=== PATIENT | female | born 1950 | race Caucasian/White ===

== ENCOUNTER 2018-11-02 08:26 | Inpatient (IN) ==
[2018-11-02] MEDS ORDERED: NS 1,000 ML IV ONE ×2 (08:49→10:23)
[2018-11-02] MEDS ORDERED: ZOFRAN IV ONE (08:50)
[2018-11-02] MEDS ORDERED: DILAUDID IV ONE (08:50)
[2018-11-02] MEDS ORDERED: DUONEB (A & A) INH ONE (08:50)
[2018-11-02 09:08] LABS: ALLEN TEST NO; BE 8.6 mmoll (-3.0-3.0); BLOOD TYPE ARTERIAL; HCO3-(ACT) 31.6 mmoll (20.0-26.0); METHB 1.6 % (0.0-1.5); O2(CT) 19.5 mL/dL (15.0-23.0); PO2(98.6) 147 mmHg (60-100); SAMPLE BLOOD; SAO2 99.3 % (95.0-100.0); THB 14.3 g/dL (11.5-17.4); pH(98.6) 7.42 (7.35-7.45)
[2018-11-02 09:09] LABS: MODALITY NRB; PCO2(98.6) 54 mmHg (35-45)
--- NOTE | 2018-11-02 09:49 | Diag Imaging Result Doc PS360 ---
CHEST-1 VIEW - 11/02/2018 INDICATION: possible sepsis COMPARISON: 01/22/2018 FINDINGS: There are extensive primarily central interstitial infiltrates bilaterally. Heart size and pulmonary vascularity is grossly normal. No pneumothorax or large pleural effusion. IMPRESSION: Extensive interstitial infiltrates bilaterally. Electronically signed by Faustino Villarreal 11/02/2018 9:47 AM
[2018-11-02 09:52] LABS: INR 0.83; PROTIME 12.1 Seconds (11.0-16.0)
[2018-11-02 09:53] LABS: PTT 31.9 Seconds (22.3-41.8)
[2018-11-02 09:54] LABS: BASO# 0.09 X1000 (0.0-0.2); BASO% 0.5 % (0.0-0.8); HEMOGLOBIN 14.6 g/dL (12.0-16.0); IMM GRAN# 0.05 X1000 (0.0-0.04); IMM GRAN% 0.3 % (0.0-0.5); LYMPH% 7.7 % (20.5-51.1); MCH 27.9 PG (27-31); MCHC 31.7 g/dL (33-37); MCV 87.8 FL (81-99); MONO% 5.4 % (1.7-9.3); MPV 11.4 FL (7.4-10.4); NEUT# 14.44 X1000 (1.4-6.5); NEUT% 86.1 % (42.2-75.2); PLT 236 X1000 (130-400); RBC 5.24 XMIL (4.2-5.4); RDW 13.9 % (11.5-14.5); WBC 16.78 X1000 (4.8-10.8)
[2018-11-02 10:02] LABS: BANDS 62 % (0-1); LYMPHS 4 % (21-51); SEGS 4 % (42-75)
[2018-11-02] MEDS ORDERED: SODIUM CHLORIDE 0.9% INJ ONE ×2 (10:23→13:46)
[2018-11-02] MEDS ORDERED: ROCEPHIN 1 GM in NS 50 ML IV ONE (10:23)
[2018-11-02] MEDS ORDERED: PROTONIX IV ONE (10:23)
[2018-11-02] MEDS ORDERED: KETAMINE IV ONE (10:51)
[2018-11-02] MEDS ORDERED: AMIDATE ONE (10:52)
[2018-11-02] MEDS ORDERED: QUELICIN ONE (10:52)
[2018-11-02] MEDS ORDERED: QUELICIN IV ONE (10:52)
[2018-11-02 10:55] LABS: ALB/GLOB RATIO 0.8; ALBUMIN 3.3 g/dL (3.5-5.0); CALCIUM 8.7 mg/dL (8.8-10.2); CREATININE 1.3 mg/dL (0.5-0.9); POTASSIUM 4.1 mmol/L (3.5-5.1); TOTAL BILIRUBIN 0.26 mg/dL (0.20-1.00); TOTAL PROTEIN 7.6 g/dL (6.3-8.3)
[2018-11-02] MEDS ORDERED: SOLU-MEDROL IV ONE (11:01)
[2018-11-02] MEDS ORDERED: AMIDATE IV ONE (11:01)
--- NOTE | 2018-11-02 11:38 | EKG Report ---
Test Performed on : 11/02/2018 08:53:18 AM Test Reason : ED. No order in [place] Blood Pressure : / mmHG Vent. Rate : 132 BPM Atrial Rate : 132 BPM P-R Int : 146 ms QRS Dur : 078 ms QT Int : 380 ms P-R-T Axes : 058 050 059 degrees QTc Int : 563 ms Sinus tachycardia. with premature atrial complexes. Possible Anterior infarct (cited on or before 02-NOV-2013) Abnormal ECG When compared with ECG of 02-NOV-2013 18:41, premature atrial complexes. are now present ST no longer depressed in Anterior leads T wave inversion no longer evident in Anterior leads Unconfirmed Result
[2018-11-02] MEDS ORDERED: FENTANYL IV ONE (11:54)
[2018-11-02] MEDS ORDERED: FENTANYL 1,000 MICROGM in NS 80 ML IV SCH (12:00)
--- NOTE | 2018-11-02 12:14 | Diag Imaging Result Doc PS360 ---
CT HEAD W/O CONTRAST - 11/02/2018 INDICATION: AMS COMPARISON: None FINDINGS: The ventricles and sulci are normal in size and contour. No intracranial mass or hemorrhage. There is mild patchy periventricular white matter chronic microvascular disease. The skull is intact. There is fluid opacification of many mastoid air cells bilaterally suggesting mastoiditis. The sinuses and middle ears are clear. IMPRESSION: 1. Mild cerebral white matter chronic vascular disease. 2. Mild bilateral mastoiditis. This exam was performed using automated exposure control, adjustment of mA or kV according to patient size, and/or use of iterative reconstruction technique Electronically signed by Faustino Villarreal 11/02/2018 12:12 PM
--- NOTE | 2018-11-02 12:25 | Diag Imaging Result Doc PS360 ---
EXAM: CT ABD/PELVIS W/IV CONT ONLY 11/02/2018 HISTORY: ACUTE ABD, SEPTIC TECHNIQUE: This exam was performed using automated exposure control, adjustment of mA or kV according to patient size, and/or use of iterative reconstruction technique. COMMENT: The current examination is compared with 11/02/2013. There are patchy coarse opacities throughout both lung bases which has worsened somewhat since the previous study. Some of this may be due to fibrosis as there were previously some patchy opacities. There is ascites. This was not present previously. The liver is less hypodense than it was previously. The common bile duct is 8 mm in diameter. This is slightly larger than on the previous examination. There is some intrahepatic biliary dilatation. The aorta is not distended. There are atherosclerotic calcifications. The renal and mesenteric arteries are patent. The adrenal glands and spleen are stable in appearance. There are numerous renal cysts bilaterally. There is no evidence of hydronephrosis. There are arterial calcifications bilaterally. There is a diverticulum from the second portion of the duodenum adjacent to the pancreatic head. The pancreas is unchanged in appearance. There is pneumoperitoneum. There is mucosal thickening in the transverse colon on the right which dips down into the pelvis. The appendix is normal in appearance. Some of the small bowel is distended. This may be due to ileus. There is no evidence of significant adenopathy. Pelvis: There is free fluid. There are no masses. There is no evidence of significant adenopathy. The urinary bladder is not distended. The regional skeleton is unchanged in appearance. IMPRESSION: Probable perforation of the transverse colon due to colitis or neoplasm. Pneumoperitoneum and possible peritonitis. Ascites. Patchy pneumonia versus pulmonary fibrosis. The findings were discussed with Demarcus Zayas MD at 11/02/2018 12:23 PM. Electronically signed by Thad Dupree 11/02/2018 12:23 PM
--- NOTE | 2018-11-02 13:08 | PROVIDER DOCUMENTATION ---
This chart was entered by Jasmyn Gant Scribe, acting as scribe for Demarcus Zayas MD. HPI-Abdominal Pain/GI Problem - General Chief Complaint: Abdominal Pain Stated Complaint: N/V Time Seen by Provider: 11/02/18 08:49 Source: patient Allergies/Adverse Reactions: Patient Allergies Allergy/AdvReac Type Severity Reaction Status Date / Time codeine Allergy Intermediate RASH Verified 11/02/13 13:37 Penicillins Allergy Intermediate RASH Verified 11/02/13 13:37 Home Medications: Home Medication List Medication Instructions Recorded Confirmed Last Taken Type Albuterol [Albuterol Neb] 2.5 mg INH RTQ6H 11/02/13 11/02/13 10/31/13 18:00 History Cholecalciferol (Vit D3) [Vitamin 5,000 unit PO Q7D 11/02/13 11/02/13 10/30/13 14:00 History D] Etanercept [Enbrel] 25 mg SQ Q7D 11/02/13 11/02/13 10/30/13 14:00 History Fluticasone/Salmeterol [Advair 1 each IH DIRECTED 11/02/13 11/02/13 11/02/13 08:00 History 500-50 Diskus] Ibandronate [Boniva] 150 mg PO DIRECTED 11/02/13 11/02/13 Unknown History LISINOpril [Prinivil] 10 mg PO DAILY 11/02/13 11/02/13 11/01/13 08:00 History Ropinirole HCl [Requip] 2 mg PO HS 11/02/13 11/02/13 11/01/13 21:00 History Sulfasalazine [Sulfazine] 1,000 mg PO BID 11/02/13 11/02/13 11/01/13 08:00 History Tiotropium Devon Inhaler 1 puff INH RTDAILY 11/02/13 11/02/13 11/01/13 21:00 History [Spiriva] Folic Acid 1 mg PO DAILY #0 tablet 11/06/13 Unknown Rx Metronidazole [Flagyl] 500 mg PO TID #0 tablet 11/06/13 Unknown Rx Pantoprazole [Protonix] 40 mg PO DAILY@0700 #0 tablet 11/06/13 Unknown Rx - History of Present Illness-ABD Nature of Presenting Problems: Patient is a 68 year old female who presents to the ED via EMS with epigastric abdominal pain. Patient states nausea and vomiting. Patient states symptoms started last night. Patient denies fever. Abdominal Pain Onset Location: reports: epigastric Pain Radiation: reports: no radiation Quality of Pain: reports: aching Severity in ED: reports: mild Onset/Duration: reports: last night Timing: reports: still present Activities at Onset: reports: light activity Modifying Factors: improves with: nothing Associated Symptoms: reports: nausea, vomiting Similar Symptoms Previously?: Yes Recently seen or treated by another doctor?: No Review of Systems - Adult - REVIEW OF SYSTEMS - ADULT Constitutional: reports: no symptoms reported Eyes: reports: no symptoms reported Ears, Nose, Mouth & Throat: reports: no symptoms reported Cardiovascular: reports: no symptoms reported Respiratory: reports: no symptoms reported Gastrointestinal: reports: abdominal pain (epigastric), nausea, vomiting. denies: diarrhea Genitourinary: reports: no symptoms reported Musculoskeletal: reports: no symptoms reported Integumentary: reports: no symptoms reported Neurological: reports: no symptoms reported Psychiatric: reports: no symptoms reported Endocrine: reports: no symptoms reported Hematologic/Lymphatic: reports: no symptoms reported Allergic/Immunologic: reports: no symptoms reported All Other Systems: Reviewed and Negative Past History - Adult - PAST MEDICAL HISTORY-ADULT Review of Records: reports: Nursing Assessment Review, Medications Reviewed, Social history reviewed & non-contributory. Major Childhood Illnesses: reports: denies history Cardiovascular: reports: HTN Respiratory: reports: asthma, COPD Gastrointestinal: reports: GERD Obstetrical/Gynecological: reports: denies history Genitourinary: reports: denies history Musculoskeletal: reports: denies history Neurological: reports: CVA Psychiatric: reports: denies history Endocrine/Immune: reports: thyroid disorder Other Conditions: reports: denies history - PRIOR SURGERIES/PROCEDURES Surgical/Procedure History: reports: reviewed, not pertinent, appendectomy, cholecystectomy - IMMUNIZATION STATUS Childhood Immunizations: See Nurse Assessment Flu Vaccine: See Nurse Assessment - FAMILY HISTORY Family History: reviewed, not pertinent - SOCIAL HISTORY Smoking: cigarettes (former) Substance Use: denies Physical Exam-General - PHYSICAL EXAM-ADULT Initial Vital Signs Reviewed: Yes - CONSTITUTIONAL General Appearance: alert, moderate distress, thin - HEAD, EARS, NOSE, MOUTH & THROAT HENMT: other (dry mucous membranes) - RESPIRATORY Respiratory: respiratory distress (mild), rales (diffuse bilaterally), increased rate - CARDIOVASCULAR Cardiovascular: normal peripheral pulses, tachycardia - GASTROINTESTINAL (ABDOMEN) Abdominal Exam: normal bowel sounds, soft, tenderness (epigastric) - MUSCULOSKELETAL Extremity: non-tender, normal inspection - SKIN Integumentary: pallor - NEUROLOGIC Neurologic: grossly normal - PSYCHIATRIC Psych/Mental Status: oriented x 3 Progress - PLAN OF CARE/RESULTS Progress/Plan/Lab Results: Vital Signs - 8 hr 11/02/18 08:30 Temperature 96.6 F L Pulse Rate 130 H Respiratory Rate 22 Blood Pressure 119/85 O2 Sat by Pulse Oximetry 91 L Orders Category Date Time Status 0.9% Sodium Chloride Inj [Ns] 1,000 ml Med 11/02/18 08:49 Active IV 999 mls/hr Albuterol 2.5MG/Ipratrop 0.5MG [Duoneb (A & A)] Med 11/02/18 08:50 Di scontinued 3 ml INH NOW ONE Hydromorphone [Dilaudid] Med 11/02/18 08:50 Discontinued 1 mg IV NOW ONE Ondansetron [Zofran] Med 11/02/18 08:50 Discontinued 4 mg IV NOW ONE Aerosol Treatments Routine Oth 11/02/18 08:52 Active Aerosol Treatments Stat Oth 11/02/18 08:52 Active Result Diagrams: 11/02/18 09:10 11/02/18 10:05 - REASSESSMENT Reassessment #1 Time Reassessed: 10:39 Status: worsening (pt has become unreposive to verbal, still has motor tone, now gaze deviated to left , 123hr, 99% bipap 106/68.) Reassessment #2 Time Reassessed: 10:58 Status: other (Dr. Zayas consulted with the patient's two daughters about the patient current status. Dr. Zayas informed the daughters that the patient has become unresponsive and she needs to be intubated. The patient's daughters agree and state that the patient is a full code.) - EKG 1 Time of EKG reading by physician:: 08:53 EKG Read and Signed by:: Demarcus Zayas EKG Interpretation (*Must complete 3 of following elements*): Abnormal Rate: 132 Rhythm: sinus tachycardia with premature atrial complexes Comments: possible anterior infarct, age undetermined - XRAY 1 XRAY Study: Chest Impression: See EMR Report ( CHEST-1 VIEW - 11/02/2018 INDICATION: possible sepsis COMPARISON: 01/22/2018 FINDINGS: There are extensive primarily central interstitial infiltrates bilaterally. Heart size and pulmonary vascularity is grossly normal. No pneumothorax or large pleural effusion. IMPR ESSION: Extensive interstitial infiltrates bilaterally. Electronically signed by Faustino Villarreal 11/02/2018 9:47 AM 11/02/18 0947 Interpreting Physician: Faustino Villarreal MD Dictated Date/Time: 11/02/18 0945 cc: Demarcus Zayas MD; Marcus Rodriguez) - CT/MRI 1 CT Study: Head Impression: See EMR Report ( CT HEAD W/O CONTRAST - 11/02/2018 INDICATION: AMS COMPARISON: None FINDINGS: The ventricles and sulci are normal in size and contour. No intracranial mass or hemorrhage. There is mild patchy perivent ricular white matter chronic microvascular disease. The skull is intact. There is fluid opacification of many mastoid air cells bilaterally suggesting mastoiditis. The sinuses and middle ears are clear. IMPRESSION: 1. Mild cerebral white matter chronic vascular disease. 2. Mild bilateral mastoiditis. This exam was performed using automated exposure control, adjustment of mA or kV according to patient size, and/or use of iterative reconstruction technique Electronically signed by Faustino Villarreal 11/02/2018 12:12 PM 11/02/18 1212 Interpreting Physician: Faustino Villarreal MD Dictated Date/Time: 11/02/18 1210 cc: Demarcus Zayas MD; Marcus Rodriguez) 2 CT Study: Abdomen, Pelvis Impression: See EMR Report ( EXAM: CT ABD/PELVIS W/IV CONT ONLY 11/02/2018 HISTORY: ACUTE ABD, SEPTIC TECHNIQUE: This exam was performed using automated exposure control, adjustment of mA or kV according to patient size, and/or use of iterative reconstruction technique. COMMENT: The current examination is compared with 11/02/2013. There are patchy coarse opacities throughout both lung bases which has worsened somewhat since the previous study. Some of this may be due to fibrosis as there were previously some patchy opacities. There is a scites. This was not present previously. The liver is less hypodense than it was previously. The common bile duct is 8 mm in diameter. This is slightly larger than on the previous examination. There is some intrahepatic biliary dilatation. The aorta is not distended. There are atherosclerotic calcifications. The renal and mesenteric arteries are patent. The adrenal glands and spleen are stable in appearance. There are numerous renal cysts bilaterally. There is no evidence of hydronephrosis. There are arterial calcifications bilaterally. There is a diverticulum from the second portion of the duodenum adjacent to the pancreatic head. The pancreas is unchanged in appearance. There is pneumoperitoneum. There is mucosal thickening in the transverse colon on the right which dips down into the pelvis. The appendix is normal in appearance. Some of the small bowel is distended. This may be due to ileus. There is no evidence of significant adenopathy. Pelvis: There is free fluid. There are no masses. There is no evidence of significant adenopathy. The urinary bladder is not distended. The re gional skeleton is unchanged in appearance. IMPRESSION: Probable perforation of the transverse colon due to colitis or neoplasm. Pneumoperitoneum and possible peritonitis. Ascites. Patchy pneumonia versus pulmonary fibrosis. The findings were discussed with Demarcus Zayas MD at 11/02/2018 12:23 PM. Electronically signed by Thad Dupree 11/02/2018 12:23 PM 11/02/18 1223 Interpreting Physician: Thad Dupree MD Dictated Date/Time: 11/02/18 1213 cc: Demarcus Zayas MD; Marcus Rodriguez) - CONSULTS/PCP/HOSPITALIST Notification #1 *Consult/PCP/Hospitalist*: Dr. Dupree Time Discussed: 12:23 Reason/Comments: Dr. Zayas consulted with Dr. Dupree about the patient's CT Consult Disposition: other (Dr. Dupree states the patient's CT shows a perforation of transverse colon with free air.) #2 Consult: AMOL Cardenas for Hospitalist Time Discussed: 12:54 (Dr. Paz accepted admit) Reason/Comments: Dr. Zayas consulted with Theresa about patient. Consult Disposition: Admit #3 Consult: Dr. Cummings Time Discussed: 12:55 Reason/Comments: Dr. Zayas consulted with Dr. Cummings about patient. Consult Disposition: Will see in ED, other (TO BEDSIDE AT 1305A, PLANS TO GO DIRECTLY TO SURGERY) Procedures - INTUBATION Time of Intubation: 11:09 Intubation Method: orotracheal Equipment: Glidescope Tube Size (cm): 7.5 Pretreated with 100% Oxygen?: Yes Breath Sounds after Intubation: equal ETT Primary Tube Confirmation: Capnometry CO2 Change, Direct Visualization, Chest Rise and Fall Intubation Complications: no complications Vent Settings: See Respiratory Therapy Notes Procedure Comment: patient received 20 mg of Etomidate and 100 mg of Succ prior to intubation. Departure - Departure Date of Disposition Decision: 11/02/18 Time of Disposition Decision: 12:54 DIAGNOSIS: Hypoxia, Perforation of colon, Abdominal pain, Acute CVA (cerebrovascular accident), COPD (chronic obstructive pulmonary disease), Sepsis Disposition: ADMITTED INPATIENT 09 Certified Medical Emergency: Emergent Condition: Poor Referrals and Follow-Ups: Marcus Rodriguez [Primary Care Provider] - - Critical Care Note This patient required my direct & personal management of CC.: Yes Total Time (mins): 76 Critical Care Statement: This patient required my direct personal management to treat or rule out processes, the absence of which, could potentiallly result in sudden, clinically significant life or limb threatening deterioration. Attestation - Physician/ FRANCOIS Attestation The physician spent face to face time with patient:: Yes Advanced Practice Provider documentation review:: Supervising physician onsite and consulted in the evaluation and care of this patient. The physician did have a face to face encounter with the patient. This chart was documented by the indicated scribe, (Jasmyn Gant Scribe) and accurately reflects the services I performed and decisions made by me, Demarcus Zayas MD, as attested by the provider's signature.
[2018-11-02] MEDS ORDERED: VANCOMYCIN IV PER PHARMACY MISC SCH ×2 (13:30→18:15)
--- NOTE | 2018-11-02 13:38 | HISTORY AND PHYSICAL ---
HISTORY OF PRESENT ILLNESS: Ms Josselin Bradford is a 68-year-old white female who yesterday evening began having abdominal pain which continued through the night. She presented to our emergency department this morning with abdominal pain, and since that time, she has become unstable requiring intubation and there was concern of whether she has had an acute stroke. A CT scan of her abdomen and pelvis suggests free air, and we were asked to evaluate her. PHYSICAL EXAMINATION: On exam, she is on the ventilator. She is unresponsive. I did speak with her daughters. She has no jaundice. No oral lesions. No cervical or supraclavicular lymphadenopathy. Her heart has a regular rate. She is tachycardic. Her lungs have some expiratory wheezing. She is on the ventilator. Her abdomen is distended. It does appear to be tender. She does react to pain. She had costovertebral tenderness bilaterally. Rectal and vaginal exams were not performed. She does have palpable femoral pulses. She has no significant peripheral edema. Neurologically, it is hard to examine her. DIAGNOSTIC STUDIES: I reviewed the CT scan with our radiologist, Dr. Dupree. It appears that she has free air. It is unsure of the etiology. IMPRESSION: Acute abdomen. PLAN: Exploratory laparotomy with indicated procedures. I did discuss this in detail with the daughters at the bedside in the emergency department, including risks of bleeding, infection, possible colostomy or ileostomy. The daughters understand that she is acutely ill with hypotension on the ventilator. They understand she is going to have to go through our emergency major surgery. She will be hospitalized in the ICU on the ventilator afterwards. They want to proceed. cc: Violetta Cummings MD
[2018-11-02] MEDS ORDERED: ZOFRAN IV PRN (13:40)
[2018-11-02] MEDS ORDERED: MERREM 500 MG in NS 50 ML IV SCH (13:45)
[2018-11-02] MEDS ORDERED: NS 1,000 ML IV SCH ×2 (14:00→16:00)
[2018-11-02] MEDS ORDERED: VANCOMYCIN 1,200 MG in NS 250 ML IV ONE (14:00)
[2018-11-02] MEDS: LEVAQUIN 500 MG/D5W 500 MG/100 ML IVPB IV SCH ×2 (14:06→15:40)
[2018-11-02] MEDS: FLAGYL 500 MG/NS 500 MG/100 ML IVPB IV SCH ×2 (14:09→15:40)
[2018-11-02] MEDS ORDERED: ZEMURON ONE (14:12)
[2018-11-02] MEDS ORDERED: NORCURON ONE (14:12)
[2018-11-02] MEDS ORDERED: OFIRMEV 1000 MG/ISOTONIC SOLN 1,000 MG/100 ML BOTTLE ONE (14:12)
[2018-11-02] MEDS ORDERED: DECADRON ONE (14:13)
[2018-11-02 14:27] LABS: URINE SOURCE CATH
[2018-11-02 14:29] LABS: BILIRUBIN URINE NEGATIVE (NEGATIVE); BLOOD URINE MODERATE (NEGATIVE); COLOR YELLOW; GLUCOSE URINE NEGATIVE (NEGATIVE); KETONE URINE NEGATIVE (NEGATIVE); LEUKOCYTES URINE NEGATIVE (NEGATIVE); NITRITE URINE NEGATIVE (NEGATIVE); PROTEIN URINE 300 mg/dL (NEGATIVE); SP GRAVITY URINE 1.025; TURBIDITY URINE HAZY (CLEAR); UROBILINOGEN URINE NORMAL (NORMAL)
[2018-11-02 14:32] LABS: UR EPITHELIAL CELLS >10 /HPF (<10); URINE BACTERIA NEGATIVE /HPF
[2018-11-02 14:40] LABS: URINE CASTS NONE SEEN; URINE CRYSTALS NONE SEEN; URINE YEAST NONE SEEN
--- NOTE | 2018-11-02 15:38 | OPERATIVE NOTE ---
PROCEDURE DATE: 11/02/2018 PREOPERATIVE DIAGNOSIS: Acute abdomen with free intra-abdominal air. POSTOPERATIVE DIAGNOSIS: Perforated posterior distal gastric ulcer. PRINCIPAL PROCEDURE: Exploratory laparotomy with primary repair and patching of perforated distal gastric ulcer. SURGEON: Violetta Cummings MD. ANESTHESIA: General. ESTIMATED BLOOD LOSS: 150 mL. DRAINS: None. INDICATIONS: Kamilla Bradford is a 68-year-old white female with rheumatoid arthritis and COPD. She began hurting in her abdomen yesterday evening and presented to our emergency department this morning. Had to be intubated and there was question whether she suffered a stroke. CT scan of the abdomen suggested free intra-abdominal air. Prior to her being intubated, she was having significant abdominal pain. FINDINGS: She had a perforated gastric ulcer posteriorly, just proximal to the pylorus with gross intra-abdominal contamination. Her tissues were soft and she bled easily. DESCRIPTION OF PROCEDURE: The patient was brought to the operating room, placed supine, and received general anesthesia. She was already intubated. Whitney catheter tube was placed as was an NG tube. Her abdomen was prepped and draped in a sterile field. I used an Ioban on the skin. I made a midline incision with a 10 blade scalpel. This incision was carried down through the subcutaneous tissue and the midline fascia with cautery. The abdomen was carefully entered and she had gross thin black fluid as intra-abdominal contamination. It was not foul smelling and we took time to remove this free fluid from the abdomen using suction. We identified the perforation which was posteriorly on the distal antrum just proximal to the pylorus. I closed this perforation quickly primarily with 2-0 silk stitches. I had to control some bleeding around this area from the fat and this was controlled with [id number] 3-0 silk stitches. I then irrigated the abdomen with multiple L of warm saline and again all 4 quadrants were carefully cleaned with this irrigation and the irrigation was removed with suction. I laid the stomach back down on a bed of fatty tissue in the mesocolon, and I placed the bowel back in its anatomically correct position. I also put the omentum over the surface of the bowel. I closed the midline fascia in layers, the first layer was the peritoneum with a running 0 Vicryl stitch, and then I closed the fascia with a running #1 Maxon stitch. I irrigated the wound and the skin was closed with a skin clip sales management trainee. Dressings were applied. She tolerated the procedure well. Plans are for her to go to the ICU intubated with NG tube, Whitney catheter tube in place. cc: Violetta Cummings MD
[2018-11-02] MEDS ORDERED: ALBUMIN 25% ONE (15:51)
[2018-11-02] MEDS: PROTONIX 80 MG in NS 80 ML IV SCH (16:22)
[2018-11-02] MEDS ORDERED: CUBICIN 300 MG in NS 100 ML IV SCH (17:45)
[2018-11-02] MEDS ORDERED: MERREM 500 MG in NS 50 ML IV ONE (18:00)
[2018-11-02 18:01] LABS: ALLEN TEST YES; BE 1.8 mmoll (-3.0-3.0); BLOOD TYPE ARTERIAL; HCO3-(ACT) 26.3 mmoll (20.0-26.0); METHB 1.1 % (0.0-1.5); O2(CT) 16.6 mL/dL (15.0-23.0); O2HB 94.4 % (95.0-99.0); PO2(98.6) 75 mmHg (60-100); SAMPLE BLOOD; SRATE 16 BPM; THB 12.5 g/dL (11.5-17.4); TVOL 450 mL
[2018-11-02 18:07] LABS: MODALITY VENTILATOR
[2018-11-02 18:08] LABS: PCO2(98.6) 60 mmHg (35-45)
[2018-11-02 18:09] LABS: URINE SOURCE CATH
[2018-11-02 18:16] LABS: BILIRUBIN URINE NEGATIVE (NEGATIVE); BLOOD URINE LARGE (NEGATIVE); COLOR YELLOW; GLUCOSE URINE NEGATIVE (NEGATIVE); KETONE URINE NEGATIVE (NEGATIVE); LEUKOCYTES URINE NEGATIVE (NEGATIVE); NITRITE URINE NEGATIVE (NEGATIVE); PH URINE 5.5; PROTEIN URINE 70 mg/dL (NEGATIVE); SP GRAVITY URINE 1.022; TURBIDITY URINE CLEAR (CLEAR); UROBILINOGEN URINE NORMAL (NORMAL)
[2018-11-02 18:22] LABS: UR EPITHELIAL CELLS <10 /HPF (<10); URINE BACTERIA NEGATIVE /HPF; URINE RBC TNTC /HPF (<10); URINE WBC <10 /HPF (<10)
[2018-11-02 18:24] LABS: URINE CASTS NONE SEEN; URINE CRYSTALS NONE SEEN; URINE YEAST NONE SEEN
--- NOTE | 2018-11-02 18:27 | INFECTIOUS DISEASE PROGRESS NO ---
DATE: 11/02/2018 CONCLUSION: The patient has a perforated gastric ulcer with an associated peritonitis. She also has bilateral pulmonary infiltrates which could represent an aspiration pneumonia. Patient also has a penicillin allergy which is manifested by a rash. RECOMMENDATIONS: I have increased the dose of meropenem to 1 g IV every 8 hours. I have discontinued levofloxacin, vancomycin and Flagyl and instead I have ordered along with meropenem, daptomycin. PRESENT ILLNESS: It should be noted that the patient is unable to provide a history. No family member is present. The patient's present illness, she initially complained of having abdominal pain. She eventually came to the emergency department and a CT scan was performed. It showed probable perforation. There also was peritonitis. There also was seen patchy pneumonia. LABS: The patient's CBC shows a white count of 16,780, hemoglobin 14.6, and platelet count 236,000. Blood gases show a pH of 7.42, a pO2 of 147 and a pCO2 of 54. Creatinine is 1.3. GFR is 41. Urinalysis showed white cells, but no bacteria. Blood, urine and sputum cultures are pending. Chest x-ray shows bilateral infiltrates. PAST MEDICAL HISTORY: Positive for rheumatoid arthritis and COPD. Previous hospitalizations and operations: Unknown. Medical diseases unknown. Infectious disease history unknown. REVIEW OF SYSTEMS: Unable to be obtained. FAMILY HISTORY: Unknown. ALLERGIES: The patient is allergic to codeine and penicillins. HOME MEDICATIONS: Are albuterol inhaler, Enbrel, Boniva, Prinivil, Flagyl. Protonix, Requip, sulfasalazine, and Spiriva. PHYSICAL EXAMINATION: Vital Signs: Temperature is 96.8, pulse 92, respirations 14, blood pressure 104/62. The patient is 68 years old. She is 5 feet tall, weighs 107 pounds. General: This is an ill-appearing, elderly female. She is intubated and sedated. She has just come from the emergency room. HEENT: Patient is intubated as mentioned above. There is no drainage from the nose or ears. Neck: No meningismus. Lungs: Clear to auscultation. Cardiovascular: Heart rate is regular. Abdomen: Soft. There is a long incision which has a dressing on it, the dressing is in place. Neurologic: Patient is obtunded. She did not respond to verbal stimuli. There was no tremor. Integument: No rash noted. Thank you for the consult. cc: Mustapha Nicholson MD
[2018-11-02] MEDS: MORPHINE IV PRN (18:37)
--- NOTE | 2018-11-02 19:15 | HISTORY AND PHYSICAL ---
PRIMARY CARE PROVIDER: Dr. Arden Rodriguez. GENERAL SURGEON: Dr. Cummings. ALL AROUND PATTERNMAKER: Dr. Sam Salmeron. INFECTIOUS DISEASE: Dr. Nicholson. NEUROLOGIST: Dr. Carola Pugh. CHIEF COMPLAINT: Per ED notes, abdominal pain, nausea, vomiting. HISTORY OF PRESENT ILLNESS: Per ED notes, the patient is a 68-year-old female who presented to the ED via EMS with epigastric and abdominal pain with nausea and vomiting. Her symptoms have started the night prior. Denied any fever. Past medical history of COPD, hypertension, GERD, CVA, thyroid disorder. Imaging in the ED revealed a probable perforation of the transverse colon due to colitis or neoplasm, pneumoperitoneum and possible peritonitis, ascites, patchy pneumonia versus pulmonary fibrosis. Dr. Cummings was consulted. The patient was emergently taken to the ER for exploratory laparotomy with primary repair and patching of a perforated distal gastric ulcer. She was intubated prior to going to the OR, presumably secondary to an acute CVA. Her head CT was negative for any acute findings. We have consulted Dr. Mustapha Nicholson. She has been initiated on broad-spectrum antibiotics as well as Neurology and Pulmonology for acute respiratory failure. The patient now appears to be resting comfortably in the ICU. There is no family currently at the bedside, PAST MEDICAL HISTORY: 1. COPD. 2. Hypertension. 3. Gastroesophageal reflux disease. 4. CVA. 5. Hypothyroidism. PAST SURGICAL HISTORY: 1. Appendectomy. 2. Cholecystectomy. SOCIAL HISTORY: Unknown. FAMILY HISTORY: Unknown. REVIEW OF SYSTEMS: Unable to obtain secondary to the patient being intubated and sedated after surgery. PHYSICAL EXAMINATION: VITAL SIGNS: Temperature is 96.8 degrees. He does currently have a Eden Hugger on. Heart rate 97. Blood pressure 104/60. O2 is 96% on mechanical ventilation. GENERAL: Ms. Montelongo is a 68-year-old female who is lying in the ICU in no acute distress, intubated. HEENT: Atraumatic, normocephalic. PERRL. NECK: Supple. Trachea midline. CARDIOVASCULAR: S1 and S2 appreciated. No murmurs, gallops, or rubs noted. RESPIRATORY: Lung sounds scattered rhonchi. ABDOMEN: Appears to be distended. The patient did not react to palpation. She does have a rather large midline incision. Hypoactive bowel sounds. GENITOURINARY: Whitney draining clear urine. EXTREMITIES: No clubbing or cyanosis. Bilateral pedal pulses are palpable. Upper extremities appear to have extreme arthritis. NEUROLOGIC: Unable to assess secondary to the patient being intubated and sedated. DIAGNOSTIC DATA: 1. Chest x-ray: Extensive interstitial infiltrates bilaterally. 2. Head CT: Mild cerebral white matter vascular disease. Mild bilateral mastoiditis. 3. Abdomen and pelvis CT: Probable perforation of the transverse colon due to colitis or neoplasm, pneumoperitoneum and possible peritonitis, ascites, patchy pneumonia versus pulmonary fibrosis. 4. Exploratory laparotomy with primary repair and patching of a perforated distal gastric ulcer, performed by Dr. Cummings. LABORATORY DATA: White count 16, hemoglobin and hematocrit 14 and 46, platelet count is 236,000. ABG: pH 7.42, pCO2 is 54, pCO2 147, bicarb 31, base excess 8.6. O2 saturation was 99% on non- rebreather. Sodium 132, potassium 4.1, BUN 28, creatinine 1.3, blood glucose 156, AST 33, ALT 8, troponin 0.015, albumin 3.3. Plasma lactate, first was 3.1, second was 2.2. Urinalysis was negative for bacteria, negative for nitrites. ASSESSMENT AND PLAN: 1. Acute abdomen, status post exploratory laparotomy with primary repair and patching of perforated distal gastric ulcer, performed by Dr. Cummings. The patient remains intubated. She is now in the ICU. We will continue with broad-spectrum antibiotics, intravenous Protonix, and intravenous fluids. 2. Question if patient had a cerebrovascular accident. She went unresponsive and had to be intubated. Head CT did not show anything acute. We have consulted Neurology. Will follow up with brain MRI and MRA when appropriate. We can go ahead and check echocardiogram and carotids tomorrow. Right now she is intubated and sedated. We will do neurology checks once the patient is more awake and alert and extubated. 3. Chronic obstructive pulmonary disease. We will continue with scheduled and as needed breathing treatments. 4. Gastroesophageal reflux disease. Continue proton pump inhibitor. 5. Hypertension. The patient is now normotensive. 6. Sepsis, secondary to number 1. Continue antibiotics and intravenous hydration. 7. Further recommendations to follow physician evaluation, laboratory, and diagnostic data. Dictated by AMOL Richter for Val Paz MD cc: MD Violetta Wood MD Leroy F. Harris, MD I performed a face to face encounter on the patient. I reviewed all labs and imaging on the patient. I agree with the H&P as dictated. Mrs. Montelongo was admitted with an acute abdomen secondary to a perforated gastric ulcer. She was taken the OR emergently and then admitted to the ICU. On exam, the patient is currently intubated and sedated. Her breath sounds are clear to auscultation bilaterally. Her extremities are warm to touch with no edema noted. Pulmonary has been consulted for assistance with ventilator management. Will also consult with the Neurologist since there is a possibility that the patient had a stroke. YANIRA
--- NOTE | 2018-11-02 19:28 | PULMONOLOGY CONSULTATION ---
DATE: 11/02/2018 REQUESTING PHYSICIAN: Val Paz MD. REASON FOR CONSULTATION: Respiratory failure. HISTORY OF PRESENT ILLNESS: Ms. Bradford is a 68-year-old, white female with severe COPD, prior stroke, rheumatoid arthritis on Enbrel, obstructive sleep apnea, and hypothyroidism, who presented to the emergency room with acute abdominal pain. CT scan of the abdomen and pelvis revealed probable perforated bowel with air present. The patient was evaluated by Dr. Cummings. The patient was taken to the operating room for an acute abdomen with free intraabdominal air. The patient was found to have a perforated posterior distal gastric ulcer. This was repaired. The patient was brought to the intensive care unit. The patient was noted to have gross intraabdominal contamination associated with perforation. She remains on mechanical ventilation. PAST MEDICAL HISTORY/PROBLEM LIST: 1. COPD with prior tobacco history. Current nursing intake reports she is not currently smoking. 2. Rheumatoid arthritis on Enbrel. 3. Prior stroke. Current CT scan for altered mental status prior to surgery revealed no evidence of acute disease. 4. Obstructive sleep apnea. 5. Hypothyroidism. 6. Hypertension. SOCIAL HISTORY: Prior tobacco use as per above. No alcohol use listed. FAMILY HISTORY: Positive for rheumatoid arthritis, coronary artery disease. REVIEW OF SYSTEMS: Cannot be obtained. PHYSICAL EXAMINATION: General: Reveals a frail, chronically ill-appearing, white female, who appears older than her stated age. BP 98/61, heart rate 103, respiratory rate 16, oxygen saturation 97%. The patient does not fully exhale with current tidal volume. HEENT: Pupils are equal. Oropharynx is clear. Neck: Supple. Chest: Reveals prolonged expiratory phase. No wheezing. No rhonchi. Cardiac: Distant heart sounds. Normal S1, normal S2. Rhythm appears to be regular. Abdomen: Soft. Surgical dressings in place. Extremities: Slightly cool to the touch with slight delay in capillary refill. LABORATORIES: Arterial blood gas after surgery reveals a pH of 7.30, pCO2 of 60, pO2 of 75 with a normal lactate. White blood count 16.8, hemoglobin 14.6, platelet count 236,000. Sodium 132, potassium 4.1, chloride 87, bicarbonate 31, anion gap 14, BUN 28, creatinine 1.3, albumin 3.3. Chest x-ray reveals generous cardiac silhouette, prominent interstitial markings bilaterally. IMPRESSION: 1. A 68-year-old with clinical exam consistent with severe chronic obstructive pulmonary disease with greater than 12 second expiratory time, acute hypoxemic respiratory failure, probable chronic hypoxemic respiratory failure, acute hypercapnic respiratory failure. 2. Status post emergent surgery for perforated aggressive gastric ulcer with diffuse intraabdominal contamination. She has had a surgical repair with a washout of the abdomen. 3. With her age, severe chronic obstructive pulmonary disease, immunosuppression associated with Enbrel, her prognosis is guarded. RECOMMENDATION: 1. Ventilatory adjustments have been made for her severe COPD and CO2 retention. 2. Continue antibiotics as directed by Infectious Disease. 3. Routine gastric acid suppression. 4. Sputum for C and S. 5. We will use Diprivan for sedation. 6. Sputum for cultures and sensitivity as you are doing. 7. Check a cortisol level tomorrow. 8. We will obtain echocardiogram tomorrow. The patient has relative cardiomegaly with degree of her obstruction. PROGNOSIS: Guarded as outlined above. Time spent Critical Care: 30+minutes cc: Sam Corral MD MTD
[2018-11-02] MEDS: D5 IV SCH (20:07)
[2018-11-02] MEDS: SODIUM BICARBONATE IV SCH (20:07)
[2018-11-02] MEDS: 1/2 NS IV SCH (20:07)
[2018-11-02] MEDS: DIPRIVAN 1% 1,000 MG/100 ML BOTTLE IV SCH (20:23)
[2018-11-02] MEDS: DUONEB (A & A) INH SCH (21:02)
[2018-11-02] MEDS: MERREM 1,000 MG in NS 50 ML IV SCH (23:20)
[2018-11-03] MEDS: PROTONIX 80 MG in NS 80 ML IV SCH ×3 (02:48→21:41)
[2018-11-03] MEDS: DUONEB (A & A) INH SCH ×4 (03:28→21:15)
[2018-11-03 04:24] LABS: ALLEN TEST YES; BLOOD TYPE ARTERIAL; HCO3-(ACT) 28.8 mmoll (20.0-26.0); METHB 1.1 % (0.0-1.5); O2(CT) 10.9 mL/dL (15.0-23.0); O2HB 96.4 % (95.0-99.0); PCO2(98.6) 45 mmHg (35-45); PO2(98.6) 96 mmHg (60-100); SAMPLE BLOOD; SAO2 98.9 % (95.0-100.0); SRATE 11 BPM; THB 7.9 g/dL (11.5-17.4); TVOL 700 mL; pH(98.6) 7.43 (7.35-7.45)
[2018-11-03 04:25] LABS: MODALITY VENTILATOR
--- NOTE | 2018-11-03 06:30 | Diag Imaging Result Doc PS360 ---
EXAM: CHEST-PORTABLE HISTORY: intubation TECHNIQUE: Portable chest single view COMPARISON: 11/02/2018 FINDINGS: An endotracheal tube has been placed. The tip lies approximately 3 cm above the amarilis. A nasogastric tube has also been placed which overlies the esophagus and stomach. There are increased interstitial markings throughout both lungs similar to the prior exam. No cardiomegaly. No pleural effusions identified. IMPRESSION: Endotracheal and nasogastric tubes in good position Electronically signed by Griffin Ball 11/03/2018 6:28 AM
[2018-11-03 06:44] LABS: ALB/GLOB RATIO 0.6; ALBUMIN 2.1 g/dL (3.5-5.0); CALCIUM 7.6 mg/dL (8.8-10.2); CREATININE 1.6 mg/dL (0.5-0.9); POTASSIUM 4.2 mmol/L (3.5-5.1); TOTAL BILIRUBIN 0.3 mg/dL (0.20-1.00); TOTAL PROTEIN 5.4 g/dL (6.3-8.3)
[2018-11-03 07:45] LABS: HEMOGLOBIN A1C 4.5 % (4.8-6.0)
[2018-11-03 07:55] LABS: BASO# 0.03 X1000 (0.0-0.2); BASO% 0.2 % (0.0-0.8); HEMATOCRIT 27.7 % (37.0-47.0); HEMOGLOBIN 8.7 g/dL (12.0-16.0); IMM GRAN# 0.05 X1000 (0.0-0.04); IMM GRAN% 0.4 % (0.0-0.5); LYMPH# 1.12 X1000 (1.2-3.4); LYMPH% 9.3 % (20.5-51.1); MCHC 31.4 g/dL (33-37); MCV 89.1 FL (81-99); MONO# 0.57 X1000 (0.11-0.59); MONO% 4.7 % (1.7-9.3); MPV 11.1 FL (7.4-10.4); NEUT% 85.4 % (42.2-75.2); PLT 156 X1000 (130-400); RBC 3.11 XMIL (4.2-5.4); RDW 13.5 % (11.5-14.5); WBC 12.07 X1000 (4.8-10.8)
[2018-11-03 08:13] LABS: BANDS 64 % (0-1); HYPOCHROM 1+; LYMPHS 8 % (21-51); MONO 2 % (1-9); SEGS 10 % (42-75)
[2018-11-03] MEDS: SODIUM BICARBONATE IV SCH (08:16)
[2018-11-03] MEDS: MERREM 1,000 MG in NS 50 ML IV SCH ×3 (08:16→23:41)
[2018-11-03] MEDS: 1/2 NS IV SCH (08:16)
[2018-11-03] MEDS: D5 IV SCH (08:16)
[2018-11-03] MEDS: MORPHINE IV PRN ×2 (08:16→12:10)
[2018-11-03] MEDS: DIPRIVAN 1% 1,000 MG/100 ML BOTTLE IV SCH ×2 (08:17→20:12)
[2018-11-03] MEDS ORDERED: ALBUMIN 25% IV ONE (09:22)
[2018-11-03] MEDS ORDERED: NS 400 ML IV ONE (09:28)
--- NOTE | 2018-11-03 13:42 | PROGRESS NOTE ---
DATE: 11/03/2018 PRIMARY CARE PHYSICIAN: Dr. Marcus Rodriguez. SUBJECTIVE: A 68-year-old presented to the ER with epigastric abdominal pain, nausea, and vomiting. Symptoms started on the prior evening. Denied any fever. Past medical history for COPD, hypertension, gastroesophageal reflux disease, CVA, thyroid disorder. Imaging showed probable perforation in transverse colon due to colitis or neoplasm, pneumoperitoneum, possible peritonitis so was taken to surgery and went to exploratory laparotomy, primary repair, and patching of perforated distal gastric ulcer performed by Dr. Cummings. She is on broad-spectrum antibiotics. NG tube still in place. OBJECTIVE: Vital Signs: Remains afebrile with temperature 97.8 degrees, pulse 89, respirations 12, blood pressure 99/55. HEENT: Pupils are equal and round. Lungs: Clear in all lung fischer anterolateral. Cardiovascular: Regular rhythm and rate without murmur or S3. Abdomen: Soft. Abdominal incision dry and clean. LABORATORY STUDIES: Urine output is 3600 mL. RADIOLOGIC STUDIES: Chest x-ray revealed endotracheal nasal gastric tube in good position. ASSESSMENT AND PLAN: A 68-year-old with severe chronic obstructive pulmonary disease, greater than 12 second expiratory time, acute hypoxemic respiratory failure, probable chronic hypoxemic respiratory failure, acute hypercapnic respiratory failure. She is status post emergent surgery for perforated gastric ulcer with diffuse intra-abdominal contamination. Continue present antibiotics. She has some immunosuppression related to taking Enbrel and I will continue present measures. Looking at her orders, she is on meropenem 1000 mg IV q.8 h. and she has been given some albumin yesterday. Vancomycin 1 g IV q.48 h. She is on a Protonix drip. cc: Mike Casillas MD
--- NOTE | 2018-11-03 14:05 | CONSULTATION ---
DATE OF CONSULTATION: 11/03/2018 REASON FOR CONSULTATION: Question of stroke. HISTORY OF PRESENT ILLNESS: This is a 68-year-old female who was admitted yesterday with acute abdomen. She presented with abdominal pain, nausea and vomiting. She was taken emergently to the OR for exploratory laparotomy, and repair of a perforated distal gastric ulcer. History is from chart review. Apparently, while in the emergency department she had become unresponsive to verbal stimuli. It is documented that she had motor tone and gaze deviated to the left. Heart rate was 123 and O2 saturation 99% on BiPAP. Blood pressure was 106/68. She was intubated due to this event. Head CT did not show acute findings. Today, she is postop and on sedation but is able to follow commands. PAST MEDICAL HISTORY: 1. Report of remote stroke. 2. COPD. 3. Hypertension. 4. GERD. 5. Hypothyroidism. 6. Appendectomy. 7. Cholecystectomy. 8. Rheumatoid arthritis on Enbrel. SOCIAL HISTORY: Previous tobacco use. No alcohol or illicit's. FAMILY HISTORY: Positive for coronary disease and rheumatoid arthritis. ALLERGIES: Listed to codeine and penicillins. CURRENT MEDICATIONS: Reviewed in the chart and includes p.r.n. lorazepam, p.r.n. morphine with last dose of 4 mg today at noon, and Diprivan. REVIEW OF SYSTEMS: Unobtainable due to patient being intubated. PHYSICAL EXAMINATION: Vital Signs: Afebrile. Blood pressure 119/85 on admission. Current 99 to low 100s over 50s to 60s. Respirations 12. She is on the ventilator. Ms. Bradford is supine in bed on mechanical ventilation. She is resting with eyes closed. She does not alert to loud verbal stimuli. She arouses with the addition of tactile stimulus. She regards. She is attentive for the most part. She follows simple commands. Left right and digit distinction preserved. Pupils are equal, round, sluggishly reactive to light, miotic OU. Gaze is conjugate and forward. Extraocular movements are full. She blinks to threat in visual fischer. Face appears symmetric with equal activation. She can hear. Strength appears to be symmetric in the arms and legs as tested. 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 Lower extremities are at least antigravity bilaterally without obvious focal finding. She responds to sensory stimulus in all 4 extremities. Reflexes are trace at the ankles, and 1+ at the knees bilaterally. No clonus. Plantar response is equivocal bilaterally. 1+ reflexes at the biceps bilaterally. Rapid alternating movements and fine motor movements of the hands are limited bilaterally from arthritis. DIAGNOSTICS: Noncontrasted head CT was personally reviewed. No acute findings. There is mention of mild chronic microvascular ischemic changes. White count 12 today. PT/INR and PTT normal. Sodium of 132, BUN 36, and creatinine 1.6. Blood sugars 111 to mid 100s. A1c of 4.5. Calcium 7.6. AST 28, ALT 5. ASSESSMENT AND PLAN: A 68-year-old female with apparent history of remote stroke admitted with acute abdomen status post surgical correction of perforated gastric ulcer. She had an episode of sudden unresponsiveness with question of eyes deviated to the left while waiting in the emergency department. There was no report of shaking. She would just not verbally respond and her gaze was deviated to the left. There was no report of focal weakness. The etiology is uncertain, but agree with workup for stroke as well as consideration of possible seizure. I would recommend obtaining noncontrasted MRI of the brain once able. I have ordered a routine EEG as well. I would monitor her blood pressure and avoid hypotension. Continue neuro checks. Thank you for the consultation. cc: Carola Pugh MD
[2018-11-03] MEDS ORDERED: NS 500 ML IV ONE (14:24)
--- NOTE | 2018-11-03 14:31 | PULMONOLOGY PROGRESS NOTE ---
DATE: 11/03/2018 SUBJECTIVE: The patient is sedated. She is comfortable on mechanical ventilation. She is not breathing over the set rate. Her urine output has dropped to 10 to 15 mL. She is not currently requiring any vasopressors. OBJECTIVE: Vital Signs: The patient has been afebrile for the last 24 hours. Blood pressure 100/53, heart rate 71, respiratory rate 11, oxygen saturation 96%. HEENT: Pupils are equal and reactive. Oropharynx is clear. Lungs: Reveals good air entry bilaterally with prolonged expiratory phase. Cardiac: S1, S2. Abdomen: Soft with no bowel sounds present. Surgical dressings are in place and are clean and dry. Extremities: Without cyanosis or edema. LABORATORY DATA: White blood count 12, hemoglobin 8.7, platelet count 156,000. Sodium 132, potassium 3.2, chloride 96, bicarbonate 26, anion gap 10, BUN 36, creatinine 1.6, albumin 2.1. Sputum culture is pending with more incubation required. Chest x-ray reveals endotracheal tube in good position with increased interstitial markings bilaterally which are unchanged. Arterial blood gas with pH 7.43, pCO2 of 45, PO2 of 96. IMPRESSION: 1. A 68-year-old with severe chronic obstructive pulmonary disease. 2. Chronic hypoxemic and chronic hypercapnic respiratory failure. 3. Acute hypercapnic respiratory failure on mechanical ventilation. 4. Protein-calorie malnutrition. 5. Acute renal failure associated with acute illness. 6. Chronic immunosuppression for rheumatoid arthritis. 7. Protein calorie malnutrition. RECOMMENDATIONS: 1. Continue current ventilatory support with ongoing fluid resuscitation given her acute renal insufficiency/failure. 2. Continue bronchial hygiene. 3. Continue antibiotics per Dr. Mustapha Nicholson. 4. Await results of sputum cultures. 5. Continue gastric acid suppression. 6. Continue sedation. 7. Awaiting echocardiogram report. 8. Overall prognosis is guarded. TIME SPENT: Critical care management 30+ minutes. cc: Sam Corral MD
--- NOTE | 2018-11-03 15:30 | PROGRESS NOTE ---
DATE: 11/03/2018 SUBJECTIVE: Ms. Kamilla George is now postop day 1 from the emergency exploratory laparotomy with closure of a posterior distal gastric ulcer that was perforated. She had gross intra- abdominal contamination and we took time to thoroughly wash out her abdomen. She does have a history of rheumatoid arthritis and COPD. OBJECTIVE: She remains on the ventilator in our ICU postop day 1. She is awake. Her midline incision is dry. Her abdomen is slightly distended. She has a Whitney catheter tube in place and NG tube in place. Her heart rate is 78 to 99, blood pressure 109/58. O2 saturation 97%. She is on minimal ventilator settings. FiO2 of 30% with a PEEP of 5. Tidal volume 500, rate of 10. She appears to be comfortable. Urine output is improving. She has a BUN and creatinine of 36 and 1.6. Her white blood cell count has gone from 16 to 12, and hematocrit is 28%. Otherwise, her electrolytes are okay as are her liver function tests. PLAN: Continue supportive care per our critical care physician Dr. Corral and our hospitalists. I will leave her NG tube in place for now. She is on IV Protonix. cc: Violetta Cummings MD
[2018-11-03] MEDS: NS 1,000 ML IV SCH (16:49)
[2018-11-03] MEDS: ZYVOX 600 MG/D5W 600 MG/300 ML IVPB IV SCH (17:53)
--- NOTE | 2018-11-03 19:12 | INFECTIOUS DISEASE PROGRESS NO ---
DATE: 11/03/2018 PRESENT ILLNESS: Ms. Bradford has had a perforated gastric ulcer and is status post exploratory laparoscopy with closure and washout of her abdomen, with an associated peritonitis. There is also a possible pneumonia with a gram-negative juan a noted on the Gram stain of her sputum. She also has a gram-positive coccus on the Gram stain of her blood cultures, 1 out of 2, which may be a contaminant. She also has an acute kidney injury. MEDICATIONS: She is receiving meropenem 1 g IV every 8 hours, and IV vancomycin per pharmacy dosing. PHYSICAL EXAMINATION: Vital Signs: Temperature is 97.8 degrees, pulse rate 73, respiratory rate 12. Blood pressure 102/50. O2 saturation is 97% on 35% FiO2 on the mechanical ventilator. General: This is an acutely ill-appearing elderly female. She is lying in the bed. Lethargic but arousable in no acute distress. HEENT: Atraumatic, normocephalic. Oral ET tube is in place. Oral mucous membranes are pink and moist. Conjunctivae are pale. Cardiovascular: Heart rate and rhythm are regular. Normal sinus rhythm on the monitor. Respiratory: Lung sounds are clear in the upper lobes. There were some mild rhonchi noted in the bases. Abdomen: Soft with a surgical dressing in place which is dry and intact. No bowel sounds noted. There is an NG tube to low intermittent suction. Neurologic: The patient is sedated and lethargic but arousable and awakened to squeeze my hand on both sides and moving her feet bilaterally, on request. She is also nodding her head appropriately. There are bilateral deformities noted to her hands due to her rheumatoid arthritis. LABORATORY AND X-RAY: Today her white count is 12.07, hemoglobin 8.7, platelet count 156,000. Creatinine is 1.6. GFR 32. Total bilirubin 0.3, AST 28, ALT 5, alkaline phosphatase 48. On 35% FiO2 on the mechanical ventilator. Her pH 7.43, pCO2 45, PO2 96. HCO3 28.8. Her sputum has gram- negative rods in the Gram stain on the preliminary report. Urine also has a preliminary report with no growth thus far. Blood cultures show 1 out of 2 growing a gram-positive coccus. Chest x- ray today shows increased interstitial markings throughout both lungs similar to prior. EKG done yesterday shows sinus tachycardia with PACs. ASSESSMENT AND PLAN: Ms. Bradford is being treated for a peritonitis and a possible pneumonia. We will continue the meropenem as ordered, but due to her acute kidney injury, we will stop the vancomycin and replace it with Zyvox 600 mg IV every 12 hours. The patient has gram-positive cocci in her blood and gram-negative rods in her sputum. We will await the final cultures. She does have a history of rheumatoid arthritis, with immunosuppressive drugs, so we will check her immunoglobulins in the morning. These plans have been discussed with and recommended by Dr. Nicholson. COMORBIDITIES: For Ms. Bradford include that she is elderly with severe COPD, protein calorie malnutrition, acute kidney injury, and chronic immunosuppression for rheumatoid arthritis. Dictated by AMOL Mccauley for Mustapha Nicholson MD This chart was documented by, AMOL Mccauley and accurately reflects the services performed, treatment plan and medical decisions as attested by the providers signature Mustapha Nicholson MD. cc: Mustapha Nicholson MD [facility] HOSPITALRemigio
[2018-11-03] MEDS: ATIVAN IV PRN (20:10)
--- NOTE | 2018-11-03 21:55 | ECHO REPORT ---
ORDER DATE: 11/03/2018 MEASUREMENTS: 1. Aortic root 3.1. 2. Left atrium 4.3. SUMMARY: 1. Technically difficult study due to limited acoustic window quality. Intravenous echo contrast agent Optison was utilized to enhance endocardial definition. 2. Aortic valve appears without evidence of structural abnormality and opens adequately on 2- dimensional images. Peak gradient across the aortic valve was approximately 11 mmHg. Mitral and tricuspid valves are without gross structural abnormality. Pulmonic valves all demonstrated. The aortic root is normal size. 3. Normal left ventricular dimensions suggested on 2-D images. Estimated left ejection fraction appears to be at least 60%. No regional wall motion abnormalities evident. Left atrium is mildly enlarged. Right atrium and right ventricle are grossly normal in size with grossly preserved right ventricular systolic function. 4. No pericardial effusion. 5. Inferior vena cava not demonstrated. cc: Kwame Cerna MD
[2018-11-04] MEDS: DUONEB (A & A) INH SCH ×4 (03:40→21:25)
[2018-11-04 04:31] LABS: ALLEN TEST YES; BE 3.7 mmoll (-3.0-3.0); BLOOD TYPE ARTERIAL; HCO3-(ACT) 27.8 mmoll (20.0-26.0); METHB 1.3 % (0.0-1.5); O2(CT) 10.7 mL/dL (15.0-23.0); O2HB 95.9 % (95.0-99.0); PCO2(98.6) 48 mmHg (35-45); PO2(98.6) 87 mmHg (60-100); SAMPLE BLOOD; SAO2 98.7 % (95.0-100.0); SRATE 10 BPM; THB 7.8 g/dL (11.5-17.4); TVOL 700 mL; pH(98.6) 7.39 (7.35-7.45)
[2018-11-04 04:32] LABS: MODALITY VENTILATOR
[2018-11-04] MEDS: NS 1,000 ML IV SCH (04:48)
[2018-11-04] MEDS: ZYVOX 600 MG/D5W 600 MG/300 ML IVPB IV SCH ×2 (04:48→16:51)
[2018-11-04 05:19] LABS: BASO# 0.02 X1000 (0.0-0.2); BASO% 0.3 % (0.0-0.8); HEMATOCRIT 23.5 % (37.0-47.0); HEMOGLOBIN 7.4 g/dL (12.0-16.0); IMM GRAN# 0.02 X1000 (0.0-0.04); IMM GRAN% 0.3 % (0.0-0.5); LYMPH# 0.95 X1000 (1.2-3.4); LYMPH% 11.9 % (20.5-51.1); MCH 27.7 PG (27-31); MCHC 31.5 g/dL (33-37); MONO% 6.3 % (1.7-9.3); MPV 11.1 FL (7.4-10.4); NEUT# 6.48 X1000 (1.4-6.5); NEUT% 81.2 % (42.2-75.2); PLT 139 X1000 (130-400); RBC 2.67 XMIL (4.2-5.4); RDW 13.7 % (11.5-14.5); WBC 7.97 X1000 (4.8-10.8)
[2018-11-04 05:28] LABS: AGAP 9; ALB/GLOB RATIO 0.7; ALBUMIN 2.3 g/dL (3.5-5.0); ALKALINE PHOSPHATASE 41 U/L (32-104); BUN 35 mg/dL (8-22); CALCIUM 7.6 mg/dL (8.8-10.2); CHLORIDE 99 mmol/L (98-107); COSMO 279; ESTIMATED GFR 25; GLUCOSE 74 mg/dL (70-104); GOT 23 U/L (10-30); GPT < 5 U/L (10-36); POTASSIUM 3.6 mmol/L (3.5-5.1); SODIUM 136 mmol/L (136-145); TCO2 28 mmol/L (25-35); TOTAL BILIRUBIN 0.24 mg/dL (0.20-1.00); TOTAL PROTEIN 5.4 g/dL (6.3-8.3)
[2018-11-04] MEDS: DIPRIVAN 1% 1,000 MG/100 ML BOTTLE IV SCH ×3 (05:35→19:59)
[2018-11-04 06:00] LABS: LYMPHS 14 % (21-51); MONO 6 % (1-9); SEGS 78 % (42-75)
--- NOTE | 2018-11-04 07:21 | Diag Imaging Result Doc PS360 ---
EXAM: CHEST-PORTABLE INDICATION: intubation TECHNIQUE: One view COMPARISON: 11/03/2018 FINDINGS: Support tubes and lines are in stable positions. There has been interval worsening of the bilateral infiltrates throughout both lungs with a basilar predominance and perihilar predominance most consistent with pulmonary edema +/- pneumonia. There now appear to be small effusions, at least on the left. No other new consolidations are identified. Cardiac silhouette is stable. IMPRESSION: Interval worsening as described. Electronically signed by Virgilio Munguia 11/04/2018 7:19 AM
[2018-11-04] MEDS: PROTONIX 80 MG in NS 80 ML IV SCH ×2 (08:33→19:12)
[2018-11-04] MEDS: MERREM 1,000 MG in NS 50 ML IV SCH (08:34)
--- NOTE | 2018-11-04 10:09 | PROGRESS NOTE ---
DATE: 11/04/2018 SUBJECTIVE: Ms. Bradford is unresponsive, sedated, appears to be comfortable. OBJECTIVE: Temp 96.8 degrees, pulse 98, respirations 12, blood pressure 123/81. Pupils are equal round. Lungs are clear in all lung fischer. Her urine output has been poor. I am trying to see her I's and O's here. But I think the urine output has picked up. We have been giving her some normal saline. PHYSICAL EXAMINATION: Today: Temp 96.8, pulse 98 respirations 12, 123/81. Pupils are equal round. Lungs are clear in all lung fischer. Cardiovascular regular rate without murmur or S3. Abdomen is soft. Skin is warm and dry. RADIOGRAPHS: Chest x-ray from this morning interval worsening. Support tubes and lines in stable position. There has been interval worsening of the bilateral infiltrates through both lungs and basilar predominance. Perihilar predominance most consistent with pulmonary edema and possible pneumonia. Appears to have small effusions at least on the left. No sign of consolidations. ASSESSMENT AND PLAN: 1. Perforated gastric ulcer status post exploratory laparoscopic surgery, closure of posterior distal gastric ulcer, exploratory laparoscopy with closure, washout of the abdomen and associated peritonitis, also possible pneumonia, gram-negative juan a noted. Gram stain of her sputum has gram-positive coccus and the Gram stain of the blood cultures 1/2 suspect contaminant. On meropenem 1 gram every 8 hours and vancomycin dosing per pharmacy. 2. Underlying chronic obstructive pulmonary disease, chronic hypercapnic respiratory failure, acute hypercapnic respiratory failure. She is on mechanical ventilator. Continue attempts to wean her down to get her off the ventilator. 3. Protein calorie malnutrition. Continue IV nutrition. 4. Acute renal failure associated with acute illness. Renal function seems to be improving. Her urine output seems to be improving. 5. Chronic immunosuppression for rheumatoid arthritis. I think she was taking Enbrel. LABORATORY: Review of her lab from today white count down 7970, hematocrit is 23, hemoglobin 7.4, platelet count a 139,000 sodium 136, potassium 3.6, chloride 99, BUN 35, creatinine 2.8. Liver functions, transaminases unremarkable. Creatinine had gone up to 1.6 that is up to 2.0 so continue current fluids. She is getting normal saline 125 mL an hour. cc: Mike Casillas MD
[2018-11-04] MEDS ORDERED: D5 NS 1,000 ML IV SCH (10:45)
--- NOTE | 2018-11-04 13:31 | PULMONOLOGY PROGRESS NOTE ---
DATE: 11/04/2018 SUBJECTIVE: The patient is sedated but responds to voice and stimulus. She remains on mechanical ventilation. She is on no vasopressors. Her urine output appears to be increasing over the last 8 hours. OBJECTIVE: The patient has been afebrile for the last 24 hours. Blood pressure 122/65, heart rate 91, respiratory rate 16, oxygen saturation 96%. HEENT: Pupils are equal and reactive. Oropharynx appears clear. Neck: Supple. Chest reveals rhonchi bilaterally. Cardiac: S1, S2. Abdomen is soft. No bowel sounds are present. Postsurgical dressings are in place. Extremities are warm to the touch. DIAGNOSTIC STUDIES: Sputum culture reveals Pseudomonas aeruginosa. Chest x-ray reveals worsening bibasilar infiltrates. White blood count 7.97, hemoglobin 7.4, platelet count 139,000. Sodium 136, potassium 3.9, chloride 99, bicarbonate 28, BUN 35, creatinine 2.0. Arterial blood gas reveals a pH 7.39, pCO2 of 48, PO2 of 87. IMPRESSION: A 68-year-old with: 1. Severe chronic obstructive pulmonary disease (COPD). 2. Pseudomonal pneumonia. 3. Chronic hypoxemic and chronic hypercapnic respiratory failure. 4. Acute hypercapnic respiratory failure. 5. Protein-calorie malnutrition. 6. Acute renal failure with plateauing of creatinine. 7. Chronic immunosuppression for rheumatoid arthritis. 8. Status post surgical closure of a perforated ulcer with gross contamination/peritonitis. RECOMMENDATION: 1. Continue current ventilatory support, given worsening renal function and respiratory status with increasing pulmonary infiltrates. 2. Continue bronchial hygiene. 3. Continue antibiotics per Infectious Disease. 4. Continue gastric acid suppression. 5. Initiate Clinimix for nutrition support. 6. Overall prognosis is guarded. 7. Consider tube feeds when appropriate as per recommended by General Surgery. COMPLEXITY: 30+ minutes. cc: Sam Corral MD
--- NOTE | 2018-11-04 13:41 | PROGRESS NOTE ---
DATE: 11/04/2018 SUBJECTIVE: During initial evaluation, Ms. Bradford had a brief period of conjugate left gaze and poor responsiveness raising question of seizure or other neurologic event. Her EEG today does not show definite evidence of seizure. She has not had any more of these episodes or of other seizure-like behavior. Family at the bedside reports gradual improvement in her level of responsiveness. Family reports baseline forgetfulness for several months. There is history of multiple head injuries in the remote past. They report "stroke" diagnosed more than 10 years ago with no clear neurologic feature. Otherwise, no history of stroke, seizure, other neurologic event. She does not use ethanol. On my exam, she is awake, alert, attentive, following simple commands consistently including holding up appropriate number of fingers when asked. I do not have anything to add to Dr. Pugh's earlier suggestions. Thanks for asking Neurology to see Ms. Bradford. cc: Yvette Stack III, MD MTDRemigio
--- NOTE | 2018-11-04 13:42 | INFECTIOUS DISEASE PROGRESS NO ---
DATE: 11/04/2018 PRESENT ILLNESS: The patient is status post surgery for a perforated gastric ulcer with peritonitis. The patient also has a Pseudomonas pneumonia. Finally, one out of her two blood cultures is growing a gram-positive coccus. This could be a contaminant or it could be a pathogen. MEDICATION: The patient is on meropenem and Zyvox. PHYSICAL EXAMINATION: Vital Signs: Temperature is 97.8 degrees, pulse 82, respirations 12, blood pressure 114/67. General: This is an ill-appearing, elderly female. She is lying in her bed. She is lethargic. She is intubated. Head, Eyes, Ears, Nose, and Throat: As mentioned above, the patient has an orotracheal tube in place. There is no drainage from the nose or the ears. Neck: No meningismus. Lungs: There was bilateral rhonchi. Cardiovascular: Heart rate is regular. Abdomen: Soft. The patient's incision has a dressing on it. The dressing is intact. Neurologic: The patient is obtunded. She does not respond to verbal stimuli. There was no tremor. LAB AND X-RAY: The chest x-ray shows worsening bilateral infiltrates. The CBC shows a white count of 7970, hemoglobin 7.4, and platelet count 139,000. Blood gases show a pH of 7.39, a PO2 of 87, and a pCO2 of 48. Creatinine is 2. GFR is 25. Liver function studies are normal. Sputum culture grew Pseudomonas. One of two blood cultures is growing gram-positive cocci. Urine culture is negative. Sputum grew pseudomonas. Blood and urine cultures are negative. Chest x- ray shows worsening of the patient's bilateral infiltrates. ASSESSMENT AND PLAN: The patient has peritonitis and Pseudomonas pneumonia. I plan to continue meropenem and Zyvox. As regarding the positive blood culture, the patient is on Zyvox and meropenem. The organism has not yet been identified. COMORBIDITIES: The patient is elderly. She has COPD, malnutrition, acute kidney injury, and chronic immunosuppression for rheumatoid arthritis. cc: Mustapha Nicholson MD
[2018-11-04] MEDS: LOVENOX SUBQ SCH (13:54)
[2018-11-04] MEDS: CLINIMIX E 4.25%-5% SOLUTION 1,000 ML IV SCH (13:54)
[2018-11-04] MEDS ORDERED: VANCOMYCIN 1 GM/NS 1 GM/250 ML IVPB IV SCH ×2 (14:00)
[2018-11-04] MEDS: MORPHINE IV PRN ×2 (14:08→22:35)
--- NOTE | 2018-11-04 17:32 | PROGRESS NOTE ---
DATE: 11/04/2018 SUBJECTIVE: Ms. Bradford is now postop day 2 from an emergency exploratory laparotomy with repair of a perforated posterior distal gastric ulcer. She remains on the ventilator. She is on IV Protonix. OBJECTIVE: Her heart rate is 68, blood pressure 96/51. O2 saturation is 99% on the ventilator. She is on minimal settings. She is afebrile on IV antibiotics. LABORATORY DATA: Her white blood cell count is normal at 9.97. Hematocrit is 23%. Her BUN and creatinine have increased is 35 and 2. She is still making urine. Liver function tests are essentially normal. She has base deficit. PLAN: She has peripheral IVs in place. She is getting peripheral nutrition. She will probably need central venous line access. We will ask the PICC team to see if they can access. If not, I will place a central line. Critical care per our critical care team. NG tube remains in place. cc: Violetta Cummings MD
[2018-11-04] MEDS ORDERED: ALBUMIN 25% IV ONE (20:00)
[2018-11-04] MEDS ORDERED: MERREM 1,000 MG in NS 50 ML IV SCH (20:00)
[2018-11-04] MEDS ORDERED: LASIX IV ONE (23:00)
[2018-11-05] MEDS: CLINIMIX E 4.25%-5% SOLUTION 1,000 ML IV SCH ×3 (01:31→21:07)
[2018-11-05] MEDS: DUONEB (A & A) INH SCH ×4 (03:26→21:42)
[2018-11-05] MEDS: PROTONIX 80 MG in NS 80 ML IV SCH ×2 (04:34→14:27)
[2018-11-05 04:36] LABS: ALLEN TEST YES; BE 5.6 mmoll (-3.0-3.0); BLOOD TYPE ARTERIAL; HCO3-(ACT) 29.3 mmoll (20.0-26.0); METHB 0.8 % (0.0-1.5); O2(CT) 10.4 mL/dL (15.0-23.0); O2HB 94.9 % (95.0-99.0); PO2(98.6) 72 mmHg (60-100); SAMPLE BLOOD; SRATE 10 BPM; THB 7.7 g/dL (11.5-17.4); TVOL 700 mL; pH(98.6) 7.38 (7.35-7.45)
[2018-11-05 04:38] LABS: MODALITY VENTILATOR; PCO2(98.6) 53 mmHg (35-45)
[2018-11-05 05:12] LABS: BASO# 0.01 X1000 (0.0-0.2); BASO% 0.1 % (0.0-0.8); EOS# 0.02 X1000 (0.0-0.7); EOS% 0.3 % (0.0-10.0); HEMATOCRIT 23.6 % (37.0-47.0); HEMOGLOBIN 7.2 g/dL (12.0-16.0); IMM GRAN# 0.06 X1000 (0.0-0.04); IMM GRAN% 0.8 % (0.0-0.5); LYMPH# 1.02 X1000 (1.2-3.4); LYMPH% 14.3 % (20.5-51.1); MCH 27.3 PG (27-31); MCHC 30.5 g/dL (33-37); MCV 89.4 FL (81-99); MONO# 0.52 X1000 (0.11-0.59); MONO% 7.3 % (1.7-9.3); NEUT# 5.49 X1000 (1.4-6.5); NEUT% 77.2 % (42.2-75.2); PLT 149 X1000 (130-400); RBC 2.64 XMIL (4.2-5.4); RDW 14.2 % (11.5-14.5); WBC 7.12 X1000 (4.8-10.8)
[2018-11-05] MEDS: ZYVOX 600 MG/D5W 600 MG/300 ML IVPB IV SCH (05:13)
[2018-11-05] MEDS: DIPRIVAN 1% 1,000 MG/100 ML BOTTLE IV SCH (05:13)
[2018-11-05 05:21] LABS: INR 0.95; PROTIME 13.4 Seconds (11.0-16.0)
[2018-11-05 05:27] LABS: AGAP 9; ALB/GLOB RATIO 0.9; ALBUMIN 2.6 g/dL (3.5-5.0); ALKALINE PHOSPHATASE 39 U/L (32-104); BUN 38 mg/dL (8-22); CALCIUM 7.7 mg/dL (8.8-10.2); CHLORIDE 99 mmol/L (98-107); COSMO 283; CREATININE 1.8 mg/dL (0.5-0.9); ESTIMATED GFR 28; GLUCOSE 92 mg/dL (70-104); GOT 20 U/L (10-30); GPT < 5 U/L (10-36); MAGNESIUM 1.2 mg/dL (1.5-2.7); POTASSIUM 3.9 mmol/L (3.5-5.1); SODIUM 137 mmol/L (136-145); TCO2 29 mmol/L (25-35); TOTAL BILIRUBIN 0.21 mg/dL (0.20-1.00); TOTAL PROTEIN 5.4 g/dL (6.3-8.3)
--- NOTE | 2018-11-05 07:09 | Diag Imaging Result Doc PS360 ---
EXAM: CHEST-PORTABLE 11/05/2018 HISTORY: intubation TECHNIQUE: AP portable at 0424 COMMENT: The pleural effusions have diminished since the previous study of 11/04/2018. There is less interstitial opacity and the hemidiaphragms are now largely visible. The endotracheal and NG tubes remain in place. IMPRESSION: Improved pulmonary edema plus minus pneumonia. Electronically signed by Thad Dupree 11/05/2018 7:07 AM
[2018-11-05] MEDS ORDERED: MERREM 1 GM in NS 50 ML IV SCH (09:00)
[2018-11-05] MEDS ORDERED: NS 250 ML ONE (09:27)
[2018-11-05] MEDS ORDERED: MAGNESIUM SULFATE 2 GM/S.W.I. 2 GM/50 ML IVPB IV ONE (09:32)
[2018-11-05 10:37] LABS: ALLEN TEST YES; BE 6.9 mmoll (-3.0-3.0); BLOOD TYPE ARTERIAL; HCO3-(ACT) 30.2 mmoll (20.0-26.0); METHB 1.2 % (0.0-1.5); O2(CT) 10.5 mL/dL (15.0-23.0); O2HB 91.6 % (95.0-99.0); PO2(98.6) 59 mmHg (60-100); SAMPLE BLOOD; SAO2 94.6 % (95.0-100.0); THB 8.1 g/dL (11.5-17.4); pH(98.6) 7.36 (7.35-7.45)
[2018-11-05 10:40] LABS: MODALITY VENTILATOR; PCO2(98.6) 59 mmHg (35-45)
--- NOTE | 2018-11-05 10:42 | PROGRESS NOTE ---
DATE: 11/05/2018 SUBJECTIVE: Ms. Bradford is still intubated. She is awake. She appears to be comfortable. We are going to put a new PICC line in this morning. OBJECTIVE: Temperature 98.4 degrees, pulse 110, respirations 20, blood pressure 128/61. Pupils are equal and round. Lungs are clear in all lung fischer. Cardiovascular Examination: Regular rhythm and rate without murmur or S3. Abdomen is soft. Skin is warm and dry. Chest x-ray from this morning, improved pulmonary edema plus-minus possible infiltrate or pneumonia. ASSESSMENT AND PLAN: 1. Postoperative day 2 from emergency exploratory laparotomy with repair of perforated posterior distal gastric ulcer. Still on ventilator. Abdomen seems to be healing. 2. She had a brief period of conjugate left gaze, poor responsiveness, raising question of seizure. Her electroencephalogram evaluated by Dr. Stack did not show any definite seizure. She has not had any more of these episodes. 3. Status post surgery for perforated gastric ulcer. The patient has Pseudomonas pneumonia. Finally, one of her blood cultures grew gram-negative coccus and this could be a contaminant. She is on meropenem and Zyvox, which we will continue. Dr. Nicholson is following. 4. Severe chronic obstructive pulmonary disease. 5. Chronic hypoxemic, chronic hypercapnic respiratory failure, acute hypercapnic respiratory failure. 6. Protein calorie malnutrition. 7. Acute renal failure. Creatinine seems to be improving. 8. Chronic immunosuppression from rheumatoid arthritis. Prothrombin time is 13.4. Sodium 137, potassium 3.9, chloride 99, BUN 38, creatinine 1.8. Creatinine has come down from 2.0. Continue to follow. REVIEW OF ORDERS: On Clinimix 100 mg daily, meropenem 1 g q.12, Protonix IV drip, linezolid 600 mg IV q.12. cc: Mike Casillas MD
--- NOTE | 2018-11-05 10:46 | PROGRESS NOTE ---
DATE: 11/05/2018 Ms. Bradford is awake, alert, and attentive. She followed simple commands consistently. She moved each arm to command. She held up fingers to command. She has full voluntary lateral eye movement. No new thoughts or new suggestions today from Neurology standpoint. Thanks for asking us to see Ms. Bradford. cc: MD YANIRA Nair III
--- NOTE | 2018-11-05 11:15 | PULMONOLOGY PROGRESS NOTE ---
DATE: 11/05/2018 SUBJECTIVE: The patient is more awake this morning. She remains off vasopressors. OBJECTIVE: Vital Signs: The patient has been afebrile for the last 24 hours. Blood pressure 128/61, heart rate 112, respiratory rate 16, oxygen saturation 90%. HEENT: Pupils are equal and reactive. Oropharynx is clear, but evaluation is limited with endotracheal tube in place. Neck is supple. Chest reveals prolonged expiratory phase with scattered rhonchi. Cardiac: S1, S2. Abdomen: Soft. No bowel sounds present. Extremities are without edema. DIAGNOSTIC STUDIES: Chest x-ray reveals decreased pleural effusions with improvement in digitalization of the hemidiaphragms. White blood count 7.12, hemoglobin 7.2, platelet count 149,000. Arterial blood gas reveals a pH 7.38, pCO2 of 53, PO2 of 72. Sodium 137, potassium 3.9, chloride 99, bicarbonate 29, BUN 38, creatinine 1.8, calcium 7.7, magnesium 1.2, total protein 5.4, albumin 2.6. Immunoglobulins were checked and are at adequate levels. IMPRESSION: A 68-year-old with: 1. Pseudomonal pneumonia. 2. Severe chronic obstructive pulmonary disease (COPD). 3. Chronic hypoxemic respiratory failure. 4. Chronic hypercapnic respiratory failure. 5. Acute hypercapnic respiratory failure. 6. Protein-calorie malnutrition. 7. Acute renal failure. 8. Chronic immunosuppression associated with rheumatoid arthritis. 9. Status post emergent surgical closure of a perforated ulcer with subsequent gross contamination of the abdomen with peritonitis. DISCUSSION: This is a 68-year-old critically ill patient with problems outlined above. Her urine output has significantly improved over the last 8 hours following a dose of Lasix. She has had radiographic improvement. Her kidney parameters are stable. She will be initiated on a spontaneous breathing trial this morning to evaluate potential for extubation. RECOMMENDATION: 1. Continue bronchial hygiene. 2. Continue antibiotics. 3. Continue Clinimix. If she is extubated, we will add lipids for nutrition support. 4. Continue gastric acid suppression. 5. Spontaneous breathing trial now to evaluate potential for extubation. PROGNOSIS: Overall prognosis guarded. TIME SPENT IN CRITICAL CARE: 30+ minutes. cc: Sam Corral MD
[2018-11-05] MEDS: LOVENOX SUBQ SCH (14:30)
[2018-11-05] MEDS: MAXIPIME 1 GM in NS 50 ML IV SCH ×2 (14:30→21:07)
--- NOTE | 2018-11-05 15:04 | PROGRESS NOTE ---
DATE: 11/05/2018 SUBJECTIVE: Ms. Bradford is now postop day 3 from emergency surgery for a perforated distal posterior gastric ulcer which we closed primarily. She is on IV Protonix. She has been on the ventilator but has been extubated. Her BUN and creatinine are 38 and 1.8. OBJECTIVE: Heart rate is 111, blood pressure 108/64, O2 saturation 93%. She has an NG tube in place. Whitney catheter tube in place. She is receiving peripheral nutrition. We have asked for a PICC line. Her white blood count is normal. Hematocrit 24%. Creatinine is trending down. Chest x-ray shows improved pulmonary edema. Her midline wound is dressed and soft. Her abdomen is soft. PLAN: Continue supportive care per hospitalists and critical care physician, Dr. Corral. We will leave her NG tube for now and be sure she can stay off the ventilator prior to initiating a diet. cc: Violetta Cummings MD
--- NOTE | 2018-11-05 15:37 | INFECTIOUS DISEASE PROGRESS NO ---
DATE: 11/05/2018 PRESENT ILLNESS: The patient is status post surgery for perforated gastric ulcer with resulting peritonitis. The patient also has a Pseudomonas pneumonia. One out of two blood cultures is growing a coagulase-negative Staph which is a contaminant; it does not require antibiotic treatment. MEDICATIONS: The patient is on meropenem and Zyvox. I have discontinued both of them and have started the patient on cefepime with instructions that the nurse observe the patient during the first dose of cefepime. The patient does have a history of a penicillin allergy. However, she has had Keflex in the past and tolerated it well. Therefore, I think she should tolerate cefepime well because it is a cephalosporin antibiotic also. PHYSICAL EXAMINATION: Vital Signs: Temperature is 98.6 degrees, pulse 111, respirations 22, blood pressure 108/64. General: This is an ill-appearing, elderly female. She is in no acute distress. Head, eyes, ears, nose, and throat: She can hear my spoken words and see near objects. She is a little more alert than she was yesterday. She does not have any white patches on her tongue. Neck: No stiffness. Lungs: Clear to auscultation. Cardiovascular: Heart rate is regular. Abdomen: Soft to light palpation. The patient's incision has a large dressing over it. The dressing is intact. Neurologic: Patient is awake. She can move her extremities. There is no tremor. Integument: No rash noted. LAB AND X-RAY: Patient's CBC shows a white count of 7,120, hemoglobin 7.2, platelet count 149,000. Blood gases show a pH of 7.36, a PO2 of 59, pCO2 of 59 also. Creatinine is 1.8. GFR is 28. Liver function studies are normal. One of 2 blood cultures is growing a coagulase-negative staph which is a contaminant and does not need to be treated. Sputum grew Pseudomonas. Chest x- ray shows improvement in the infiltrates. The patient has had Keflex in the past and tolerated it well. Therefore, I think she should tolerate cefepime well. I am also requiring the nurse to observe the patient during the first dose. Two infections that the patient is being treated are namely the Pseudomonas pneumonia and the peritonitis secondary to the patient's perforated gastric ulcer. ASSESSMENT AND PLAN: The patient has peritonitis due to gastric perforation. She also has pneumonia. I plan on continuing the current antibiotics. COMORBIDITIES: She is elderly. She has COPD, malnutrition, acute kidney injury, and chronic immunosuppression by medicines taken for rheumatoid arthritis. cc: Mustapha Nicholson MD MTDD
--- NOTE | 2018-11-05 17:54 | Carotid Study ---
DATE: 11/03/2018 PROCEDURE: Carotid duplex imaging. REFERRING PHYSICIAN: Dr. Val Paz. INTERPRETING PHYSICIAN: Dr. Ankit Juárez. TECH: [place]. INDICATIONS: Stroke. OBSERVED DATA RIGHT LEFT Brachial Blood Pressure Carotid Pulse Bruits: Carotid/Sub DIAGRAM OF ULTRASOUND IMAGING R L RIGHT INT EXT INT EXT LEFT Alex (cm/s) Alex (cm/s) Subclavian 81/0 Subclavian 82/0 CCA Proximal 121/11 CCA Proximal 103/16 CCA Distal 104/15 CCA Distal 95/16 Bulb 68/16 Bulb 55/14 ICA Proximal 106/28 ICA Proximal 65/19 ICA Mid 136/48 ICA Mid 119/44 ICA Distal 76/26 ICA Distal 102/23 ECA 104/14 ECA 127/0 Vertebral 47/5 Vertebral 77/24 ICA/CCA Ratio 1.1 ICA/CCA Ratio 1.1 % Stenosis 40-59 % Stenosis 40-59 FINDINGS: There is apparently scattered minimal plaque disease in the internal carotid arteries bilaterally with a moderate degree of stenosis of the right carotid artery. There is also elevation of velocities to a moderate degree on the left side, although this may be more due to tortuosity rather than plaque. There is antegrade vertebral flow bilaterally. INTERPRETATION: Bilateral plaque disease as described above which is producing a moderate but not significant stenosis on the right side, and there is similar elevation of velocity on the left side which may be more due to tortuosity. cc: Ankit Juárez MD
[2018-11-05] MEDS ORDERED: PROTONIX IV SCH (21:00)
[2018-11-05] MEDS: PROTONIX IV SCH (21:07)
[2018-11-05] MEDS: SODIUM CHLORIDE 0.9% INJ SCH (21:08)
[2018-11-06] MEDS: ATIVAN IV PRN (00:58)
[2018-11-06] MEDS: DUONEB (A & A) INH SCH ×4 (03:20→21:15)
[2018-11-06] MEDS: MAXIPIME 1 GM in NS 50 ML IV SCH ×3 (05:04→20:15)
[2018-11-06 05:43] LABS: BASO# 0.01 X1000 (0.0-0.2); BASO% 0.1 % (0.0-0.8); EOS# 0.12 X1000 (0.0-0.7); EOS% 1.4 % (0.0-10.0); HEMATOCRIT 25.8 % (37.0-47.0); IMM GRAN% 1.1 % (0.0-0.5); LYMPH# 0.82 X1000 (1.2-3.4); LYMPH% 9.3 % (20.5-51.1); MCH 27.6 PG (27-31); MONO# 0.83 X1000 (0.11-0.59); MONO% 9.5 % (1.7-9.3); MPV 10.6 FL (7.4-10.4); NEUT% 78.6 % (42.2-75.2); PLT 147 X1000 (130-400); RDW 14.3 % (11.5-14.5); WBC 8.78 X1000 (4.8-10.8)
[2018-11-06 06:23] LABS: ALB/GLOB RATIO 0.7; ALBUMIN 2.5 g/dL (3.5-5.0); CALCIUM 7.9 mg/dL (8.8-10.2); CREATININE 1.6 mg/dL (0.5-0.9); POTASSIUM 4.1 mmol/L (3.5-5.1); TOTAL BILIRUBIN 0.23 mg/dL (0.20-1.00); TOTAL PROTEIN 6.2 g/dL (6.3-8.3)
--- NOTE | 2018-11-06 06:24 | Diag Imaging Result Doc PS360 ---
EXAM: CHEST-PORTABLE HISTORY: intubation TECHNIQUE: Portable chest single view COMPARISON: 11/05/2018 FINDINGS: There are bilateral infiltrates with increased interstitial markings throughout both lungs. A right-sided PICC line has been placed since the prior study. The tip overlies the right atrium. A nasogastric tube overlies the esophagus and stomach. Likely trace pleural fluid. IMPRESSION: Worsening pulmonary edema versus pneumonia Electronically signed by Griffin Ball 11/06/2018 6:22 AM
[2018-11-06] MEDS: CLINIMIX E 4.25%-5% SOLUTION 1,000 ML IV SCH ×2 (08:26→18:07)
[2018-11-06] MEDS: PROTONIX IV SCH ×2 (08:27→20:07)
--- NOTE | 2018-11-06 10:21 | PROGRESS NOTE ---
DATE: 11/06/2018 SUBJECTIVE: She has been extubated. She is awake and alert, and appears comfortable at this time. No specific complaints. Hurting in her left rib cage a little bit. OBJECTIVE: Vital Signs: Temp 98.2 degrees, pulse 85, respirations 18, blood pressure 108/57. Lungs: Clear anterior and lateral. Cardiovascular: Regular rhythm and rate. Abdomen: Soft. DIAGNOSTIC DATA: Monitor shows sinus rhythm. Urine output was close to 8 L. Chest x-ray from this morning: Worsening pulmonary edema versus pneumonia. ASSESSMENT AND PLAN: 1. Status post surgery for perforated gastric ulcer resulting in peritonitis, prolonged intubation, extubated yesterday. She also has Pseudomonas pneumonia. One out of two blood cultures growing coagulase-negative Staph which suspect was contaminant, so getting meropenem and Zyvox. Continue. 2. Respiratory status is improved. He has been extubated. 3. She had some conjugate gaze and poor responsiveness. Neurology has been following this. She seems to be improved. 4. Chronic obstructive pulmonary disease. Aware. 5. Chronic hypoxemic chronic hypercapnic respiratory failure. She had acute hypercapnic respiratory failure, was on the ventilator, has been extubated. This is improving. 6. Protein calorie malnutrition. 7. Acute renal injury. 8. Chronic immunosuppression for rheumatoid arthritis, seems to be improving. We will continue current orders. She is on Clinimix 100 mg a day, Lovenox 30 mg subcutaneous q.24 hours, cefepime 1 g IV q.8 hours, morphine, she gets 2-6 mg IV q.2 p.r.n., Protonix 40 mg IV q.12. cc: Mike Casillas MD
--- NOTE | 2018-11-06 12:06 | PROGRESS NOTE ---
DATE: 11/06/2018 Ms. Bradford is awake, alert, attentive. She identified the hospital correctly by name. She guessed wrong at the day of the week, but provided the correct month and year. She named the president. Speech is weak, feeble, slightly dysarthric, but easily understood. There were no language errors on brief bedside testing. She has full conjugate lateral eye movement. She has not had any more episodes of altered awareness, left gaze, or other neurologic episode. No new suggestion from Neurology standpoint. Thanks for asking us to see Ms. Bradford. cc: Yvette Stack III, MD
[2018-11-06] MEDS: LOVENOX SUBQ SCH (12:59)
--- NOTE | 2018-11-06 14:54 | PROGRESS NOTE ---
DATE: 11/06/2018 SUBJECTIVE: Ms. Bradford is now postop day 4 from primary repair of a perforated posterior distal gastric ulcer. Her NG tube remains. She is off the ventilator. She seems to be breathing satisfactorily. She is awake and cooperative. Her abdomen is soft. She is tender along her incision. A Whitney catheter tube remains. OBJECTIVE: Her heart rate is 104, blood pressure 120/67, O2 saturation 93%. She is afebrile. She is on IV Maxipime. Her white blood cell count is normal. Hematocrit is 26%. Electrolytes are improving. Her BUN and creatinine are 40 and 1.6. Liver function tests are within normal limits. She has had a PICC line placed for IV access. She has had problems with pulmonary edema by chest x-ray. PLAN: Continue NG suction for now. Continue IV Protonix. Critical care per Dr. Corral and our hospitalists. Begin to increase her activity. Remove her NG tube and start her diet once we know her pulmonary function is stable. Dr. Ankit Reddy who is on-call for our group this weekend. cc: Violetta Cummings MD
--- NOTE | 2018-11-06 16:05 | PULMONOLOGY PROGRESS NOTE ---
DATE: 11/06/2018 SUBJECTIVE: The patient is arousable to alert. She has a fairly good cough effort. She reports some abdominal tenderness, but it is without other complaints. She has no increased work of breathing. OBJECTIVE: Vital Signs: The patient has been afebrile for the last 24 hours. Blood pressure 127/58, heart rate 104, respiratory rate 14, oxygen saturation 100% on 4 L per nasal cannula. HEENT: Pupils are equal and reactive. Oropharynx appears clear. Neck: Supple. CHEST: Reveals some crackles bilaterally with occasional rhonchi. CARDIAC: S1-S2.Abdomen: Soft with surgical dressings in place. Extremities: Reveal trace edema. LABORATORY DATA: Sodium 138, potassium 4.1, chloride 94, bicarbonate 33, BUN 40, creatinine 1.6. White blood count 8.78, hemoglobin 8.0, platelet count 147,000. Microbiology without new data, but previous cultures revealed Pseudomonas aeruginosa. Chest x-ray reveals mild increased infiltrates bilaterally. IMPRESSION: A 68-year-old with: 1. Status post emergent repair of a perforated ulcer. 2. Pseudomonal pneumonia. 3. Severe chronic obstructive pulmonary disease. 4. Chronic hypoxemic respiratory failure. 5. Acute hypercapnic respiratory failure. 6. Chronic hypercapnic respiratory failure. 7. Protein calorie malnutrition. 8. Acute renal failure. 9. Chronic immunosuppression associated with rheumatoid arthritis. DISCUSSION: 68-year-old who is doing well off mechanical ventilation. Chest x-ray is slightly worse, but she has no increased work of breathing and her oxygen requirements are decreasing. RECOMMENDATIONS: 1. Continue bronchial hygiene. 2. Continue antibiotics. 3. Continue Clinimix. Advance diet per surgery recommendations. 4. Gastric acid suppression. cc: Sam Corral MD
--- NOTE | 2018-11-06 17:53 | INFECTIOUS DISEASE PROGRESS NO ---
DATE: 11/06/2018 PRESENT ILLNESS: The patient is status post surgery for perforated gastric ulcer with resulting peritonitis. The patient also has a Pseudomonas pneumonia. MEDICATIONS: The patient is receiving cefepime. This is day 1 of treatment with that antibiotic. She is tolerating the antibiotic well with no evidence of difficulty breathing or skin rashes. PHYSICAL EXAMINATION: Vital Signs: Temperature is 98.4 degrees, pulse 99, respirations 13, blood pressure 116/64. General: This is a chronically ill-appearing, elderly female she is in no acute distress. Head, eyes, ears, nose, and throat: She can hear my spoken words and see near objects. She does not have any white coating of her tongue. Neck: No pain with movement. Lungs: Clear to auscultation. Cardiovascular: Heart rate is regular. Abdomen: Soft to light palpation. The patient's incision has a large dressing over it. The dressing is intact. Neurologic: The patient is awake. She can move her extremities. There is no tremor. She carries on a coherent conversation. Integument: No rash noted. LAB AND X-RAY: Chest x-ray shows worsening of the patient's infiltrates. CBC shows a white count of 8780, hemoglobin 8 and platelet count 147,000 creatinine is 1.6. GFR is 32. Liver function studies are normal. ASSESSMENT AND PLAN: Patient has pneumonia and peritonitis. There is some worsening of the pneumonia as seen on chest x-ray, but I think this could be due to increased pulmonary venous congestion and not an increasing pneumonia. COMORBIDITIES: She is elderly. She has COPD, malnutrition, acute kidney injury, and chronic immunosuppression by virtue of taking medicines for rheumatoid arthritis. cc: Mustapha Nicholson MD
[2018-11-07] MEDS: MORPHINE IV PRN ×3 (01:03→18:42)
[2018-11-07] MEDS: CLINIMIX E 4.25%-5% SOLUTION 1,000 ML IV SCH ×2 (03:15→12:44)
[2018-11-07] MEDS: DUONEB (A & A) INH SCH ×4 (03:18→21:00)
[2018-11-07] MEDS: MAXIPIME 1 GM in NS 50 ML IV SCH ×3 (04:43→20:17)
[2018-11-07 06:39] LABS: CALCIUM 8.4 mg/dL (8.8-10.2); POTASSIUM 4.7 mmol/L (3.5-5.1)
[2018-11-07] MEDS: PROTONIX IV SCH ×2 (08:21→20:17)
[2018-11-07] MEDS ORDERED: RID LICE KILLING SHAMPOO TOP ONE (09:19)
[2018-11-07] MEDS ORDERED: NIZORAL 2% SHAMPOO TOP ONE (09:32)
--- NOTE | 2018-11-07 10:12 | PROGRESS NOTE ---
DATE: 11/07/2018 SUBJECTIVE: Ms. Bradford was sleeping and easy to arouse. Appears comfortable. She is lethargic this morning, but breathing comfortably. OBJECTIVE: Vital Signs: Remains afebrile. Pulse 104, respirations 25, blood pressure 147/79. Eyes: Pupils are equal, round. Lungs: Clear in all lung fischer. Cardiovascular: Regular rate without murmur or S3. Abdomen: Soft. Skin: Warm and dry. LAB: Urine output 5500 mL. Blood sugars 93, 107, 112. Lab reviewed from yesterday. White count 8780, hematocrit is 25, hemoglobin 8, platelet count 147,000. Sodium 139, potassium 4.7, chloride 95, BUN 38, creatinine 1.0. ASSESSMENT AND PLAN: 1. Status post surgery for perforated gastric ulcer and resulting peritonitis. Also had Pseudomonas pneumonia. The patient is on cefepime. This should be day 2 with that antibiotic. Tolerating the antibiotic well. 2. Severe chronic obstructive pulmonary disease. 3. Chronic hypoxemic respiratory failure, which is improved. 4. Acute hypercapnic respiratory failure. 5. Chronic hypercapnic respiratory failure. 6. Protein-calorie malnutrition. 7. Acute renal failure, which is improving. 8. Chronic immunosuppression because of her rheumatoid arthritis and treatment. She appears to be improving. She is on Clinimix. I will give her low-dose Lovenox. She is on cefepime 1 g IV q.8 hours and Protonix 40 mg IV q.12. Encourage p.o. intake. Physical Therapy will initiate some physical therapy and get her up and sit her up in a chair. Continue present regimen. cc: Mike Casillas MD
[2018-11-07] MEDS: LOVENOX SUBQ SCH (12:44)
--- NOTE | 2018-11-07 14:25 | GENERAL SURGERY PROGRESS NOTE ---
DATE: 11/07/2018 SUBJECTIVE: The patient denies abdominal pain. She was extubated recently. OBJECTIVE: Vital Signs: She is afebrile. Vital signs are stable. NG tube output is 800 mL over overnight. No flatus yet. CV: Regular rate and rhythm. Respiratory: Bilateral breath sounds. No work of breathing. GI: Soft, nondistended. Minimally tender. Incisional dressing is clean and dry. LABORATORY: Electrolytes reviewed and unremarkable. ASSESSMENT AND PLAN: A 68-year-old female status post repair of gastric ulcer perforation, in perioperative respiratory failure, now extubated. She also continues to have somewhat high nasogastric tube output. We will keep her on nasogastric tube suction and begin assisting her with mobilization out of bed. cc: Ankit Juárez MD
[2018-11-08] MEDS: CLINIMIX E 4.25%-5% SOLUTION 1,000 ML IV SCH ×3 (00:14→18:15)
[2018-11-08] MEDS: MORPHINE IV PRN ×3 (01:27→14:36)
[2018-11-08] MEDS: DUONEB (A & A) INH SCH ×4 (03:15→22:22)
[2018-11-08] MEDS: MAXIPIME 1 GM in NS 50 ML IV SCH ×3 (05:52→20:18)
[2018-11-08 06:44] LABS: AGAP 5; BUN 38 mg/dL (8-22); CALCIUM 8.4 mg/dL (8.8-10.2); CHLORIDE 96 mmol/L (98-107); COSMO 283; CREATININE 0.7 mg/dL (0.5-0.9); ESTIMATED GFR > 60; GLUCOSE 92 mg/dL (70-104); POTASSIUM 5.2 mmol/L (3.5-5.1); SODIUM 137 mmol/L (136-145); TCO2 36 mmol/L (25-35)
--- NOTE | 2018-11-08 07:52 | Diag Imaging Result Doc PS360 ---
EXAM: CHEST-1 VIEW HISTORY: SOB TECHNIQUE: Portable chest single view COMPARISON: 11/06/2018 FINDINGS: There are increased interstitial markings throughout both lungs. These are slightly more pronounced on the current study. No change in the right sided PICC line. There is a small left pleural effusion. IMPRESSION: Mild worsening in the diffuse bilateral infiltrates Electronically signed by Griffin Ball 11/08/2018 7:49 AM
[2018-11-08] MEDS: PROTONIX IV SCH ×2 (08:11→20:10)
[2018-11-08] MEDS: LOVENOX SUBQ SCH (12:30)
[2018-11-08] MEDS ORDERED: LASIX IV ONE (13:12)
--- NOTE | 2018-11-08 13:30 | PROGRESS NOTE ---
DATE: 11/08/2018 Ms. Laird0Log is feeling better. She was resting, sleeping comfortably, easy to arouse. No complaints. Breathing comfortably. Remains afebrile. Temperature 97.7 degrees, pulse 99, respirations 18, blood pressure 153/65. Pupils are equal, round. Lungs are clear in all lung fischer. Cardiovascular. Regular rhythm, rate without murmur or S3. Abdomen is soft. Skin is warm and dry. IMAGING: Chest x-ray from this morning mild worsening of diffuse bilateral infiltrates, increased interstitial markings of both lungs slightly more pronounced. ASSESSMENT AND PLAN: 1. A 68-year-old female status post repair gastric ulcer perforation, postoperative respiratory failure, prolonged intubation. She is now extubated. Seems she still has a somewhat high nasogastric output so keep NG tube in place. Start trying to get her out of bed mobilization. 2. Chronic obstructive pulmonary disease. 3. Some pulmonary venous hypertension. 4. Chronic hypoxemic respiratory failure with underlying chronic obstructive pulmonary disease. 5. Acute hypercapnic respiratory failure which is improved. 6. Protein calorie malnutrition. Continue her present nutrition. Hopefully, can get the NG tube out and start her eating again. 7. Acute renal failure which is improving. 8. Chronic immunosuppression due to her rheumatoid arthritis. 9. 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 We will continue Clinimix at 100 mg daily, she is on Lovenox 30 mg subcutaneous q.24 hours. cc: Mike Casillas MD
--- NOTE | 2018-11-08 17:29 | GENERAL SURGERY PROGRESS NOTE ---
DATE: 11/08/2018 SUBJECTIVE: The patient denies abdominal pain or flatus. She was not able to get out of bed yesterday with Physical Therapy, but they did do some range of motion. OBJECTIVE: Vital Signs: She is afebrile. Vital signs are stable. NG tube output over 1000 mL. GI: Soft, nontender, nondistended. Hypoactive bowel sounds. Incisional dressing clean and dry. ASSESSMENT AND PLAN: A 68-year-old female status post repair of gastric ulcer perforation. She continues to have high NG tube output. We will keep it to suction and continue supportive care with Clinimix. cc: Ankit Juárez MD
[2018-11-09] MEDS: MORPHINE IV PRN ×3 (02:02→21:12)
[2018-11-09] MEDS: DUONEB (A & A) INH SCH ×4 (03:26→22:13)
[2018-11-09] MEDS: MAXIPIME 1 GM in NS 50 ML IV SCH ×3 (04:48→21:11)
[2018-11-09] MEDS: CLINIMIX E 4.25%-5% SOLUTION 1,000 ML IV SCH (04:48)
[2018-11-09 06:18] LABS: BASO# 0.01 X1000 (0.0-0.2); BASO% 0.1 % (0.0-0.8); EOS# 0.53 X1000 (0.0-0.7); HEMATOCRIT 26.6 % (37.0-47.0); HEMOGLOBIN 8.1 g/dL (12.0-16.0); IMM GRAN# 0.07 X1000 (0.0-0.04); IMM GRAN% 0.7 % (0.0-0.5); LYMPH# 0.87 X1000 (1.2-3.4); LYMPH% 8.3 % (20.5-51.1); MCH 27.5 PG (27-31); MCHC 30.5 g/dL (33-37); MCV 90.2 FL (81-99); MONO# 1.32 X1000 (0.11-0.59); MONO% 12.5 % (1.7-9.3); NEUT# 7.73 X1000 (1.4-6.5); NEUT% 73.4 % (42.2-75.2); PLT 170 X1000 (130-400); RBC 2.95 XMIL (4.2-5.4); RDW 13.8 % (11.5-14.5); WBC 10.53 X1000 (4.8-10.8)
[2018-11-09 07:14] LABS: AGAP 8; BUN 44 mg/dL (8-22); CALCIUM 8.7 mg/dL (8.8-10.2); CHLORIDE 93 mmol/L (98-107); COSMO 283; CREATININE 0.7 mg/dL (0.5-0.9); ESTIMATED GFR > 60; GLUCOSE 91 mg/dL (70-104); SODIUM 136 mmol/L (136-145); TCO2 35 mmol/L (25-35)
--- NOTE | 2018-11-09 07:46 | Diag Imaging Result Doc PS360 ---
CHEST-1 VIEW - 11/09/2018 INDICATION: SOB COMPARISON: 11/08/2018 FINDINGS: Stable right PICC line and nasogastric tube. There has been slight improvement in the diffuse bilateral interstitial infiltrates compatible with pulmonary edema. Stable trace left pleural effusion. No new infiltrates. IMPRESSION: Improvement in the pulmonary edema. Electronically signed by Faustino Villarreal 11/09/2018 7:43 AM
[2018-11-09] MEDS: PROTONIX IV SCH ×2 (08:17→21:12)
--- NOTE | 2018-11-09 10:47 | INFECTIOUS DISEASE PROGRESS NO ---
DATE: 11/09/2018 PRESENT ILLNESS: The patient is status post surgery for perforated gastric ulcer with resulting peritonitis. The patient also has a Pseudomonas pneumonia. MEDICATIONS: The patient has been receiving cefepime. This is day 4 of treatment with that agent. PHYSICAL EXAMINATION: Vital Signs: Temperature is 98.4, respirations 18, blood pressure 140/60. General: This is a chronically ill-appearing, elderly female, although she is looking better than she did a few days ago. She is in no acute distress. In fact, she asked if she could go home. HEENT: She can hear my spoken words and see near objects. She does not have any white patches on her tongue. Neck: She does not have any pain when she moves her neck. Lungs: Clear to auscultation. Cardiovascular: Regular heart rate. Abdomen: Soft to palpation. The patient's incision has a large dressing over it. The dressing is intact. Neurologic: The patient is alert. She can move her extremities. She does not have a tremor. Integument: No rash. LAB AND X-RAY: Chest x-ray shows improvement in the bilateral infiltrates. CBC shows a white count of 10,530, hemoglobin 8.1, and platelet count is a 170,000. Creatinine is 0.7, GFR is greater than 60. ASSESSMENT AND PLAN: Patient has Pseudomonas pneumonia and peritonitis from the gastric perforation. I am going to continue cefepime. When the patient is ready to go home, I will switch her to Levaquin p.o. COMORBIDITIES: The patient is elderly and she has COPD, malnutrition, acute kidney injury, and chronic immunosuppression by virtue of taking medications for rheumatoid arthritis. cc: Mustapha Nicholson MD
--- NOTE | 2018-11-09 12:23 | PROGRESS NOTE ---
DATE: 11/09/2018 SUBJECTIVE: Ms. Bradford is doing much better. She still has NG tube. Plan is to take the NG tube out and stop her Clinimix. I Will see if I can move her down to the floor. OBJECTIVE: Vital Signs: She remains afebrile, temperature 98.2 degrees, pulse 114, respirations 18, blood pressure 140/61. HEENT: Pupils are equal round. Lungs: Clear anterolateral and posterior in all lung fischer. Cardiovascular: Regular rhythm and rate without murmur or S3. Abdomen: Soft. Skin: Warm and dry. ASSESSMENT AND PLAN: 1. Status post surgery for perforated gastric ulcer with resulting peritonitis. The patient also had Pseudomonas pneumonia, so this is the 4th day of treatment with cefepime and seems to be improving. Her chest x-ray this morning, improvement in pulmonary edema. 2. We will continue to have a high NG output, but I think the plan today if output is decreased is to try and stop the NG tube and stop her Clinimix, and see if we can improve on her p.o. intake. 3. Chronic obstructive pulmonary disease, aware. 4. Pulmonary venous hypertension, which is improving. 5. Chronic hypoxemic respiratory failure with underlying chronic obstructive pulmonary disease with exacerbation of chronic obstructive pulmonary disease. 6. Acute hypercapnic respiratory failure, which is improved. 7. Protein calorie malnutrition. Will stop her Clinimix and see if we can improve her p.o. intake. 8. Acute renal failure, which is improved. 9. Chronic immunosuppression secondary to rheumatoid arthritis and medications, aware. 10. General weakness, deconditioning. Make sure she is getting some physical therapy and she is. REVIEW OF HER ORDERS: Getting DuoNebs q.6 hours, Ativan 1-2 mg IV q.2 hours p.r.n. anxiety. She is on cefepime 1 g q.8 hours, morphine 2-6 mg IV q.2 hours p.r.n., Protonix 40 mg q.12. She received a dose of Lasix yesterday. I am going to give her another dose today. Following her electrolytes. Renal function looked good. Sodium 136, potassium 5.0, chloride 93, BUN 44, creatinine 0.7. Blood sugars appear well maintained at 96 and 105. cc: Mike Casillas MD
[2018-11-09] MEDS ORDERED: LASIX IV ONE (13:11)
--- NOTE | 2018-11-09 13:58 | PROGRESS NOTE ---
DATE: 11/09/2018 SUBJECTIVE: No major overnight events. The patient has no complaints at this time. She has not had any further episodes of unresponsiveness or gaze preference. OBJECTIVE: Afebrile, blood pressure 140s to 160s systolic, pulse low 100s. Ms. Bradford is supine in bed. Awake and alert today, watching some TV. She regards as I enter the room. She is oriented to self, location, year, month, and President. Did not know the date or day of the week. She follows simple commands consistently. Pupils are equal, round, and reactive. Gaze conjugate, forward ocular movements are full. Face is symmetric with equal activation. She moves all extremities spontaneously without obvious focal deficit. Speech is a bit dysarthric. No language disturbance detected. White count normal. Sodium normal, BUN 44, creatinine 0.7. ASSESSMENT AND PLAN: Episode of sudden unresponsiveness with a question of leftward gaze deviation while in the emergency department this admission. There have been no further events during her hospitalization. The etiology is uncertain at this time. I will review the EEG today. Would still suggest a noncontrasted MRI of the brain once she is able to go for that. cc: Carola Pugh MD MTDD
[2018-11-09] MEDS: LOVENOX SUBQ SCH (14:00)
--- NOTE | 2018-11-09 14:23 | PROGRESS NOTE ---
DATE: 11/09/2018 SUBJECTIVE: Ms Kamilla Bradford is status post repair of a perforated distal posterior gastric ulcer. She remains in our ICU. She is extubated. She is confused at times. OBJECTIVE: Exam: She still has an NG tube in place. Her abdomen is soft. She is on IV Protonix. PLAN: We will discontinue her NG tube and plan to start a diet. cc: Violetta Cummings MD
--- NOTE | 2018-11-09 18:19 | PULMONOLOGY PROGRESS NOTE ---
DATE: 11/09/2018 SUBJECTIVE: The patient is awake, alert, and conversant. She is having periods of confusion. OBJECTIVE: Vital Signs: The patient has been afebrile for the last 24 hours. Blood pressure 143/71, heart rate 107, respiratory rate 15, oxygen saturation 100. HEENT: Pupils are equal and reactive. Oropharynx is clear. Neck: Supple. Chest: Reveals occasional rhonchi bilaterally. Cardiac: S1, S2. Abdomen: Soft and without hepatosplenomegaly. Extremities: Without edema. LABORATORIES: Chest x-ray reveals slight improvement in bilateral infiltrates. White blood count 10.5, hemoglobin 8.1, platelet count 170,000. Sodium 136, potassium 5.0, chloride 93, bicarb 35, BUN 44, creatinine 0.6. IMPRESSION: This is a 68-year-old with: 1. Pseudomonal pneumonia. 2. Acute hypoxemic respiratory failure. 3. Severe chronic obstructive pulmonary disease. 4. Status post emergent repair of a perforated ulcer. 5. Protein calorie malnutrition. 6. Chronic immunosuppression with rheumatoid arthritis. RECOMMENDATIONS: 1. Continue bronchial hygiene. 2. Continue antibiotics per Infectious Disease's recommendation. 3. Advance diet as outlined per Surgery. 4. Overall prognosis is guarded. cc: Sam Corral MD
[2018-11-09] MEDS: SODIUM CHLORIDE 0.9% INJ SCH (21:12)
[2018-11-09] MEDS: REQUIP PO SCH (21:57)
[2018-11-10] MEDS: DUONEB (A & A) INH SCH ×4 (03:29→22:04)
[2018-11-10] MEDS: MAXIPIME 1 GM in NS 50 ML IV SCH ×3 (04:48→21:35)
--- NOTE | 2018-11-10 07:28 | Diag Imaging Result Doc PS360 ---
EXAM: CHEST-1 VIEW INDICATION: SOB TECHNIQUE: One view COMPARISON: 11/09/2018 FINDINGS: The NG tube has been removed. The right PICC line is in stable position with the tip projecting over the right atrium. Bilateral interstitial infiltrates are unchanged. No new consolidation is identified. Cardiac silhouette is stable. IMPRESSION: Essentially stable chest. Electronically signed by Virgilio Munguia 11/10/2018 7:26 AM
[2018-11-10] MEDS: SODIUM CHLORIDE 0.9% INJ SCH ×2 (08:50→21:32)
[2018-11-10] MEDS: PROTONIX IV SCH ×2 (08:50→21:32)
--- NOTE | 2018-11-10 08:52 | EEG REPORT ---
DATE: 11/04/2018 REFERRING: Carola Pugh MD REPORT DEVELOPER: Nitin Martinez. BACKGROUND INFORMATION: Technique: This is a digitally recorded portable routine EEG with video. HISTORY: A 68-year-old female patient with episode of unresponsiveness and question of eye deviation to the left. EEG is ordered to detect evidence of seizures. MEDICATIONS: Include propofol, morphine. EEG FINDINGS: Propofol was held at the start of the study. A posterior dominant alpha rhythm is not seen. At the start of the record, the background consists of slow-rolling polymorphic delta activity with some superimposed faster activity. Developing thereafter are prolonged bursts of up to 12 seconds of faster activities, alpha, beta, theta with some delta. Late in the record, the background becomes more continuous, consisting of mixed alpha, beta, theta, and rare delta frequencies. No definite persistent focal slowing. No epileptiform discharges. No seizures. Hyperventilation was not performed. Photic stimulation does not alter the record. Drowsing does occur but stage II sleep is not seen. The EKG demonstrates regular intervals. IMPRESSION: Abnormal routine EEG due to moderate generalized slowing which is likely consistent with pharmacologic sedation. The background frequencies improved throughout the record. No epileptiform discharges or seizures seen on the current study. This does not rule out an underlying seizure disorder. Clinical correlation is recommended. cc: Carola Pugh MD [facility]
[2018-11-10 09:59] LABS: BASO# 0.01 X1000 (0.0-0.2); BASO% 0.1 % (0.0-0.8); EOS# 0.45 X1000 (0.0-0.7); EOS% 3.5 % (0.0-10.0); HEMOGLOBIN 8.7 g/dL (12.0-16.0); IMM GRAN# 0.06 X1000 (0.0-0.04); IMM GRAN% 0.5 % (0.0-0.5); LYMPH# 0.81 X1000 (1.2-3.4); LYMPH% 6.2 % (20.5-51.1); MCH 27.3 PG (27-31); MCHC 31.1 g/dL (33-37); MCV 87.8 FL (81-99); MONO# 1.31 X1000 (0.11-0.59); MONO% 10.1 % (1.7-9.3); MPV 11.1 FL (7.4-10.4); NEUT# 10.39 X1000 (1.4-6.5); NEUT% 79.6 % (42.2-75.2); PLT 181 X1000 (130-400); RBC 3.19 XMIL (4.2-5.4); RDW 13.8 % (11.5-14.5); WBC 13.03 X1000 (4.8-10.8)
[2018-11-10 10:17] LABS: CALCIUM 9.1 mg/dL (8.8-10.2); POTASSIUM 5.2 mmol/L (3.5-5.1)
--- NOTE | 2018-11-10 11:03 | INFECTIOUS DISEASE PROGRESS NO ---
DATE: 11/10/2018 PRESENT ILLNESS: The patient has Pseudomonas pneumonia. She is status post surgery for perforated gastric ulcer with resulting peritonitis. MEDICATIONS: This is the 5th day of treatment with cefepime as a single agent. PHYSICAL EXAMINATION: Vital Signs: Temperature is 98 degrees, pulse 116, respirations 20, blood pressure 125/63. General: This is a chronically ill-appearing elderly female. She is in no acute distress. Head/eyes/ears/nose/throat: She can hear my spoken words and see near objects. She does not have any white patches on her tongue. Neck: It does not hurt her when she turns her head. Lungs: Clear to auscultation. Cardiovascular: Heart rate is regular. Abdomen: Soft and not tender to light palpation. The patient's incision has a large dressing over it the dressing is intact. Extremities: The patient has a PICC in her right arm. The site is not erythematous or swollen. Neurologic: The patient is alert. She can move her extremities. She does not have a tremor. Integument: No rash noted. LAB AND X-RAY: CBC today shows a white count of 13,030, hemoglobin 8.7, and platelet count 181,000. The chest x-ray continues to show bilateral infiltrates. ASSESSMENT AND PLAN: The patient's white count continues to increase. The exact reason why it is increasing is uncertain to me at this time. I am going to repeat the patient's CBC tomorrow and if it keeps going higher then I am going to get repeat blood cultures and CT scan of the abdomen. COMORBIDITIES: The patient is elderly she has COPD, malnutrition, acute kidney injury and chronic immunosuppression medicines for treatment of rheumatoid arthritis. cc: Mustapha Nicholson MD MTDD
--- NOTE | 2018-11-10 11:52 | PROGRESS NOTE ---
DATE: 11/10/2018 SUBJECTIVE: Ms. Bradford has tolerated her NG tube being out. Her abdomen remains soft. Her midline incision is healing well and we will begin her on full liquids. OBJECTIVE: Her heart rate is 120, blood pressure 126/60, O2 saturation 94%. She is afebrile. Her white count is 13, hematocrit is 28%. BUN is 50, creatinine 1.0. She awakens. PLAN: Supportive care with advancing her diet. cc: Violetta Cummings MD
[2018-11-10] MEDS ORDERED: CATHFLO IV ONE (12:02)
[2018-11-10] MEDS ORDERED: STERILE WATER INJ. INJ ONE (12:02)
--- NOTE | 2018-11-10 12:22 | PROGRESS NOTE ---
DATE: 11/10/2018 SUBJECTIVE: The patient has no major complaints. She is a bit out of it. OBJECTIVE: Vital signs: Blood pressure is 126/60, heart rate 120, respiratory rate is 16, temperature 94 degrees. Heart rate has been fast. 94% on 3 L. Cardiovascular: Regular rate and rhythm. Pulmonary: Bilateral breath sounds clear to auscultation. GI: Soft, nontender, nondistended. Bowel sounds are positive. LABORATORY DATA: Her white count is 13, hemoglobin and hematocrit 8 and 28, platelets 181,000. Potassium 5.2, BUN and creatinine are 50 and 1. IMAGING: Chest x-ray shows stable chest, PICC line, bilateral interstitial infiltrates. PROBLEM LIST: 1. Status post gastric ulcer perforation, peritonitis. Surgery is following her. NG is out and I believe they started a diet, so we will see how she does with that. Mouth looks very dry. Hopefully, that will improve. I think she is off Clinimix just to help stimulate her appetite. 2. Chronic obstructive pulmonary disease, pulmonary venous hypertension. Aware. We will continue breathing treatments and follow. 3. Acute hypercapnic respiratory failure is improved. Continue to monitor. 4. Moderate protein calorie malnutrition. She is off Clinimix and waiting p.o. intake to improve. 5. Acute kidney injury. That is also overall improved. DISPOSITION: I think she is probably getting close to being able to go to the floor. She seems a bit altered today but she awakens and follows commands. Just need to be very careful with her. Appreciate vocational rehab consultant's assistance. Continue to follow. cc: Iggy Gustafson MD
[2018-11-10] MEDS: LOVENOX SUBQ SCH (12:29)
[2018-11-10] MEDS: NS 1,000 ML IV SCH (12:30)
--- NOTE | 2018-11-10 13:38 | PULMONOLOGY PROGRESS NOTE ---
DATE: 11/10/2018 SUBJECTIVE: The patient is awake and alert. She is currently receiving a bath. She is conversant but not completely oriented. OBJECTIVE: Vital signs: Blood pressure 107/52, heart rate 111 respiratory rate 17, oxygen saturation 94% on 3 L per nasal cannula. HEENT: Pupils are equal and reactive. Oropharynx appears clear. Neck is supple. Chest reveals diminished breath sounds bilaterally with faint crackles. Cardiac exam S1-S2. Abdomen is soft with surgical dressings in place, which are clean and without drainage. Extremities: Without edema. LABORATORIES: Chest x-ray reveals increased interstitial markings/infiltrates bilaterally without change. An NG tube has been removed. Sodium 134, potassium 5.2, chloride 91, bicarbonate 33, BUN 50, creatinine 1.0. White blood count 13.0, hemoglobin 8.7, platelet count a 181,000. IMPRESSION: A 68-year-old with 1. Acute hypoxemic respiratory failure. 2. Pseudomonal pneumonia. 3. Severe chronic obstructive pulmonary disease. 4. Protein calorie malnutrition. 5. Chronic immunosuppression associated with rheumatoid arthritis. 6. Status post emergent repair of a perforated ulcer. RECOMMENDATION: 1. Advance diet as outlined per General Surgery. 2. Continue bronchial hygiene. 3. Continue antibiotics. 4. Continue oxygen for hypoxemic respiratory failure. 5. Continue ICU monitoring for now. Prognosis is guarded. cc: Sam Corral MD
--- NOTE | 2018-11-10 14:02 | PROGRESS NOTE ---
DATE: 11/10/2018 SUBJECTIVE: No major overnight events. Still no further episodes of unresponsiveness or gaze preference. OBJECTIVE: Vital signs: Afebrile, blood pressure 106 to 130 systolic, pulse 120s to 130s, respirations 17, 97% on room air. General/neurologic: Ms. Bradford is supine in bed, easily awakened and remains alert during my time at the bedside. She is reasonably attentive, oriented to self, [facility] and to the president. She did not get the year today. She follows simple commands. Pupils are equal, round, and reactive. Gaze conjugate. Ocular movements are full. Face symmetric with equal activation. Speech remains a bit dysarthric. No language disturbance detected. She is seen to move her extremities spontaneously without obvious focal deficit. DIAGNOSTICS: A routine EEG was personally reviewed and showed moderate generalized slowing toward the end of the record. The background frequency had improved throughout the record and this was likely seen as an effect of pharmacologic sedation. Propofol had been held at the start of the study when it was performed on 11/04/2018. No epileptiform discharges or seizures. White count is increasing, 13 today. Sodium of 134, BUN of 50 creatinine of 1.0, trending up. ASSESSMENT AND PLAN: A single episode of sudden unresponsiveness with question of leftward gaze deviation on admission. No further events. EEG did not show an increased propensity to seizure. I would still recommend a noncontrasted brain MRI once practical. Otherwise, continue current medical management per primary team. cc: Carola Pugh MD
[2018-11-10] MEDS ORDERED: LOPRESSOR IV ONE (20:54)
[2018-11-10] MEDS: REQUIP PO SCH (21:30)
[2018-11-11] MEDS: ATIVAN IV PRN (00:25)
[2018-11-11] MEDS ORDERED: NS 500 ML IV ONE (02:32)
[2018-11-11] MEDS: DUONEB (A & A) INH SCH ×4 (03:04→22:28)
[2018-11-11] MEDS: NS 1,000 ML IV SCH (03:54)
[2018-11-11] MEDS: MAXIPIME 1 GM in NS 50 ML IV SCH ×3 (04:23→21:42)
[2018-11-11 06:32] LABS: BASO# 0.01 X1000 (0.0-0.2); BASO% 0.1 % (0.0-0.8); EOS# 0.36 X1000 (0.0-0.7); EOS% 2.1 % (0.0-10.0); HEMATOCRIT 21.8 % (37.0-47.0); HEMOGLOBIN 6.8 g/dL (12.0-16.0); LYMPH# 0.92 X1000 (1.2-3.4); LYMPH% 5.4 % (20.5-51.1); MCH 28.2 PG (27-31); MCHC 31.2 g/dL (33-37); MCV 90.5 FL (81-99); MONO# 1.34 X1000 (0.11-0.59); MONO% 7.8 % (1.7-9.3); MPV 11.7 FL (7.4-10.4); NEUT# 14.45 X1000 (1.4-6.5); NEUT% 84.6 % (42.2-75.2); PLT 185 X1000 (130-400); RBC 2.41 XMIL (4.2-5.4); WBC 17.08 X1000 (4.8-10.8)
[2018-11-11 07:35] LABS: CALCIUM 8.8 mg/dL (8.8-10.2); CREATININE 1.3 mg/dL (0.5-0.9); POTASSIUM 4.5 mmol/L (3.5-5.1)
--- NOTE | 2018-11-11 07:51 | Diag Imaging Result Doc PS360 ---
EXAM: CHEST-1 VIEW 11/11/2018 HISTORY: SOB TECHNIQUE: AP portable at 0538 COMMENT: There is extensive interstitial opacity bilaterally there are patchy nodular and ill-defined opacities elsewhere particularly in the right upper lobe and left lower lobe. The right upper lobe appears to be slightly better expanded than it was previously on 11/10/2018. The appearance of the lungs is generally worse than on 11/09/2018. IMPRESSION: Pulmonary fibrosis with superimposed pneumonia and/or pulmonary edema. Electronically signed by Thad Dupree 11/11/2018 7:49 AM
--- NOTE | 2018-11-11 08:34 | PROGRESS NOTE ---
DATE: 11/11/2018 SUBJECTIVE: Ms. Bradford's white blood cell count has increased to 17. Her hematocrit is 21%. We will transfuse her 2 units of blood. She is sedated this morning. OBJECTIVE: Abdomen: Her abdomen is soft. It does not appear to be tender. Midline incision is intact, is healing well. Vital signs: Her heart rate is 110 to 120, blood pressure 130/74, O2 saturation 97%. She is afebrile. Her NG tube is out. Whitney catheter tube remains. Her white blood cell count has gone up over the last several days. ASSESSMENT: She is on Maxipime per Dr. Nicholson. She is on a full liquid diet. She has to really be fed. She remains on Protonix. cc: Violetta Cummings MD
[2018-11-11] MEDS: SODIUM CHLORIDE 0.9% INJ SCH ×2 (08:57→21:42)
[2018-11-11] MEDS: PROTONIX IV SCH ×2 (08:58→21:42)
[2018-11-11] MEDS ORDERED: ATIVAN IV PRN (09:46)
[2018-11-11] MEDS: ZYVOX 600 MG/D5W 600 MG/300 ML IVPB IV SCH ×2 (09:49→21:42)
--- NOTE | 2018-11-11 09:56 | INFECTIOUS DISEASE PROGRESS NO ---
DATE: 11/11/2018 PRESENT ILLNESS: Patient has a Pseudomonas pneumonia. She is status post surgery for perforated gastric ulcer with resulting peritonitis. Unfortunately, now her white blood cell count is going up. MEDICATIONS: The patient has been on cefepime now for a total of 6 days. PHYSICAL EXAMINATION: Vital signs: Temperature is 97.4 degrees, pulse 117, respirations 20, blood pressure 113/69. General: This is a chronically ill-appearing, elderly female. She is in no acute distress. Head, eyes, ears, nose, and throat: She does not have any drainage coming from her nose or the ears. Lungs: Clear to auscultation. Cardiovascular: Heart rate is regular. Abdomen: Soft and not tender. The patient's incision is intact. There is no erythema or drainage. Extremities: The patient has a PICC in her right arm. The site is not swollen or erythematous. Neurologic: The patient is lethargic today. She does not have a tremor. Integument: No rash noted. LAB AND X-RAY: Chest x-ray shows pulmonary fibrosis with superimposed pneumonia. CBC shows a white count of 17,080, hemoglobin 6.8, and platelet count a 185,000. Creatinine is 1.3. GFR is 41. ASSESSMENT AND PLAN: The patient has Pseudomonas pneumonia and is status post surgery for perforated gastric ulcer with resulting peritonitis. The patient's white count is increasing. I have ordered blood cultures and I have added Zyvox. I am going to get a CBC tomorrow to not only check the white count, but also the hemoglobin since I have started Zyvox which could suppress the hemoglobin even more. COMORBIDITIES: The patient is elderly. She has COPD, malnutrition, acute kidney injury, and chronic immunosuppressive medications for her rheumatoid arthritis. cc: Mustapha Nicholson MD
--- NOTE | 2018-11-11 10:22 | PULMONOLOGY PROGRESS NOTE ---
DATE: 11/11/2018 INTERIM HISTORY: The patient received 2 mg of Ativan last evening for agitation. She is arousable but not conversant. OBJECTIVE: Vital Signs: The patient has been afebrile for the last 24 hours. Blood pressure 98/65, heart rate 119, respiratory rate 18, oxygen saturation 98% on 4 L per nasal cannula. HEENT: Pupils are small but reactive. Oropharynx appears dry. Neck: Supple. Chest: Reveals rhonchi bilaterally. Cardiac Examination: S1 and S2. Abdomen: Soft, with surgical dressings in place. Bowel sounds are present. Extremities: Without edema. Laboratories: White blood count is increased to 17.08, hemoglobin 6.8 and dropping from 8.7, platelet count 185,000. Chest x-ray reveals prominent vascular markings bilaterally. Sodium 140, potassium 4.5, chloride 101, bicarbonate 30, BUN 53, creatinine 1.3. IMPRESSION: A 68-year-old with: 1. Severe chronic obstructive pulmonary disease. 2. Pseudomonal pneumonia. 3. Gastrointestinal bleeding, status post urgent repair of a perforated ulcer. 4. Acute hypoxemic respiratory failure. 5. Protein calorie malnutrition. 6. Chronic immunosuppression, rheumatoid arthritis. 7. Significant decrease in hemoglobin level. RECOMMENDATIONS: 1. Decrease Ativan dosing. The patient is sedated with a 2 mg dose of Ativan. We will decrease the dose and frequency. 2. Agree with blood transfusion as you are doing. 3. Continue antibiotics per infectious disease. 4. Continue oxygen for hypoxemic respiratory failure. 5. Continue ICU monitoring. She has had some decline in her overall status. cc: Sam Corral MD
--- NOTE | 2018-11-11 10:24 | PROGRESS NOTE ---
DATE: 11/11/2018 SUBJECTIVE: The patient has less responsive than yesterday. She does mumble to verbal stimuli. She does withdraw from pain. The nurse states she got Ativan through the night and hopefully this is secondary to sedation. OBJECTIVE: Blood pressure is 115/70 with a heart rate of 120, respirations are 18, temperature is 98.1 degrees with O2 saturations 98 to 100 percent on 4 L nasal cannula. Eyes: Pupils are equal, round, react to light. EOMs are intact. Sclerae anicteric HEENT: Head is normocephalic, atraumatic. Mucous membranes are dry. Neck is supple with trachea midline. Cardiovascular: She is tachycardic. S1 and S2 are appreciated. She has no lower extremity edema. Peripheral pulses are palpable x4 extremities. Pulmonary: Breath sounds with rhonchi scattered throughout the left upper lobe greater than right. She has a weak cough. Chest rises and falls symmetrically with respiration. Gastrointestinal is soft, nondistended, with bowel sounds in all 4 quadrants. : Whitney is patent to bedside bag with clear yellow urine draining. LABS: WBC is 17.0 with a hemoglobin of 6.8, hematocrit 21.8, and platelets of 185,000. Sodium is 140, potassium 4.5, BUN 53, creatinine 1.3 with blood sugars ranging 60s to 90s. Chest x-ray revealed pulmonary fibrosis with superimposed pneumonia and/or pulmonary edema. ASSESSMENT AND PLAN: 1. Acute hypoxemic respiratory failure. We will continue with supplemental oxygen. NT suction prn 2. Pseudomonal pneumonia. Maxipime and Zyvox per Dr Nicholson. 3. Chronic obstructive pulmonary disease. 4. Protein calorie malnutrition. 5. Chronic immunosuppression associated with rheumatoid arthritis, 6. Status post emergent repair of a perforated ulcer. 7. Acute kidney injury, improving. Trend labs, renal dose medications as appropriate. 8. Blood loss anemia. Transfuse 2 units PRBC, trend labs. 9. FSBG w/SSI incentive spirometer and CPT once more alert. Dictated by AMOL Gaona for Luke Panchal MD This chart was documented by, AMOL Gaona and accurately reflects the services performed, treatment plan and medical decisions as attested by the providers signature Luke Panchal MD. cc: AMOL Gaona MD MTDD
[2018-11-11] MEDS: LOVENOX SUBQ SCH (13:19)
[2018-11-11 15:43] LABS: HEMATOCRIT 31.9 % (37.0-47.0); HEMOGLOBIN 10.2 g/dL (12.0-16.0)
[2018-11-11] MEDS: REQUIP PO SCH (21:42)
--- NOTE | 2018-11-11 23:49 | PROGRESS NOTE ---
DATE: 11/11/2018 SUBJECTIVE: The patient is not really responsive today. She does mumble and moved to verbal stimuli. She will withdraw to noxious stimuli. OBJECTIVE: Vital Signs: Reviewed. BP 157/70, sats 98%-100% on 4 L. General: The patient is disoriented, does not answer questions. Physical examination otherwise is relatively benign. Cardiovascular: Regular rate. Chest: Clear. Abdomen: Soft. Positive bowel sounds. Extremities: Moves all extremities. ASSESSMENT: 1. Acute hypoxic respiratory failure. 2. Anemia, acute on chronic. 3. Psuedomonal pneumonia. 4. Acute blood loss. PLAN: The patient seen and examined by myself, full note dictated and discussed with nurse practitioner. We will continue patient in the ICU. Continue current plan. Greater than 30 minutes was spent in total care. Please see full dictation. cc: Luke Panchal MD
[2018-11-12] MEDS: DUONEB (A & A) INH SCH ×4 (03:20→21:10)
[2018-11-12] MEDS: MAXIPIME 1 GM in NS 50 ML IV SCH ×3 (04:30→20:53)
[2018-11-12 06:16] LABS: HEMATOCRIT 26.2 % (37.0-47.0); HEMOGLOBIN 8.4 g/dL (12.0-16.0); MCHC 32.1 g/dL (33-37); MCV 90.3 FL (81-99); MPV 11.4 FL (7.4-10.4); RBC 2.9 XMIL (4.2-5.4); RDW 14.5 % (11.5-14.5); WBC 11.37 X1000 (4.8-10.8)
[2018-11-12 06:28] LABS: ALB/GLOB RATIO 0.6; ALBUMIN 2.4 g/dL (3.5-5.0); CALCIUM 8.7 mg/dL (8.8-10.2); CREATININE 1.1 mg/dL (0.5-0.9); POTASSIUM 3.8 mmol/L (3.5-5.1); TOTAL BILIRUBIN 0.39 mg/dL (0.20-1.00); TOTAL PROTEIN 6.7 g/dL (6.3-8.3)
--- NOTE | 2018-11-12 07:29 | Diag Imaging Result Doc PS360 ---
EXAM: CHEST-1 VIEW 11/12/2018 HISTORY: SOB TECHNIQUE: AP portable at 0531 COMMENT: The inspiration is less optimal than on 11/11/2018. There is diffuse interstitial opacity with areas of denser opacification in the parahilar region of the left upper lobe and the inferior right upper lobe. IMPRESSION: Pulmonary fibrosis with possible superimposed pneumonia and/or pulmonary edema. Electronically signed by Thad Dupree 11/12/2018 7:27 AM
[2018-11-12] MEDS: PROTONIX IV SCH ×2 (08:18→20:53)
[2018-11-12] MEDS: SODIUM CHLORIDE 0.9% INJ SCH (08:18)
[2018-11-12] MEDS: ZYVOX 600 MG/D5W 600 MG/300 ML IVPB IV SCH ×2 (08:30→20:53)
--- NOTE | 2018-11-12 08:41 | PROGRESS NOTE ---
DATE: 11/12/2018 INTERVAL HISTORY: No acute event overnight. She was intermittently tachycardic. However, on monitor, it suggests sinus tachycardia. The patient denies any new complaints. She is feeling a little short of breath. However, denies any chest pain. She does not remember if she had a bowel movement. She is able to tell me that she came to the hospital because her intestines had some problems. I explained to her about perforated gastric ulcer. PHYSICAL EXAMINATION: Vital Signs: Currently, vitals detect temperature of 98.4 degrees, pulse of 90 per minute, respiratory rate 20, blood pressure 130/67, and saturating 100% on 4 L nasal cannula. On physical examination, she has very severe protein energy malnutrition, very dry oral cavity and nasal cannula. She does have marked conjunctival pallor without any cyanosis or icterus. She does have prominent rheumatoid arthritis changes with ulnar deviation of bilateral wrists and inactive chronic appearing arthritis especially affecting bilateral metacarpophalangeal joints. Lungs: Air entry bilaterally equal. No wheeze, rhonchi, or crackles. Cardiovascular: S1, S2 normal. Tachycardic. No murmur, rub, or gallop. Abdomen: Soft and nontender. She does have a midline scar with clint extending from epigastric region up to pubic symphysis. There is no undue erythema or discharge around the wound site. She has urine catheter. Extremities: She does not have bilateral lower extremity edema. Neurologic: She is alert. She is oriented to herself, to this hospital, and the situation to some extent. Follows simple commands like opening mouth, raising arms and legs. Input and output has not had any documented bowel movement. She did eat some bites yesterday. LABORATORY: Labs suggestive of leukocytosis, normocytic anemia with hemoglobin of 8.4. Normal platelet count. Normal electrolytes except acute kidney injury, which is better than yesterday. ASSESSMENT AND PLAN: 1. Acute perforated distal gastric ulcer leading to peritonitis status post exploratory laparotomy with primary repair and setting of perforated distal gastric ulcer, currently stable. Surgery on board. I will confirm with the nursing team if the patient has had any documented bowel movement. Otherwise, continue full liquid diet as per Surgery recommendation. 2. Acute hypoxic respiratory failure on chronic hypoxic respiratory failure with history of chronic obstructive pulmonary disease on home oxygen, and superimposed Pseudomonas pneumonia. Continue ipratropium nebulization every 6 hours, intravenous linezolid, and intravenous cefepime. Continue oxygenation to maintain saturation between 88 to 92 percent. I appreciate Pulmonology and Infectious Disease's recommendation. 3. History of chronic gastroesophageal reflux disease. Continue pantoprazole intravenous every 12 hours 4. Others: Essential hypertension and history of rheumatoid arthritis currently stable. DISPOSITION: The patient remains inside the hospital for tenuous cardiac respiratory status. We will continue to monitor in ICU. TIME SPENT: More than 30 minutes of critical care time was spent in taking of this patient. cc: Jamil Sanabria MD
--- NOTE | 2018-11-12 10:45 | PULMONOLOGY PROGRESS NOTE ---
DATE: 11/12/2018 SUBJECTIVE: The patient is awake, alert and more conversant today. OBJECTIVE: Vital Signs: The patient has been afebrile for the last 24 hours. Blood pressure 150/78, heart rate 95, respiratory rate 19, oxygen saturation 100% on 4 L per nasal cannula. HEENT: Pupils are equal and reactive. Oropharynx appears clear but dry. Neck: Supple. Chest reveals good air entry bilaterally with prolonged expiratory phase. Cardiac exam: S1, S2. Abdomen is soft with positive bowel sounds. Extremities reveal trace edema. LABORATORIES: White blood count 11.37, hemoglobin 8.4, platelet count 164,000. Sodium 144, potassium 3.8, chloride 106, bicarbonate 27, BUN 39, creatinine 1.1. Chest x- ray reveals shallow inspiration with bilateral infiltrates. No significant change. IMPRESSION: 1. 68-year-old with severe chronic obstructive pulmonary disease. 2. Pseudomonal pneumonia. 3. Status post repair of a perforated gastric ulcer. 4. Acute hypoxemic respiratory failure. 5. Chronic immunosuppression due to rheumatoid arthritis. 6. Protein calorie malnutrition. RECOMMENDATION: 1. Continue to advance diet as tolerated. 2. Limit sedation medication. 3. Continue antibiotics per Infectious Disease. 4. Continue physical therapy. cc: Sam Corral MD MTDD
[2018-11-12] MEDS: LOVENOX SUBQ SCH (12:40)
[2018-11-12] MEDS ORDERED: LASIX IV ONE (15:04)
--- NOTE | 2018-11-12 16:32 | INFECTIOUS DISEASE PROGRESS NO ---
DATE: 11/12/2018 PRESENT ILLNESS: The patient has a Pseudomonas pneumonia. She for the past few days has had increasing white blood cell count. Yesterday, I started the patient on Zyvox and today her white count has decreased to 9,930. MEDICATIONS: This is the 7th day of treatment with cefepime and the first day of treatment with Zyvox. PHYSICAL EXAMINATION: Vital Signs: Temperature is 99.3 degrees, pulse 93, respirations 18, blood pressure 136/73. General: This is a chronically ill-appearing, elderly female. She is in no acute distress. Head, eyes, ears, nose, throat: She does not have any drainage coming from her nose or ears. She does not have any white patches on her tongue. Neck: No pain with head movement. Lungs: There were bilateral rhonchi and a few wheezes on the right side. Cardiovascular: Heart rate is regular. Abdomen: Soft and nontender. The incision is intact. There is no drainage and the tissue is not erythematous. Extremities: Patient has a PICC in her right arm. The site is not swollen or tender. Neurologic: Today the patient is alert. She talks in a coherent fashion. She can move her extremities. There is no tremor. Integument: No rash noted. LAB AND X-RAY: Chest x-ray today shows pulmonary fibrosis with possible superimposed pneumonia and/or pulmonary edema. The patient's CBC shows a white count of 11,370, hemoglobin 8.4, and platelet count 164,000. Creatinine is 1.1. GFR is 50. Blood cultures are pending. ASSESSMENT AND PLAN: The patient has a Pseudomonas pneumonia. She did have an increasing white count but that is coming down now since Zyvox was added. For now I plan to continue both cefepime and Zyvox. COMORBIDITIES: The patient is elderly. She has COPD, malnutrition, acute kidney injury, and chronic immunosuppressive medications for her rheumatoid arthritis. cc: Mustapha Nicholson MD
[2018-11-12] MEDS: REQUIP PO SCH (20:53)
[2018-11-13] MEDS: MORPHINE IV PRN (01:03)
[2018-11-13] MEDS: DUONEB (A & A) INH SCH ×4 (03:40→22:00)
[2018-11-13] MEDS: MAXIPIME 1 GM in NS 50 ML IV SCH ×3 (04:44→20:19)
[2018-11-13 05:26] LABS: BASO# 0.01 X1000 (0.0-0.2); BASO% 0.1 % (0.0-0.8); EOS% 3.2 % (0.0-10.0); HEMATOCRIT 26.9 % (37.0-47.0); HEMOGLOBIN 8.5 g/dL (12.0-16.0); IMM GRAN# 0.04 X1000 (0.0-0.04); IMM GRAN% 0.3 % (0.0-0.5); LYMPH# 0.98 X1000 (1.2-3.4); LYMPH% 7.9 % (20.5-51.1); MCHC 31.6 g/dL (33-37); MCV 88.5 FL (81-99); MONO# 0.97 X1000 (0.11-0.59); MONO% 7.9 % (1.7-9.3); MPV 11.5 FL (7.4-10.4); NEUT# 9.95 X1000 (1.4-6.5); NEUT% 80.6 % (42.2-75.2); PLT 181 X1000 (130-400); RBC 3.04 XMIL (4.2-5.4); RDW 14.4 % (11.5-14.5); WBC 12.35 X1000 (4.8-10.8)
--- NOTE | 2018-11-13 07:21 | Diag Imaging Result Doc PS360 ---
EXAM: CHEST-1 VIEW HISTORY: SOB TECHNIQUE: Portable chest single view COMPARISON: 11/12/2018 FINDINGS: Poor inspiratory effort. There are bilateral infiltrates. These are slightly less dense than on the prior study. No change in the right-sided PICC line. No cardiomegaly. Trace pleural fluid. IMPRESSION: Mild interval improvement. Electronically signed by Griffin Ball 11/13/2018 7:19 AM
[2018-11-13] MEDS ORDERED: MORPHINE IV PRN (08:49)
[2018-11-13] MEDS ORDERED: TYLENOL PO PRN (08:49)
[2018-11-13] MEDS ORDERED: LACTULOSE PO SCH (09:45)
[2018-11-13] MEDS: ZYVOX 600 MG/D5W 600 MG/300 ML IVPB IV SCH ×2 (09:50→20:53)
[2018-11-13] MEDS: LASIX IV SCH ×2 (09:50→20:10)
[2018-11-13] MEDS: SODIUM CHLORIDE 0.9% INJ SCH ×2 (09:51→20:11)
[2018-11-13] MEDS: PROTONIX IV SCH ×2 (09:51→20:11)
[2018-11-13] MEDS: SPIRIVA INH SCH (10:00)
--- NOTE | 2018-11-13 10:01 | PROGRESS NOTE ---
DATE: 11/13/2018 INTERVAL HISTORY: Yesterday, the patient had started becoming a little short of breath and her oxygen requirement started increasing so I had started her on intravenous Lasix. She did have a modest urine output after Lasix dosing. SUBJECTIVE: The patient is sleepy. She is on a Ventimask. She denies any chest pain or shortness of breath. She is actually feeling a little better. PHYSICAL EXAMINATION: Vital signs: On vitals evaluation, her temperature is 98.7 degrees, pulse 98, respiratory rate 15, blood pressure 122/57, and saturating 95% on Venturi mask. General: She does have severe protein calorie malnutrition. Dry oral cavity. Marked conjunctival pallor without cyanosis, icterus, or clubbing. She does have prominent rheumatoid arthritis changes with ulnar deviation of bilateral wrists and inactive chronic appearing metacarpophalangeal joint arthritis. Lungs: Air entry bilaterally equal. No wheeze or rhonchi. Mild crackles bilateral infrascapular region with decreased air entry. Cardiovascular: S1, S2 normal. Tachycardic. No murmur, rub, or gallop. Abdomen: Soft, nontender. Midline scar with clint extending from xiphoid sternum until the pubic symphysis. No undue erythema or discharge around the wound site. She has urine catheter. She does not have bilateral lower extremity edema. Neurologic: She is alert and oriented to person and place, and to situation to some extent. Follows simple commands like opening mouth. She does have poor oral intake and only eats bites. LABORATORY: Labs suggestive of persistent leukocytosis, normocytic anemia, and normal platelet count. No BMP today. ASSESSMENT AND PLAN: 1. Acute perforated distal gastric ulcer leading to peritonitis, status post exploratory laparotomy with primary repair and in the setting of perforated distal gastric ulcer, currently stable. Her surgery was on 11/02. I will start patient on bowel regimen since she has not had any documented bowel movement for a while. Continue liquid diet as per surgery recommendation. 2. Acute hypoxic respiratory failure on chronic hypoxic respiratory failure with history of chronic obstructive pulmonary disease on home oxygen and superimposed Pseudomonas pneumonia. Continue ipratropium nebulization every 6 hours, intravenous linezolid and cefepime, oxygenation to maintain saturation 88 to 92 percent. Pulmonology and ID on board. I will start patient on intravenous Lasix. We will monitor her BMP and respiratory response tomorrow. 3. Continue pantoprazole intravenous every 12 hours for history of chronic GERD and recent perforated gastric ulcer. Start patient on lactulose and bisacodyl suppository. Continue home Spiriva. Continue enoxaparin for DVT prophylaxis. DISPOSITION: The patient remains inside ICU for monitoring of her respiratory status, which she is still requiring Ventimask. I called the patient's second daughter and informed her about the patient's clinical course and answered all of her questions. The patient's 1st daughter was not able to be reached out to, and she did not have any voicemail set up. TIME SPENT: More than 30 minutes of critical care time was spent in taking care of this patient. cc: Jamil Sanabria MD
--- NOTE | 2018-11-13 10:35 | PROGRESS NOTE ---
DATE: 11/13/2018 Ms. Bradford is awake, alert, attentive this morning. She is making progress with management of her medical problems. She has not had any further seizure-like episode or other neurologic event. Nothing to add to Dr. Pugh's suggestions in progress note a few days ago. Still need to consider noncontrast brain MRI electively. Thanks for asking Neurology to see Ms. Bradford. cc: MD YANIRA Nair III
[2018-11-13] MEDS: MIRALAX PO SCH (12:01)
[2018-11-13] MEDS: LOVENOX SUBQ SCH (13:08)
--- NOTE | 2018-11-13 13:38 | INFECTIOUS DISEASE PROGRESS NO ---
DATE: 11/13/2018 PRESENT ILLNESS: The patient has a Pseudomonas pneumonia and leukocytosis, the exact cause of which is uncertain to me. MEDICATIONS: This is the 8th day of treatment with cefepime and the 2nd day of treatment with Zyvox. PHYSICAL EXAMINATION: Vital Signs: Temperature is 97.6 degrees, pulse 93, respirations 15, blood pressure is 119/66. General: This is a chronically ill-appearing, elderly female. She is in no acute distress. She is somewhat lethargic this morning. Head/eyes/ears/nose/throat: No drainage noted from the nose or ears. Neck: No pain with movement of her head. Lungs: Clear to auscultation. Cardiovascular: Heart rate is regular. Abdomen: Soft and nontender. The patient's incision is intact, it is not erythematous and it is not draining. Extremities: The patient has a PICC in her right arm. That site is also not erythematous or draining. Neurologic: The patient today is lethargic but arousable. She can move her extremities. There is no tremor. Integument: No rash noted. LAB AND X-RAY: Chest x-ray shows improvement in the patient's bilateral infiltrates. [place] [address], hemoglobin 8.5, platelet count is 181,000. Creatinine is 1.1. GFR is 50. ASSESSMENT AND PLAN: The patient has Pseudomonas pneumonia. She has an elevated WBC. For now I plan to treat her with both cefepime and Zyvox. COMORBIDITIES: The patient is elderly and she has the following. COPD, malnutrition, acute kidney injury, and use of immunosuppressive medication to treat her rheumatoid arthritis. cc: Mustapha Nicholson MD MTDD
--- NOTE | 2018-11-13 15:09 | PROGRESS NOTE ---
DATE: 11/13/2018 SUBJECTIVE: Ms. Kamilla Bradford is a 68-year-old white female who is at least a week out from an emergency surgery for perforated posterior distal gastric ulcer. I closed this ulcer primarily, and I feel that her stomach has remained fine. We irrigated all of the gross intra-abdominal contamination. Her abdomen is soft. It is not tender. Her midline incision is intact, but she does have breathing problems and that is why she remains in the ICU. She is working to breathe now. We also need to increase her nutrition. OBJECTIVE: Her heart rate is 98 to 125, blood pressure 145/97, O2 saturation 91%. She is afebrile. Her white blood cell count is 12 and hematocrit is 27%. By chest x-ray, she has bilateral infiltrates. Trace pleural fluid. We feel that her chest x-ray is improving. PLAN: Continue supportive care. Encourage protein intake. Most of her care is pulmonary at this point. cc: Violetta Cummings MD
[2018-11-13] MEDS: DULCOLAX PR SCH (16:46)
--- NOTE | 2018-11-13 18:39 | PULMONOLOGY PROGRESS NOTE ---
DATE: 11/13/2018 SUBJECTIVE: Patient is sitting up in a chair. She reports she is "bored." OBJECTIVE: The patient has been afebrile for the last 24 hours, blood pressure 107/63, heart rate 113, respiratory rate 18, oxygen saturation 93% on Venturi mask. HEENT: Pupils are equal and reactive. Oropharynx is clear. Neck is supple. Chest reveals occasional rhonchi bilaterally. Cardiac: S1, S2. Abdomen is soft and without hepatosplenomegaly. Extremities without edema. DIAGNOSTIC STUDIES: Chest x-ray revealed mild decrease in bilateral infiltrates. White blood count 12.35, hemoglobin 8.5, platelet count 181,000. IMPRESSION: A 68-year-old with: 1. Pseudomonal pneumonia. 2. Severe chronic obstructive pulmonary disease. 3. Status post repair of perforated gastric ulcer. 4. Acute hypoxemic respiratory failure. 5. Protein-calorie malnutrition. 6. Chronic immunosuppression due to a rheumatoid arthritis. RECOMMENDATION: 1. Continue diet as tolerated. 2. Continue antibiotics per Infectious Disease. 3. Continue physical therapy. 4. Anticipate transfer to the floor, given her improved clinical status. cc: Sam Corral MD
[2018-11-13] MEDS: REQUIP PO SCH (20:11)
[2018-11-14 01:22] LABS: CALCIUM 8.7 mg/dL (8.8-10.2); CREATININE 1.3 mg/dL (0.5-0.9); MAGNESIUM 1.2 mg/dL (1.5-2.7); POTASSIUM 3.5 mmol/L (3.5-5.1)
[2018-11-14] MEDS ORDERED: MAGNESIUM SULFATE 1 GM/D5W 1 GM/100 ML IVPB IV ONE (01:33)
[2018-11-14] MEDS: DUONEB (A & A) INH SCH ×4 (03:43→22:45)
[2018-11-14] MEDS: MAXIPIME 1 GM in NS 50 ML IV SCH ×3 (04:30→22:23)
[2018-11-14 05:34] LABS: BASO# 0.02 X1000 (0.0-0.2); BASO% 0.2 % (0.0-0.8); EOS# 0.35 X1000 (0.0-0.7); EOS% 3.2 % (0.0-10.0); HEMATOCRIT 27.8 % (37.0-47.0); HEMOGLOBIN 8.8 g/dL (12.0-16.0); LYMPH# 0.97 X1000 (1.2-3.4); LYMPH% 8.9 % (20.5-51.1); MCH 27.9 PG (27-31); MCHC 31.7 g/dL (33-37); MCV 88.3 FL (81-99); MONO# 0.91 X1000 (0.11-0.59); MONO% 8.3 % (1.7-9.3); MPV 11.2 FL (7.4-10.4); NEUT# 8.69 X1000 (1.4-6.5); NEUT% 79.4 % (42.2-75.2); PLT 179 X1000 (130-400); RBC 3.15 XMIL (4.2-5.4); RDW 14.2 % (11.5-14.5); WBC 10.94 X1000 (4.8-10.8)
[2018-11-14 06:09] LABS: CALCIUM 8.9 mg/dL (8.8-10.2); CREATININE 1.5 mg/dL (0.5-0.9); MAGNESIUM 1.6 mg/dL (1.5-2.7); PHOSPHORUS 3.1 mg/dL (2.7-4.5); POTASSIUM 3.8 mmol/L (3.5-5.1)
--- NOTE | 2018-11-14 07:31 | Diag Imaging Result Doc PS360 ---
EXAM: CHEST-1 VIEW - 11/14/2018 HISTORY: SOB TECHNIQUE: Portable chest COMPARISON: 11/13/2018 FINDINGS: PICC remains in place. Heart size appears normal. There are ill-defined bilateral infiltrates which appear to have decreased mildly overall. There is no substantial pleural effusion or pneumothorax identified. IMPRESSION: Overall mild decrease in bilateral infiltrates. Electronically signed by Tj Comer 11/14/2018 7:28 AM
[2018-11-14] MEDS ORDERED: RID LICE KILLING SHAMPOO TOP ONE (09:19)
[2018-11-14] MEDS: MIRALAX PO SCH (09:23)
[2018-11-14] MEDS: ZYVOX 600 MG/D5W 600 MG/300 ML IVPB IV SCH ×2 (09:23→22:24)
[2018-11-14] MEDS: KLOR-CON PO SCH ×2 (09:23→13:21)
[2018-11-14] MEDS: DULCOLAX PR SCH (09:24)
[2018-11-14] MEDS: PROTONIX IV SCH ×2 (09:24→22:23)
[2018-11-14] MEDS: SPIRIVA INH SCH (09:38)
--- NOTE | 2018-11-14 09:40 | PROGRESS NOTE ---
DATE: 11/14/2018 INTERVAL HISTORY: No acute event overnight the patient was able to come out of bed, sit in the chair. She has not had a bowel movement yet. The patient denies chest pain or shortness of breath. She is frustrated because she has to be in the hospital for a long time. I explained to her about her clinical condition and she agreed. I also discussed with her about possibly transferring her out to [facility]. VITALS: Currently, temperature 97.7 degrees, pulse of 106, respiratory rate 16, blood pressure 108/59. She is saturating 93% on Venturi mask. PHYSICAL EXAMINATION: General: Does not appear in any acute distress. HEENT: Conjunctival pallor is present without cyanosis, icterus or clubbing. Oral cavity is dry. Prominent rheumatoid arthritis changes including ulnar deviation of bilateral wrist and inactive chronic appearing metacarpophalangeal joint arthritis. Lungs: Air entry bilaterally equal. No wheeze or rhonchi. Mild crackles bilateral infrascapular region. Cardiovascular: S1, S2 normal, sinus tachycardia. No murmur, rub, or gallop. Abdomen: Soft, nontender. Midline scar with clint extending from the xiphoid sternum to pubic symphysis. No erythema or discharge around the wound site. Extremities: She does not have bilateral lower extremity edema. Psychiatric: She is alert oriented to person, place, and situation, follows simple commands, answers all the questions. LABS: Suggestive of improving leukocytosis, normocytic anemia, stable platelet count, hyponatremia, hypochloremia, chronic kidney disease stage 3 and hypomagnesemia, which I will replete. ASSESSMENT AND PLAN: 1. Acute perforated distal gastric ulcer leading to peritonitis, status post exploratory laparotomy with primary repair and the setting of perforated distal gastric ulcer, currently stable since November 02. Continue clear liquid diet, bisacodyl, MiraLAX for constipation. Surgery on board. 2. Acute hypoxic respiratory failure on chronic hypoxic respiratory failure with history of chronic obstructive pulmonary disease on home oxygen and superimposed Pseudomonas pneumonia. Continue ipratropium nebulization, intravenous linezolid and cefepime, oxygenation to maintain saturation more than 88 to 92 percent. She is status post intravenous Lasix with improvement in her respiratory status. 3. Others. Continue pantoprazole intravenous every 12 hours for history of chronic GERD and recent perforated gastric ulcer. Continue home Spiriva, enoxaparin for DVT prophylaxis. DISPOSITION: The patient has been hemodynamically stable. I will transfer patient to [facility]. I was able to talk with the patient's second daughter yesterday and had informed her about patient's condition. The patient 1st daughter was not able to be reached out to and she did not have any voicemail set up. Later on I met both the daughters in ICU and updated them about her clinical condition. TIME SPENT: More than 30 minutes of critical care time was spent in taking care of this patient. Plan of care was discussed with her. cc: Jamil Sanabria MD MTDD
[2018-11-14] MEDS: MAGNESIUM SULFATE 2 GM/S.W.I. 2 GM/50 ML IVPB IV SCH ×2 (10:09→13:21)
--- NOTE | 2018-11-14 13:12 | GENERAL SURGERY PROGRESS NOTE ---
DATE: 11/14/2018 SUBJECTIVE: Discussed with the nursing staff, she seems to be doing okay. The patient denies any kind of intra-abdominal pain. It seems like she has been relatively stable. From a surgical point of view, I think she is healing. Just need to continue supportive care and encourage protein intake. We will continue to follow. cc: Jah Sherman MD
[2018-11-14] MEDS: LOVENOX SUBQ SCH (13:21)
--- NOTE | 2018-11-14 21:11 | PULMONOLOGY PROGRESS NOTE ---
DATE: 11/14/2018 SUBJECTIVE: The patient is awake, alert and conversant. She denies dyspnea. She reports generalized weakness. OBJECTIVE: Vital Signs: The patient has been afebrile for the last 24 hours. Heart rate 109, blood pressure 135/75, oxygen saturation 95% on nasal cannula. HEENT: Pupils are equal and reactive. Oropharynx appears clear. Neck: Supple. Chest: Reveals scattered rhonchi bilaterally. Cardiac exam: S1-S2. Abdomen: Scaphoid and soft without drainage from the surgical dressings. Extremities: Without edema. LABORATORIES: Chest x-ray reveals mild decrease in bilateral infiltrates. White blood count 10.9, hemoglobin 8.8, platelet count 179,000. IMPRESSION: A 68-year-old with: 1. Pseudomonal pneumonia. 2. Severe chronic obstructive pulmonary disease. 3. Status post repair of perforated gastric ulcer. 4. Protein calorie malnutrition. 5. Chronic immunosuppression associated with rheumatoid arthritis. 6. Continue diet as tolerated. 7. Continue bronchial hygiene. 8. Antibiotics as directed by Dr. Nicholson. cc: Sam Corral MD
[2018-11-14] MEDS: REQUIP PO SCH ×4 (22:24→22:34)
[2018-11-14] MEDS: LACTULOSE PO SCH (22:31)
[2018-11-15] MEDS: DUONEB (A & A) INH SCH ×4 (03:14→21:56)
[2018-11-15] MEDS: MAXIPIME 1 GM in NS 50 ML IV SCH ×3 (06:01→22:21)
--- NOTE | 2018-11-15 07:11 | Diag Imaging Result Doc PS360 ---
EXAM: CHEST-1 VIEW HISTORY: SOB TECHNIQUE: Chest single view COMPARISON: 11/14/2018 FINDINGS: No change in the right sided PICC line. The lungs are well expanded. No cardiomegaly. There are bilateral infiltrates similar to the prior study. Questionable trace pleural fluid. There are nodular areas in the mid and upper left lung. IMPRESSION: No interval improvement Electronically signed by Griffin Ball 11/15/2018 7:09 AM
--- NOTE | 2018-11-15 07:50 | GENERAL SURGERY PROGRESS NOTE ---
DATE: 11/15/2018 SUBJECTIVE: The patient is resting. There have been orders placed for her to go to the CICU. Through the night, she has been hemodynamically stable. Will continue to monitor. cc: Jah Sherman MD
[2018-11-15] MEDS: ZYVOX 600 MG/D5W 600 MG/300 ML IVPB IV SCH ×2 (08:38→22:23)
[2018-11-15] MEDS: PROTONIX IV SCH ×2 (08:38→22:23)
[2018-11-15] MEDS: MIRALAX PO SCH (08:39)
[2018-11-15] MEDS: LACTULOSE PO SCH ×2 (08:39→22:24)
[2018-11-15] MEDS: DULCOLAX PR SCH (08:39)
--- NOTE | 2018-11-15 09:12 | PROGRESS NOTE ---
DATE: 11/15/2018 INTERVAL HISTORY: No acute events overnight. SUBJECTIVE: The patient appears anxious and is frustrated with being in the hospital. I explained to her about her clinical condition and usual progress, and I answered all of her questions. VITALS: Currently temperature 97.7 degrees, pulse 94, respiratory rate 18, blood pressure 100/50, saturating 96% on 6 L nasal cannula. PHYSICAL EXAMINATION: She appears in mild distress and is anxious. Oral cavity is dry. Air entry bilaterally equal. She has diffuse crackles bilaterally, predominantly in infrascapular region. No wheeze or rhonchi. S1, S2 normal. Tachycardic. No murmur, rub, or gallop. Abdomen: Soft, not distended, nontender. Midline scar with clint extending from the xiphoid sternum to pubic symphysis. No erythema or discharge around the wound. No lower extremity bilateral edema. Neurologic: She is alert and oriented x3. LABS: Suggestive of no new labs today. ASSESSMENT AND PLAN: 1. Acute perforated distal gastric ulcer leading to peritonitis, status post exploratory laparotomy with primary repair on November 02. She has had good bowel movements yesterday. Continue full liquid diet, bisacodyl, MiraLAX for constipation. Surgery on board. 2. Acute hypoxic respiratory failure on chronic hypoxic respiratory failure with acute chronic obstructive pulmonary disease exacerbation due to Pseudomonas pneumonia. Continue ipratropium nebulization, intravenous linezolid, intravenous cefepime, and oxygenation to maintain saturation between 88 to 92 percent. We will consider as needed Lasix. 3. Others. Continue pantoprazole intravenous every 12 hours for history of chronic gastroesophageal reflux disease and recent perforated gastric ulcer. Continue home Spiriva, enoxaparin for deep venous thrombosis prophylaxis. 4. Disposition. The patient is hemodynamically stable. She is awaiting bed availability in [facility]. Continue physical therapy. The patient had refused to go to rehab and her daughters also suggested that the patient would never go to rehab and so the eventual plan is going to be sending her home with home physical therapy eventually. Plan of care was discussed with the patient and two of the daughters yesterday. All of their questions have been answered. cc: Jamil Sanabria MD
[2018-11-15] MEDS: SPIRIVA INH SCH (12:11)
[2018-11-15] MEDS: LOVENOX SUBQ SCH (13:47)
--- NOTE | 2018-11-15 18:42 | PULMONOLOGY PROGRESS NOTE ---
DATE: 11/15/2018 SUBJECTIVE: The patient is awake, alert, and conversant. She is sitting in a chair but is taking very little p.o. intake. OBJECTIVE: BP 110/74, respiratory rate 19, heart rate 110, oxygen saturation 97% on 6 L per nasal cannula.HEENT: Pupils are equal and reactive. Oropharynx is clear. Neck: Is supple. Chest: Reveals occasional rhonchi bilaterally. Cardiac exam: S1, S2. Abdomen: Is soft with positive bowel sounds. Extremities: Are without edema. LABORATORIES: No CBC today. Chest x-ray reveals bilateral infiltrates which have not changed. IMPRESSION: A 68-year-old with 1. Pseudomonal pneumonia. 2. Severe chronic obstructive pulmonary disease. 3. Status post gastric ulcer repair. 4. Protein calorie malnutrition. 5. Immunosuppression. RECOMMENDATION: 1. Advance diet. 2. Continue antibiotics per Dr. Nicholson. 3. Continue bronchial hygiene. 4. Continue oxygen. cc: Sam Corral MD
[2018-11-15] MEDS: REQUIP PO SCH (22:23)
[2018-11-16] MEDS: DUONEB (A & A) INH SCH ×4 (03:40→22:50)
[2018-11-16] MEDS: MAXIPIME 1 GM in NS 50 ML IV SCH ×3 (05:06→21:11)
[2018-11-16 05:57] LABS: BASO# 0.02 X1000 (0.0-0.2); BASO% 0.2 % (0.0-0.8); EOS# 0.28 X1000 (0.0-0.7); EOS% 3.1 % (0.0-10.0); HEMATOCRIT 24.7 % (37.0-47.0); HEMOGLOBIN 7.9 g/dL (12.0-16.0); LYMPH# 0.83 X1000 (1.2-3.4); LYMPH% 9.1 % (20.5-51.1); MCH 28.5 PG (27-31); MCV 89.2 FL (81-99); MONO# 0.66 X1000 (0.11-0.59); MONO% 7.2 % (1.7-9.3); MPV 11.7 FL (7.4-10.4); NEUT# 7.32 X1000 (1.4-6.5); NEUT% 80.4 % (42.2-75.2); PLT 191 X1000 (130-400); RBC 2.77 XMIL (4.2-5.4); RDW 14.4 % (11.5-14.5); WBC 9.11 X1000 (4.8-10.8)
[2018-11-16 06:15] LABS: CALCIUM 8.6 mg/dL (8.8-10.2); CREATININE 1.8 mg/dL (0.5-0.9); MAGNESIUM 2.3 mg/dL (1.5-2.7); PHOSPHORUS 3.5 mg/dL (2.7-4.5); POTASSIUM 4.5 mmol/L (3.5-5.1)
--- NOTE | 2018-11-16 07:15 | Diag Imaging Result Doc PS360 ---
EXAM: CHEST-1 VIEW HISTORY: SOB TECHNIQUE: Portable chest single view COMPARISON: 11/15/2018 FINDINGS: The lungs are well expanded. The bilateral infiltrates. These are slightly more prominent in the mid right lung than they were on the prior study. No cardiomegaly. No pleural effusions identified. No change in the right sided PICC line. IMPRESSION: Mild interval worsening in the mid right lung. Electronically signed by Griffin Ball 11/16/2018 7:12 AM
[2018-11-16] MEDS: DULCOLAX PR SCH (08:10)
[2018-11-16] MEDS: SODIUM CHLORIDE 0.9% INJ SCH (08:11)
[2018-11-16] MEDS: PROTONIX IV SCH (08:11)
[2018-11-16] MEDS: LACTULOSE PO SCH ×2 (08:11→21:11)
[2018-11-16] MEDS: MIRALAX PO SCH (08:11)
[2018-11-16] MEDS: ZYVOX 600 MG/D5W 600 MG/300 ML IVPB IV SCH ×3 (08:28→22:45)
[2018-11-16] MEDS: SPIRIVA INH SCH (08:54)
[2018-11-16] MEDS: LOVENOX SUBQ SCH (13:41)
--- NOTE | 2018-11-16 15:36 | PROGRESS NOTE ---
DATE: 11/16/2018 Ms. Bradford is awake, cooperative. She does work to breathe but she has end-stage COPD. Her abdomen is soft. She does not eat well but it seems like she does have bowel function and certainly there is no evidence of abnormal abdominal tenderness. Her midline incision is intact and is healing without infection. I think it is okay to discharge her home under the care of her daughter. I will remove some of her skin clips prior to discharge but also I will see her in our outpatient offices in a week for followup and she also needs elective upper endoscopy. cc: Violetta Cummings MD
--- NOTE | 2018-11-16 15:59 | PROGRESS NOTE ---
DATE: 11/16/2018 INTERVAL HISTORY: Ms. Bradford was transferred from ICU to routine medical floor since there was no CIC bed. SUBJECTIVE: Patient is anxious, wants to go home. I discussed with her about awaiting ID, pulmonology, surgery recommendation before we could do that, but eventually I told her that I am expecting discharge in next 24 hours. She states she ate something. She could not remember what. She denies any chest pain. She is a little short of breath. However, appears a little irritated. Denies any cough. VITALS: Temperature 98 degrees, pulse 94, respiratory rate 18, blood pressure 120/60, saturating 96% on 4 L nasal cannula. PHYSICAL EXAMINATION: General: Does not appear in any acute distress. Oral cavity is dry. Entry bilaterally equal. No wheeze or rhonchi. Mild crackles bilateral infrascapular region. S1, S2 normal. Tachycardic. No murmur, rub, or gallop. Abdomen is soft, nondistended, nontender. Midline scar with clint extending from sternum to pubic symphysis. No erythema or discharge on the wound. No lower extremity edema. She is alert oriented x2 and 2, oriented with situation to most extent. LABS: Suggestive of normocytic anemia, normal platelet count. Essentially normal electrolytes with what appears to be chronic kidney disease stage 3. Microbiology no data. ASSESSMENT AND PLAN: 1. Acute hypoxic respiratory failure on chronic hypoxic respiratory failure with acute chronic obstructive pulmonary disease exacerbation due to Pseudomonas pneumonia. Continue ipratropium nebulization, intravenous linezolid and intravenous cefepime as per infectious disease recommendation. I will appreciate infectious disease recommendation about changing antibiotics to possibly p.o. Levaquin at the time of discharge tomorrow. Continue oxygenation to maintain saturation more than 90%. Her chronic obstructive pulmonary disease is advanced. 2. Acute perforated distal gastric ulcer leading to peritonitis, status post exploratory laparotomy with primary repair on November 02. She has had good bowel movement. Continue regular diet, bisacodyl, MiraLAX for constipation and surgery on board. 3. Continue pantoprazole intravenous every 12 hours for chronic gastroesophageal reflux disease and recent history of gastric ulcer. I will change it to p.o. pantoprazole twice a day at the time of discharge. 4. Continue home Spiriva. Enoxaparin for deep venous thrombosis prophylaxis. DISPOSITION: The patient remains inside the hospital and I am awaiting infectious disease and pulmonology recommendations and accordingly planning discharge to home on 11/17/2018 with home care. The patient previously had refused to go to rehab. Plan of care discussed with the patient. I will call patient's daughter and informed them about the plan. cc: Jamil Sanabria MD
--- NOTE | 2018-11-16 17:24 | INFECTIOUS DISEASE PROGRESS NO ---
DATE: 11/16/2018 PRESENT ILLNESS: The patient has a Pseudomonas pneumonia. Her leukocytosis has resolved. MEDICATIONS: This is the 11th day of treatment with cefepime and the 5th day of treatment with Zyvox. PHYSICAL EXAMINATION: Vital Signs: Temperature is 98 degrees, pulse 94, respirations 18, blood pressure 121/59. General: This is a chronically ill-appearing, elderly female. She is in no acute distress. She is alert today. Head/eyes/ears/nose/throat: She can hear my spoken words and see near objects. She does not have any white coating on her tongue. Lungs: For the most part they were clear to auscultation. She occasionally had a scattered wheeze on both sides. Cardiovascular: Heart rate is regular. Abdomen: Soft and nontender. The patient's incision is intact. It is not erythematous and there is no purulent drainage. Extremities: Patient has a PICC in her right arm. The site is not swollen or erythematous. Neurologic: Today the patient is alert. She very much wants to go home. She can move her extremities. She does not have a tremor. Integument: No rash noted. LAB AND X-RAY: Chest x-ray shows bilateral infiltrates. CBC shows a white count of 9110, hemoglobin 7.9, platelet count 191,000. Creatinine is 1.8. GFR is 28. ASSESSMENT AND PLAN: Patient has Pseudomonas pneumonia. The plan is to send the patient home on Levaquin 500 mg daily for 2 weeks. I have requested that the patient come to my office 2 weeks from discharge, at which time the patient will be examined and the x-ray will be repeated. COMORBIDITIES: The patient is elderly. She also has COPD, malnutrition, acute kidney injury, and the use of immunosuppressive medication to treat her rheumatoid arthritis. cc: Mustapha Nicholson MD
[2018-11-16] MEDS: REQUIP PO SCH (21:12)
[2018-11-17] MEDS: DUONEB (A & A) INH SCH ×2 (03:30→10:16)
[2018-11-17] MEDS: MAXIPIME 1 GM in NS 50 ML IV SCH ×2 (04:29→14:58)
[2018-11-17] MEDS ORDERED: PROTONIX PO SCH (07:00)
[2018-11-17] MEDS: ZYVOX 600 MG/D5W 600 MG/300 ML IVPB IV SCH ×2 (08:10→12:44)
[2018-11-17] MEDS: LACTULOSE PO SCH (08:10)
[2018-11-17] MEDS: MIRALAX PO SCH (08:10)
[2018-11-17] MEDS: DULCOLAX PR SCH (08:10)
--- NOTE | 2018-11-17 08:58 | Diag Imaging Result Doc PS360 ---
EXAM: CHEST-1 VIEW - 11/17/2018 HISTORY: SOB TECHNIQUE: Portable chest COMPARISON: 11/16/2018 FINDINGS: Heart size appears normal. There has been mild decrease in bilateral infiltrates. There is no substantial pleural effusion or pneumothorax identified. PICC remains in place with its tip at the right atrium. IMPRESSION: Mild decrease in bilateral infiltrates. Electronically signed by Tj Comer 11/17/2018 8:56 AM
[2018-11-17] MEDS: SPIRIVA INH SCH (10:16)
[2018-11-17 11:09] VITALS: BP 114/64
--- NOTE | 2018-11-17 12:56 | PROGRESS NOTE ---
DATE: 11/17/2018 Ms. Bradford is being discharged home today. She is having no abdominal discomfort. She is able to eat. Her abdomen is soft. Midline incision is healing without evidence of any problems. I removed every other skin clip prior to her discharge. She needs to see me again in a week to remove the remainder of her skin clips. I have encouraged her to increase her nutrition. She is able to shower the way she wants to shower. She is to return to her home medications with Pepcid being added. cc: Violetta Cummings MD
[2018-11-17] MEDS: LOVENOX SUBQ SCH (14:58)
--- NOTE | 2018-11-17 15:36 | PROGRESS NOTE ---
DATE: 11/17/2018 INTERVAL HISTORY: No events overnight. The patient is denying any chest pain. At the time of my evaluation, she is sleepy; however, arousable to verbal stimuli. She states her shortness of breath is at her baseline. Denies any cough. Denies any new symptoms or abdominal pain. VITALS: Detect temperature 97.5 degrees, pulse 98, respiratory rate 20, blood pressure 114/64, saturating 98% on 4 L nasal cannula. PHYSICAL EXAMINATION: General: Does not appear in any acute distress. Mild conjunctival pallor. No cyanosis, clubbing, or icterus. Lungs: Air entry bilaterally equal. No wheeze, rhonchi, or crackles. Cardiovascular: S1, S2 normal. No murmur, rub, or gallop. Abdomen: Soft, mildly tender. Active bowel sounds. No lower extremity edema. There are clint from the gastrectomy scar. Neurologic: She is alert and oriented x3. LABS: No new labs today. ASSESSMENT AND PLAN: 1. Acute hypoxic respiratory failure on chronic hypoxic respiratory failure with acute chronic obstructive pulmonary disease exacerbation, Pseudomonas pneumonia. 2. Acute perforated distal gastric ulcer leading to peritonitis, status post exploratory laparotomy and primary repair on November 02. 3. Advanced chronic obstructive pulmonary disease and chronic hypoxic respiratory failure requiring home oxygen. 4. History of rheumatoid arthritis. 5. The patient will be discharged on oral antibiotics and oral antacids. She should get a repeat CBC done in about 5 days' time to make sure her blood count is stable. She should follow up with infectious disease doctor, surgeon doctor, and discuss about elective esophagogastroduodenoscopy as an outpatient. I called the patient's daughter and informed her about patient's course and answered all of her questions. cc: Jamil Sanabria MD
--- NOTE | 2018-11-18 11:50 | DISCHARGE SUMMARY ---
ADMISSION DATE: 11/02/2018 DISCHARGE DATE: 11/17/2018 ADMISSION DIAGNOSIS: 1. Acute abdomen status post exploratory laparotomy with primary repair and patching of perforated distal gastric ulcer performed by Dr. Cummings. 2. Possible cerebrovascular accident. 3. Chronic obstructive pulmonary disease and was intubated postoperatively. 4. Gastroesophageal reflux disease. 5. Hypertension. 6. Sepsis secondary to acute abdomen. 7. Chronic hypoxic respiratory failure on home o2 DISCHARGE DIAGNOSIS: 1. Qzvzk-[id number] hypoxemic respiratory failure with [id number] chronic obstructive pulmonary disease exacerbation due to Pseudomonas pneumonia. 2. Acute perforated distal gastric ulcer leading to peritonitis status post exploratory laparotomy with primary repair on 11/02. 3. Gastroesophageal reflux disease. 4. Advanced chronic obstructive pulmonary disease. 5. Tobacco abuse. Cessation discussed in depth for at least 6 minutes. CONSULTATIONS: 1. Sam Corral MD for respiratory failure. 2. Violetta Cummings MD for the perforation. 3. [place] Nicholson MD for the Pseudomonas. 4. Carola Pugh MD for the altered mental status, possible CVA. SURGERIES AND PROCEDURES: On 11/02/2018, Ms. Kamilla Bradford had a exploratory laparotomy with primary repair and patching of a perforated distal gastric ulcer performed by Dr. Cummings. There was about 150 mL of blood loss. There were no drains placed, and no obvious complications. HOSPITAL COURSE: Apparently, Ms. Kamilla Bradford a 68-year-old female presented to the emergency department via EMS with gastric and abdominal pain, nausea and vomiting. Her symptoms started the night prior to arrival. Denied any fever. Has a history of advanced COPD, hypertension, GERD, CVA, and thyroid disorder. Imaging performed showed that she had probable perforation of the transverse colon due to colitis or neoplasm, pneumoperitoneum and possible peritonitis, ascites, patchy pneumonia versus pulmonary fibrosis. Dr. Cummings was notified and the patient was taken emergently to the OR for exploratory laparotomy and primary repair and patching of the perforated distal gastric ulcer. Postoperatively, she went to the ICU, remained intubated, and apparently she was intubated prior to going to the OR because there was some question as to whether she might have had an acute CVA. Her head CT was negative for any findings at that time. Dr. Nicholson was consulted due to peritonitis and at that time was started on broad-spectrum antibiotics. She had the appropriate consultation ordered, which included Neurology, Pulmonology, and Infectious Disease as well. Cultures were obtained and she had a sputum culture obtained on admission, which included bacteria Pseudomonas aeruginosa. It was pansensitive. She had positive blood in her stool. Once Dr. Nicholson saw her, he started her on meropenem 1 g IV every 8 hours. He stopped Levaquin, vancomycin, and Flagyl, and also ordered daptomycin with the meropenem. Part of her workup for CVA included a carotid ultrasound, which did have some plaque and stenosis, about 40% to 50% bilateral carotids, no interventions for that. Echocardiogram showed a normal ejection fraction. She also was having some acute kidney insufficiency during her stay. She maintained in the ICU for quite awhile receiving meropenem. Vancomycin was added back, but the vancomycin got changed to Zyvox due to the kidney dysfunction. She even stayed intubated for quite awhile, received Clinimix for nutritional support. On the , she was initiated on spontaneous breathing trials on the ventilator. I believe she was extubated on the . On the , she continued to do well extubated, although, her x-ray had worsened. Eventually, her antibiotics were changed and on the she was started on cefepime and no other medication for the Pseudomonas pneumonia. She kept her NG tube in postoperatively. She continued to have high output drainage so it took them awhile to get her started on any type of peripheral or parenteral nutrition. She did start peripheral nutrition with Clinimix and IV Protonix. So on 11/09, it was decided that they would take her NG tube out and try to start her on a diet. Due to her weakness, she did need to be assisted with eating. During her stay, she had to receive blood. She was advanced to a full liquid diet. She worked with physical therapy during her stay. Antibiotics on 11/13, looks like they were changed to cefepime and Zyvox. The respiratory problems and difficulties with breathing is what kept her in the ICU for so long. The incision remained without any signs of symptoms of infection. On 11/14, she was transitioned to CICS. She was hemodynamically stable. Even with her oxygen, she did keep an O2 saturation of 88% to 92%. Got some Lasix while she was here. Dr. Cummings was going to remove her skin clips prior to discharge and wants to see her in the office in a week for followup. Also needs to have elective upper endoscopy. Dr. Nicholson wanted to send her on Levaquin 500 mg daily for 2 weeks for the Pseudomonas pneumonia, and he wants to see her in 2 weeks after discharge and wants to do an x-ray. The patient was offered rehab but the patient is refusing rehab, will go home with antibiotics and Protonix, and follow up with the appropriate physicians. DISCHARGE VITAL SIGNS: Temperature 97.5, heart rate 98, respiratory rate 20, blood pressure 114/64, O2 saturation 98% on 4 L nasal cannula. DISCHARGE LAB DATA: Yesterday had labs performed on the . White blood cell count 9000, hemoglobin 7.9, hematocrit 24.7, platelet count 191. Sodium 133, potassium 4.5, BUN 41, creatinine is 1.8, glucose 97, calcium 8.6, magnesium 2.3. PERTINENT IMAGING: Chest x-ray on admission: Extensive interstitial infiltrates bilaterally. Head CT on admission: White cerebral matter chronic vascular disease, bilateral mastoiditis is mild. Abdominal and pelvic CT: Probable perforation of the transverse colon due to colitis or neoplasm, pneumoperitoneum, and possible peritonitis, ascites, patchy pneumonia versus pulmonary fibrosis. On the , had a carotid Doppler study, showed 40% to 59% stenosis on both carotids, and had multiple chest x-rays but the final chest x-ray that was performed today shows mild decrease in bilateral infiltrates. EKG performed on 11/02: Sinus tachycardia with PACs, rate 132, QTc 563, and then had an echocardiogram on 11/03 which showed 60% EF. DISCHARGE DIET: Regular diet with Enlive Ensure. DISCHARGE ACTIVITY: As tolerated. No driving while taking pain medication. DISCHARGE MEDICATIONS: 1. Levaquin 500 mg p.o. daily. 2. Etanercept 50 mg IM as directed. 3. Requip 2 mg p.o. nightly. 4. Spiriva 1 puff daily. 5. Bisacodyl 10 mg per rectum daily. 6. MiraLAX 17 g p.o. daily. 7. Protonix 40 mg twice daily for 90 days and then eventually down to once daily. DISCHARGE FOLLOWUP: Primary care provider, Dr. Corral, Dr. Nicholson, Dr. Cummings, Dr. Pugh. Dr. Nicholson' appointment is on 12/01/[address] Cummings's appointment is 11/24/2018 at 0815. DISCHARGE INSTRUCTIONS: In 5 days, will have a CBC and a BMP. You were admitted after perforation of the stomach ulcer, which required surgery. You also developed pneumonia and exacerbation of your COPD requiring ICU level of care and antibiotics. Right now, your breathing is stable. Please quit smoking as you already have advanced COPD. Continue to use oxygen. Complete the course for antacid medication and antibiotics. Follow up with the surgeon doctor in 1 week after discharge, discuss about clint management. Follow up with the infection doctor and lung doctor in 2 weeks. Continue to take adequate nutrition. You have become weak due to medical illnesses and poor nutrition, however, you did not want to go to the rehab and wanted to go home. Please do physical activity as tolerated. Please get a repeat blood test done in 5 days. If your condition changes, contact your physician and/or return to the emergency department. Changes may include but are not limited to shortness of breath, increased fatigue, excess bleeding, unexplained weight loss or gain, unimaginable pain, signs or symptoms of infection. DISCHARGE DISPOSITION: Going home with daughter. She refused to go to rehab. Dictated by AMOL Dodd for Jamil Sanabria MD cc: AMOL Dodd MD Sonya M. Soliman, MD Leroy F. Harris, MD Lynn R. Buckner, MD James E. Boyle, MD I agree with the above mentioned discharge summary. A separate addendum has been dictated. [facility] HOSPITALRemigio
== END 2018-11-17 15:41 | disposition home or self-care (01) | DRG 853 ==
LOC: SUPCPDRO → ED 08:26 → SUATTDRO 13:34 → ICU 13:34 → 4N 11-15 23:26
PROVIDERS: ATTEND Internal Medicine
CPT/HCPCS: 31500; 36430; 36569; 70450; 71010; 71045; 74177; 80048; 80053; 81001; 82271; 82533; 82550; 82784; 82805; 82948; 83036; 83605; 83735; 84100; 84132; 84443; 84484; 85014; 85018; 85025; 85027; 85610; 85730; 86850; 86900; 86901; 86920; 87040; 87070; 87077; 87088; 87186; 87205; 93005; 93306; 93880; 94003; 94640; 94667; 94668; 94761; 94799; 95816; 96361; 96365; 96367; 96375; 97110; 97162; 97530; 99285; 99291; A9270; C8929; C9113; J0131; J0330; J0692; J0696; J1100; J1170; J1650; J1940; J1956; J2020; J2060; J2185; J2270; J2405; J2930; J2997; J3370; J3475; J7030; J7040; J7042; J7050; P9016; P9047; Q9957; Q9967; S0030; S0164; XXXXX

== ENCOUNTER 2019-01-13 15:09 | Inpatient (IN) ==
[2019-01-13] MEDS ORDERED: NS 1,000 ML ONE (15:16)
[2019-01-13] MEDS ORDERED: PROTONIX IV ONE (15:24)
[2019-01-13] MEDS ORDERED: SODIUM CHLORIDE 0.9% INJ ONE (15:24)
[2019-01-13] MEDS ORDERED: NS 1,000 ML IV ONE (15:25)
--- NOTE | 2019-01-13 15:30 | PROVIDER DOCUMENTATION ---
HPI-Abdominal Pain/GI Problem - General Stated Complaint: ABDOMINAL PAIN/VOMITING BLOOD Time Seen by Provider: 01/13/19 15:18 Source: patient Allergies/Adverse Reactions: Patient Allergies Allergy/AdvReac Type Severity Reaction Status Date / Time codeine Allergy Intermediate RASH Verified 11/02/13 13:37 Penicillins Allergy Intermediate RASH Verified 11/02/13 13:37 Home Medications: Home Medication List Medication Instructions Recorded Confirmed Last Taken Type Albuterol [Albuterol Neb] 2.5 mg INH RTQ6H 11/02/13 11/02/13 10/31/13 18:00 History Cholecalciferol (Vit D3) [Vitamin 5,000 unit PO Q7D 11/02/13 11/02/13 10/30/13 14:00 History D] Etanercept [Enbrel] 25 mg SQ Q7D 11/02/13 11/02/13 10/30/13 14:00 History Fluticasone/Salmeterol [Advair 1 each IH DIRECTED 11/02/13 11/02/13 11/02/13 08:00 History 500-50 Diskus] Ibandronate [Boniva] 150 mg PO DIRECTED 11/02/13 11/02/13 Unknown History Ropinirole HCl [Requip] 2 mg PO HS 11/02/13 11/02/18 11/01/13 21:00 History Sulfasalazine [Sulfazine] 1,000 mg PO BID 11/02/13 11/02/13 11/01/13 08:00 His tory Tiotropium [place] Inhaler 1 puff INH RTDAILY 11/02/13 11/02/18 11/01/13 21:00 History [Spiriva] Folic Acid 1 mg PO DAILY #0 tablet 11/06/13 Unknown Rx Etanercept [Enbrel Sureclick] 50 mg IM DIRECTED 11/02/18 11/02/18 Unknown History Levofloxacin [Levaquin] 500 mg PO DAILY #15 tab 11/16/18 Unknown Rx Bisacodyl [Dulcolax] 10 mg [place] DAILY #15 supp 11/17/18 Unknown Rx Pantoprazole [Protonix] 40 mg PO BID #180 tab 11/17/18 Unknown Rx Polyethylene Glycol 3350 [Miralax] 17 gm PO DAILY #15 powder, packet 11/17/18 Unknown Rx - History of Present Illness-ABD Nature of Presenting Problems: 68 YOF PRESENTS WITH C/O N/V AND VOMITING BLOOD. SHE REPORTS THIS STARTED LAST NIGHT. SHE HAS HAD A RECENT BLEEDING ULCER. SHE DENIES ETOH, NSAIDS OR ASA USE. SHE CONFIRMS DIZZINESS. LAST EPISODE OF VOMITING WAS JUST FEATHER BALER WITH EMS. Abdominal Pain Onset Location: reports: epigastric Pain Radiation: reports: no radiation Quality of Pain: reports: aching Severity in ED: reports: moderate Onset/Duration: reports: 24 hours ago Timing: reports: still present Activities at Onset: reports: none Exposure to sick contacts?: No Modifying Factors: improves with: nothing Associated Symptoms: reports: nausea, vomiting Last BM: last night Dark Stools Present?: reports: none noticed Rectal Bleeding: reports: none Emesis Description: reports: red blood Bruising or Bleeding Gums?: No Similar Symptoms Previously?: Yes (ULCER ) Recently seen or treated by another doctor?: No Review of Systems - Adult - REVIEW OF SYSTEMS - ADULT Constitutional: reports: no symptoms reported. denies: see HPI, chills, fever, fatique, night sweats, weight gain, weight loss, other Eyes: reports: no symptoms reported. denies: see HPI, discharge, dry eyes, decreased vision, blurred vision, double vision, eye pain, redness, other Ears, Nose, Mouth & Throat: reports: no symptoms reported. denies: see HPI, ear discharge, ear pain, hearing loss, tinnitus, epistaxis, sinus problem, nose pain, loose teeth, mouth/dental pain, mouth swelling, hoarseness, throat pain, throat swelling, other Cardiovascular: reports: no symptoms reported. denies: see HPI, chest pain, ed andrews, heart murmur, irregular heart rate, orthopnea, palpitations, poor circulation, PND, syncope, other Respiratory: reports: no symptoms reported. denies: see HPI, chronic cough, cough, dyspnea on exertion, excessive sputum production, hemoptysis, pleurisy, shortness of breath, wheezing, other Gastrointestinal: reports: hematemesis, nausea, vomiting. denies: no symptoms reported, see HPI, abdominal pain, constipation, diarrhea, difficulty swallowing, frequent heartburn, poor appetite, rectal bleeding, other Genitourinary: reports: no symptoms reported. denies: see HPI, dysuria, discharge, frequency, flank pain, frequent UTI's, hematuria, hesitency, incontinence, urinary retention, urgency, other Musculoskeletal: reports: no symptoms reported. denies: see HPI, bone pain, back pain, frequent leg cramps, joint pain, joint swelling, muscle aches, muscle weakness, neck pain, other Integumentary: reports: no symptoms reported. denies: see HPI, hives, hair loss, itching, mole changes, nail changes, rash, skin sores/ulcer, skin thickening, other Neurological: reports: no symptoms reported. denies: see HPI, ataxia, dizziness/vertigo, headache/migraines, loss of balance, numbness, paresthesia, seizure, slurred speech, syncope, tremors, other Psychiatric: reports: no symptoms reported. denies: see HPI, anxiety, anti- depressant use, alcohol/drug dependence, depression, emotional problems, insomnia, panic attacks, suicidal thoughts, other Endocrine: reports: no symptoms reported. denies: see HPI, change in skin pigment, excessive sweating, goiter, cold intolerance, heat intolerance, increased hunger, increased thirst, polyuria, other Hematologic/Lymphatic: reports: no symptoms reported. denies: see HPI, blood clots, easy bruising, low blood count, lymphedema, prolonged bleeding, swollen lymph nodes, transfusions, other Allergic/Immunologic: reports: no symptoms reported. denies: see HPI, allergic reactions, allergic rhinitis, asthma, eczema, food allergy, frequent infections, hay fever, hives, positive PPD, urticaria, other Past History - Adult - PAST MEDICAL HISTORY-ADULT Review of Records: reports: Nursing Assessment Review, Social history reviewed & non-contributory. Physical Exam-General - PHYSICAL EXAM-ADULT Initial Vital Signs Reviewed: Yes - CONSTITUTIONAL General Appearance: alert - EYES Eyes: PERRL/EOMI - HEAD, EARS, NOSE, MOUTH & THROAT HENMT: normocephalic/atraumatic, moist mucous membranes, normal ENT inspection - NECK Neck: non-tender, full range of motion - RESPIRATORY Respiratory: chest non-tender, rhonchi - CARDIOVASCULAR Cardiovascular: normal peripheral pulses, tachycardia - GASTROINTESTINAL (ABDOMEN) Abdominal Exam: soft, tenderness - LYMPHATIC Lymphatic: no adenopathy - MUSCULOSKELETAL Back Exam: normal inspection, no CVA tenderness Extremity: normal range of motion, non-tender, normal gait - SKIN Integumentary: warm/dry - NEUROLOGIC Neurologic: grossly normal - PSYCHIATRIC Psych/Mental Status: normal mood/affect, oriented x 3 Progress - PLAN OF CARE/RESULTS Progress/Plan/Lab Results: Orders Category Date Time Status Saline Loc NOW Care 01/13/19 15:25 Ordered BASIC METABOLIC PANEL [CHEM] Stat Lab 01/13/19 15:24 Uncollected CBC WITH ELECTRONIC DIFF [HEME] Stat Lab 01/13/19 15:24 Uncollected PROTIME WITH INR [COAG] Stat Lab 01/13/19 15:24 Uncollected PTT [COAG] Stat Lab 01/13/19 15:24 Uncollected 0.9% Sodium Chloride Inj [Ns] 1,000 ml Med 01/13/19 15:16 Discontinued .ROUTE As directed Ns 1000 ml IV Bolus X1 Med 01/13/19 15:25 Ordered 0.9% Sodium Chloride Inj [Ns] 1,000 ml IV 999 mls/hr Pantoprazole [Protonix] Med 01/13/19 15:24 Once 40 mg IV NOW ONE Pantoprazole [Protonix] Med 01/14/19 15:24 Ordered 40 mg IV Q12H Protonix 0.8 mg/ml Drip Med 01/13/19 15:30 Ordered 0.9% Sodium Chloride Inj [Ns] 80 ml Pantoprazole [Protonix] 80 mg IV 10 mls/hr Sodium Chloride 0.9% Med 01/13/19 15:24 Once 10 ml INJ NOW ONE Result Diagrams: 01/13/19 15:26 01/13/19 15:26 - EKG 1 Time of EKG reading by physician:: 16:47 EKG Read and Signed by:: Ankit Tirado EKG Interpretation (*Must complete 3 of following elements*): Normal Rate: 117 Rhythm: ST QRS: normal VA Interval: normal ST Wave: normal - CONSULTS/PCP/HOSPITALIST Notification #1 *Consult/PCP/Hospitalist*: DR TIRADO DISCUSSED WITH DR SORTO Time Discussed: 15:45 Reason/Comments: DR SORTO REQUEST TO BE PAGED, HE REQUEST CALL BACK ONCE CBC IS BACK #2 Consult: HOSPITALIST ADMIT PAGER @ [phone] Time Discussed: 16:35 Reason/Comments: ADMIT TO ICU Consult Disposition: Will see in ED Departure - Departure Date of Disposition Decision: 01/13/19 Time of Disposition Decision: 16:36 DIAGNOSIS: Gastrointestinal hemorrhage Disposition: ADMITTED INPATIENT 09 Certified Medical Emergency: Emergent Condition: Serious Referrals and Follow-Ups: None,PCP [Primary Care Provider] - - Critical Care Note This patient required my direct & personal management of CC.: Yes Total Time (mins): 31 Critical Care Statement: This patient required my direct personal management to treat or rule out processes, the absence of which, could potentiallly result in sudden, clinically significant life or limb threatening deterioration. Attestation - Physician/ FRANCOIS Attestation Patient care was provided by Advanced Practice Provider:: Yes Advanced Practice Provider:: Sarah Degroot Advanced Practice Provider documentation review:: The Mid-level provider documentation, treatment plan and medical decision making was reviewed by the physician who agrees with all treatment and medical decision making by the MLP. The physician spent face to face time with patient:: Yes Advanced Practice Provider documentation review:: Supervising physician onsite and consulted in the evaluation and care of this patient. The physician did have a face to face encounter with the patient.
[2019-01-13 15:52] LABS: INR 1.2; PROTIME 16.2 Seconds (11.0-16.0)
[2019-01-13 15:58] LABS: BASO# 0.02 X1000 (0.0-0.2); BASO% 0.1 % (0.0-0.8); EOS# 0.02 X1000 (0.0-0.7); EOS% 0.1 % (0.0-10.0); LYMPH% 25.2 % (20.5-51.1); MCH 28.7 PG (27-31); MCHC 29.3 g/dL (33-37); MCV 97.9 FL (81-99); MONO# 1.02 X1000 (0.11-0.59); MONO% 5.9 % (1.7-9.3); MPV 10.6 FL (7.4-10.4); NEUT# 11.97 X1000 (1.4-6.5); NEUT% 68.7 % (42.2-75.2); PLT 327 X1000 (130-400); RBC 1.43 XMIL (4.2-5.4); RDW 13.6 % (11.5-14.5); WBC 17.43 X1000 (4.8-10.8)
[2019-01-13 16:01] LABS: HEMOGLOBIN 4.1 g/dL (12.0-16.0)
[2019-01-13 16:10] LABS: ESTIMATED GFR > 60
[2019-01-13 16:19] LABS: AGAP 13; BUN 53 mg/dL (8-22); CALCIUM 7.7 mg/dL (8.8-10.2); CHLORIDE 104 mmol/L (98-107); COSMO 295; CREATININE 0.9 mg/dL (0.5-0.9); GLUCOSE 125 mg/dL (70-104); POTASSIUM 5.1 mmol/L (3.5-5.1); SODIUM 140 mmol/L (136-145); TCO2 23 mmol/L (25-35)
[2019-01-13] MEDS: NS 1,000 ML IV SCH ×3 (16:47→21:58)
[2019-01-13] MEDS ORDERED: DUONEB (A & A) INH PRN (16:47)
--- NOTE | 2019-01-13 16:50 | EKG Report ---
Test Performed on : 01/13/2019 4:46:40 PM Test Reason : GI BLEED Blood Pressure : / mmHG Vent. Rate : 117 BPM Atrial Rate : 113 BPM P-R Int : 160 ms QRS Dur : 072 ms QT Int : 324 ms P-R-T Axes : 055 053 052 degrees QTc Int : 451 ms Undetermined rhythm Otherwise normal ECG When compared with ECG of 02-NOV-2018 08:53, (Unconfirmed) Current undetermined rhythm precludes rhythm comparison, needs review Unconfirmed Result
[2019-01-13] MEDS ORDERED: NS NEB INH SCH (17:30)
[2019-01-13] MEDS ORDERED: VANCOMYCIN IV PER PHARMACY MISC SCH ×2 (17:30→21:15)
[2019-01-13] MEDS: PROTONIX 80 MG in NS 80 ML IV SCH (17:31)
[2019-01-13 18:15] LABS: ALLEN TEST NO; BE 3.3 mmoll (-3.0-3.0); BLOOD TYPE ARTERIAL; HCO3-(ACT) 27.5 mmoll (20.0-26.0); METHB 1.4 % (0.0-1.5); O2(CT) 4.8 mL/dL (15.0-23.0); PO2(98.6) 62 mmHg (60-100); SAMPLE BLOOD; SAO2 97.6 % (95.0-100.0); THB 3.5 g/dL (11.5-17.4); pH(98.6) 7.36 (7.35-7.45)
[2019-01-13 18:16] LABS: MODALITY CANNULA; PCO2(98.6) 51 mmHg (35-45)
--- NOTE | 2019-01-13 18:29 | Diag Imaging Result Doc PS360 ---
EXAM: CT THORAX/ABD/PELVIS W/CON 01/13/2019 HISTORY: gib; sob TECHNIQUE: This exam was performed using automated exposure control, adjustment of mA or kV according to patient size, and/or use of iterative reconstruction technique. COMMENT: The current examinations are compared with the previous abdominal CT of 11/02/2018. Thorax: The thoracic aorta appears to be intact. There are degenerative changes in the shoulders bilaterally. There are old fractures of the posterior left 10th and 11th ribs. There are patchy coarse opacities present in both lungs particularly in the medial portions of the upper lobes bilaterally and in the left lower lobe. Only portions of the lung parenchyma are included on the previous abdominal study however there were similar changes present in the inferior lingula and both lower lobes at the time the previous study in fact there has been some improvement with regard to the right lower lobe and lingula since the previous study. There is some apparent honeycombing in the upper lobes as well as some bronchiectasis on the right. ABDOMEN: There is atherosclerotic calcification in the aorta and its branches. There is mild intra and extrahepatic biliary dilatation with the common bile duct measuring 6 mm in the pancreatic head and 8 mm in the jerri hepatis. This appearance was also present on the previous study. The spleen is not enlarged. The adrenal glands are not enlarged. The ascites which was present at the time the previous study is no longer present. There is no evidence of pneumoperitoneum. There is an apparent ulcer in the greater curvature of the gastric antrum with an apparent acute extravasation of contrast. There is also an apparent fistula between the ulcer in the transverse colon on the right. There are vascular calcifications in both kidneys as well as renal cysts bilaterally. The pancreas is stable in appearance. The small bowel is not distended. There is no evidence of significant adenopathy. Pelvis: There is some fluid in the rectosigmoid colon. The urinary bladder is not distended. There is a bone island in the left ischium. There are degenerative disc and facet changes in the lumbar spine. IMPRESSION: 1. Fibrotic and/or granulomatous changes with superimposed pneumonia, slightly improved since 11/02/2018 (at least related to the lower lung field.) 2. Acute extravasation into what appears to be an ulcer in the gastric antrum with fistulization to the transverse colon. The findings were discussed with AMOL Spaulding at 01/13/2019 6:26 PM. Electronically signed by Thad Dupree 01/13/2019 6:26 PM
[2019-01-13 19:00] LABS: IRON SATURATION 65 %; TIBC 110 ug/dL; TOTAL IRON 72 ug/dL (49-151); UNBOUND IRON 38 ug/dL (112-346)
[2019-01-13] MEDS: MAXIPIME 1 GM in NS 50 ML IV SCH (19:00)
[2019-01-13] MEDS ORDERED: VANCOMYCIN 1 GM/NS 1 GM/250 ML IVPB IV ONE ×2 (19:00→22:00)
[2019-01-13 19:14] LABS: FREE T4 0.76 ng/dL (0.93-1.70)
[2019-01-13 19:18] LABS: TSH 9.49 uIUmL (0.27-4.20)
[2019-01-13 19:27] LABS: FERRITIN 644 ng/mL (13-150)
[2019-01-13 19:47] LABS: URINE SOURCE CATH
[2019-01-13 19:50] LABS: BILIRUBIN URINE NEGATIVE (NEGATIVE); BLOOD URINE NEGATIVE (NEGATIVE); COLOR STRAW; GLUCOSE URINE NEGATIVE (NEGATIVE); KETONE URINE NEGATIVE (NEGATIVE); LEUKOCYTES URINE NEGATIVE (NEGATIVE); NITRITE URINE NEGATIVE (NEGATIVE); PH URINE 5.5; PROTEIN URINE NEGATIVE (NEGATIVE); SP GRAVITY URINE 1.017; TURBIDITY URINE CLEAR (CLEAR); UROBILINOGEN URINE NORMAL (NORMAL)
[2019-01-13 19:51] LABS: UR EPITHELIAL CELLS <10 /HPF (<10); URINE BACTERIA NEGATIVE /HPF; URINE RBC <10 /HPF (<10); URINE WBC <10 /HPF (<10)
[2019-01-13] MEDS ORDERED: CARAFATE LIQUID PO SCH (20:00)
[2019-01-13] MEDS ORDERED: ATIVAN IV ONE (20:04)
--- NOTE | 2019-01-13 20:10 | HISTORY AND PHYSICAL ---
PRIMARY CARE PROVIDER: Dr. Marcus Rodriguez. GENERAL SURGEON: Dr. Irvin Cummings. CYTOMETRY TECHNOLOGIST: Dr. Sam Salmeron. INFECTIOUS DISEASE PHYSICIAN: Dr. Bam Nicholson. NEUROLOGIST: Dr. Pugh. CHIEF COMPLAINT: Nausea, vomiting and constipation. HISTORY OF PRESENT ILLNESS: Ms. Kamilla Bradford is a 68-year-old female with a medical history of perforated ulcer, most recently admitted in October 2018, where she had to receive an exploratory laparotomy with primary repair and patching of perforated distal gastric ulcer. This was performed by Dr. Cummings. She also has a history of COPD on 3 L of oxygen at home. She admits to not taking any medications at all since discharge, which was on 11/17/2018, so she has not had any of her medications, which include her Protonix. She was not taking MiraLAX or bisacodyl, essentially none of her medicines. On further questioning, she states that for at least 2 days now she has had brown large-volume emesis, 3 times yesterday and 2 times today. She has also had some constipation, with her last bowel movement being 3 days ago, and she states that it was brown, not black, and it was runny. She has not had anything to eat or drink over the last 2 days. She has had this constant nausea that will not go away. She has also had complaints of having frequent spells of sweats, where even her palms sweat. She does not know if she had a fever, but that has been going on over the last 2-3 days as well. She states her normal food intake is a very small amount. She only eats small amounts during the day, she said. She mostly drinks water and Dr. Pepper, but again, nothing over the last 2 days. Currently we have imaging that is pending, but she does have an obvious significant drop in her hemoglobin and hematocrit to [address] Lagos was notified by the ER staff. Imaging has been ordered. She has been ordered a Protonix drip. She will be kept n.p.o., as she is high risk for another perforation due to not being compliant with medication. She is hypotensive with this as well. It should improve with blood transfusion. Her white count was elevated as well. It was at 17,000, but there has not been a lactate. No urinalysis. No chest x-ray. Nothing has been ordered for that. She is tachycardic, hypotensive, but she is afebrile. So, we will admit her to the ICU, consult gastroenterology, and treat her acute blood loss anemia along with presumed sepsis with unknown source. PAST MEDICAL HISTORY: 1. COPD with 3 L continuous oxygen at home, but she still continues to smoke over a pack per day and claims that she takes her oxygen off to smoke. 2. Hypertension. 3. Gastroesophageal reflux disease. 4. CVA. 5. Hypothyroidism. 6. Questionable rheumatoid arthritis. 7. Perforated gastric ulcer. 8. Medication noncompliance. 9. She had Pseudomonas aeruginosa pneumonia on 11/02/2018. PAST SURGICAL HISTORY: 1. Appendectomy. 2. Cholecystectomy. 3. Exploratory laparotomy with primary repair and patching of a perforated distal gastric ulcer performed by Dr. Cummings on 11/02/2018. SOCIAL HISTORY: She has been smoking since the age of 16. She smokes anywhere from 1 to 1-1/2 packs per day. She says that she used to be a heavy drinker but quit drinking alcohol 10 years ago. Denies any illicit drug use and lives at home with her daughter. FAMILY HISTORY: Mother had coronary artery disease and breast cancer. Father had CVA, from which he . ALLERGIES: Codeine and penicillin. Penicillin causes rash. HOME MEDICATIONS: Have not been verified, but she was discharged on: 1. Etanercept 50 mg IM as directed. 2. Requip 2 mg p.o. nightly. 3. Spiriva 1 puff daily. 4. Bisacodyl 10 mg per rectum daily. 5. MiraLAX 17 grams p.o. daily. 6. Protonix 40 mg p.o. twice daily for 90 days and then down to once daily (but she is highly noncompliant and will not take her medications). REVIEW OF SYSTEMS: A 14-point review of systems is completed, and all were negative except as mentioned above in the HPI. PHYSICAL EXAMINATION: VITAL SIGNS: Temperature 98.0, heart rate 122, respiratory rate 20, blood pressure 86/52, O2 saturation 96% on 5 L nasal cannula. Height 5 feet 2 inches, weight 100 pounds. BMI is 18.3. GENERAL: Ms. Kamilla Bradford is a 68-year-old female. She is in no acute distress. She is able to answer questions appropriately. HEENT: Atraumatic, normocephalic. Pupils equal, round, and reactive to light. Extraocular movements intact. Mucous membranes are dry. Sclerae are pale. Poor dentition. NECK: Trachea midline. CARDIOVASCULAR: S1 and S2. Tachycardic rate and rhythm. No rubs. She does have an expiratory murmur heard on expiration. No gallop. No extremity edema, +2 dorsalis and radial pulses. Negative for JVD or carotid bruits. PULMONARY: Coarse with prolonged expiration, tolerating 5 L nasal cannula. She is normally on 3 L at home. No accessory muscle use or work of breathing noted. GI: Semifirm, tender in all 4 quadrants. Hypoactive bowel sounds x4. EXTREMITIES: Moves all extremities equally. Full range of motion. NEUROLOGIC: A O x3. Follows commands. Sensory is intact. SKIN: Warm, dry and intact. Very pale. LABORATORY DATA: White blood cells 17,000, hemoglobin 4, hematocrit 14, platelet count 327. INR is 1.2. PTT is 30. Sodium is 140, potassium 5.1, BUN 53, creatinine 0.9, glucose 125, calcium 7.7. IMAGING: None. DIAGNOSTIC DATA: EKG: Sinus tachycardia. Rate is 117. QTc is 451. ASSESSMENT/PLAN: 1. Upper gastrointestinal bleeding with high risk for another gastric perforation. Currently we have no imaging. We do have a CT with IV contrast of the abdomen and pelvis ordered. She will be on a Protonix drip and n.p.o. Dr. Lagos has been notified. She is going to get 3 units of packed red blood cells. 2. Acute blood loss anemia secondary to gastrointestinal bleed. Will also order anemia labs, but will do [id number] hemoglobins and hematocrits and transfuse for anything less than 8. Minimum hemoglobin will be 8 in order to possibly do any type of procedures on her. 3. Chronic obstructive pulmonary disease with acute on chronic hypoxemia. She is needing a little more oxygen than she was at home. She wears 3 L at home but frequently takes that oxygen off to smoke her cigarettes. She smokes anywhere from 1 to 1-1/2 packs per day. Will do Xopenex and Atrovent nebulizers. Due to the tachycardia, will do scheduled budesonide. She can have some p.r.n. [id number] albuterol/Atrovent. 4. High suspicion for sepsis with possible septic shock with an unknown source. She has a white blood cell count of 17,000. No lactates available. No imaging of the chest is available. We have ordered blood cultures. We have ordered a lactate. We have ordered a urinalysis, but she is hypotensive and tachycardic. We will go ahead and order an ABG, and she will be on broad- spectrum antibiotics including vancomycin, cefepime and Flagyl. The Flagyl will be there to help cover any gastrointestinal source. She is afebrile, but she has had complaints of frequent sweats. 5. History of hypertension but currently hypotensive. She is not on any home medications due to the fact that she just will not take them. 6. History of gastroesophageal reflux disease. Of course she will be on a Protonix drip. 7. History of stroke. No issues with that at this time. 8. Hypothyroidism. Will do a TSH and T4, but she will not take medications. 9. Medical noncompliance. She has not taken any medications since she was discharged in November. She was also supposed to follow up with Dr. Cummings on 11/24/2018. She did not follow up with him. She was supposed to follow up with Dr. Nicholson on 12/01/2018. She did not follow up with him. 10.History of Pseudomonas aeruginosa pneumonia in October with elevated white count. Will go ahead and get another sputum culture, but she is covered with antibiotics. 11.Chronic constipation. She is supposed to be on MiraLAX and bisacodyl suppositories at home. She does not take those. Her last bowel movement was 2 days ago. She said it was brown and runny. She denied that there was any blood in the stool. 12.Deep venous thrombosis prophylaxis with sequential compression devices. 13.History of cerebrovascular accident and possible cerebrovascular accident at the last admit. It was questioned. I do not know if it was ever fully diagnosed. If so, it was probably just a transient ischemic attack because she is equal in all extremities, and there is really no neurologic deficit. 14.Tobacco abuse. Cessation discussed. She refused a nicotine patch. She continues to smoke and removes her oxygen to smoke at home. Dictated by AMOL Dodd for Darinel Camacho MD cc: AMOL Dodd agree with above. the following is my own face to face assessment. patient with GI bleed. abdomen with diffuse moderate tenderness on exam. some voluntary guarding, no rebound. bowel sounds decreased. CT abdomen showing likely perferated ulcer with possible fistula to colon. called surgery personal care service provider Dr. Degroot about the case. He says that he will check on the patient and make further decisions from there. [facility]ERYRemigio
[2019-01-13] MEDS: XOPENEX NEB INH SCH ×2 (20:13→23:55)
[2019-01-13] MEDS: ATROVENT NEB INH SCH ×2 (20:13→23:55)
[2019-01-13] MEDS: PULMICORT INH SCH (20:13)
[2019-01-13 22:02] LABS: HEMATOCRIT 19.8 % (37.0-47.0); HEMOGLOBIN 6.2 g/dL (12.0-16.0)
[2019-01-13] MEDS: FLAGYL 500 MG/NS 500 MG/100 ML IVPB IV SCH (22:55)
--- NOTE | 2019-01-14 00:10 | PROVIDER PROGRESS NOTE ---
Progress Note BRIEF GI PROGRESS NOTE Called for evaluation for UGIB. Patient had history of perforated gastric ulcer requiring exlap and patch in 10/[address] Cummings who presented earlier today with hematemesis and hypotension from GI bleed. CT A/P his afternoon revealed acute extravasation with fistulization to the transverse colon. A surgical consult has been placed. Patient has been fluid resuscitated and transfused 2 unit pRBC with improvement hemodynamics. She is on PPI IV BID and NPO. On broad spectrum abx. Discussed CT findings with Dr. Vargas. Recommend surgical evaluation. Transfuse H/H to goal >7. Dr. Pat will see patient in AM.
[2019-01-14] MEDS: XOPENEX NEB INH SCH ×6 (04:00→22:55)
[2019-01-14] MEDS: ATROVENT NEB INH SCH ×6 (04:00→22:55)
[2019-01-14] MEDS: PHENERGAN IV PRN (04:33)
[2019-01-14 04:34] LABS: INR 1.26; PROTIME 16.7 Seconds (11.0-16.0)
[2019-01-14 04:35] LABS: PTT 27.7 Seconds (22.3-41.8)
[2019-01-14 04:40] LABS: HEMATOCRIT 25.1 % (37.0-47.0); HEMOGLOBIN 8.1 g/dL (12.0-16.0); RBC 2.64 XMIL (4.2-5.4)
[2019-01-14 04:41] LABS: BASO# 0.04 X1000 (0.0-0.2); BASO% 0.2 % (0.0-0.8); EOS# 0.04 X1000 (0.0-0.7); EOS% 0.2 % (0.0-10.0); IMM GRAN# 0.07 X1000 (0.0-0.04); IMM GRAN% 0.4 % (0.0-0.5); LYMPH# 2.13 X1000 (1.2-3.4); LYMPH% 11.3 % (20.5-51.1); MCH 30.7 PG (27-31); MCHC 32.3 g/dL (33-37); MCV 95.1 FL (81-99); MONO# 1.06 X1000 (0.11-0.59); MONO% 5.6 % (1.7-9.3); NEUT# 15.56 X1000 (1.4-6.5); NEUT% 82.3 % (42.2-75.2); PLT 197 X1000 (130-400); RDW 15.5 % (11.5-14.5)
[2019-01-14] MEDS ORDERED: NS 500 ML IV ONE (04:48)
[2019-01-14 05:03] LABS: AGAP 5; ALB/GLOB RATIO 0.7; ALBUMIN 1.9 g/dL (3.5-5.0); ALKALINE PHOSPHATASE 55 U/L (32-104); BUN 53 mg/dL (8-22); CALCIUM 7.5 mg/dL (8.8-10.2); CHLORIDE 115 mmol/L (98-107); COSMO 303; CREATININE 0.8 mg/dL (0.5-0.9); ESTIMATED GFR > 60; GLUCOSE 98 mg/dL (70-104); GOT 8 U/L (10-30); GPT 5 U/L (10-36); MAGNESIUM 1.2 mg/dL (1.5-2.7); POTASSIUM 4.8 mmol/L (3.5-5.1); SODIUM 145 mmol/L (136-145); TCO2 25 mmol/L (25-35); TOTAL BILIRUBIN 0.42 mg/dL (0.20-1.00); TOTAL PROTEIN 4.7 g/dL (6.3-8.3)
[2019-01-14] MEDS ORDERED: ATIVAN IV ONE ×2 (05:11→05:32)
[2019-01-14] MEDS: FLAGYL 500 MG/NS 500 MG/100 ML IVPB IV SCH ×3 (05:39→22:13)
[2019-01-14] MEDS: PROTONIX 80 MG in NS 80 ML IV SCH (05:48)
[2019-01-14] MEDS ORDERED: MAGNESIUM SULFATE 1 GM/D5W 1 GM/100 ML IVPB IV ONE (05:54)
[2019-01-14 05:59] LABS: ALLEN TEST YES; BE -4.1 mmoll (-3.0-3.0); BLOOD TYPE ARTERIAL; HCO3-(ACT) 21.8 mmoll (20.0-26.0); O2(CT) 7.9 mL/dL (15.0-23.0); O2HB 97.2 % (95.0-99.0); PCO2(98.6) 30 mmHg (35-45); PO2(98.6) 143 mmHg (60-100); SAMPLE BLOOD; SAO2 100.1 % (95.0-100.0); THB 5.5 g/dL (11.5-17.4); pH(98.6) 7.43 (7.35-7.45)
[2019-01-14 06:00] LABS: MODALITY CANNULA
[2019-01-14 06:25] LABS: HEMATOCRIT 17.7 % (37.0-47.0); HEMOGLOBIN 5.6 g/dL (12.0-16.0)
[2019-01-14] MEDS ORDERED: VITAMIN K 10 MG in NS 50 ML IV ONE (06:49)
[2019-01-14] MEDS: PULMICORT INH SCH ×2 (07:10→19:30)
[2019-01-14] MEDS: NS 1,000 ML IV SCH ×3 (07:24→22:29)
[2019-01-14] MEDS ORDERED: QUELICIN (DOSE) ONE (07:41)
[2019-01-14] MEDS ORDERED: SODIUM CHLORIDE 0.9% 10 ML ONE (07:41)
[2019-01-14] MEDS ORDERED: NORCURON ONE ×2 (07:41→11:07)
[2019-01-14] MEDS ORDERED: FENTANYL ONE (07:49)
[2019-01-14] MEDS ORDERED: NEO-SYNEPHRINE ONE (07:54)
[2019-01-14] MEDS ORDERED: AMIDATE ONE (08:11)
[2019-01-14] MEDS ORDERED: VERSED ONE (09:17)
[2019-01-14] MEDS ORDERED: ALBUMIN 25% ONE (09:47)
--- NOTE | 2019-01-14 10:45 | PROGRESS NOTE ---
DATE: 01/14/2019 at 0500. Ms. Bradford is a 68-year-old female who was admitted yesterday afternoon, on 01/13/2019, for upper gastrointestinal bleeding. There was also some question of possible gastric perforation as well. CT of the abdomen and pelvis did show acute extravasation into what appears to be an ulcer in the gastric antrum with fistulization to the transverse colon. with Gastroenterology, as well as Dr. Degroot with Surgery were notified of the patient yesterday upon admission. The patient was anemic. She did receive a total of 3 units of blood throughout the night. Repeat hemoglobin and hematocrit this morning at 4:20 did show a result of 8.1 hemoglobin and 25.1 hematocrit. Though at approximately 5 a.m. this morning on 01/14/2019, the patient's nurse called and told me that her condition was beginning to decline. She said that her heart rate had become tachycardic in the 140s to 160s. Her blood pressure had dropped some as well with a reading of 105/81, when it was previously in the 120s to 140 systolically. He said that the patient had become more lethargic, did have kind of a glazed, glassy-eye appearance. Given these findings, we did immediately order diagnostic studies of fingerstick blood sugar, ABG, as well as another stat hemoglobin and hematocrit. I did have a high concern that the patient may be having active bleeding. Also earlier in the morning, they did report that she had had a total of 3 stools that were black, tarry in appearance. She did have 1 vomiting episode previously, where she did vomit approximately 100 mL of bright red blood, though this was reported to me at the time when they called at 5 a.m. Immediately upon receiving her repeat hemoglobin and hematocrit, which were 5.6 and 17.7, I did order additional blood transfusions of 4 units of packed red blood cells. I did immediately notify Dr. Degroot and Dr. Pat. Dr. Pat did request me to order for the patient to receive vitamin K 10 mg IV. Upon speaking with Dr. Degroot, he did recommend transfusion, which had already previously been ordered, as well as he did want a surgical consent obtained for laparotomy and indicated procedures. I did instruct the nurses to notify her family to obtain a telephone consent for surgery, and have them come to the hospital. Dr. Camacho, the patient's attending physician, was also notified and updated on the patient's condition. He did add on additional orders of 2 units of fresh frozen plasma. I did hand off care and give report to Dr. Camacho, her attending physician, and at that time, the patient's vital signs were temperature 97.9 degrees, heart rate 144, respirations 16, blood pressure 119/65, and oxygen saturation was 100% on nasal cannula at 2 L. Further orders and recommendations pending hospital course, diagnostic studies, and physician evaluation. Dictated by AMOL Sherman for Jose Angel Vargas MD cc: Jose Angel Vargas MD MTDD
--- NOTE | 2019-01-14 11:39 | EKG Report ---
Test Performed on : 01/14/2019 04:48:52 AM Test Reason : ED. NO order in [place] Blood Pressure : / mmHG Vent. Rate : 167 BPM Atrial Rate : 083 BPM P-R Int : 114 ms QRS Dur : 070 ms QT Int : 280 ms P-R-T Axes : 072 055 105 degrees QTc Int : 467 ms Undetermined rhythm Otherwise normal ECG When compared with ECG of 13-JAN-2019 16:46, (Unconfirmed) Current undetermined rhythm precludes rhythm comparison, needs review Unconfirmed Result
[2019-01-14] MEDS: MAXIPIME 1 GM in NS 50 ML IV SCH ×2 (12:24→23:54)
[2019-01-14] MEDS: DILAUDID IV PRN ×2 (12:57→16:27)
[2019-01-14 13:03] LABS: HEMATOCRIT 32.4 % (37.0-47.0); HEMOGLOBIN 10.6 g/dL (12.0-16.0)
--- NOTE | 2019-01-14 14:10 | Diag Imaging Result Doc PS360 ---
EXAM: CHEST-PORTABLE 01/14/2019 HISTORY: ET tube placement TECHNIQUE: AP portable at 1401 COMMENT: There is an endotracheal tube with its tip approximately 3 cm above the amarilis and an NG tube which passes below the diaphragm. There continues to be increased interstitial markings throughout most of both lungs consistent with fibrosis. IMPRESSION: Pulmonary fibrosis. Electronically signed by Thad Dupree 01/14/2019 2:08 PM
[2019-01-14 14:16] LABS: ALLEN TEST YES; BE -5.8 mmoll (-3.0-3.0); BLOOD TYPE ARTERIAL; HCO3-(ACT) 20.4 mmoll (20.0-26.0); METHB 1.3 % (0.0-1.5); O2HB 95.7 % (95.0-99.0); PCO2(98.6) 44 mmHg (35-45); PO2(98.6) 106 mmHg (60-100); SAMPLE BLOOD; SAO2 98.8 % (95.0-100.0); SRATE 16 BPM; THB 10.3 g/dL (11.5-17.4); TVOL 500 mL; pH(98.6) 7.28 (7.35-7.45)
[2019-01-14 14:17] LABS: MODALITY VENTILATOR
--- NOTE | 2019-01-14 14:50 | OPERATIVE NOTE ---
PROCEDURE DATE: 01/14/2019 NAME OF PROCEDURE: Exploratory laparotomy, truncal vagotomy with antrectomy and Billroth 1 anastomosis, and right colectomy with diverting end-ileostomy. SURGEON: Demarcus Degroot MD. CORK SLABS SAWYER: Dr. Juárez. Who was very helpful in exposure, dissection, and the anastomosis. PREOPERATIVE DIAGNOSIS: Gastrointestinal bleeding. POSTOPERATIVE DIAGNOSIS: Gastrointestinal bleeding with a large gastric ulcer penetrating inferiorly into the proximal transverse colon. DESCRIPTION OF PROCEDURE: Satisfactory general endotracheal anesthesia was achieved. The patient had received 4 units of blood and was receiving more units due to GI bleeding. The abdomen was then prepped and draped in a sterile fashion. We made a midline incision. Carried our incision through the subcutaneous tissue, through the midline fascia, entered the abdominal cavity. Upon entering the abdominal cavity, we noted the stomach was very full, presumably of blood. There was sort of a mass affect near the antrum which we presumed to be the inflammatory process from an ulcer. We then began mobilizing the right colon out of the retroperitoneum, incising along the white line of Toldt. The right colon, we followed it into the mass that was attached to the stomach. We decided that we would have to remove this segment en bloc with the stomach so we went ahead and cleaned off the ilium, and stapled and divided it with a JAMEL blue 80 mm stapler. We scored the peritoneum medially. We went up to the transverse colon near where the middle colic vessels were and cleaned off the colon there, and again stapled it with a blue 80 mm JAMEL stapler. We then mobilized the duodenal, dissected along both sides of the duodenum. Then, after dissecting around the duodenum in the first portion, we were able to pass the stapler behind it and staple and divide the duodenum. We then dissected along the lesser curve of the stomach to reach where we felt would be an appropriate antrectomy. One bleeding vessel required a suture ligature. We turned our attention to the greater curve and cleaned it off also, using the LigaSure in the greater omentum. We continued to raise the duodenum and stomach up from distal to proximal, and use the LigaSure right behind these organs to separate the surrounding tissue which included the pancreas edge. When we had raised this up enough, we then placed a Carmalt and a Chaz on the greater curvature and divided the stomach, being certain that the NG tube was not in place. We then used a JAMEL 80 green stapler to staple off the stomach on the lesser curve. This allowed us to hand off the specimen. We oversewed the staple line on the stomach with a 3-0 Prolene running stitch. We felt that we could do a Billroth 1 anastomosis after more fully mobilizing the duodenum. We then approximated the duodenum to the stomach and felt that it would be not under any undue tension. I then turned my attention to the esophagus and felt that we should do a truncal vagotomy. We incised the triangular ligament and retracted the left lobe of the liver out of the way, exposed the EG junction. We scored the peritoneum over the EG junction. Then were able to surround the esophagus with a finger. The NG tube was advanced into the stomach at this point. We then identified the posterior vagus, clipped proximally and distally, and excised the segment, identifying posterior vagus. We did the same for the anterior vagus. Hemostasis was satisfactory. We then went back and proceeded to approximate the stomach to the duodenum, and began a Billroth 1 anastomosis. We placed 2-0 silks in our posterior seromuscular layer. After tying them, we then excised the staple line of the duodenum and extended the incision in the duodenum to match the hole in the gastrotomy. After opening the stomach, we sucked out some of the blood from the stomach. The NG tube was out of the way. We then did our inner layer. After adding some additional stitches to the posterior wall of 2-0 silks, we then did our inner layer with a 3-0 Polysorb running locking stitch posteriorly, changed to a [place] stitch anteriorly. Our final layer was 2-0 silks in a Lembert fashion anteriorly. This finished the Billroth 1 two-layered anastomosis. We changed gloves at this point. We copiously irrigated the abdominal cavity. We oversewed the staple line of the transverse colon with interrupted 3-0 silks in a Lembert fashion. We then felt that we should bring the ilium out as an end-ileostomy. Identified an area in the mid abdomen and excised a hole of skin, dissected through the fascia, and then opened the fascia longitudinally to 2 fingerbreadths easily. We then delivered the ilium through the stoma without tension. We placed a few Polysorb stitches between the ileum and the fascia. We did bring a Jp drain through the right upper quadrant and laid it posterior to the gastroduodenostomy. We secured it at the skin with a 2-0 silk. We then proceeded to irrigate again. We aspirated what fluid had collected. Hemostasis was satisfactory. We then closed the peritoneum with a 2-0 chromic. We closed the fascia with a running #2 Prolene, irrigated the subcutaneous tissue, and closed the skin with clint. We covered the staple line. We then obtained a small ileostomy flange and placed it over the ileum. After doing that and securing the flange to the skin, we then cut off the staple line and we matured the ileostomy as a Karlene ileostomy, everting the mucosal edges. A bag was placed on it. Sterile dressing was placed on the midline stapled wound. She tolerated the procedure satisfactorily. She received a total of 3 units of fresh frozen and 7 units of blood total. She was sent to the recovery room in stable condition. cc: Demarcus Degroot MD MTDD
--- NOTE | 2019-01-14 14:52 | GASTROENTEROLOGY PROGRESS NOTE ---
DATE: 01/14/2019 SUBJECTIVE: The patient is in the ER #3. She is having difficulty breathing. She is on a face mask. She came in last evening for GI bleed. Imaging showed evidence of fibrotic and granulomatous changes with superimposed pneumonia and acute extravasation into what appears to be an ulcer in the gastric antrum, with fistulization to the transverse colon. I reviewed these reports, and I spoke to Dr. Degroot. Dr. Degroot is planning to take the patient to the OR today for laparotomy. PHYSICAL EXAMINATION: Vital Signs: Temperature of 96.6 degrees, pulse of 144, respiratory rate of 24, blood pressure 120/76, saturating 100% on room air. Body weight of 100 pounds, BMI 18.3 kg/m. General: Thinly built, lying in bed, currently having tachypnea. HEENT: Positive pallor. No icterus. Tachypneic. Face mask in place. Neck: Showing signs of respiratory distress. Abdomen: Soft, nondistended. Extremities: No cyanosis or clubbing. Neurologic: She was very drowsy, could not answer any of my questions. I spoke to the patient's nurse at bedside, also to the patient's family at bedside. LABORATORY DATA: Hemoglobin and hematocrit are 5.7 and 17.7, white count of 18.9, platelet count of 197,000. INR 1.26, PTT 27.7, PT of 16.7. ABG showing pH 7.43, pCO2 of 30, PO2 of 143. This is on 32% FiO2. Sodium 140, potassium 4.8, chloride 113, bicarb 25, anion gap 5, BUN of 53, creatinine 0.8, glucose of 98, calcium 7.5, magnesium 1.2. Total bilirubin is 0.42, AST 8, ALT 5, alkaline phosphatase 55, total protein 4.7, albumin 1.9. Blood culture x2 were drawn yesterday. They are currently pending. IMPRESSION AND PLAN: 1. Acute gastrointestinal bleeding, likely from the perforated gastric antral ulcer, which on imaging has shown fistulization into the transverse colon. Will continue with aggressive resuscitation. She is fixing to get 2 units of blood. She will need 2 large-bore IVs. She will continue with intravenous fluids. Will continue Protonix drip. She is fixing to be going to the operating room for laparotomy with Dr. Degroot. I have spoken about this to the patient's two daughters in the emergency room, and all questions were answered. 2. History of chronic obstructive pulmonary disease. She is on oxygen support. 3. Possible sepsis. This is being managed by the primary care team. She is on antibiotics. She has a high white count. 4. History of possible pneumonia, for which she is being managed the primary team. She is on antibiotics. 5. Prognosis is guarded. She is critical at the moment. Will continue with aggressive resuscitation. I have spoken to the patient's family at bedside. Will continue to follow along. The above plans were discussed with the patient's family and the nursing staff and also Dr. Degroot. Please call us with any further questions. cc: Jeb Pat MD
[2019-01-14] MEDS: DIPRIVAN 1% 1,000 MG/100 ML BOTTLE IV SCH (15:11)
[2019-01-14 15:57] LABS: BASO# 0.05 X1000 (0.0-0.2); BASO% 0.2 % (0.0-0.8); EOS# 0.01 X1000 (0.0-0.7); HEMOGLOBIN 12.5 g/dL (12.0-16.0); IMM GRAN# 0.06 X1000 (0.0-0.04); IMM GRAN% 0.3 % (0.0-0.5); LYMPH# 2.73 X1000 (1.2-3.4); LYMPH% 12.8 % (20.5-51.1); MCH 29.8 PG (27-31); MCHC 33.8 g/dL (33-37); MCV 88.3 FL (81-99); MONO# 1.38 X1000 (0.11-0.59); MONO% 6.5 % (1.7-9.3); MPV 11.1 FL (7.4-10.4); NEUT# 17.14 X1000 (1.4-6.5); NEUT% 80.2 % (42.2-75.2); PLT 64 X1000 (130-400); RBC 4.19 XMIL (4.2-5.4); WBC 21.37 X1000 (4.8-10.8)
[2019-01-14 16:24] LABS: AGAP 10; BUN 47 mg/dL (8-22); CALCIUM 6.8 mg/dL (8.8-10.2); CHLORIDE 117 mmol/L (98-107); COSMO 297; CREATININE 0.9 mg/dL (0.5-0.9); ESTIMATED GFR > 60; GLUCOSE 133 mg/dL (70-104); MAGNESIUM 1.3 mg/dL (1.5-2.7); PHOSPHORUS 3.2 mg/dL (2.7-4.5); POTASSIUM 4.6 mmol/L (3.5-5.1); SODIUM 142 mmol/L (136-145); TCO2 15 mmol/L (25-35)
[2019-01-14] MEDS ORDERED: CALCIUM GLUCONATE 2 GM in NS 100 ML IV ONE (16:59)
[2019-01-14] MEDS ORDERED: MAGNESIUM SULFATE 2 GM/S.W.I. 2 GM/50 ML IVPB IV ONE (16:59)
--- NOTE | 2019-01-14 17:10 | PROGRESS NOTE ---
DATE: 01/14/2019 INTERVAL HISTORY: The patient came in with GI bleed and suspected repeated perforated ulcer last night. Early this morning became significantly less responsive, tachycardic. Repeat blood count showing ongoing significant blood loss despite transfusion. Rapid transfusion initiated. Surgery informed. Surgery took patient to the OR on an urgent basis and performed repair of ulcer. Full report on that pending. The patient now is in the ICU intubated. They were reluctant to extubate her postop because of her decline in mental status prior to the surgery as well as pneumonia found on earlier CT. Blood pressure remains stable. Still slightly tachycardic but much improved from previous. Prior to going to the OR her heart rate was up into the 140s and 160s, now she is sitting mostly in the 90s to low 100s. She remains afebrile with good oxygenation on the ventilator. Repeat CBC showing adequate response to transfusions earlier today. She remains critically ill in the ICU. REVIEW OF SYSTEMS: Unable to obtain secondary to patient's mental status. LABS: Initial hemoglobin 4.1, increased with transfusion to 6.2 and then 8.1, then decreased to 5.6, after transfusion of four units this morning trended back up to 10.6. Platelets initially 327, repeat 197. Further repeat pending. ABG with pH 7.28, CO2 44, pO2 106 on 40% FIO2 via ventilator. Complete metabolic panel unremarkable aside from BUN 53, glucose 129, magnesium 1.2. LFTs within normal limits. Lactate 0.6. VITAL SIGNS: T-max 98.7, minimum temperature 92.3, most recent heart rate 104, respiratory rate 21, blood pressure 129/97, O2 saturation 100% on the ventilator. IMAGING: CT of the chest, abdomen, and pelvis with fibrotic and/or granulomatous changes with superimposed pneumonia of the lower lung fischer bilaterally. Also, with acute extravasation into gastric ulcer with possible fistulization to the transverse colon. Chest x-ray with pulmonary fibrosis but no obvious acute finding. PHYSICAL EXAMINATION: Performed this morning preop. General: Mild distress. Restless. Vital signs: As above. HEENT: Normocephalic. Atraumatic. Pallor noted. Pale conjunctivae. No cervical adenopathy. Cardiovascular: Tachycardic but regular. No murmurs noted. Pulmonary: A few scattered rales but largely clear to auscultation. Abdomen: Moderate diffuse tenderness without rebound or guarding. Bowel sounds decreased but present. Extremities: Peripheral pulses intact. No clubbing or cyanosis. Neurologic: Limited by patient's mental status, but moving all extremities spontaneously. Pupils are equal, round, and reactive to light. No obvious focal deficits. Psychiatric: The patient is awake, not real alert. No purposeful movements. Nonverbal. Not following commands currently. Skin: Significant pallor noted but no new rashes or lesions identified. ASSESSMENT AND PLAN: 1. Perforated ulcer, gastrointestinal bleed, acute post hemorrhagic anemia. The patient with recent hospitalization requiring repair of perforated ulcer. After leaving the hospital she took essentially none of her medicines, including the proton pump inhibitor and antibiotic. She returned with hematemesis and profound anemia. She was transfused and improved initially but then decompensated again overnight. Rapid transfusion this morning of four additional units for a total of seven, also fresh frozen plasma. She was taken to the operating room urgently for repair of repeated perforated ulcer identified on CT. Remained intubated postop, now in Intensive Care Unit. On intravenous Protonix twice a day. Monitoring blood counts closely for need for further transfusion, but last check hemoglobin had improved appropriately. The patient is critically ill. Monitor closely. 2. Pneumonia, chronic obstructive pulmonary disease, chronic hypoxic respiratory failure. The patient has advanced chronic obstructive pulmonary disease, on three liters of oxygen at home. Was not really complaining of respiratory symptoms but CT did note likely bilateral lower lobe pneumonia. The patient is on antibiotics with vancomycin and cefepime. Currently intubated with a stable respiratory status. Pulmonary consult to address her ventilator. Continue monitoring closely in the Intensive Care Unit. Last lactate negative. Cultures with no growth to date. 3. Possible sepsis. Patient with tachycardia and leukocytosis. Suspect most of her symptoms are related to massive gastrointestinal bleed but given pneumonia on chest x-ray, likely also had some component of sepsis on admission. Heart rate improved. Afebrile on antibiotics as above. 4. History of hypertension. Patient reportedly hypertensive by history but no regularly taking any of her medications at home. Holding any antihypertensives currently, given low normal to mildly low blood pressure on admission. 5. Hypothyroidism. TSH and free T4 pending. The patient was not compliant with her Synthroid prior to admission. Depending on results of TSH may go ahead and start intravenous Synthroid. If TSH is okay then will hold to see if she is extubated within the next day or two and then if not, will then start intravenous Synthroid. 6. Medical noncompliance. The patient reports not taking any of her oral medications after her previous discharge and only rarely taking her Enbrel shot. 7. Chronic constipation. Holding on laxatives given gastrointestinal bleed and surgery. Will monitor. 8. Tobacco abuse. The patient was continuing to smoke approximately a pack a day prior to admission. Discussed cessation. She refused a nicotine patch at that time. 9. Deep venous thrombosis prophylaxis. Sequential compression devices given bleed and surgery. CRITICAL CARE TIME: 40 minutes spent, immediately available to patient, examining patient, reviewing labs, obtaining further information from nursing staff, and making medical decisions.
--- NOTE | 2019-01-14 21:22 | CONSULTATION ---
DATE OF CONSULTATION: 01/14/2019 REQUESTING PROVIDER: Darinel Camacho MD REASON FOR CONSULTATION: Ventilator management. HISTORY OF PRESENT ILLNESS: This is a 68-year-old female with a medical history of COPD with ongoing tobacco abuse and chronic hypoxic respiratory failure, hypertension, gastroesophageal reflux disease, cerebrovascular accident, hypothyroidism, questionable rheumatoid arthritis, perforated gastric ulcer, medication noncompliance and recent Pseudomonas aeruginosa pneumonia. She presented to the ER yesterday afternoon with nausea, vomiting with blood and abdominal pain. Initial workup in the ER revealed upper gastrointestinal bleeding with high risk for another gastric perforation, acute blood loss anemia secondary to gastrointestinal bleeding, and high suspicion for sepsis with possible septic shock with an unknown source. She has been admitted to the ICU for further evaluation and management. She underwent exploratory laparotomy, truncal vagotomy with antrectomy and Billroth I anastomosis and right colectomy with diverting end ileostomy today by Dr. Rizvi and Dr. Juárez. She was found with a large gastric ulcer penetrating inferiorly into the paroxysmal transverse colon during the procedure. After the procedure, she was maintained intubated and sedated and was sent back to the ICU. At the time of my examination, patient is still intubated and nonresponsive to any verbal or physical stimuli. There is no family member at the bedside at this time. All information is obtained from the E-chart. PAST MEDICAL AND SURGICAL HISTORY: 1. COPD with 3 L continuous oxygen at home. 2. Ongoing tobacco abuse. 3. Hypertension. 4. Gastroesophageal reflux disease. 5. Cerebrovascular accident. 6. Hypothyroidism. 7. Questionable rheumatoid arthritis. 8. Perforated gastric ulcer. 9. Medication noncompliance. 10. Recent new Pseudomonas aeruginosa pneumonia on 11/02/2018. 11. Appendectomy. 12. Cholecystectomy. 13. Exploratory laparotomy with primary repair and patching of a perforated distal gastric ulcer performed by Dr. Cummings on 11/02/2018. 14. Exploratory laparotomy, truncal vagotomy with antrectomy and Billroth I anastomosis and right colectomy with diverting ileostomy today by Dr. rizvi and Dr. Juárez. SOCIAL HISTORY: The patient lives at home with her daughter. She has been smoking since the age of 16. She currently smokes from 1 to 1-1/2 pack per day. She has history of alcohol abuse but quit 10 years ago. She has no history of illicit drug use. FAMILY HISTORY: Positive for coronary artery disease, breast cancer, and cerebrovascular accident. ALLERGIES: Codeine and penicillins. REVIEW OF SYSTEMS: Unable to be obtained. PHYSICAL EXAMINATION: Vital Signs: Temperature is 97.3, blood pressure 111/85, pulse 98, respiratory rate 16, oxygen saturation 100% on AC mechanical ventilator with spontaneous rate 16, FiO2 40%, tidal volume 500, and PEEP 5. General: Chronically ill-appearing, lying in bed with no acute distress noted, unresponsive to any physical or verbal stimuli at this time. HEENT: Atraumatic. Trachea midline. ET tube in place. Mucosa pink and slightly dry. Respiratory: Respirations even and unlabored. Symmetrical excursion. Auscultation revealed coarse breathing sounds throughout all lung fischer. Cardiovascular: Regular rate and rhythm. Gastrointestinal: Bowel sounds present but hypoactive. Soft with intact dressing covered around the abdominal midline. Extremities: Left upper arm some mild pitting edema from the IV infiltrate. Neurologic: Sedated and unresponsive to any physical or verbal stimuli at this time. LABORATORY DATA: White blood cell 18.90, hemoglobin 10.6, hematocrit 32.4, platelets 197,000. Sodium 145, potassium 4.8, chloride 115, carbon dioxide 25, BUN 53, creatinine 0.8, glucose 98. ABG: pH 7.43, pCO2 40, pO2 143, HC03 21.8, base excess -4.1, oxyhemoglobin 97.2 and lactate 3.20. IMAGING DATA: Chest, abdominal and pelvis CT with contrast on 01/13/2019 showed fibrotic and old granulomatous changes with superimposed pneumonia, slightly improved since 11/02/2018 and acute extravasation into what appears to be an ulcer in the gastric antrum with fistulization to the transverse colon. Chest x-ray this afternoon showed pulmonary fibrosis. ASSESSMENT: This is an 68-year-old female with a medical history of chronic obstructive pulmonary disease with ongoing tobacco abuse and chronic hypoxic respiratory failure, hypertension, gastroesophageal reflux disease, cerebrovascular accident, hypothyroidism, questionable rheumatoid arthritis, perforated gastric ulcer, medication noncompliance and recent Pseudomonas aeruginosa pneumonia. She has been admitted to the ICU with gastrointestinal bleeding secondary to a large gastric ulcer penetrating inferiorly into the proximal transverse colon. She underwent exploratory laparotomy, truncal vagotomy with antrectomy and Billroth I anastomosis and right colectomy with diverting end ileostomy today by Dr. Rizvi and Dr. Juárez. 1. Acute on chronic hypoxemic respiratory failure. 2. Gastrointestinal bleeding secondary to a large gastric ulcer penetrating inferior into the proximal transverse colon status post exploratory laparotomy, truncal vagotomy with antrectomy and Billroth I anastomosis and right colectomy with diverting end ileostomy. 3. Acute blood loss anemia secondary to gastrointestinal bleeding. 4. Chronic obstructive pulmonary disease with ongoing tobacco abuse. 5. High suspicion for sepsis with possible septic shock with an unknown source. PLAN: 1. Continue mechanical ventilator. 2. Continue antibiotics and bronchodilators. 3. Continue fluid resuscitation. 4. Follow up with ABG, CBC, BMP, sputum culture and blood culture. 5. Continue gastrointestinal and deep venous thrombosis prophylaxis. 6. Further recommendations pending hospital course. Thank you for the courtesy of this consult. Dictated by AMOL Johnson for Arturo Vargas MD cc: AMOL Johnson MD [facility]
[2019-01-14] MEDS: PROTONIX IV SCH (23:02)
[2019-01-14 23:31] LABS: BASO# 0.01 X1000 (0.0-0.2); BASO% 0.1 % (0.0-0.8); EOS# 0.08 X1000 (0.0-0.7); EOS% 0.6 % (0.0-10.0); HEMOGLOBIN 9.6 g/dL (12.0-16.0); IMM GRAN# 0.03 X1000 (0.0-0.04); IMM GRAN% 0.2 % (0.0-0.5); LYMPH# 1.61 X1000 (1.2-3.4); MCH 29.3 PG (27-31); MCHC 34.3 g/dL (33-37); MCV 85.4 FL (81-99); MONO# 0.68 X1000 (0.11-0.59); MONO% 5.1 % (1.7-9.3); MPV 10.2 FL (7.4-10.4); NEUT# 11.02 X1000 (1.4-6.5); PLT 185 X1000 (130-400); RBC 3.28 XMIL (4.2-5.4); RDW 14.9 % (11.5-14.5); WBC 13.43 X1000 (4.8-10.8)
[2019-01-14] MEDS: VANCOMYCIN 1 GM/NS 1 GM/250 ML IVPB IV SCH (23:54)
[2019-01-15] MEDS: DILAUDID IV PRN ×3 (02:12→22:58)
[2019-01-15] MEDS: ATROVENT NEB INH SCH ×6 (03:00→23:38)
[2019-01-15] MEDS: XOPENEX NEB INH SCH ×6 (03:00→23:39)
[2019-01-15 04:22] LABS: ALLEN TEST YES; BE -5.7 mmoll (-3.0-3.0); BLOOD TYPE ARTERIAL; HCO3-(ACT) 20.5 mmoll (20.0-26.0); METHB 1.1 % (0.0-1.5); O2(CT) 12.3 mL/dL (15.0-23.0); O2HB 96.6 % (95.0-99.0); PCO2(98.6) 40 mmHg (35-45); PO2(98.6) 151 mmHg (60-100); SAMPLE BLOOD; SAO2 99.2 % (95.0-100.0); SRATE 16 BPM; THB 8.8 g/dL (11.5-17.4); TVOL 500 mL; pH(98.6) 7.31 (7.35-7.45)
[2019-01-15 04:25] LABS: MODALITY VENTILATOR
[2019-01-15] MEDS: FLAGYL 500 MG/NS 500 MG/100 ML IVPB IV SCH ×3 (05:10→20:30)
[2019-01-15 05:38] LABS: AGAP 6; BUN 45 mg/dL (8-22); CALCIUM 7.4 mg/dL (8.8-10.2); CHLORIDE 119 mmol/L (98-107); COSMO 298; CREATININE 0.9 mg/dL (0.5-0.9); ESTIMATED GFR > 60; GLUCOSE 83 mg/dL (70-104); POTASSIUM 4.3 mmol/L (3.5-5.1); SODIUM 144 mmol/L (136-145); TCO2 19 mmol/L (25-35)
[2019-01-15 05:50] LABS: BASO# 0.01 X1000 (0.0-0.2); BASO% 0.1 % (0.0-0.8); EOS# 0.11 X1000 (0.0-0.7); EOS% 0.8 % (0.0-10.0); HEMATOCRIT 25.7 % (37.0-47.0); HEMOGLOBIN 8.8 g/dL (12.0-16.0); LYMPH# 1.35 X1000 (1.2-3.4); LYMPH% 9.9 % (20.5-51.1); MCH 30.2 PG (27-31); MCHC 34.2 g/dL (33-37); MCV 88.3 FL (81-99); MONO# 0.87 X1000 (0.11-0.59); MONO% 6.4 % (1.7-9.3); NEUT# 11.27 X1000 (1.4-6.5); NEUT% 82.8 % (42.2-75.2); PLT 182 X1000 (130-400); RBC 2.91 XMIL (4.2-5.4); RDW 15.7 % (11.5-14.5); WBC 13.61 X1000 (4.8-10.8)
--- NOTE | 2019-01-15 07:05 | Diag Imaging Result Doc PS360 ---
EXAM: CHEST-PORTABLE 01/15/2019 HISTORY: vent protocol TECHNIQUE: AP portable at 0509 COMMENT: There is an endotracheal tube with its tip approximately 2 cm above the amarilis and an NG tube which passes below the diaphragm into the stomach. There is interstitial and mild alveolar opacity particularly in the left lower lobe. This is slightly worse than on 01/14/2019. IMPRESSION: Slightly worsened pulmonary edema and/or pneumonia. Electronically signed by Thad Dupree 01/15/2019 7:02 AM
[2019-01-15] MEDS: PULMICORT INH SCH ×2 (07:27→19:30)
[2019-01-15] MEDS: NS 1,000 ML IV SCH ×5 (07:35→23:02)
[2019-01-15] MEDS ORDERED: CALCIUM GLUCONATE 1 GM in NS 50 ML IV ONE (07:41)
[2019-01-15] MEDS ORDERED: NS 1,000 ML IV SCH (08:03)
[2019-01-15] MEDS: DIPRIVAN 1% 1,000 MG/100 ML BOTTLE IV SCH (08:06)
[2019-01-15] MEDS: PROTONIX IV SCH ×2 (08:06→20:30)
--- NOTE | 2019-01-15 08:40 | PROVIDER PROGRESS NOTE ---
Progress Note BRIEF GI NOTE Consult placed on 01/13 for acute GI bleed after hours. On CT A/P, found to have perforated gastric ulcer with fistulization to colon. Surgical consult was indicated and patient went to OR on 01/[address] Degroot. Patient was not formally staffed by GI given perforation. Defer management to surgery team. Will sign off. Please call with questions.
[2019-01-15 09:46] LABS: ALLEN TEST YES; BE -7.1 mmoll (-3.0-3.0); BLOOD TYPE ARTERIAL; HCO3-(ACT) 19.4 mmoll (20.0-26.0); METHB 1.5 % (0.0-1.5); MODALITY VENTILATOR; O2(CT) 12.2 mL/dL (15.0-23.0); O2HB 96.4 % (95.0-99.0); PCO2(98.6) 38 mmHg (35-45); PO2(98.6) 145 mmHg (60-100); SAMPLE BLOOD; SAO2 99.1 % (95.0-100.0); THB 8.8 g/dL (11.5-17.4)
[2019-01-15 10:29] LABS: HEMOGLOBIN 9.6 g/dL (12.0-16.0)
[2019-01-15] MEDS: MAXIPIME 1 GM in NS 50 ML IV SCH ×2 (10:49→23:00)
--- NOTE | 2019-01-15 12:56 | GENERAL SURGERY PROGRESS NOTE ---
DATE: 01/15/2019 OBJECTIVE: Ms. Bradford is afebrile. Heart rate 126, blood pressure 166/107. She is on the ventilator. LABORATORY DATA: Her arterial blood gases this morning: pH 7.31, pCO2 40, PO2 151, base deficit is 5.7. That is on FiO2 of 40%, 500 tidal volume, PEEP of +5 and a rate is 16. Her chest x-ray shows good aeration of both lungs. She does have old blood in her NG tube. She does have old blood in her ileostomy bag as well. Her white count is 13,600, hemoglobin 8.8, hematocrit 25.7. Sodium 144, potassium 4.3, chloride 119, carbon dioxide is 19, BUN 45, creatinine 0.9, magnesium 2.0. ASSESSMENT: Post laparotomy with vagotomy, antrectomy, Billroth 1 anastomosis and resection of the right colon with a diverting ileostomy. She has old blood in her stomach and her GI tract which will come out eventually. This no doubt will raise her BUN. There is no active bleeding noted. Her drain is serous. With increase in IV rate, no doubt it will drop her H and H somewhat. She probably will need some nutrition sooner rather than later in view of her compromised state upon admission. I will follow along. Dr. Cummings to cover the weekend. cc: Demarcus Degroot MD
[2019-01-15 15:14] LABS: HEMATOCRIT 27.5 % (37.0-47.0)
--- NOTE | 2019-01-15 17:48 | PROGRESS NOTE ---
DATE: 01/15/2019 INTERVAL HISTORY: The patient remains intubated after surgery yesterday for perforated gastric ulcer. Off sedation currently for spontaneous breathing trial. Significant bloody material suctioned from NG tube. Some blood with suction oral secretions. Small amount of blood from ostomy. REVIEW OF SYSTEMS: Unable to obtain secondary to patient's mental status, intubated, slightly sedated.Laboratory Data: Initial hemoglobin 8.8, repeat 9.6, further repeat 9. ABG with pH 7.3, pCO2 38, PO2 145, O2 saturation 99% on CPAP with ventilator. Sodium 144, potassium 4.3, bicarb 19, BUN 45, creatinine 0.9, calcium 7.4, magnesium 2. VITALS: T-max 98.7 degrees, pulse 116, respirations 17, blood pressure 158/99, O2 saturation 100% on the ventilator. PHYSICAL EXAMINATION: General: No acute distress, intubated, mildly sedated still. Vitals: As above. HEENT: Normocephalic, atraumatic. NG and ET tubes noted. NG tube with bloody drainage. Cardiovascular: Tachycardic but regular, no murmurs noted. Pulmonary: Still a few scattered rales, but largely clear to auscultation. Abdomen: No obvious tenderness. Bowel sounds decreased significantly. Ostomy noted with scant blood in bag. Extremities: Peripheral pulses intact. No clubbing or cyanosis. Neurologic: Limited by intubation, but patient moving all extremities spontaneously. Occasionally opens eyes to voice. Not really following commands currently. Pupils equal, round, reactive to light. No obvious focal deficits. Psychiatric: Patient asleep but will arouse slightly. Not really performing any purposeful movements or following commands at the time of my exam. Skin: Pallor improved. No new rashes or lesions identified. ASSESSMENT AND PLAN: 1. 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 Patient with recent hospitalization requiring repair of perforated ulcer. Noncompliance with proton pump inhibitor at home. Came back in with repeat perforation with fistulization to part of the colon. She was transfused 8 units of blood, 3 units of fresh frozen plasma and later 2 units of platelets. She was taken to the operating room yesterday urgently for repair of the ulcer also they also had to remove part of the intestine which was attached. Hemoglobin and hematocrit dropped again this morning and given copious bloody material suctioned out, suspected we would have transfused her again, but repeat blood counts actually slightly improved. Platelets stable after transfusion. Continue to monitor closely. 2. Pneumonia, chronic obstructive pulmonary disease, chronic hypoxic respiratory failure. The patient with advanced chronic obstructive pulmonary disease on 3 L oxygen at home. Mild pneumonia seen on initial CT. On antibiotics with vancomycin and cefepime. Remained intubated after surgery, but currently on CPAP trial. Still a little sedated, but appears to be doing well on CPAP. May be able to be extubated later today. 3. Possible sepsis patient with tachycardia, leukocytosis. Likely primarily related to gastrointestinal bleed and ulcer, but possibly also an aspect of sepsis on admission related to pneumonia. On antibiotics as above. Repeat lactate negative. Still somewhat tachycardic. Cultures no growth to date. Monitor closely and continue antibiotics. 4. Hypertension. Patient hypertensive by history but not taking medications at home. Blood pressure here has been trending up somewhat and may eventually need antihypertensives, but we will let it ride for now given critical illness and possible ongoing blood loss. 5. Hypothyroidism. TSH, free T4 pending. The patient noncompliant with her Synthroid at home. No signs of severe hypothyroidism. Will likely restart Synthroid the morning she is extubated. If not, may or may not start IV Synthroid based on results of TSH. 6. Medical noncompliance. Patient reports not taking any of her oral medications after previous discharge, is only rarely taking her Enbrel shot. 7. Chronic constipation. Holding laxatives currently. We will monitor. 8. Tobacco abuse, patient is smoking approximately a pack a day prior to admission. Discussed cessation prior to surgery. She refused nicotine patch at that time. We will offer again if she is extubated. 9. Deep vein thrombosis prophylaxis sequential compression devices given gastrointestinal bleed and recent surgery. 10. Critical care time 35 minutes spent immediately available to patient, examining patient, reviewing labs, obtaining information from nursing staff and making medical decisions.
[2019-01-15] MEDS: VANCOMYCIN 1 GM/NS 1 GM/250 ML IVPB IV SCH (23:02)
[2019-01-16] MEDS: ATROVENT NEB INH SCH ×6 (03:30→23:30)
[2019-01-16] MEDS: XOPENEX NEB INH SCH ×6 (03:30→23:30)
[2019-01-16 05:00] LABS: ALLEN TEST YES; BE -7.1 mmoll (-3.0-3.0); BLOOD TYPE ARTERIAL; HCO3-(ACT) 19.4 mmoll (20.0-26.0); METHB 1.9 % (0.0-1.5); O2(CT) 5.8 mL/dL (15.0-23.0); O2HB 95.9 % (95.0-99.0); PCO2(98.6) 39 mmHg (35-45); PO2(98.6) 135 mmHg (60-100); SAMPLE BLOOD; SAO2 99.2 % (95.0-100.0); pH(98.6) 7.29 (7.35-7.45)
[2019-01-16 05:01] LABS: MODALITY COOL AEROSOL
[2019-01-16] MEDS: FLAGYL 500 MG/NS 500 MG/100 ML IVPB IV SCH ×3 (05:02→20:12)
[2019-01-16 05:05] LABS: BASO# 0.01 X1000 (0.0-0.2); BASO% 0.1 % (0.0-0.8); EOS# 0.09 X1000 (0.0-0.7); EOS% 0.8 % (0.0-10.0); HEMATOCRIT 22.7 % (37.0-47.0); HEMOGLOBIN 7.3 g/dL (12.0-16.0); IMM GRAN# 0.04 X1000 (0.0-0.04); IMM GRAN% 0.3 % (0.0-0.5); LYMPH# 1.13 X1000 (1.2-3.4); LYMPH% 9.6 % (20.5-51.1); MCH 29.1 PG (27-31); MCHC 32.2 g/dL (33-37); MCV 90.4 FL (81-99); MONO# 0.77 X1000 (0.11-0.59); MONO% 6.6 % (1.7-9.3); MPV 10.7 FL (7.4-10.4); NEUT# 9.67 X1000 (1.4-6.5); NEUT% 82.6 % (42.2-75.2); PLT 132 X1000 (130-400); RBC 2.51 XMIL (4.2-5.4); RDW 16.8 % (11.5-14.5); WBC 11.71 X1000 (4.8-10.8)
[2019-01-16 05:25] LABS: ESTIMATED GFR > 60
[2019-01-16 05:30] LABS: AGAP 6; ALBUMIN 1.5 g/dL (3.5-5.0); BUN 34 mg/dL (8-22); CALCIUM 7.5 mg/dL (8.8-10.2); CHLORIDE 121 mmol/L (98-107); COSMO 298; CREATININE 0.9 mg/dL (0.5-0.9); GLUCOSE 62 mg/dL (70-104); MAGNESIUM 1.7 mg/dL (1.5-2.7); PHOSPHORUS 2.9 mg/dL (2.7-4.5); POTASSIUM 3.8 mmol/L (3.5-5.1); SODIUM 147 mmol/L (136-145); TCO2 20 mmol/L (25-35)
[2019-01-16] MEDS: NS 1,000 ML IV SCH (06:32)
[2019-01-16] MEDS: PULMICORT INH SCH ×2 (07:32→19:07)
[2019-01-16] MEDS ORDERED: D50W SYRINGE IV ONE (07:37)
[2019-01-16] MEDS ORDERED: D5 NS 1,000 ML IV SCH (07:45)
--- NOTE | 2019-01-16 07:52 | Diag Imaging Result Doc PS360 ---
EXAM: CHEST/ABD TUBE PLACEMENT INDICATION: NGT placement check TECHNIQUE: One view COMPARISON: 01/15/2019 FINDINGS: There has been interval extubation. The NG tube projects well below the diaphragm and is assumed to be in the lumen of the stomach in the expected position. The lungs are slightly overexposed due to focus on the NG tube. Interstitial thickening appears to be stable as compared to the previous study, however. No new consolidation is identified. Cardiac silhouette is stable. IMPRESSION: Interval extubation and NG tube in the expected position. Stable chest, otherwise. Electronically signed by Virgilio Munguia 01/16/2019 7:50 AM
[2019-01-16] MEDS: PROTONIX IV SCH ×2 (08:36→20:12)
[2019-01-16] MEDS ORDERED: NS 250 ML IV SCH (09:45)
[2019-01-16] MEDS: D5 1/2 NS 1,000 ML IV SCH ×2 (10:16→20:12)
[2019-01-16] MEDS: MAXIPIME 1 GM in NS 50 ML IV SCH ×2 (11:53→23:41)
--- NOTE | 2019-01-16 12:29 | PROGRESS NOTE ---
DATE: 01/16/2019 Ms. Bradford is now postop day 2 from distal gastric resection with B1 anastomosis, and ileostomy per Dr. Degroot. She remains in the ICU but she is awake and cooperative. She has an NG tube in place in addition to a Whitney catheter tube. She is off all pressors. She is receiving IV fluids and antibiotics. She is also receiving blood. She does have some bloody output from her NG tube. Urine is clear. Her heart rate is 117 to 121, blood pressure 145/65, O2 saturation is 100% on nasal cannula O2. She is afebrile. Her hematocrit was 23% this morning, white blood cell count 11.7. Electrolytes were within normal limits. BUN was 34, creatinine 0.9. Her base deficit was 7. She has been extubated and appears to be breathing all right on her own. NG tube remains. Her midline incision is dressed. Her ileostomy appears to be viable. cc: Violetta Cummings MD
[2019-01-16] MEDS: DILAUDID IV PRN ×2 (14:19→21:04)
--- NOTE | 2019-01-16 16:59 | PROGRESS NOTE ---
DATE: 01/16/2019 INTERVAL HISTORY: The patient was successfully extubated yesterday. Doing fairly well currently. Respiratory status stable, awake and cooperative. Nasogastric tube remains in place but with decreased bloody drainage. Surgical abdominal drain remains in place, with largely serous drainage. Ostomy in place. Little output today. The patient is complaining only of thirst and dry mouth. Pain well controlled. No other new complaints. No other acute events. REVIEW OF SYSTEMS: Twelve-point review of systems is negative except as per interval history. LABORATORY DATA: WBC 11.7, hemoglobin 7.3, hematocrit 22.7, platelets 132,000. ABG with pH 7.29, pCO2 of 39, pO2 of 135. Sodium 147, potassium 3.8, chloride 121, bicarbonate 20, BUN 34, creatinine 0.9, glucose 118, albumin 1.5. TSH 7.87, free T4 is 0.84. OBJECTIVE: Vital signs: T-max 98.6 degrees, pulse 96, respirations 13, blood pressure 149/102, O2 saturation 100% on 5 L.General: No acute distress. Chronically ill appearing. HEENT: Normocephalic, atraumatic. Nasogastric tube in place. Cardiovascular: Regular rate and rhythm. No murmurs noted. Pulmonary: A few scattered rales, but largely clear to auscultation. Abdomen: Bandaged. Bandage clean, dry and intact. Ostomy noted. Bowel sounds decreased but present. Extremities: Peripheral pulses intact. No clubbing or cyanosis. Neurologic: Cranial nerves grossly intact. No focal deficits identified. Psychiatric: Normal mood and affect. Awake, alert and oriented x3. Skin: No new rashes or lesions identified. ASSESSMENT AND PLAN: 1. Perforated ulcer with fistulization to the colon, gastrointestinal bleed, acute posthemorrhagic anemia. Patient with recent repair, was noncompliant with proton pump inhibitor after discharge and came back with another perforation, with fistulization to the colon. Transfused a total of 8 units and had urgent surgery with resection and ostomy. Amount of blood suctioned from nasogastric tube appears to be decreasing. Hemoglobin and hematocrit trending down somewhat again this morning, so we will transfuse 1 additional unit. Suspect it is still just settling out from blood she has already lost. Monitor closely. Continue proton pump inhibitor. We will transfuse additional units as needed. 2. Pneumonia, chronic obstructive pulmonary disease, chronic hypoxic respiratory failure. Patient with advanced chronic obstructive pulmonary disease, on 3 L of oxygen at home. Mild pneumonia seen on initial CT. On antibiotics with vancomycin and cefepime. Remained intubated after surgery but extubated successfully yesterday. Doing well off of that. Monitor closely. 3. Possible sepsis. Suspect tachycardia and leukocytosis primarily related to gastrointestinal bleed and ulcer, but may also have had expect of sepsis with the fistula and pneumonia. On antibiotics as above. Repeat lactate negative. Monitor. 4. Hypertension. Patient hypertensive by history but not taking any medications at home. Blood pressure here somewhat labile. Does appear to be trending up overall. If it continues to trend up, we will likely have to start some antihypertensives, but we will give it 1 more day to ensure stability. 5. Hypothyroidism. TSH mildly elevated, free T4 mildly low. Patient noncompliant with her Synthroid at home. We will go ahead and start intravenous Synthroid as she is NPO currently and likely to remain so until cleared by Surgery. 6. Medical noncompliance. The patient reports not taking any of her oral medications after last discharge. 7. Tobacco abuse. The patient was smoking 1 pack per day prior to admission. We will offer nicotine patch. 8. Deep vein thrombosis prophylaxis. Sequential compression devices.
[2019-01-16] MEDS: VANCOMYCIN 1 GM/NS 1 GM/250 ML IVPB IV SCH (23:41)
[2019-01-16] MEDS ORDERED: ATIVAN IV ONE (23:50)
[2019-01-16] MEDS ORDERED: DILAUDID IV ONE (23:50)
[2019-01-17] MEDS: ATROVENT NEB INH SCH ×6 (03:10→23:30)
[2019-01-17] MEDS: XOPENEX NEB INH SCH ×6 (03:10→23:30)
[2019-01-17] MEDS: DILAUDID IV PRN ×4 (05:08→23:21)
[2019-01-17] MEDS: ZOFRAN IV PRN ×2 (05:08→09:31)
[2019-01-17] MEDS: FLAGYL 500 MG/NS 500 MG/100 ML IVPB IV SCH ×3 (05:09→20:36)
[2019-01-17 05:26] LABS: ALLEN TEST YES; BE -7.7 mmoll (-3.0-3.0); BLOOD TYPE ARTERIAL; HCO3-(ACT) 18.9 mmoll (20.0-26.0); METHB 1.8 % (0.0-1.5); O2(CT) 11.4 mL/dL (15.0-23.0); O2HB 94.4 % (95.0-99.0); PCO2(98.6) 38 mmHg (35-45); PO2(98.6) 94 mmHg (60-100); SAMPLE BLOOD; SAO2 98.4 % (95.0-100.0); THB 8.5 g/dL (11.5-17.4); pH(98.6) 7.29 (7.35-7.45)
[2019-01-17 05:27] LABS: BASO# 0.01 X1000 (0.0-0.2); BASO% 0.1 % (0.0-0.8); EOS# 0.39 X1000 (0.0-0.7); EOS% 2.8 % (0.0-10.0); HEMATOCRIT 27.9 % (37.0-47.0); HEMOGLOBIN 9.2 g/dL (12.0-16.0); IMM GRAN# 0.05 X1000 (0.0-0.04); IMM GRAN% 0.4 % (0.0-0.5); LYMPH# 1.14 X1000 (1.2-3.4); LYMPH% 8.1 % (20.5-51.1); MCH 29.9 PG (27-31); MCV 90.6 FL (81-99); MONO# 0.77 X1000 (0.11-0.59); MONO% 5.5 % (1.7-9.3); NEUT# 11.66 X1000 (1.4-6.5); NEUT% 83.1 % (42.2-75.2); PLT 121 X1000 (130-400); RBC 3.08 XMIL (4.2-5.4); RDW 16.3 % (11.5-14.5); WBC 14.02 X1000 (4.8-10.8)
[2019-01-17 05:29] LABS: MODALITY CANNULA
[2019-01-17 05:45] LABS: AGAP 7; ALBUMIN 1.8 g/dL (3.5-5.0); BUN 22 mg/dL (8-22); CALCIUM 7.7 mg/dL (8.8-10.2); CHLORIDE 122 mmol/L (98-107); COSMO 299; CREATININE 0.9 mg/dL (0.5-0.9); ESTIMATED GFR > 60; GLUCOSE 90 mg/dL (70-104); MAGNESIUM 1.5 mg/dL (1.5-2.7); POTASSIUM 3.1 mmol/L (3.5-5.1); SODIUM 149 mmol/L (136-145); TCO2 20 mmol/L (25-35)
[2019-01-17] MEDS: SYNTHROID IV SCH (06:05)
[2019-01-17] MEDS: SODIUM CHLORIDE 0.9% INJ PRN ×3 (06:05→22:37)
--- NOTE | 2019-01-17 07:47 | Diag Imaging Result Doc PS360 ---
EXAM: CHEST-PORTABLE INDICATION: Pt has audible crackles TECHNIQUE: One view COMPARISON: 01/16/2019 FINDINGS: The NG tube is in stable position. Increased central vasculature and increased interstitial markings indicating pulmonary edema has probably worsened marginally. No other new consolidations are identified. Cardiac silhouette is stable. IMPRESSION: Marginal worsening of pulmonary edema. Electronically signed by Virgilio Munguia 01/17/2019 7:44 AM
[2019-01-17] MEDS: D5 1/2 NS 1,000 ML IV SCH ×4 (08:20→22:33)
[2019-01-17] MEDS: PROTONIX IV SCH ×2 (08:20→20:36)
[2019-01-17] MEDS: PULMICORT INH SCH ×2 (08:31→19:30)
[2019-01-17] MEDS ORDERED: POTASSIUM PHOSPHATE 20 MMOL in NS 250 ML IV ONE (08:34)
[2019-01-17] MEDS: POTASSIUM CHLORIDE 20 MEQ/SWI 20 MEQ/100 ML IVPB IV SCH ×2 (10:02→11:20)
--- NOTE | 2019-01-17 10:12 | PROGRESS NOTE ---
DATE: 01/17/2019 SUBJECTIVE: Ms Kamilla Bradford is a 68-year-old white female status post gastric resection with B1 anastomosis, also ileostomy, colon resection. She remains in our ICU. She is awake. She still has an NG tube in place. The ileostomy is viable. Her midline incision is dressed. She still has a Whitney catheter tube in place. OBJECTIVE: Her heart rate is 90 to 104. Blood pressure 168/56, she is on no pressors. She is breathing without difficulty. She is on nasal cannula O2. She is afebrile. DIAGNOSTIC STUDIES: Her white blood cell count is 14, hematocrit is 28%. BUN is 22 and creatinine 0.9. Her base deficit is 7.7. A chest x-ray shows some pulmonary edema. PLAN: She still needs her NG tube and is n.p.o., except ice chips. She will probably need some IV nutrition now that she is resuscitated. We will continue supportive care. cc: Violetta Cummings MD
[2019-01-17] MEDS: PHENERGAN IV PRN ×2 (10:49→22:34)
[2019-01-17] MEDS: MAXIPIME 1 GM in NS 50 ML IV SCH ×2 (11:45→22:37)
[2019-01-17 15:07] LABS: AGAP 6; BUN 18 mg/dL (8-22); CALCIUM 7.7 mg/dL (8.8-10.2); CHLORIDE 120 mmol/L (98-107); COSMO 293; CREATININE 0.9 mg/dL (0.5-0.9); ESTIMATED GFR > 60; GLUCOSE 112 mg/dL (70-104); POTASSIUM 3.8 mmol/L (3.5-5.1); SODIUM 146 mmol/L (136-145); TCO2 20 mmol/L (25-35)
--- NOTE | 2019-01-17 15:56 | PROGRESS NOTE ---
DATE: 01/17/2019 INTERVAL HISTORY: The patient with no further obvious bleeding. Still with NG tube with scant drainage. STEPHANIE drain still in place with serosanguineous drainage. Respiratory status remained stable off the ventilator. Pain reasonably well controlled. REVIEW OF SYSTEMS: Twelve point review of systems negative except as per interval history. LABS: WBC 14.0, hemoglobin 9.2, hematocrit 27.9, platelets 121,000. ABG with pH 7.29, pCO2 38, PO2 94, on 4 L by nasal cannula. Sodium, initial sodium 149, repeat 146, initial potassium 3.1, repeat 3.8, bicarb 20, BUN 18, creatinine 0.9 glucose 126, calcium 7.7, phosphorus 2, magnesium 1.5, albumin 1.8. VITALS: T-max 99.4, pulse 115, respirations 19, blood pressure 168/79. O2 saturation 97% on 4 L by nasal cannula. PHYSICAL EXAMINATION: General: No acute distress. Vitals: As above. Chronically ill- appearing. HEENT: Normocephalic, atraumatic. NG tube in place with scant sanguinous drainage. Cardiovascular: Tachycardic, but regular. No murmurs noted. Pulmonary: A few scattered rhonchi remain, but largely clear to auscultation. Abdomen: Midline Bandage. Bandage clean, dry, intact. Ostomy noted with some output. Drain in place with serosanguineous drainage. Bowel sounds decreased, but present. Extremities: Peripheral pulses intact. No clubbing or cyanosis. Neurologic: Cranial nerves grossly intact. Mild global weakness, but no focal deficits. Psychiatric: Normal mood and affect. Awake, alert, oriented x 3. Skin: No new rashes or lesions identified. ASSESSMENT AND PLAN: 1. Perforated ulcer with fistulization to the colon, GI bleed, acute post hemorrhagic anemia. Patient with recent repair, was noncompliant with PPI after discharge and came back with another perforation with fistulization. Transfused total of 9 units of blood with most recent recheck appearing to be stable. Also received 3 units of FFP and 2 units of platelets. Blood suctioned from NG tube appears to be decreasing significantly. Hemoglobin and hematocrit relatively stable, so we will monitor for now. Continue PPI. Diet as per surgery. 2. Pneumonia, COPD, chronic hypoxic respiratory failure. The patient with advanced COPD on 3 L of oxygen at home. Mild pneumonia seen on initial CT. On antibiotics with vancomycin and cefepime. Remained intubated after surgery, but extubated successfully. Doing well from a respiratory standpoint. 3. Sepsis. Suspect tachycardia and leukocytosis. Primary related to GI bleeding ulcer. May have also had an aspect of sepsis with the perforation and pneumonia. On antibiotics as above. Repeat lactate negative. Monitor. Also on Flagyl. 4. Hypertension. Patient hypertensive by history. Not taking any medications at home. Has had some fairly consistent moderate elevations, but occasionally has dips in blood pressure down in systolics to the 90s, so we will hold off on adding scheduled antihypertensives for now until blood pressure is a little less labile. Will likely eventually need to start antihypertensives back. 5. Hypothyroidism. Started on IV Synthroid as TSH was elevated and uncertain when she will be able to take p.o. again. 6. Medical noncompliance. Patient reports not taking any of her oral medications after her last discharge. 7. Tobacco abuse. Patient smoking 1 pack per day prior to admission. Offered nicotine patch, but patient refused. 8. Nutrition. Surgery wants to re-evaluate tomorrow to determine when she may be able to start taking some nutrition by mouth. If it appears that it is going to be any prolonged period of time before she is able to take adequate nutrition by mouth, then we will likely start TPN. 9. Deep vein thrombosis prophylaxis. SCDs. YANIRA
[2019-01-17] MEDS: VANCOMYCIN 1 GM/NS 1 GM/250 ML IVPB IV SCH ×2 (22:37→23:20)
[2019-01-18] MEDS ORDERED: DILAUDID IV ONE (01:00)
[2019-01-18] MEDS: XOPENEX NEB INH SCH ×6 (02:56→23:35)
[2019-01-18] MEDS: ATROVENT NEB INH SCH ×7 (02:57→23:30)
[2019-01-18] MEDS: FLAGYL 500 MG/NS 500 MG/100 ML IVPB IV SCH ×3 (04:28→22:55)
[2019-01-18 04:41] LABS: BASO# 0.01 X1000 (0.0-0.2); BASO% 0.1 % (0.0-0.8); HEMATOCRIT 31.1 % (37.0-47.0); IMM GRAN# 0.09 X1000 (0.0-0.04); IMM GRAN% 0.5 % (0.0-0.5); LYMPH# 1.08 X1000 (1.2-3.4); LYMPH% 5.4 % (20.5-51.1); MCH 29.9 PG (27-31); MCHC 32.2 g/dL (33-37); MCV 92.8 FL (81-99); MONO# 1.12 X1000 (0.11-0.59); MONO% 5.6 % (1.7-9.3); NEUT# 17.33 X1000 (1.4-6.5); NEUT% 87.4 % (42.2-75.2); PLT 106 X1000 (130-400); RBC 3.35 XMIL (4.2-5.4); RDW 16.9 % (11.5-14.5); WBC 19.83 X1000 (4.8-10.8)
[2019-01-18 05:14] LABS: ESTIMATED GFR > 60
[2019-01-18 05:23] LABS: AGAP 9; BUN 13 mg/dL (8-22); CHLORIDE 118 mmol/L (98-107); COSMO 286; CREATININE 0.8 mg/dL (0.5-0.9); GLUCOSE 118 mg/dL (70-104); POTASSIUM 3.7 mmol/L (3.5-5.1); SODIUM 143 mmol/L (136-145); TCO2 16 mmol/L (25-35)
[2019-01-18 05:24] LABS: ALBUMIN 1.6 g/dL (3.5-5.0); CALCIUM 7.5 mg/dL (8.8-10.2); MAGNESIUM 1.3 mg/dL (1.5-2.7); PHOSPHORUS 2.5 mg/dL (2.7-4.5)
[2019-01-18] MEDS: SYNTHROID IV SCH (06:09)
[2019-01-18] MEDS: SODIUM CHLORIDE 0.9% INJ PRN ×2 (06:09→10:04)
[2019-01-18] MEDS: D5 1/2 NS 1,000 ML IV SCH (06:10)
[2019-01-18] MEDS: DILAUDID IV PRN ×3 (06:45→19:21)
[2019-01-18] MEDS: PULMICORT INH SCH ×2 (07:29→19:30)
[2019-01-18 08:45] LABS: ALLEN TEST YES; BE -8.7 mmoll (-3.0-3.0); BLOOD TYPE ARTERIAL; HCO3-(ACT) 18.1 mmoll (20.0-26.0); METHB 1.2 % (0.0-1.5); O2(CT) 12.9 mL/dL (15.0-23.0); O2HB 94.6 % (95.0-99.0); PCO2(98.6) 41 mmHg (35-45); PO2(98.6) 76 mmHg (60-100); SAMPLE BLOOD; SAO2 97.9 % (95.0-100.0); THB 9.6 g/dL (11.5-17.4); pH(98.6) 7.25 (7.35-7.45)
[2019-01-18 08:47] LABS: MODALITY CANNULA
[2019-01-18 09:33] LABS: INR 1.33; PROTIME 17.5 Seconds (11.0-16.0)
[2019-01-18] MEDS: SODIUM BICARBONATE 8.4% 100 MEQ in D5W 1,000 ML IV SCH ×2 (10:04→15:08)
[2019-01-18] MEDS: PROTONIX IV SCH ×2 (10:04→20:57)
[2019-01-18] MEDS ORDERED: NS 250 ML ONE (11:16)
[2019-01-18] MEDS: MAXIPIME 1 GM in NS 50 ML IV SCH (11:51)
--- NOTE | 2019-01-18 13:33 | GENERAL SURGERY PROGRESS NOTE ---
DATE: 01/18/2019 HISTORY OF PRESENT ILLNESS: She is now 4 days after laparotomy with a truncal vagotomy, antrectomy, Billroth 1 anastomosis, right colectomy and diverting end-to-end ileostomy. She is now extubated. She is awake and alert. She is afebrile. Heart rate 105, blood pressure 159/81. She had 4500 mL in, 2895 out. About 525 mL out of her ileostomy, 250 mL out of her NG tube. She is taking ice chips. She has had 250 mL out of her drain, it is serous in appearance. LABORATORY DATA: Reveals a white count of 19,800, hemoglobin 10, hematocrit 31. Sodium 143, potassium 3.7, chloride 118, carbon dioxide 16, BUN 13, creatinine 0.8, phosphorus 2.5, magnesium 1.3. PLAN: The plan is to start her on TPN because of her nutritional state. She will need a PICC line as well for IV access in the central system. cc: Demarcus Degroot MD
[2019-01-18] MEDS ORDERED: MORPHINE IV ONE (13:36)
[2019-01-18] MEDS ORDERED: D10W 1,000 ML IV PRN (15:00)
[2019-01-18] MEDS ORDERED: AMINOSYN IV SCH ×10 (15:00)
[2019-01-18] MEDS ORDERED: [UNRECOGNIZED DRUG - OTHER] IV SCH ×10 (15:00)
[2019-01-18] MEDS ORDERED: TPN ELECTROLYTES IV SCH ×10 (15:00)
[2019-01-18] MEDS: LIPOSYN 20% 500 ML IV SCH (15:08)
[2019-01-18] MEDS ORDERED: APRESOLINE IV PRN (16:59)
--- NOTE | 2019-01-18 18:03 | PROGRESS NOTE ---
DATE: 01/18/2019 INTERVAL HISTORY: Patient with no further obvious active bleeding. NG tube still with scant bloody drainage. STEPHANIE drain with largely serous to serosanguineous drainage. Respiratory status remains good, off the ventilator. Pain reasonably controlled. Have had some issues with IV access, so PICC line pending. REVIEW OF SYSTEMS: Twelve point review of systems except as per interval history. LABS: WBC 19.8, hemoglobin 10, hematocrit 31.1, platelets 106,000. ABG with pH 7.25, pCO2 41, PO2 76 on 4 L by nasal cannula. Sodium 143, potassium 3.7, chloride 118, bicarb 16, glucose 118, albumin 1.6. VITALS: T-max 99.2, pulse 111, respirations 21, blood pressure 129/62. O2 sat 98% on 4 L by nasal cannula. PHYSICAL EXAMINATION: General: No acute distress. Chronically ill appearing. Vitals: As above. HEENT: Normocephalic, atraumatic. NG tube is still in place with small amounts of sanguinous drainage. Cardiovascular: Tachycardic, but regular. No murmurs noted. Pulmonary: Largely clear to auscultation at this point. Abdomen: Midline bandaged. Bandage clean, dry, intact. Ostomy noted. Drain in place with largely serous to slightly serosanguineous drainage. Bowel sounds decreased, but present. Extremities: Peripheral pulses intact. No clubbing, cyanosis. Neurologic: Cranial nerves grossly intact. Mild global weakness, but no focal deficits. Psychiatric: Normal mood and affect. Awake, alert, oriented x 3. Skin: No new rashes or lesions identified. ASSESSMENT AND PLAN: 1. Gastric ulcer with fistulization to the colon, GI bleed, acute post hemorrhagic anemia, peritonitis. Patient with recent repair, was noncompliant with PPI, then came back with another perforation fistulization. (total 9 units with blood counts now stable to improving without further transfusion). Also received 3 units of FFP, 2 units of platelets. Had urgent surgical repair involving partial colectomy of the fistulized portion Billroth anastomosis and ostomy creation. Continue monitoring. Continue PPI. Diet as per surgery. 2. Pneumonia, COPD, chronic hypoxic respiratory failure. The patient with advanced COPD on 3 L oxygen at home. Mild pneumonia seen on initial CT. On antibiotics with vancomycin, cefepime, with Flagyl because of her perforation. We will continue those. Some increase in white count, but may be reactive from surgery. Monitor closely for any signs of new or worsening infection. She remained intubated overnight after surgery, but extubated successfully after that. Respiratory status stable at this point. 3. Hypertension. The patient hypertensive by surgery. Initially some low blood pressure has been pretty consistently elevated over the last day and a half. Will likely start some Norvasc when she is able to take p.o., but for now will have hydralazine available p.r.n. if marked hypertension develops. 4. Hypothyroidism,, started on IV Synthroid. TSH was elevated and uncertain whether she will be able to take p.o. Medical noncompliance. Patient reports not taking any of her oral medications after last discharge, including her PPI and Synthroid. 5. Tobacco abuse. Patient smoking 1 pack per day prior to admission. Offered a nicotine patch where patient refused. 6. Nutrition. Obtaining PICC line and starting TPN. 7. Metabolic acidosis. The patient noted to have worsening non gap acidosis today. ABG confirms. We will change patient's fluids to bicarb containing. 8. Hypoglycemia. Patient with mild hypoglycemia. Remains n.p.o., so on glucose-containing fluids until TPN is started. 9. Deep vein thrombosis prophylaxis. SCDs. [facility]PITALRemigio
[2019-01-18] MEDS: VANCOMYCIN 1 GM/NS 1 GM/250 ML IVPB IV SCH (22:55)
[2019-01-19] MEDS: MAXIPIME 1 GM in NS 50 ML IV SCH (00:01)
[2019-01-19] MEDS: XOPENEX NEB INH SCH ×6 (03:30→23:38)
[2019-01-19] MEDS: ATROVENT NEB INH SCH ×5 (03:30→23:38)
[2019-01-19 04:45] LABS: ALLEN TEST YES; BE -3.9 mmoll (-3.0-3.0); BLOOD TYPE ARTERIAL; HCO3-(ACT) 21.9 mmoll (20.0-26.0); METHB 1.2 % (0.0-1.5); O2(CT) 10.9 mL/dL (15.0-23.0); PCO2(98.6) 40 mmHg (35-45); PO2(98.6) 68 mmHg (60-100); SAMPLE BLOOD; SAO2 99.2 % (95.0-100.0); THB 8.2 g/dL (11.5-17.4); pH(98.6) 7.34 (7.35-7.45)
[2019-01-19 04:46] LABS: MODALITY CANNULA
[2019-01-19] MEDS: SODIUM BICARBONATE 8.4% 100 MEQ in D5W 1,000 ML IV SCH (05:12)
[2019-01-19 05:48] LABS: BASO# 0.01 X1000 (0.0-0.2); EOS# 0.37 X1000 (0.0-0.7); EOS% 1.6 % (0.0-10.0); HEMATOCRIT 26.7 % (37.0-47.0); HEMOGLOBIN 8.6 g/dL (12.0-16.0); IMM GRAN# 0.12 X1000 (0.0-0.04); IMM GRAN% 0.5 % (0.0-0.5); LYMPH# 1.28 X1000 (1.2-3.4); LYMPH% 5.5 % (20.5-51.1); MCH 29.5 PG (27-31); MCHC 32.2 g/dL (33-37); MCV 91.4 FL (81-99); MONO# 1.36 X1000 (0.11-0.59); MONO% 5.8 % (1.7-9.3); MPV 11.7 FL (7.4-10.4); NEUT# 20.31 X1000 (1.4-6.5); NEUT% 86.6 % (42.2-75.2); PLT 116 X1000 (130-400); RBC 2.92 XMIL (4.2-5.4); RDW 16.1 % (11.5-14.5); WBC 23.45 X1000 (4.8-10.8)
[2019-01-19 05:52] LABS: ESTIMATED GFR > 60
[2019-01-19 06:10] LABS: AGAP 8; ALBUMIN 1.2 g/dL (3.5-5.0); BUN 9 mg/dL (8-22); CALCIUM 7.4 mg/dL (8.8-10.2); CHLORIDE 112 mmol/L (98-107); CHOLESTEROL 37 mg/dL (0-200); COSMO 282; CREATININE 0.7 mg/dL (0.5-0.9); GLUCOSE 173 mg/dL (70-104); GOT 5 U/L (10-30); MAGNESIUM 1.4 mg/dL (1.5-2.7); PHOSPHORUS 1.2 mg/dL (2.7-4.5); POTASSIUM 3.3 mmol/L (3.5-5.1); PREALBUMIN 4.7 mg/dL (20-40); SODIUM 140 mmol/L (136-145); TCO2 20 mmol/L (25-35); TRIGLYCERIDES 43 mg/dL (35-135)
[2019-01-19] MEDS: SYNTHROID IV SCH (06:13)
[2019-01-19 06:31] LABS: BANDS 12 % (0-1); EOS 2 % (1-10); LYMPHS 5 % (21-51); MONO 2 % (1-9); SEGS 77 % (42-75)
[2019-01-19] MEDS ORDERED: LASIX IV ONE (06:59)
--- NOTE | 2019-01-19 07:32 | Diag Imaging Result Doc PS360 ---
CHEST-PORTABLE - 01/19/2019 INDICATION: dyspnea COMPARISON: 01/17/2019 FINDINGS: Stable nasogastric tube in good position the stomach. There are stable dense bilateral interstitial infiltrates. Heart size remains top normal. No pneumothorax or significant pleural effusion. There is pulmonary vascular congestion. IMPRESSION: No change from prior. Electronically signed by Faustino Villarreal 01/19/2019 7:30 AM
[2019-01-19] MEDS: FLAGYL 500 MG/NS 500 MG/100 ML IVPB IV SCH (07:41)
[2019-01-19] MEDS ORDERED: MAGNESIUM SULFATE 2 GM/S.W.I. 2 GM/50 ML IVPB IV ONE (07:58)
[2019-01-19] MEDS ORDERED: POTASSIUM PHOSPHATE 40 MMOL in NS 250 ML IV ONE (07:59)
[2019-01-19] MEDS ORDERED: XOPENEX NEB INH PRN (08:05)
[2019-01-19] MEDS ORDERED: ATROVENT NEB INH PRN (08:07)
[2019-01-19] MEDS: PROTONIX IV SCH ×2 (09:20→20:47)
[2019-01-19] MEDS: SODIUM CHLORIDE 0.9% INJ PRN (09:20)
[2019-01-19] MEDS ORDERED: MERREM 1 GM in NS 50 ML IV SCH (09:30)
[2019-01-19] MEDS: MERREM 1 GM in NS 50 ML IV SCH ×2 (10:28→18:05)
[2019-01-19] MEDS: MYCAMINE 100 MG in NS 100 ML IV SCH ×2 (10:29→12:56)
--- NOTE | 2019-01-19 11:27 | PROGRESS NOTE ---
DATE: 01/19/2019 SUBJECTIVE: This patient seems to be confused today. She is not oriented to place, but she is following commands and answering most of my questions. She is able to say her name, date of and she knows the year. She is somewhat oriented to situation. She has hypomagnesemia, hypokalemia, hypophosphatemia which I will replace. I will decrease the dose of the levothyroxine. I am not quite sure if this is one of the reasons of her tachycardia at this moment, but also could be related to pain. She was taking 25 mcg of levothyroxine in 2013, so I will decrease the dose from 50 mcg to 12.5 IV. OBJECTIVE: Vital Signs: Temperature 100 degrees, pulse 119, respiratory rate 23, blood pressure 166/65, oxygen saturation 97% on 4 L of nasal cannula. HEENT: Head normocephalic, no trauma. PERRLA. Neck: Supple. No JVD, central trachea. Chest: This patient is wheezing bilaterally with some scattered crepitus, mostly at the bases. Abdomen: Soft. The wound looks clean, dry and intact. Painful to palpation around the surgical area. Positive bowel sounds. Extremities: No edema, no clubbing, no cyanosis. Neurological examination: This patient is alert. She is oriented x2. She is not oriented to time. She is following commands and answering some of my questions. She seems to be a little bit confused today compared with previous days. LABORATORY: WBC 23.4, hemoglobin 8.6, hematocrit 26.7, platelets 116. Sodium 140, potassium 3.3, chloride 112, bicarbonate 20. BUN 9, creatinine 0.7, glucose 173, calcium 7.4, phosphorus 1.2, magnesium 1.4, albumin 1.2. ASSESSMENT AND PLAN: 1. Gastrointestinal bleeding with a large gastric ulcer penetrating inferiorly into the proximal transverse colon, status post exploratory laparotomy, truncal vagotomy with antrectomy and Billroth-1 anastomosis, and right colectomy with diverting end ileostomy, postoperative day #5. Her abdomen looks fine, the wound looks clean, and the hemoglobin and hematocrit decreased compared with yesterday, but still stable. We will continue to monitor. So far, she has received 9 units of packed red blood cells; also 3 fresh frozen plasma and 2 platelets. 2. Pneumonia with chronic obstructive pulmonary disease, which seems to be exacerbated, and chronic hypoxic respiratory failure on home oxygen around 3 liters. It looks like this patient has an advanced chronic obstructive pulmonary disease. She is wheezing today. I will try to give her breathing treatment every 2 hours. For the pneumonia she is on antibiotics, vancomycin and cefepime. Leukocyte count has been increasing; I will monitor this for 1 more day. She has mild temperature today at 3:41 a.m. at 100. I have requested blood culture and urine culture as well. 3. Sepsis with tachycardia, leukocytosis, pneumonia. Continue with antibiotics. I have requested blood culture and urine culture. 4. Hypertension. Blood pressure is slightly elevated today, but we will monitor. 5. Hypothyroidism. It looks like this patient was not taking any kind of treatment for her hypothyroidism at home. I checked the report and it looks like she was on levothyroxine 25 mcg in 2013. So in this case I will decrease the dose of the levothyroxine intravenous to 12.5. I will monitor this clinically. 6. Medical noncompliance. The patient reported to previous doctors to be not taking any of her oral medications after her last discharge. 7. Tobacco abuse. It looks like this patient is still smoking 1 pack a day prior to admission. She has been highly advised against tobacco use. I will continue with daily cessation education. 8. Deep vein thrombosis prophylaxis with sequential compression devices. 9. Hypomagnesemia. I will replace the magnesium. 10. Hypokalemia. I will replace the potassium. 11. Hypophosphatemia. Phosphorus has been replaced. CRITICAL CARE TIME: 35 minutes. cc: James Huynh MD
[2019-01-19] MEDS: PULMICORT INH SCH ×2 (11:30→19:16)
[2019-01-19] MEDS ORDERED: OFIRMEV 1000 MG/ISOTONIC SOLN 1,000 MG/100 ML BOTTLE IV ONE (11:51)
[2019-01-19] MEDS ORDERED: HALDOL IV ONE (12:38)
[2019-01-19] MEDS: [UNRECOGNIZED DRUG - OTHER] IV SCH ×10 (12:53)
[2019-01-19] MEDS: TPN ELECTROLYTES IV SCH ×10 (12:53)
[2019-01-19] MEDS: AMINOSYN IV SCH ×10 (12:53)
--- NOTE | 2019-01-19 13:53 | GENERAL SURGERY PROGRESS NOTE ---
DATE: 01/19/2019 SUBJECTIVE: Ms. Bradford is now 5 days after her operative intervention. OBJECTIVE: Temperature is 100 degrees this morning, heart rate is 122, blood pressure 166/65, she is somewhat tachypneic with a respiratory rate 24. She has some rales bilaterally. Her x-ray shows pulmonary vascular congestion. Her wound was fine. Her stoma is viable. Her drain is putting out only serous fluid. Intake 3715, output 2305, NG has put out 450 mL. ASSESSMENT AND PLAN: I think she might benefit from a decrease in her IV fluids and some diuresis to help her pulmonary situation. I do think she continues to need nutrition if she is expected to survive this. Her white count is elevated to 23,000, but she has broad-spectrum coverage. We will decrease her maintenance fluids. She is receiving phosphorus and magnesium in her TPN. cc: Demarcus Degroot MD MTDD
--- NOTE | 2019-01-19 14:46 | INFECTIOUS DISEASE CONSULT REP ---
DATE: 01/19/2019 CONCLUSION: I have been asked to see the patient. She is having an increasing leukocytosis. I think it is possible that she has pneumonia which is not being covered by her current antibiotics. Another possibility for the patient's leukocytosis is that she has developed a superimposed fungal infection. RECOMMENDATIONS: I have discontinued Flagyl, vancomycin, and cefepime and have put the patient on meropenem. I have requested that the patient's nurse observe the patient during the first dose of meropenem. Also I have added micafungin. In case the patient has developed a superimposed fungal infection, I have started the patient on micafungin also. DISCUSSION: The patient was unable provide history. She seemed to be confused. She was admitted to the hospital with nausea/vomiting and constipation. On January 14, she underwent an exploratory laparotomy, truncal vagotomy with antrectomy and Billroth I anastomosis and right colectomy with diverting end ileostomy. DIAGNOSTIC STUDIES: Patient's studies thus far show a CBC with a white count of 23,450, hemoglobin is 8.6, and platelet count is 116,000. Blood gases show a pH of 7.34, PO2 of 68, and a pCO2 of 40. Creatinine is 0.7, GFR is greater than 60. Blood and sputum cultures are negative. Repeat blood cultures were drawn today. Chest x-ray shows bilateral infiltrates. PAST MEDICAL HISTORY: COPD, hypertension, gastroesophageal reflux disease, stroke, hypothyroidism, possible rheumatoid arthritis, perforated gastric ulcer, medication noncompliance, and history of Pseudomonas pneumonia in October of this year. PAST SURGICAL HISTORY: Positive for appendectomy, cholecystectomy, and exploratory laparotomy with primary repair and patching of a perforated distal gastric ulcer which was performed by Dr. Cummings in October of this year. SOCIAL HISTORY: The patient is almost a lifetime smoker. She also used to be a heavy drinker, but quit drinking alcohol approximately 10 years ago. The patient denied illicit drug use. FAMILY HISTORY: Positive for coronary artery disease, breast cancer, stroke. ALLERGIES: The patient has allergies to codeine and penicillin. The penicillin allergy is due to a rash. The patient has been receiving cefepime in the hospital and has tolerated it well. MEDICATION: The patient's home medication include the following medications include albuterol inhaler, etanercept, fluticasone Diskus, Boniva, Levaquin Protonix, Requip, Sulfazine, and Spiriva. PHYSICAL EXAMINATION: Vital Signs: Temperature is 100.2 degrees, pulse 119, respirations blood pressure 166/65. Weight: Patient weighs 102 pounds. Generally, this is an ill-appearing elderly female. She is in no acute distress. Head, Eyes, Ears, Nose, and Throat: She can hear my spoken words and see near objects. She does not have any white coating on her tongue. Neck: She does not have any pain in her neck when she moves her head. Lungs had distant breath sounds. They were clear. Cardiovascular: Heart rate had distant heart tones. They were irregular. Abdomen was soft, but tender. The patient has a functioning ostomy in place, and her midline incision is intact and not draining or erythematous. Neurologic: The patient is awake. She can move her extremities. When I asked her questions about her medical history, she was unable to answer them. Integument: No rash noted. Thank you for the consult. cc: Mustapha Nicholson MD
[2019-01-19] MEDS: LIPOSYN 20% 500 ML IV SCH (16:04)
[2019-01-19] MEDS: DILAUDID IV PRN ×2 (17:25→21:41)
[2019-01-19] MEDS ORDERED: TYLENOL PR PRN (18:00)
[2019-01-19 19:19] LABS: AGAP 8; BUN 9 mg/dL (8-22); CALCIUM 7.3 mg/dL (8.8-10.2); CHLORIDE 107 mmol/L (98-107); COSMO 280; CREATININE 0.8 mg/dL (0.5-0.9); ESTIMATED GFR > 60; GLUCOSE 195 mg/dL (70-104); PHOSPHORUS 3.1 mg/dL (2.7-4.5); POTASSIUM 3.2 mmol/L (3.5-5.1); SODIUM 138 mmol/L (136-145); TCO2 23 mmol/L (25-35)
[2019-01-19] MEDS ORDERED: POTASSIUM CHLORIDE 40 MEQ/SWI 40 MEQ/100 ML IVPB IV ONE (20:00)
[2019-01-20] MEDS: MERREM 1 GM in NS 50 ML IV SCH ×4 (00:29→17:02)
[2019-01-20] MEDS: SYNTHROID IV SCH (06:05)
[2019-01-20] MEDS: DILAUDID IV PRN ×2 (06:06→20:18)
[2019-01-20] MEDS: SODIUM CHLORIDE 0.9% INJ PRN (06:06)
[2019-01-20] MEDS: SODIUM BICARBONATE 8.4% 100 MEQ in D5W 1,000 ML IV SCH (06:20)
[2019-01-20] MEDS ORDERED: SYNTHROID IV SCH (07:00)
[2019-01-20] MEDS: XOPENEX NEB INH SCH ×6 (07:11→23:42)
[2019-01-20] MEDS: ATROVENT NEB INH SCH ×6 (07:11→23:42)
[2019-01-20] MEDS: PULMICORT INH SCH ×2 (07:12→19:15)
[2019-01-20 07:27] LABS: BASO# 0.02 X1000 (0.0-0.2); BASO% 0.1 % (0.0-0.8); EOS% 2.2 % (0.0-10.0); HEMATOCRIT 26.2 % (37.0-47.0); HEMOGLOBIN 8.2 g/dL (12.0-16.0); IMM GRAN# 0.06 X1000 (0.0-0.04); IMM GRAN% 0.3 % (0.0-0.5); MCH 30.9 PG (27-31); MCHC 31.3 g/dL (33-37); MCV 98.9 FL (81-99); MONO# 1.07 X1000 (0.11-0.59); MONO% 5.9 % (1.7-9.3); MPV 12.3 FL (7.4-10.4); NEUT# 15.61 X1000 (1.4-6.5); NEUT% 86.5 % (42.2-75.2); PLT 134 X1000 (130-400); RBC 2.65 XMIL (4.2-5.4); RDW 17.5 % (11.5-14.5); WBC 18.06 X1000 (4.8-10.8)
--- NOTE | 2019-01-20 07:43 | GENERAL SURGERY PROGRESS NOTE ---
DATE: 01/20/2018 SUBJECTIVE: Ms. Montelongo s now 6 days after her operative intervention. Today she reports she is breathing better. she is afebrile. Heart rate 116, blood pressure 123/55. Yesterday her intake was 3310, output 3995. She is putting out bilious NG output Recorded as 500 yesterday. Her drain is serous, had only 60 mL. She is putting a little in her ileostomy. LABORATORY DATA: today is pending thus far. ASSESSMENT: She is breathing more comfortably today. Her output is greater than her input from yesterday which no doubt helped her breathing status. We will continue with TPN. I do not feel comfortable removing her NG tube yet as she has a fair amount of bilious output. She did have a truncal vagotomy which is going to make her stomach emptying slower. We wait for good GI tract function before considering removing her NG tube. cc: Demarcus Degroot MD
[2019-01-20 08:12] LABS: AGAP 7; BUN 10 mg/dL (8-22); CALCIUM 7.3 mg/dL (8.8-10.2); CHLORIDE 108 mmol/L (98-107); COSMO 284; CREATININE 0.7 mg/dL (0.5-0.9); ESTIMATED GFR > 60; GLUCOSE 169 mg/dL (70-104); POTASSIUM 3.7 mmol/L (3.5-5.1); SODIUM 141 mmol/L (136-145); TCO2 26 mmol/L (25-35)
[2019-01-20] MEDS: PROTONIX IV SCH ×2 (08:43→20:17)
[2019-01-20] MEDS: TPN ELECTROLYTES IV SCH ×10 (08:44)
[2019-01-20] MEDS: [UNRECOGNIZED DRUG - OTHER] IV SCH ×10 (08:44)
[2019-01-20] MEDS: AMINOSYN IV SCH ×10 (08:44)
--- NOTE | 2019-01-20 08:46 | PROGRESS NOTE ---
DATE: 01/20/2019 SUBJECTIVE: This patient is breathing much better today, is not confused. She is completely alert and oriented x3, and she is following commands. She is still having leukocytosis, but is better compared with yesterday. Electrolytes are better as well. For now, I will just continue with the same management and I will continue breathing treatment because of her wheezing, good urine output. OBJECTIVE: Vital Signs: Temperature 97.7 degrees, pulse 111, respiratory rate 16, blood pressure 114/55, oxygen saturation 96 on 6 L of nasal cannula. HEENT: Head normocephalic, no trauma. PERRLA. Neck: Supple. No JVD. No masses. Central trachea. Chest: This patient's wheezing looks better compared with yesterday. She has some scattered crepitus mostly at the bases and expiratory wheezing. Abdomen: Soft. The wound looks clean, as well as the ileostomy. It is painful to palpation around the surgical area. Decreased bowel sounds. Extremities: No edema, no clubbing, no cyanosis. Neurological examination: This patient is alert. She is oriented x3. She is following commands and answering my questions. LABORATORY: WBC 18, hemoglobin 8.2, hematocrit 26.2, platelets 134. Sodium 141, potassium 3.7, chloride 108, bicarbonate 26. BUN 10, creatinine 0.7, glucose 169, calcium 7.3, magnesium 2, phosphorus 2. ASSESSMENT AND PLAN: 1. Gastrointestinal bleed with a large gastric ulcer penetrating inferiorly into the proximal transverse colon, status post exploratory laparotomy, truncal vagotomy with antrectomy, and Billroth-1 anastomosis. Right colectomy with diverting end ileostomy, postoperative day #6. His abdomen looks fine. Bowel sounds decreased. The wounds look clean. Hemoglobin and hematocrit a little bit lower compared with yesterday, but stable. We will continue to monitor. She already received multiple transfusions, including 9 units of packed red blood cells, 3 fresh frozen plasma and 2 platelets. 2. Pneumonia with chronic obstructive pulmonary disease exacerbation. She seems to be breathing better today. It looks like this patient has advanced chronic obstructive pulmonary disease. She is still wheezing some, and I will continue breathing treatment. 3. Sepsis with tachycardia, leukocytosis, pneumonia. Continue with antibiotics. I have requested blood culture and urine culture as well, which are negative so far. 4. Hypertension. Continue to monitor. 5. Hypothyroidism. Continue with intravenous levothyroxine at 12.5 mcg per day. 6. Medical noncompliance. This patient reported to previous doctors to be not taking any of her or medication after her last discharge. 7. Tobacco abuse. It looks like this patient is still smoking at least 1 pack a day. She has been highly advised against tobacco use, and I will continue with daily cessation education. 8. Deep vein thrombosis prophylaxis with sequential compression devices. 9. Hypomagnesemia. Resolved. 10. Hypokalemia. Resolved. 11. Hypophosphatemia. We will monitor for now. CRITICAL CARE TIME: 35 minutes. cc: James Huynh MD
--- NOTE | 2019-01-20 09:23 | INFECTIOUS DISEASE PROGRESS NO ---
DATE: 01/20/2019 PRESENT ILLNESS: The patient has a pneumonia and possible superimposed fungal infection. MEDICATIONS: This is day #1 of the combination of meropenem and micafungin. PHYSICAL EXAMINATION: Vital Signs: Temperature is 97.7 degrees, pulse 111, respirations 16, blood pressure 114/55. General: This is a chronically ill-appearing elderly female. She is in no acute distress. Head, eyes, ears, nose, and throat: She can hear my spoken words and see near objects. She does not have any white coating on her tongue. She does have an NG tube down. Neck: No meningismus. Lungs: Clear to auscultation. Cardiovascular: Heart tones are irregular. Abdomen: Soft and nontender. The midline incision is intact. The patient has a functioning ostomy in place also. Extremities: The patient has a PICC in her left arm. The site is not erythematous or purulent. Neurologic: The patient is alert. She can move her extremities. She can carry on a coherent conversation. There is no tremor. LABORATORY AND X-RAY: The [place] [address], hemoglobin 8.2, and platelet count 134,000. Creatinine is 0.7, GFR is greater than 60. Repeat blood cultures are pending. A chest x-ray done yesterday shows pulmonary venous congestion and stable dense bilateral interstitial infiltrates. ASSESSMENT AND PLAN: The patient has a pneumonia and there may be a component of pulmonary venous congestion as well. The patient has pneumonia. There may be a component of pulmonary venous congestion as well. She also may have a superimposed fungal infection. My plan is to continue meropenem and micafungin pending further laboratory studies. COMORBIDITIES: The patient smokes cigarettes. She used to be a heavy alcohol drinker, but stopped 10 years ago. The patient also has rheumatoid arthritis and had a perforated gastric ulcer in the past. cc: Mustapha Nicholson MD
[2019-01-20] MEDS ORDERED: LANTUS INSULIN SUBQ ONE (12:04)
[2019-01-20] MEDS: MYCAMINE 100 MG in NS 100 ML IV SCH (12:19)
[2019-01-20] MEDS: LIPOSYN 20% 500 ML IV SCH (15:43)
[2019-01-20] MEDS: HUMULIN R SUBQ SCH ×2 (15:57→22:46)
[2019-01-20] MEDS ORDERED: HUMULIN R SUBQ SCH (16:00)
[2019-01-21] MEDS: MERREM 1 GM in NS 50 ML IV SCH ×5 (00:41→17:29)
[2019-01-21] MEDS: ATROVENT NEB INH SCH ×6 (03:40→23:06)
[2019-01-21] MEDS: XOPENEX NEB INH SCH ×6 (03:40→23:06)
[2019-01-21 05:48] LABS: ALLEN TEST YES; BE 3.4 mmoll (-3.0-3.0); BLOOD TYPE ARTERIAL; HCO3-(ACT) 27.6 mmoll (20.0-26.0); METHB 1.1 % (0.0-1.5); O2(CT) 15.1 mL/dL (15.0-23.0); O2HB 95.5 % (95.0-99.0); PCO2(98.6) 48 mmHg (35-45); PO2(98.6) 88 mmHg (60-100); SAMPLE BLOOD; SAO2 98.2 % (95.0-100.0); THB 11.2 g/dL (11.5-17.4); pH(98.6) 7.39 (7.35-7.45)
[2019-01-21 05:49] LABS: MODALITY CANNULA
[2019-01-21] MEDS: HUMULIN R SUBQ SCH ×5 (06:19→22:01)
[2019-01-21] MEDS: SYNTHROID IV SCH (06:19)
[2019-01-21] MEDS: SODIUM BICARBONATE 8.4% 100 MEQ in D5W 1,000 ML IV SCH (06:19)
[2019-01-21] MEDS: [UNRECOGNIZED DRUG - OTHER] IV SCH ×10 (06:20)
[2019-01-21] MEDS: TPN ELECTROLYTES IV SCH ×10 (06:20)
[2019-01-21] MEDS: AMINOSYN IV SCH ×10 (06:20)
--- NOTE | 2019-01-21 07:17 | INFECTIOUS DISEASE PROGRESS NO ---
DATE: 01/21/2019 PRESENT ILLNESS: The patient has pneumonia and a possible superimposed fungal infection. MEDICATIONS: The patient has been on meropenem and micafungin now for 2 days. PHYSICAL EXAMINATION: Vital Signs: Temperature is 98 degrees, pulse 103, respirations 24, blood pressure 133/64. General: This is a chronically ill-appearing, elderly female. She is in no acute distress. Head, Eyes, Ears, Nose, and Throat: She has a feeding tube and NG tube in place. There is no drainage from the nose or ears. Neck: There is no neck pain when she moves her head. Lungs: Clear to auscultation. Cardiovascular: Heart rate is regular. Abdomen: Soft and nontender. There is a midline incision which is intact. There is an ostomy, which is functioning. On the right side, there is a drain present. The drain site is not erythematous or purulent. Extremities: The patient has a PICC in her left arm. The site is not erythematous or purulent either. Neurologic: The patient is awake. She carries on a coherent conversation. She can move her extremities. There is no tremor. LAB AND X-RAY: Blood gases show a pH of 7.39, a PO2 of 88, and a pCO2 of 48. CBC and BMP have been ordered but they are not yet back. I do not see that any radiographic study is ordered for today. ASSESSMENT AND PLAN: The patient has pneumonia and a possible superimposed fungal infection. My plan is to continue meropenem and micafungin. COMORBIDITIES: The patient is a cigarette smoker. She used to be a heavy alcohol drinker but has not had a drink in 10 years. The patient also has rheumatoid arthritis and a perforated gastric ulcer in the past. Also, the patient's comorbidity is that she is postoperative exploratory laparotomy with truncal vagotomy and antrectomy, and Billroth 1 anastomosis. There also was a right colectomy with diverting end-ileostomy. cc: Mustapha Nicholson MD
[2019-01-21] MEDS: PULMICORT INH SCH ×2 (07:30→19:20)
[2019-01-21 08:18] LABS: BASO# 0.02 X1000 (0.0-0.2); BASO% 0.1 % (0.0-0.8); EOS# 0.35 X1000 (0.0-0.7); EOS% 1.9 % (0.0-10.0); HEMATOCRIT 25.8 % (37.0-47.0); HEMOGLOBIN 8.3 g/dL (12.0-16.0); IMM GRAN# 0.06 X1000 (0.0-0.04); IMM GRAN% 0.3 % (0.0-0.5); LYMPH# 1.21 X1000 (1.2-3.4); LYMPH% 6.7 % (20.5-51.1); MCH 29.6 PG (27-31); MCHC 32.2 g/dL (33-37); MCV 92.1 FL (81-99); MONO# 1.21 X1000 (0.11-0.59); MONO% 6.7 % (1.7-9.3); MPV 12.3 FL (7.4-10.4); NEUT# 15.33 X1000 (1.4-6.5); NEUT% 84.3 % (42.2-75.2); PLT 191 X1000 (130-400); RDW 16.2 % (11.5-14.5); WBC 18.18 X1000 (4.8-10.8)
[2019-01-21 08:29] LABS: BANDS 24 % (0-1); EOS 4 % (1-10); LYMPHS 13 % (21-51); MONO 2 % (1-9); SEGS 56 % (42-75)
[2019-01-21 08:36] LABS: AGAP 3; BUN 12 mg/dL (8-22); CHLORIDE 108 mmol/L (98-107); COSMO 280; CREATININE 0.7 mg/dL (0.5-0.9); ESTIMATED GFR > 60; GLUCOSE 118 mg/dL (70-104); MAGNESIUM 2.2 mg/dL (1.5-2.7); PHOSPHORUS 1.8 mg/dL (2.7-4.5); POTASSIUM 4.3 mmol/L (3.5-5.1); SODIUM 140 mmol/L (136-145); TCO2 29 mmol/L (25-35)
[2019-01-21] MEDS: PROTONIX IV SCH ×2 (09:27→22:23)
--- NOTE | 2019-01-21 09:48 | PROGRESS NOTE ---
DATE: 01/21/2019 SUBJECTIVE: Patient is resting comfortably in bed. She is alert and oriented x3. She is following commands. She is complaining of shortness of breath. She has an advanced COPD and also she has pneumonia with possible superimposed fungal infection. Infectious Disease Department following this patient as well as Pulmonary Department. OBJECTIVE: Vital Signs: Temperature 98.6 degrees, pulse 110, respiratory rate 19, blood pressure 118/52 oxygen saturation 98 on 4 L of nasal cannula. HEENT: Head normocephalic. No trauma. PERRLA. Neck: Supple. No JVD. No masses. Central trachea. Chest: Coarse breath sounds bilaterally with scattered end-expiratory wheezing, some crepitus at the bases. Abdomen: Soft. The wound looks clean as well as the ileostomy. Painful to palpation around the surgical area. Decreased bowel sounds. Extremities: No edema, no clubbing, no cyanosis. Neurological: This patient is alert. She is oriented x3. She is following commands and answering my questions. LABORATORY: WBC 18, hemoglobin 8.3, hematocrit 25.8, platelets 191,000. Sodium 140, potassium 4.3, chloride 108, bicarbonate 29, BUN 12, creatinine 0.7, glucose 118, calcium 8, phosphorus 1.8, magnesium 2.2. ASSESSMENT AND PLAN: 1. Gastrointestinal bleed with a large gastric ulcer penetrating inferiorly into the proximal transverse colon, status post exploratory lateral laparotomy, truncal vagotomy and antrectomy, and Billroth 1 anastomosis, right colectomy with diverting and ileostomy, postoperative day #7 Her abdomen looks good, bowel sounds decreased but present. The wounds look clean. Hemoglobin and hematocrit stable. We will continue to monitor. 2. Pneumonia with chronic obstructive pulmonary disease and possible superimposed fungal infection. She seems to be better compared with 2 days ago, but she is still having problem breathing, and she is wheezing a little bit today mostly end expiratory wheezing and coarse breath sounds with crepitus. We will continue with the same management and BiPAP as needed. 3. Sepsis with tachycardia, leukocytosis, pneumonia, resolved. Continue with antibiotics. She is still having leukocytosis. Infectious Disease Department on board. 4. Hypertension continue to monitor. 5. Hypothyroidism continue with IV levothyroxine. 6. Medical noncompliance. This patient reported to previous doctors to be not taking any of her medication after her last discharge. 7. Tobacco abuse. It looks like this patient may still smoking 1 pack of cigarettes per day, as per the patient, she stopped smoking 2 weeks ago. I will continue with daily cessation education. 8. Deep vein thrombosis prophylaxis with sequential compression devices. 9. Hypomagnesemia resolved. 10. Hypokalemia resolved. 11. Hypophosphatemia, stable. cc: James Huynh MD
--- NOTE | 2019-01-21 11:20 | GENERAL SURGERY PROGRESS NOTE ---
DATE: 01/21/2019 SUBJECTIVE: Ms. Bradford is now a week after her operative intervention. OBJECTIVE: She is afebrile, heart rate 108, blood pressure 133/64. Her intake yesterday 2195, output 1425. She is starting to put out fluid in her ileostomy now. Bowel sounds are present. DIAGNOSTIC STUDIES: There is no laboratory data today except for blood gases. Her lactate is down to 0.8. She has a positive base excess now of 3.4. ASSESSMENT AND PLAN: Since her ileus is resolving, I will clamp her nasogastric tube. If she does okay with that, then hopefully we can remove it in the next 24 hours and start her on liquids. When she is tolerating liquids and there was no evidence of leak from her anastomosis, her drain can come out. cc: Demarcus Degroot MD
[2019-01-21] MEDS: MYCAMINE 100 MG in NS 100 ML IV SCH (12:49)
[2019-01-21] MEDS: LIPOSYN 20% 500 ML IV SCH (16:22)
[2019-01-21] MEDS: SOLU-MEDROL IV SCH (17:29)
[2019-01-21] MEDS: DILAUDID IV PRN (22:43)
[2019-01-22] MEDS: HUMULIN R SUBQ SCH ×6 (00:33→21:00)
[2019-01-22] MEDS: MERREM 1 GM in NS 50 ML IV SCH ×3 (00:54→17:19)
[2019-01-22] MEDS: XOPENEX NEB INH SCH ×6 (03:15→22:57)
[2019-01-22] MEDS: ATROVENT NEB INH SCH ×6 (03:15→22:57)
[2019-01-22] MEDS: SOLU-MEDROL IV SCH ×2 (04:45→17:19)
[2019-01-22] MEDS: TPN ELECTROLYTES IV SCH ×10 (04:46)
[2019-01-22] MEDS: AMINOSYN IV SCH ×10 (04:46)
[2019-01-22] MEDS: [UNRECOGNIZED DRUG - OTHER] IV SCH ×10 (04:46)
[2019-01-22 05:54] LABS: BASO# 0.01 X1000 (0.0-0.2); BASO% 0.1 % (0.0-0.8); HEMATOCRIT 25.1 % (37.0-47.0); HEMOGLOBIN 7.9 g/dL (12.0-16.0); IMM GRAN% 0.5 % (0.0-0.5); LYMPH# 0.79 X1000 (1.2-3.4); MCH 29.4 PG (27-31); MCHC 31.5 g/dL (33-37); MCV 93.3 FL (81-99); MONO% 3.6 % (1.7-9.3); MPV 12.8 FL (7.4-10.4); NEUT# 18.03 X1000 (1.4-6.5); NEUT% 91.8 % (42.2-75.2); PLT 213 X1000 (130-400); RBC 2.69 XMIL (4.2-5.4); RDW 16.3 % (11.5-14.5); WBC 19.63 X1000 (4.8-10.8)
[2019-01-22 05:56] LABS: AGAP 5; BUN 15 mg/dL (8-22); CHLORIDE 105 mmol/L (98-107); COSMO 279; CREATININE 0.7 mg/dL (0.5-0.9); ESTIMATED GFR > 60; GLUCOSE 113 mg/dL (70-104); MAGNESIUM 2.1 mg/dL (1.5-2.7); PHOSPHORUS 1.8 mg/dL (2.7-4.5); SODIUM 139 mmol/L (136-145); TCO2 29 mmol/L (25-35)
[2019-01-22] MEDS: SYNTHROID IV SCH (06:03)
[2019-01-22] MEDS: SODIUM BICARBONATE 8.4% 100 MEQ in D5W 1,000 ML IV SCH (06:04)
--- NOTE | 2019-01-22 06:41 | Diag Imaging Result Doc PS360 ---
EXAM: CHEST-1 VIEW HISTORY: SOB TECHNIQUE: Chest single view COMPARISON: 01/19/2019 FINDINGS: The lungs are well expanded. No cardiomegaly. There are increased interstitial markings throughout both lungs fairly similar to the prior study. Questionable trace pleural fluid. No change in the nasogastric tube or left-sided PICC line. IMPRESSION: Stable chest. Electronically signed by Griffin Ball 01/22/2019 6:38 AM
[2019-01-22] MEDS: PULMICORT INH SCH ×2 (07:37→19:00)
[2019-01-22] MEDS: PROTONIX IV SCH ×2 (09:00→22:03)
[2019-01-22] MEDS: SODIUM CHLORIDE 0.9% INJ PRN (09:01)
[2019-01-22] MEDS ORDERED: SODIUM PHOSPHATE 30 MMOL in NS 250 ML IV ONE (09:03)
--- NOTE | 2019-01-22 10:57 | INFECTIOUS DISEASE PROGRESS NO ---
DATE: 01/22/2019 PRESENT ILLNESS: The patient is status post exploratory laparotomy, truncal vagotomy with antrectomy and Billroth I anastomosis and right colectomy with diverting end ileostomy. The patient currently is being treated for a pneumonia and possible fungal super infection. MEDICATIONS: This is the third day of treatment with meropenem and micafungin. PHYSICAL EXAMINATION: Vital Signs: Temperature is 98.1 degrees, pulse 90, respirations 18, blood pressure 110/60 patient weighs 120 pounds. General: This is a chronically ill-appearing elderly female. She is in no acute distress, however. Head/eyes/ears/nose/throat: She has a nasogastric tube in place. She does not have any white patches on her tongue. The she can hear my spoken words and see near objects. Lungs: There were on the left side some rales and wheezes. The right side was clear. Cardiovascular: Heart rate was regular. Abdomen: Soft and tender. The patient has a middle incision and it is intact. She also has an ostomy which is functioning and on the right side there is a drain present. The drain site is not erythematous or purulent. Extremities: Patient has a PICC in her left arm. That site too is not erythematous or purulent. Neurologic: The patient is alert. She carries on a conversation. She can move her extremities. There is no tremor. LAB AND X-RAY: The chest x-ray is pending reading by the radiologist. When I look at the x-ray, to me it looks like she has bilateral infiltrates like she previously is head. Her CBC shows a white count of 19,630,hemoglobin 7.9, and platelet count 213,000. Creatinine 0.7, GFR is greater than 60. Blood and urine cultures are negative. ASSESSMENT AND PLAN: The patient has pneumonia and possibly a superimposed fungal infection. My plan is to continue both meropenem and micafungin. COMORBIDITIES: Cigarette smoking, history of alcoholism, rheumatoid arthritis, history of perforated gastric ulcer. The patient is postop surgery as mentioned above. cc: Mustapha Nicholson MD
--- NOTE | 2019-01-22 11:49 | PROGRESS NOTE ---
DATE: 01/22/2019 SUBJECTIVE: This patient is resting comfortably in bed. She is still complaining of shortness of breath. She is alert, she is oriented, she is following commands. She has advanced chronic obstructive pulmonary disease and she is still having wheezing. She has been placed on steroids due to her wheezing and shortness of breath. Pulmonary Department on board. OBJECTIVE: Vital Signs: Temperature 97.3 degrees, pulse 94, respiratory rate 17, blood pressure 120/64, oxygen saturation 100% on 4 L of nasal cannula. HEENT: Head normocephalic, no trauma. PERRLA. Neck: Supple. No JVD. No masses. Central trachea. Chest: Coarse breath sounds bilaterally with end-expiratory wheezing. Some crepitus at the bases. Abdomen: Soft. The wound looks clean, as well as the ileostomy. Painful to palpation around the surgical area. Decreased bowel sounds, but present. Extremities: No edema, no clubbing, no cyanosis. Neurological examination: The patient is alert and she is oriented x2. She is oriented to time today. She is following commands and answering my questions. LABORATORY: WBC 19.6, hemoglobin 7.9, hematocrit 25.1, platelets 213. Sodium 139, potassium 4, chloride 105, bicarbonate 29. BUN 15, creatinine 0.7, glucose 113, calcium 8, magnesium 2.1. ASSESSMENT AND PLAN: 1. Gastrointestinal bleed with a large gastric ulcer penetrating inferiorly into the proximal transverse colon, status post exploratory laparotomy, truncal vagotomy and antrectomy, Billroth-1 anastomosis, right colectomy with diverting and end ileostomy postoperative day #8. Her abdomen looks fine. Bowel sounds decreased, but present. She is tolerating oral. Nasogastric tube has been removed. 2. Pneumonia with chronic obstructive pulmonary disease exacerbation and possible superimposed fungal infection. She seems to be about the same compared with yesterday, but better compared with 3 days ago. She is still having a problem breathing. She is still wheezing. We will continue with same management. Pulmonary Department on board, as well as Infectious Disease Department. 3. Sepsis with tachycardia, leukocytosis, pneumonia. The sepsis has resolved, but she is still having leukocytosis. Also, she is getting steroids, which can contribute to this increase of the white blood cells. 4. Hypertension, continue to monitor. 5. Hypothyroidism. Continue with intravenous levothyroxine for today. Hopefully tomorrow will switch it to oral. 6. Medical noncompliance. This patient reported to previous doctors to be not taking any of her medications after her last discharge. 7. Tobacco abuse. It looks like this patient stopped smoking a couple weeks ago. She used to smoke 1 pack of cigarettes per day. Will continue with daily cessation education. 8. Deep vein thrombosis prophylaxis with sequential compression devices. 9. Hypomagnesemia, resolved. 10. Hypophosphatemia. I will replace. 11. Hypokalemia, resolved. cc: James Huynh MD
[2019-01-22] MEDS: MYCAMINE 100 MG in NS 100 ML IV SCH (12:18)
--- NOTE | 2019-01-22 12:31 | GENERAL SURGERY PROGRESS NOTE ---
DATE: 01/22/2019 SUBJECTIVE: Ms. Bradford continues to progress. OBJECTIVE: She is afebrile, heart rate 92, blood pressure 110/60. Her NG tube has been clamped since yesterday and she has tolerated it. She is putting fluid into her ileostomy bag now. PLAN: The plan will be to remove her NG tube, start her on clear liquids. We should be able to get her drain out in the next 24 hours. [facility] will cover in my absence. cc: Demarcus Degroot MD
[2019-01-22] MEDS: LIPOSYN 20% 500 ML IV SCH (15:15)
[2019-01-22] MEDS: DILAUDID IV PRN (23:48)
[2019-01-23] MEDS: HUMULIN R SUBQ SCH ×6 (01:05→20:59)
[2019-01-23] MEDS: TPN ELECTROLYTES IV SCH ×10 (02:07)
[2019-01-23] MEDS: MERREM 1 GM in NS 50 ML IV SCH ×3 (02:07→16:12)
[2019-01-23] MEDS: AMINOSYN IV SCH ×10 (02:07)
[2019-01-23] MEDS: [UNRECOGNIZED DRUG - OTHER] IV SCH ×10 (02:07)
[2019-01-23] MEDS: ATROVENT NEB INH SCH ×6 (03:00→23:16)
[2019-01-23] MEDS: XOPENEX NEB INH SCH ×6 (03:05→23:17)
[2019-01-23] MEDS: DILAUDID IV PRN ×3 (04:55→22:27)
[2019-01-23] MEDS: SOLU-MEDROL IV SCH ×2 (06:12→16:16)
[2019-01-23] MEDS: SYNTHROID IV SCH (06:13)
[2019-01-23] MEDS: SODIUM CHLORIDE 0.9% INJ PRN ×2 (06:13→20:58)
[2019-01-23 06:30] LABS: BASO# 0.02 X1000 (0.0-0.2); BASO% 0.1 % (0.0-0.8); EOS# 0.01 X1000 (0.0-0.7); HEMATOCRIT 26.1 % (37.0-47.0); IMM GRAN# 0.13 X1000 (0.0-0.04); IMM GRAN% 0.5 % (0.0-0.5); LYMPH# 1.07 X1000 (1.2-3.4); LYMPH% 4.3 % (20.5-51.1); MCH 29.1 PG (27-31); MCHC 30.7 g/dL (33-37); MCV 94.9 FL (81-99); MONO# 1.11 X1000 (0.11-0.59); MONO% 4.4 % (1.7-9.3); MPV 12.7 FL (7.4-10.4); NEUT# 22.77 X1000 (1.4-6.5); NEUT% 90.7 % (42.2-75.2); PLT 275 X1000 (130-400); RBC 2.75 XMIL (4.2-5.4); RDW 16.3 % (11.5-14.5); WBC 25.11 X1000 (4.8-10.8)
[2019-01-23 06:45] LABS: AGAP 9; BUN 22 mg/dL (8-22); CALCIUM 7.9 mg/dL (8.8-10.2); CHLORIDE 103 mmol/L (98-107); COSMO 284; CREATININE 0.6 mg/dL (0.5-0.9); ESTIMATED GFR > 60; GLUCOSE 153 mg/dL (70-104); MAGNESIUM 2.1 mg/dL (1.5-2.7); PHOSPHORUS 3.8 mg/dL (2.7-4.5); POTASSIUM 3.9 mmol/L (3.5-5.1); SODIUM 139 mmol/L (136-145); TCO2 27 mmol/L (25-35)
--- NOTE | 2019-01-23 07:29 | GENERAL SURGERY PROGRESS NOTE ---
DATE: 01/23/2019 SUBJECTIVE: The patient doing okay. She had her NG tube and STEPHANIE drain removed. She has been doing okay. OBJECTIVE: VITAL SIGNS: The patient is currently afebrile. Her vital signs are stable. GENERAL: No acute distress. CARDIOVASCULAR: Regular rate and rhythm. LUNGS: Clear. ABDOMEN: Soft, appropriately tender. Ostomy appliance appears to be working. ASSESSMENT AND PLAN: 68-year-old female status post antrectomy with vagotomy and right hemicolectomy. Postop state. At this time, she seems to be doing well. Her STEPHANIE drain and NG tube are out. We will try to get her up to a chair. She is on clear liquid diet. Once she has more definitive output, we may advance her, but otherwise continue current treatment. cc: Jah Sherman MD
[2019-01-23] MEDS: PULMICORT INH SCH ×2 (07:47→18:00)
[2019-01-23] MEDS: PROTONIX IV SCH ×2 (09:55→20:58)
[2019-01-23 10:08] LABS: ANISOCYTOSIS 1+; BANDS 15 % (0-1); LARGE PLATELETS 1+; LYMPHS 4 % (21-51); MONO 4 % (1-9); SEGS 77 % (42-75)
--- NOTE | 2019-01-23 10:49 | PROGRESS NOTE ---
DATE: 01/23/2019 SUBJECTIVE: This patient is sitting at the bedside on a chair. She is eating at this moment, and she is tolerating liquid diet. She is still having scattered wheezing but is much better compared with a few days ago. She has bilateral crepitus as well, which is generalized, WBC increased, likely due to steroids. She does have advanced COPD. Pulmonary Department on board. OBJECTIVE: Vital Signs: Temperature 97.4 degrees, pulse 81, respiratory rate 16, blood pressure 131/76, oxygen saturation 100% on 3 L of nasal cannula. HEENT: Head normocephalic. No trauma. PERRLA. Neck: Supple. No JVD. No masses. Central trachea. Chest: She has coarse breath sounds bilaterally with end expiratory wheezing, some generalized crepitus mostly at the bases. Abdomen: Soft. The wound looks clean as well as the ileostomy. The drain has been removed. Some tenderness to palpation around the surgical area. Decreased bowel sounds but present. Extremities: No edema. No clubbing. No cyanosis. Neurological examination: The patient is alert. She is oriented x2. She is following commands and answering my questions. LABORATORY DATA: WBC 25.1, hemoglobin 8, hematocrit 26.1, platelets 275,000, sodium 139, potassium 3.9, chloride 103, bicarbonate 27, BUN 22, creatinine 0.6, glucose 153, calcium 7.9, phosphorus 3.8, magnesium 2.1. ASSESSMENT AND PLAN: 1. Gastrointestinal bleed with a large gastric ulcer penetrating inferiorly into the proximal transverse colon, status post exploratory laparotomy, truncal vagotomy and antrectomy, Billroth I anastomosis and also right colectomy with diverting and end ileostomy, postoperative day #9. Her abdomen seems to be doing good. The STEPHANIE drain has been removed as well as the NG tube. She is tolerating liquid diet. We will monitor, and we will continue following the recommendations of Surgery Department. 2. Pneumonia with chronic obstructive pulmonary disease exacerbation and possible superimposed fungal infection. She seems to be a little bit better compared with yesterday. She is still having some bilateral crepitus, decreased breath sounds, prolonged expiratory phase and scattered expiratory wheezing but getting better. Pulmonary Department on board as well as Infectious Disease Department. 3. Sepsis with tachycardia, leukocytosis and pneumonia. As above. 4. Hypertension. We will continue to monitor. 5. Hypothyroidism. I will stop the IV levothyroxine, and I will place this patient on p.o. treatment. I will put her back on her previous dose, which was 25 mcg daily. 6. Medical noncompliance. This patient reported to previous doctors to be not taking any of her medications after her last discharge. 7. Tobacco abuse. It looks like this patient stopped smoking 2 or 3 weeks ago. She used to smoke 1 pack of cigarettes per day. I will continue with daily cessation education. 8. Deep vein thrombosis prophylaxis with sequential compression devices. 9. Hypomagnesemia, resolved. 10. Hypophosphatemia, resolved. 11. Hypokalemia, resolved. cc: James Huynh MD
[2019-01-23] MEDS: MYCAMINE 100 MG in NS 100 ML IV SCH (12:38)
[2019-01-23] MEDS: LIPOSYN 20% 500 ML IV SCH (14:29)
[2019-01-23] MEDS: ZOFRAN IV PRN (17:20)
[2019-01-23] MEDS: PHENERGAN IV PRN (20:58)
[2019-01-24] MEDS: HUMULIN R SUBQ SCH ×6 (01:30→20:20)
[2019-01-24] MEDS: MERREM 1 GM in NS 50 ML IV SCH ×3 (01:53→18:09)
[2019-01-24] MEDS: TPN ELECTROLYTES IV SCH ×20 (01:54→22:37)
[2019-01-24] MEDS: [UNRECOGNIZED DRUG - OTHER] IV SCH ×20 (01:54→22:37)
[2019-01-24] MEDS: AMINOSYN IV SCH ×20 (01:54→22:37)
[2019-01-24] MEDS: ZOFRAN IV PRN ×3 (02:04→15:20)
[2019-01-24] MEDS: ATROVENT NEB INH SCH ×6 (03:00→23:16)
[2019-01-24] MEDS: XOPENEX NEB INH SCH ×6 (03:00→23:05)
[2019-01-24 05:51] LABS: BASO# 0.02 X1000 (0.0-0.2); BASO% 0.1 % (0.0-0.8); EOS# 0.06 X1000 (0.0-0.7); EOS% 0.3 % (0.0-10.0); HEMATOCRIT 26.5 % (37.0-47.0); IMM GRAN# 0.15 X1000 (0.0-0.04); IMM GRAN% 0.8 % (0.0-0.5); LYMPH# 1.59 X1000 (1.2-3.4); LYMPH% 8.1 % (20.5-51.1); MCH 28.8 PG (27-31); MCHC 30.2 g/dL (33-37); MCV 95.3 FL (81-99); MONO# 1.31 X1000 (0.11-0.59); MONO% 6.7 % (1.7-9.3); MPV 12.1 FL (7.4-10.4); NEUT# 16.42 X1000 (1.4-6.5); PLT 298 X1000 (130-400); RBC 2.78 XMIL (4.2-5.4); RDW 15.6 % (11.5-14.5); WBC 19.55 X1000 (4.8-10.8)
[2019-01-24] MEDS: SYNTHROID PO SCH (06:06)
[2019-01-24] MEDS: SOLU-MEDROL IV SCH ×2 (06:06→18:10)
[2019-01-24 06:20] LABS: AGAP 5; BUN 20 mg/dL (8-22); CALCIUM 7.6 mg/dL (8.8-10.2); CHLORIDE 105 mmol/L (98-107); CHOLESTEROL 47 mg/dL (0-200); COSMO 279; CREATININE 0.6 mg/dL (0.5-0.9); ESTIMATED GFR > 60; GLUCOSE 107 mg/dL (70-104); GOT 12 U/L (10-30); MAGNESIUM 2.2 mg/dL (1.5-2.7); PHOSPHORUS 3.2 mg/dL (2.7-4.5); POTASSIUM 4.7 mmol/L (3.5-5.1); SODIUM 138 mmol/L (136-145); TCO2 28 mmol/L (25-35); TRIGLYCERIDES 104 mg/dL (35-135)
--- NOTE | 2019-01-24 07:17 | GENERAL SURGERY PROGRESS NOTE ---
DATE: 01/24/2019 SUBJECTIVE: Patient seems to be doing okay. Nursing staff reports more output out of her ileostomy. She has been up and moving. OBJECTIVE: Vital Signs: Patient is currently afebrile. Her vital signs are stable. General: No acute distress. Cardiovascular: Regular rate and rhythm. Lungs: Grossly clear. Abdomen: Soft, appropriately tender. Ostomy appliance appears to be in place. ASSESSMENT AND PLAN: A 68-year-old female status post antrectomy and vagotomy with right hemicolectomy. Postoperative state at this time. Patient seems to be doing okay. She is tolerating her clear liquid diet. We will advance to a full liquid diet as she is having ostomy output. We will monitor her closely. cc: Jah Sherman MD
[2019-01-24] MEDS: PULMICORT INH SCH ×2 (07:42→19:00)
[2019-01-24] MEDS: PROTONIX IV SCH ×2 (09:50→20:50)
[2019-01-24] MEDS: DILAUDID IV PRN ×2 (09:52→16:56)
--- NOTE | 2019-01-24 10:15 | PROGRESS NOTE ---
DATE: 01/24/2019 SUBJECTIVE: The patient is sitting at the bedside. She is complaining of some abdominal discomfort. Apparently, her diet has been advanced today and as per the patient, she is not tolerating that yet. The nurse will call the surgeon to see if we can put her back on her clear liquid diet or previous diet. No big changes compared with yesterday otherwise. OBJECTIVE: Vital Signs: Temperature 97.8 degrees, pulse 100, respiratory rate 18, blood pressure 133/69, oxygen saturation 100% on 3 L of nasal cannula. HEENT: Head normocephalic. No trauma. PERRLA. Neck: Supple. No JVD. No masses. Central trachea. Chest: Coarse breath sounds bilaterally with mild expiratory wheezing. Some generalized crepitus, mostly at the bases. Abdomen: Soft. There wound looks clean, as well as the ileostomy. She has some tenderness to palpation around the surgical area. Decreased bowel sounds but present. Extremities: No edema, no clubbing, no cyanosis. Neurological Examination: The patient is alert. She is oriented x3. She is following commands and answering my questions. Laboratory: WBC 19.5, hemoglobin 8, hematocrit 26.5, platelets 298,000. Sodium 138, potassium 4.7, chloride 105, bicarbonate 28, BUN 20, creatinine 1.6, glucose 107, calcium 7.6. ASSESSMENT AND PLAN: 1. Gastrointestinal bleed with a large gastric ulcer penetrating inferiorly into the proximal transverse colon, status post exploratory laparotomy, truncal vagotomy, antrectomy, Billroth 1 anastomosis and also right colectomy with diverting and end ileostomy, postoperative day #10. Her abdomen seems to be doing good. She has been tolerating a liquid diet. The diet has been advanced today and it looks like she is not feeling good with that. So we will monitor and probably we will put her back on liquids. 2. Pneumonia with chronic obstructive pulmonary disease exacerbation and possible superimposed fungal infection. She seems to be doing better compared with previous days. She is still having crepitus, decreased breath sounds, and prolonged expiratory phase with some scattered wheezing but better. Pulmonary department on board as well as infectious disease department. 3. Sepsis with tachycardia, leukocytosis, and pneumonia. As above. 4. Hypertension. We will continue to monitor. 5. Hypothyroidism. I have stopped the intravenous levothyroxine and I put her on her dose of levothyroxine at 25 mcg per day. 6. Medical noncompliance. This patient reported to previous doctors to be not taking any of her medications after her last discharge. 7. Tobacco abuse. It looks like this patient stopped smoking 2 or 3 weeks ago. She used to smoke 1 pack of cigarettes per day. As per the patient, she is not going to smoke anymore but I will continue with daily cessation education. 8. Deep vein thrombosis prophylaxis with sequential compression devices. 9. Hypomagnesemia, resolved. 10. Hypophosphatemia, resolved. 11. Hypokalemia, resolved. cc: James Huynh MD
[2019-01-24] MEDS: MYCAMINE 100 MG in NS 100 ML IV SCH (13:58)
[2019-01-24] MEDS: PHENERGAN IV PRN (14:20)
[2019-01-24] MEDS: LIPOSYN 20% 500 ML IV SCH (15:36)
[2019-01-24] MEDS ORDERED: MYLICON PO ONE (15:39)
--- NOTE | 2019-01-24 17:50 | Diag Imaging Result Doc PS360 ---
EXAM: KUB ABDOMEN - 01/24/2019 HISTORY: N/V TECHNIQUE: Portable AP spine abdomen COMPARISON: 01/16/2019 FINDINGS: There are multiple skin clint near the midline. There has been apparent removal of the nasogastric tube. The bowel gas pattern appears nonspecific and nonobstructive. There is small bowel gas visible but there is no substantial gaseous small bowel distention identified. IMPRESSION: Nonspecific bowel gas pattern. Electronically signed by Tj Comer 01/24/2019 5:47 PM
[2019-01-24] MEDS: REQUIP PO SCH (20:50)
[2019-01-25] MEDS: HUMULIN R SUBQ SCH ×6 (01:38→21:24)
[2019-01-25] MEDS: MERREM 1 GM in NS 50 ML IV SCH ×3 (01:49→16:55)
[2019-01-25] MEDS: XOPENEX NEB INH SCH ×6 (03:00→22:51)
[2019-01-25] MEDS: ATROVENT NEB INH SCH ×6 (03:00→22:51)
[2019-01-25 03:21] LABS: ALLEN TEST YES; BE 9.8 mmoll (-3.0-3.0); BLOOD TYPE ARTERIAL; HCO3-(ACT) 32.6 mmoll (20.0-26.0); METHB 0.5 % (0.0-1.5); O2(CT) 10.4 mL/dL (15.0-23.0); O2HB 95.3 % (95.0-99.0); PO2(98.6) 72 mmHg (60-100); SAMPLE BLOOD; SAO2 97.3 % (95.0-100.0); THB 7.7 g/dL (11.5-17.4); pH(98.6) 7.43 (7.35-7.45)
[2019-01-25 03:23] LABS: MODALITY CANNULA
[2019-01-25 03:31] LABS: PCO2(98.6) 53 mmHg (35-45)
[2019-01-25] MEDS: SOLU-MEDROL IV SCH ×2 (05:12→17:07)
[2019-01-25 05:56] LABS: BASO# 0.02 X1000 (0.0-0.2); BASO% 0.1 % (0.0-0.8); EOS# 0.05 X1000 (0.0-0.7); EOS% 0.3 % (0.0-10.0); HEMATOCRIT 23.9 % (37.0-47.0); HEMOGLOBIN 7.3 g/dL (12.0-16.0); IMM GRAN# 0.14 X1000 (0.0-0.04); IMM GRAN% 0.8 % (0.0-0.5); LYMPH# 1.77 X1000 (1.2-3.4); LYMPH% 10.7 % (20.5-51.1); MCHC 30.5 g/dL (33-37); MCV 94.8 FL (81-99); MONO# 1.27 X1000 (0.11-0.59); MONO% 7.7 % (1.7-9.3); NEUT# 13.32 X1000 (1.4-6.5); NEUT% 80.4 % (42.2-75.2); PLT 359 X1000 (130-400); RBC 2.52 XMIL (4.2-5.4); RDW 15.1 % (11.5-14.5); WBC 16.57 X1000 (4.8-10.8)
[2019-01-25 06:17] LABS: AGAP 4; BUN 16 mg/dL (8-22); CALCIUM 7.7 mg/dL (8.8-10.2); CHLORIDE 102 mmol/L (98-107); COSMO 275; CREATININE 0.5 mg/dL (0.5-0.9); ESTIMATED GFR > 60; GLUCOSE 98 mg/dL (70-104); POTASSIUM 4.6 mmol/L (3.5-5.1); SODIUM 137 mmol/L (136-145); TCO2 31 mmol/L (25-35)
[2019-01-25] MEDS: SYNTHROID PO SCH (06:17)
--- NOTE | 2019-01-25 06:45 | Diag Imaging Result Doc PS360 ---
EXAM: CHEST-1 VIEW HISTORY: SOB TECHNIQUE: Chest single view COMPARISON: 01/22/2019 FINDINGS: The lungs are well expanded. There are mild increased interstitial markings throughout both lungs. These are slightly less prominent in the mid lungs. No cardiomegaly. No pleural effusions identified. No change in the left-sided PICC line. IMPRESSION: Mild interval improvement. Electronically signed by Griffin Ball 01/25/2019 6:42 AM
[2019-01-25] MEDS: PULMICORT INH SCH ×2 (07:49→19:00)
[2019-01-25] MEDS: PROTONIX IV SCH ×2 (08:19→22:00)
[2019-01-25] MEDS: ZOFRAN IV PRN ×2 (08:19→14:08)
[2019-01-25] MEDS: SODIUM CHLORIDE 0.9% INJ PRN (08:19)
--- NOTE | 2019-01-25 09:56 | INFECTIOUS DISEASE PROGRESS NO ---
DATE: 01/25/2019 PRESENT ILLNESS: The patient is status post exploratory laparotomy, truncal vagotomy with antrectomy and Billroth I anastomosis and right colectomy with diverting end-ileostomy. I have been treating her for the past 6 days with a combination of meropenem and micafungin for possible pneumonia and possible fungal super infection. At this time, I think her infections have cleared. MEDICATIONS: This is the fourth day of treatment with the combination of meropenem and micafungin. PHYSICAL EXAMINATION: Vital Signs: Temperature is 97.8 degrees, pulse 117, respirations 28, blood pressure 150/125. General: This is a chronically ill-appearing, elderly female. She is in no acute distress. HEENT: She can hear my spoken words and see near objects. She does not have any white coating on her tongue. Neck: She does not have any pain in her neck when she moves her head or neck. Lungs: Today, the lungs sounded clear. Cardiovascular: Heart rate was regular. Abdomen: Soft and nontender. The patient's incision is intact. The ostomy is functional, and on the right side, the drain has been removed. Extremities: The patient has a PICC in her left arm. That site is not erythematous or tender. Neurologic: The patient is alert. She can move her extremities. She does not have a tremor. IMAGING AND LABORATORY DATA: CBC shows a white count of 16,570, hemoglobin 7.3, platelet count 359,000. Blood gases show a pH of 7.43, a PO2 of 72, and a pCO2 of 53. Creatinine is 0.5. GFR is greater than 60. Chest x-ray shows decreased interstitial markings. ASSESSMENT AND PLAN: I have been treating the patient for possible pneumonia and superimposed fungal infection. At this time, I do not think she has any pneumonia, and I have not been able to document that she has a superimposed fungal infection. My plan is to discontinue meropenem and micafungin. I think it is possible that the patient's leukocytosis is due to the fact that she is on Solu-Medrol, and that could be causing the leukocytosis. I am signing off on the patient now, but I am available to see her on an as needed basis. COMORBIDITIES: Cigarette smoking, history of alcoholism, rheumatoid arthritis, history of perforated gastric ulcer, and the patient is postop from a recent surgery. cc: Mustapha Nicholson MD
--- NOTE | 2019-01-25 10:43 | PROGRESS NOTE ---
DATE: 01/25/2019 SUBJECTIVE: As per the patient, she is feels sick of her stomach. Yesterday she was not able to tolerate her diet when we advance it. She is tolerating ice chips at this moment. We will continue with the same management. We will continue to monitor this patient closely. OBJECTIVE: Vital Signs: Temperature 97.8 degrees, pulse 117, respiratory rate 28, blood pressure 150/125, oxygen saturation 95% on 2 L of nasal cannula. HEENT: Head normocephalic, no trauma. PERRLA. Neck: Supple. No JVD. No masses. Central trachea. Chest: Coarse breath sounds bilaterally with mild expiratory wheezing. Some generalized crepitus mostly at the bases. Abdomen: Soft. The wound looks clean, as well as the ileostomy. She has some tenderness to palpation mostly around the surgical area. Decreased bowel sounds, but present. Extremities: No edema, no clubbing, no cyanosis. Neurological: The patient is alert and oriented x3. She is following commands and answering my questions. DIAGNOSTIC STUDIES: WBC 16.5, hemoglobin 7.3, hematocrit 23.9, platelets 359,000. Sodium 137, potassium 4.6, chloride 102, bicarbonate 31, BUN 16, creatinine 0.5, glucose 98, calcium 7.7. ASSESSMENT AND PLAN: 1. Gastrointestinal bleed with large gastric ulcer penetrating inferiorly into the proximal transverse colon status post exploratory laparotomy, truncal vagotomy, antrectomy, Billroth I anastomosis, and also right colectomy with diverting and end ileostomy, postoperative day #11. This patient is feeling sick of her stomach. Two days ago, she was tolerating her liquid diet and then it was at a little bit advanced and she did not tolerate that. We will continue to monitor. We will continue with same management for now. She is tolerating ice chips at this moment. 2. Pneumonia and chronic obstructive pulmonary disease exacerbation, with possible superimposed fungal infection. Infectious Disease department evaluated this patient, and they have decided to stop the antibiotics, and we are planning to stop the antibiotics on 01/25/2019, today, meropenem, and also we will stop the micafungin. Her white blood cells still elevated, but likely this is due to steroids. We will monitor this patient closely. 3. Sepsis with tachycardia. As above, she is still having leukocytosis, but she is still on steroids. 4. Hypertension. Continue to monitor. 5. Hypothyroidism. Continue with levothyroxine. 6. Medical noncompliance. The patient reported to previous doctors to be not taking any of her medications after her last discharge. 7. Tobacco abuse. It looks like this patient stopped smoking 2 or 3 weeks ago. She used to smoke 1 pack of cigarettes per day. As per the patient, she is not going to smoke anymore, but I will continue with daily cessation education. 8. Deep vein thrombosis prophylaxis with sequential compression devices. 9. Hypomagnesemia, resolved. 10. Hypophosphatemia, resolved. 11. Hypokalemia, resolved. cc: James Huynh MD
[2019-01-25] MEDS: MYCAMINE 100 MG in NS 100 ML IV SCH (13:12)
[2019-01-25] MEDS: PHENERGAN IV PRN ×2 (14:57→22:01)
[2019-01-25] MEDS: LIPOSYN 20% 500 ML IV SCH (15:18)
[2019-01-25] MEDS: [UNRECOGNIZED DRUG - OTHER] IV SCH ×10 (22:01)
[2019-01-25] MEDS: TPN ELECTROLYTES IV SCH ×10 (22:01)
[2019-01-25] MEDS: AMINOSYN IV SCH ×10 (22:01)
[2019-01-25] MEDS: REQUIP PO SCH (22:02)
[2019-01-25] MEDS ORDERED: G.I. COCKTAIL PO ONE (22:53)
[2019-01-26] MEDS: HUMULIN R SUBQ SCH ×5 (02:20→15:39)
[2019-01-26] MEDS ORDERED: D50W SYRINGE IV PRN (03:47)
[2019-01-26] MEDS: XOPENEX NEB INH SCH ×6 (04:00→23:54)
[2019-01-26] MEDS: ATROVENT NEB INH SCH ×6 (04:00→23:54)
[2019-01-26] MEDS: SOLU-MEDROL IV SCH ×2 (04:34→16:53)
[2019-01-26 06:14] LABS: BASO# 0.02 X1000 (0.0-0.2); BASO% 0.1 % (0.0-0.8); EOS# 0.07 X1000 (0.0-0.7); EOS% 0.5 % (0.0-10.0); HEMOGLOBIN 8.9 g/dL (12.0-16.0); IMM GRAN% 0.7 % (0.0-0.5); LYMPH# 2.19 X1000 (1.2-3.4); LYMPH% 15.8 % (20.5-51.1); MCH 29.1 PG (27-31); MCHC 30.7 g/dL (33-37); MCV 94.8 FL (81-99); MONO# 1.24 X1000 (0.11-0.59); NEUT# 10.22 X1000 (1.4-6.5); NEUT% 73.9 % (42.2-75.2); PLT 412 X1000 (130-400); RBC 3.06 XMIL (4.2-5.4); RDW 14.9 % (11.5-14.5); WBC 13.84 X1000 (4.8-10.8)
[2019-01-26 06:27] LABS: AGAP 8; BUN 14 mg/dL (8-22); CALCIUM 8.2 mg/dL (8.8-10.2); CHLORIDE 101 mmol/L (98-107); COSMO 273; CREATININE 0.5 mg/dL (0.5-0.9); ESTIMATED GFR > 60; GLUCOSE 41 mg/dL (70-104); POTASSIUM 4.2 mmol/L (3.5-5.1); SODIUM 138 mmol/L (136-145); TCO2 29 mmol/L (25-35)
[2019-01-26] MEDS: SYNTHROID PO SCH (06:36)
[2019-01-26 06:38] LABS: BANDS 6 % (0-1); LYMPHS 17 % (21-51); MONO 3 % (1-9); SEGS 74 % (42-75)
--- NOTE | 2019-01-26 07:30 | Diag Imaging Result Doc PS360 ---
EXAM: CHEST-PORTABLE INDICATION: dyspnea TECHNIQUE: One view COMPARISON: 01/25/2019 FINDINGS: The left PICC line is in stable position. Diffuse bilateral interstitial thickening is approximately stable. No new consolidation is identified. Cardiac silhouette is stable. IMPRESSION: Stable chest. Electronically signed by Virgilio Munguia 01/26/2019 7:28 AM
[2019-01-26] MEDS: PULMICORT INH SCH ×2 (07:35→19:05)
--- NOTE | 2019-01-26 12:44 | Diag Imaging Result Doc PS360 ---
GASTRIC EMPTYING - 01/26/2019 INDICATION: nausea, poor oral intake after partial gastrectomy TECHNIQUE: 558 uCi of labeled solid food was ingested COMPARISON: None FINDINGS: After 90 minutes of imaging, there is absolutely no gastric emptying. Emptying is 0%. IMPRESSION: No gastric emptying after 90 minutes. Consistent with severe gastroparesis. Electronically signed by Faustino Villarreal 01/26/2019 12:41 PM
[2019-01-26] MEDS: PROTONIX IV SCH ×2 (13:02→20:58)
[2019-01-26] MEDS: ZOFRAN IV PRN (13:07)
[2019-01-26] MEDS: PHENERGAN IV PRN (13:43)
[2019-01-26] MEDS: SODIUM CHLORIDE 0.9% INJ PRN (13:43)
[2019-01-26] MEDS: DILAUDID IV PRN (15:35)
[2019-01-26] MEDS: LIPOSYN 20% 500 ML IV SCH (16:53)
[2019-01-26] MEDS: [UNRECOGNIZED DRUG - OTHER] IV SCH ×10 (16:54)
[2019-01-26] MEDS: AMINOSYN IV SCH ×10 (16:54)
[2019-01-26] MEDS: TPN ELECTROLYTES IV SCH ×10 (16:54)
[2019-01-26] MEDS: REGLAN PO SCH (20:57)
[2019-01-26] MEDS: REQUIP PO SCH (20:58)
[2019-01-27] MEDS: REGLAN PO SCH ×2 (03:34→08:48)
[2019-01-27] MEDS: XOPENEX NEB INH SCH ×6 (03:38→22:59)
[2019-01-27] MEDS: ATROVENT NEB INH SCH ×6 (03:38→22:59)
[2019-01-27] MEDS: SYNTHROID PO SCH (06:45)
[2019-01-27] MEDS: PULMICORT INH SCH ×2 (07:21→20:10)
[2019-01-27] MEDS: PROTONIX IV SCH ×2 (08:48→22:45)
[2019-01-27] MEDS: SODIUM CHLORIDE 0.9% INJ PRN (08:48)
[2019-01-27 10:17] LABS: BASO# 0.02 X1000 (0.0-0.2); BASO% 0.1 % (0.0-0.8); EOS# 0.25 X1000 (0.0-0.7); EOS% 1.6 % (0.0-10.0); HEMATOCRIT 27.6 % (37.0-47.0); HEMOGLOBIN 8.4 g/dL (12.0-16.0); IMM GRAN# 0.13 X1000 (0.0-0.04); IMM GRAN% 0.8 % (0.0-0.5); LYMPH# 2.12 X1000 (1.2-3.4); LYMPH% 13.4 % (20.5-51.1); MCH 29.2 PG (27-31); MCHC 30.4 g/dL (33-37); MCV 95.8 FL (81-99); MONO# 1.12 X1000 (0.11-0.59); MONO% 7.1 % (1.7-9.3); MPV 12.4 FL (7.4-10.4); NEUT# 12.21 X1000 (1.4-6.5); PLT 241 X1000 (130-400); RBC 2.88 XMIL (4.2-5.4); WBC 15.85 X1000 (4.8-10.8)
--- NOTE | 2019-01-27 10:40 | Diag Imaging Result Doc PS360 ---
KUB ABDOMEN - 01/27/2019 INDICATION: SBO COMPARISON: 01/24/2019 FINDINGS: There is overall very little gas in the abdomen. No evidence of obstruction. No definite free air. IMPRESSION: No acute disease. Electronically signed by Faustino Villarreal 01/27/2019 10:38 AM
[2019-01-27] MEDS: REGLAN IV SCH ×3 (10:52→22:45)
[2019-01-27] MEDS: DILAUDID IV PRN ×3 (10:52→22:45)
[2019-01-27 11:09] LABS: AGAP 3; BUN 15 mg/dL (8-22); CALCIUM 8.1 mg/dL (8.8-10.2); CHLORIDE 99 mmol/L (98-107); COSMO 274; CREATININE 0.5 mg/dL (0.5-0.9); ESTIMATED GFR > 60; GLUCOSE 93 mg/dL (70-104); POTASSIUM 5.4 mmol/L (3.5-5.1); SODIUM 137 mmol/L (136-145); TCO2 35 mmol/L (25-35)
--- NOTE | 2019-01-27 15:20 | PROGRESS NOTE ---
DATE: 01/27/2019 INTERVAL HISTORY: Patient off tube feeds overnight because of nausea and gastric emptying study showing no emptying whatsoever. Started back on tube feeds this morning as she was symptomatic improved and KUB did not show any definite obstruction. Still some intermittent nausea and vomiting, but somewhat improved from yesterday. No abdominal pain currently. No other acute events. REVIEW OF SYSTEMS: A 12-point review of systems is negative, except as per interval history. LABORATORY DATA: WBC 15.8, hemoglobin 8.4, hematocrit 27.6, platelets 241,000. Sodium 137, potassium 5.4, BUN 15, creatinine 0.5, glucose 166. IMAGING: Gastric emptying study yesterday after 90 minutes showed no gastric emptying whatsoever. Abdominal x-ray today showing no acute disease, very little gas in the abdomen, no evidence of obstruction. OBJECTIVE: Vital Signs: T-max 98.9 degrees, pulse 89, respirations 17, blood pressure 130/60, O2 saturation 98% on 3 L by nasal cannula. General: No acute distress. HEENT: Normocephalic, atraumatic. Moist mucous membranes. No cervical adenopathy. Cardiovascular: Regular rate and rhythm. No murmurs noted. Pulmonary: Clear to auscultation bilaterally. Abdomen: Soft. Minimal tenderness around surgical site without rebound or guarding. Bowel sounds remain decreased, but present. Extremities: Peripheral pulses intact. No clubbing, cyanosis, or edema. Neurologic: Cranial nerves grossly intact. No focal deficits identified. Psychiatric: Normal mood and affect. Asleep, but easily arousable, oriented x3. Skin: No new rashes or lesions identified. ASSESSMENT AND PLAN: 1. Gastrointestinal bleed with acute posthemorrhagic anemia secondary to large gastric ulcer, which was perforated and had also penetrated the transverse colon. The patient is status post extensive surgery as per previous documentation with ileostomy. Some increased nausea over the last couple days, primarily yesterday. Gastric emptying study showing no emptying whatsoever, so she was held nothing by mouth overnight. Patient now symptomatically improved. Will see how she does. 2. Pneumonia and chronic obstructive pulmonary disease. Infectious Disease following. Monitoring the patient off antibiotics. Will see how she does. 3. Hypertension, reasonable control. Will continue to monitor. 4. Hypothyroidism. Continue Synthroid. 5. Medical noncompliance. The patient was not taking any of her medications prior to admission. 6. Tobacco abuse. Patient strongly encouraged to stop smoking. 7. Hyperkalemia. The patient has had variable potassium with both lows and highs. Only mildly elevated today. No need for acute intervention at this time, but will monitor and consider Kayexalate or other therapy if it becomes further elevated. 8. Diabetes. The patient is diabetic by history, but A1c is 4.5. Has actually had some hyperglycemia here, but when we attempted to give her even low-dose sliding scale, she had issues with hypoglycemia, so monitoring off of insulin currently with reasonable control. YANIRA
[2019-01-27] MEDS: LIPOSYN 20% 500 ML IV SCH (15:22)
[2019-01-27] MEDS: TPN ELECTROLYTES IV SCH ×10 (15:22)
[2019-01-27] MEDS: [UNRECOGNIZED DRUG - OTHER] IV SCH ×10 (15:22)
[2019-01-27] MEDS: AMINOSYN IV SCH ×10 (15:22)
[2019-01-27] MEDS ORDERED: SOLU-MEDROL IV SCH (17:00)
--- NOTE | 2019-01-27 18:21 | GENERAL SURGERY PROGRESS NOTE ---
DATE: 01/25/2019 SUBJECTIVE: The patient continues to complain of nausea, especially after eating. No severe pain. OBJECTIVE: Vital signs: She is afebrile. Pulse 107, respirations 24, blood pressure 152/79, O2 saturation 100%, this was at 1625. General: She is awake, alert, and oriented x4. No acute distress. CV: Regular rate and rhythm. Respiratory: Bilateral breath sounds. No work of breathing. Gastrointestinal: Soft, nondistended. Incision is clean, dry, and intact without erythema. Ileostomy appears to be pink and patent. She has minimal tenderness. LABORATORY: White blood cell count 16,000, hemoglobin 7.3, hematocrit 23.9, platelet count 359,000. Electrolytes reviewed and unremarkable. IMAGING: Abdominal x-ray yesterday showed a nonspecific bowel-gas pattern. ASSESSMENT AND PLAN: This is a 68-year-old female status post distal gastrectomy and Billroth 1 anastomosis and right hemicolectomy with diverting end ileostomy. She is probably having delayed gastric emptying secondary to the distal gastrectomy. I will check a gastric emptying study tomorrow. If this shows significant delay, then I would recommend a prokinetic agents such as Reglan or erythromycin. cc: Ankit Juárez MD
[2019-01-27] MEDS: REQUIP PO SCH (22:45)
[2019-01-27] MEDS: ZOFRAN IV PRN (23:17)
[2019-01-28] MEDS: ATROVENT NEB INH SCH ×6 (03:30→23:37)
[2019-01-28] MEDS: XOPENEX NEB INH SCH ×6 (03:30→23:37)
[2019-01-28] MEDS: REGLAN IV SCH ×4 (03:48→16:10)
[2019-01-28] MEDS: ZOFRAN IV PRN (04:20)
[2019-01-28] MEDS: DILAUDID IV PRN (04:20)
[2019-01-28] MEDS: SYNTHROID PO SCH (06:05)
[2019-01-28 07:57] LABS: AGAP 3; BUN 15 mg/dL (8-22); CALCIUM 8.3 mg/dL (8.8-10.2); CHLORIDE 98 mmol/L (98-107); COSMO 273; CREATININE 0.5 mg/dL (0.5-0.9); ESTIMATED GFR > 60; GLUCOSE 101 mg/dL (70-104); POTASSIUM 4.8 mmol/L (3.5-5.1); SODIUM 136 mmol/L (136-145); TCO2 35 mmol/L (25-35)
[2019-01-28] MEDS: PULMICORT INH SCH ×2 (07:59→19:49)
[2019-01-28 08:16] LABS: BASO# 0.02 X1000 (0.0-0.2); BASO% 0.1 % (0.0-0.8); EOS# 0.23 X1000 (0.0-0.7); EOS% 1.6 % (0.0-10.0); HEMOGLOBIN 7.7 g/dL (12.0-16.0); IMM GRAN# 0.08 X1000 (0.0-0.04); IMM GRAN% 0.6 % (0.0-0.5); LYMPH# 1.52 X1000 (1.2-3.4); LYMPH% 10.6 % (20.5-51.1); MCH 33.9 PG (27-31); MCHC 30.8 g/dL (33-37); MCV 110.1 FL (81-99); MONO# 0.92 X1000 (0.11-0.59); MONO% 6.4 % (1.7-9.3); MPV 11.7 FL (7.4-10.4); NEUT# 11.58 X1000 (1.4-6.5); NEUT% 80.7 % (42.2-75.2); PLT 399 X1000 (130-400); RBC 2.27 XMIL (4.2-5.4); RDW 15.4 % (11.5-14.5); WBC 14.35 X1000 (4.8-10.8)
[2019-01-28] MEDS: PROTONIX IV SCH (10:16)
[2019-01-28] MEDS ORDERED: PEPCID ONE (10:26)
--- NOTE | 2019-01-28 14:29 | PROGRESS NOTE ---
DATE: 01/28/2019 INTERVAL HISTORY: The patient with some continued mild nausea and abdominal discomfort, but no vomiting. No increase in abdominal pain. Increased ostomy output. No new complaints. No acute events overnight. No further hypoglycemia. REVIEW OF SYSTEMS: A 12 point Review of Systems noncontributory except as per interval history. LABORATORY: WBC 14.3, hemoglobin 7.7, hematocrit 25, and platelets 399,000. Basic metabolic panel unremarkable. Glucose 100 to 123. VITALS: T-max 98.5 degrees, pulse 87, respirations 20, blood pressure 122/48, and O2 saturation 97% on 2 L by nasal cannula. PHYSICAL EXAMINATION: General: No acute distress. Chronically ill appearing. HEENT: Normocephalic, atraumatic. Moist mucous membranes. No cervical adenopathy. Cardiovascular: Regular rate and rhythm. No murmurs noted. Pulmonary: Clear to auscultation bilaterally. Abdomen: Soft, unchanged. Minimal tenderness around surgical site without rebound or guarding. Bowel sounds increased from previous. Extremities: Peripheral pulses intact. No clubbing, cyanosis, or edema. Neurologic: Cranial nerves grossly intact. No focal deficits identified. Psychiatric: Normal mood and affect. Awake, alert, and oriented x3. Skin: No new rashes or lesions identified. ASSESSMENT AND PLAN: 1. Gastrointestinal bleed with acute post hemorrhagic anemia secondary to large gastric ulcer. Status post extensive surgery with ileostomy. There is still some nausea but no vomiting. Tolerating some ice chips. She does appear to have some increased ostomy output, so the Reglan which was started yesterday may be helping somewhat. Reglan started after gastric emptying study showed no emptying whatsoever. 2. Pneumonia and COPD. Infectious Disease following. Monitoring the patient off antibiotics. Appears to be doing well so far. Minimal white count, but actually trending down from previous. 3. Hypertension reasonable control on current regimen. Monitor. 4. Hypothyroidism. Continue Synthroid. 5. Medical noncompliance. The patient was not taking any of her medications prior to this admission. The patient has been strongly counseled on taking medications and expresses understanding. 6. Tobacco abuse. Cessation has been discussed. Patient refuses a nicotine patch. 7. Hyperkalemia improved today. Continue to monitor. 8. Diabetes. The patient diabetic by history, but A1c 4.5. Actually, she did have some hyperglycemia here and was put on sliding scale, but then had hypoglycemia. Currently, holding insulin entirely. Control is acceptable.
[2019-01-28] MEDS: AMINOSYN IV SCH ×10 (15:28)
[2019-01-28] MEDS: [UNRECOGNIZED DRUG - OTHER] IV SCH ×10 (15:28)
[2019-01-28] MEDS: TPN ELECTROLYTES IV SCH ×10 (15:28)
[2019-01-28] MEDS: LIPOSYN 20% 500 ML IV SCH (15:29)
--- NOTE | 2019-01-28 21:25 | GENERAL SURGERY PROGRESS NOTE ---
DATE: 01/28/2019 SUBJECTIVE: The patient denies abdominal pain or nausea. She is tolerating clear liquids. OBJECTIVE: Vital signs: She is afebrile. Vital signs are stable. She has had 1200 mL out of her ileostomy. General: She is awake, alert, oriented x3. No acute distress. Gastrointestinal: Soft, nontender, nondistended. Ileostomy is pink and patent. ASSESSMENT AND PLAN: A 68-year-old female status post antrectomy, truncal vagotomy, Billroth I re- anastomosis and right hemicolectomy with end ileostomy. She seems to be somewhat improved. We will advance her to a full liquid diet today. Continue Reglan for severe gastroparesis. cc: Ankit Juárez MD
[2019-01-28] MEDS ORDERED: CATHFLO IV ONE (23:10)
[2019-01-28] MEDS ORDERED: STERILE WATER INJ. INJ ONE (23:10)
[2019-01-29] MEDS: REQUIP PO SCH ×2 (00:22→20:43)
[2019-01-29] MEDS: REGLAN IV SCH ×4 (00:22→18:23)
[2019-01-29] MEDS: PROTONIX IV SCH ×3 (00:56→20:42)
[2019-01-29] MEDS: ZOFRAN IV PRN (01:59)
[2019-01-29] MEDS: XOPENEX NEB INH SCH ×6 (03:21→23:26)
[2019-01-29] MEDS: ATROVENT NEB INH SCH ×6 (03:21→23:26)
[2019-01-29] MEDS: SYNTHROID PO SCH (06:28)
--- NOTE | 2019-01-29 06:35 | Diag Imaging Result Doc PS360 ---
CHEST-1 VIEW - 01/29/2019 INDICATION: SOB COMPARISON: 01/26/2019 FINDINGS: Stable left PICC line in good position. Lung volumes are slightly lower. Heart size remains normal. Stable pulmonary vascular congestion. There are mixed changes in the heterogeneous bilateral reticulonodular infiltrates. There is been some improvement on the left side, and some worsening in the right upper lobe. IMPRESSION: Overall no significant change from prior. Electronically signed by Faustino Villarreal 01/29/2019 6:33 AM
[2019-01-29 07:31] LABS: BASO# 0.02 X1000 (0.0-0.2); BASO% 0.2 % (0.0-0.8); EOS# 0.23 X1000 (0.0-0.7); EOS% 1.8 % (0.0-10.0); HEMATOCRIT 23.2 % (37.0-47.0); HEMOGLOBIN 7.1 g/dL (12.0-16.0); IMM GRAN# 0.05 X1000 (0.0-0.04); IMM GRAN% 0.4 % (0.0-0.5); LYMPH% 10.1 % (20.5-51.1); MCHC 30.6 g/dL (33-37); MCV 94.7 FL (81-99); MONO# 0.78 X1000 (0.11-0.59); MONO% 6.1 % (1.7-9.3); MPV 11.4 FL (7.4-10.4); NEUT# 10.47 X1000 (1.4-6.5); NEUT% 81.4 % (42.2-75.2); PLT 445 X1000 (130-400); RBC 2.45 XMIL (4.2-5.4); RDW 14.9 % (11.5-14.5); WBC 12.85 X1000 (4.8-10.8)
[2019-01-29 07:42] LABS: AGAP 3; BUN 14 mg/dL (8-22); CALCIUM 7.8 mg/dL (8.8-10.2); CHLORIDE 96 mmol/L (98-107); COSMO 265; CREATININE 0.5 mg/dL (0.5-0.9); ESTIMATED GFR > 60; GLUCOSE 107 mg/dL (70-104); POTASSIUM 4.1 mmol/L (3.5-5.1); SODIUM 132 mmol/L (136-145); TCO2 33 mmol/L (25-35)
[2019-01-29] MEDS: PULMICORT INH SCH ×2 (08:02→19:30)
--- NOTE | 2019-01-29 09:18 | PROGRESS NOTE ---
DATE: 01/26/2019 INTERVAL HISTORY: Patient still with some nausea but no further vomiting. Has tolerated some ice chips. Pain well controlled. No other acute events. No other new complaints. REVIEW OF SYSTEMS: A 12-point review of systems negative except as per interval history. LABORATORY: WBC 13.8, hemoglobin 8.9, hematocrit 29.0, platelets 412, sodium 138, potassium 4.2, BUN 14, creatinine 0.5, glucose 41 to 128. IMAGING: Gastric emptying study with 0 gastric emptying at 90 minutes. Chest x-ray stable. VITALS: T-max 98.9, pulse 97, respirations 26, blood pressure 160/72, O2 saturation 99% on 3 L by nasal cannula. PHYSICAL EXAMINATION: General: No acute distress. Vitals: As above. HEENT: Normocephalic and atraumatic. Moist mucous membranes. No cervical adenopathy. Cardiovascular: Regular rate and rhythm. No murmurs, rubs or gallops. Pulmonary: Slightly course breath sounds but good air entry. No wheezing currently. Abdomen: Soft, minimal tenderness around the surgical site. Bowel sounds significantly decreased but are present. Extremities: Peripheral pulses intact. No clubbing, cyanosis. Neurologic: Cranial nerves grossly intact. No focal deficits identified. Psychiatric: Normal mood and affect. Awake, alert, and oriented x3. Cooperative. Skin: No new rashes or lesions identified. ASSESSMENT AND PLAN: 1. Gastrointestinal bleed secondary to large perforated gastric ulcer with fistulization to the transverse colon. Patient is status post exploratory laparoscopy with truncal vagotomy, antrectomy, Billroth I anastomosis and partial right colectomy with diverting ileostomy. Patient with increased nausea for the last couple days. Abdominal x-ray a couple days ago unremarkable with gastric emptying study today showing essentially no gastric emptying. Will keep patient NPO and see what Surgery says. Repeat abdominal x-ray in the morning. 2. Pneumonia and COPD, questionable superimposed fungal infection. Monitoring off of antibiotics currently. Risk from respiratory standpoint pretty stable at this point. 3. Hypertension, intermittent moderate elevations but reasonable control overall. Continue to monitor. 4. Hypothyroidism. Continue Synthroid. 5. Acute blood loss anemia. Some ups and downs but relatively stable for the past few days. 6. Tobacco abuse. Patient has been counseled on cessation. Will continue to reinforce. 7. Medical noncompliance. Was not taking any of her medications since between last discharge and this admission. 8. Electrolyte abnormalities, hypomagnesemia, hypophosphatemia, hypokalemia, improved status post repletion. Monitor. 9. Deep vein thrombosis prophylaxis. Sequential compression devices given recent bleed and surgery. 10.Hypoglycemia. Patient not on any scheduled insulin. On only low sliding scale, and appears to have only gotten one dose of that but it was followed by some significant hypoglycemia, down to 41 to 48. Has had only moderate elevation so will discontinue insulin entirely for now and monitor. If significant elevations in glucose develop then we will consider starting it back.
--- NOTE | 2019-01-29 11:07 | GENERAL SURGERY PROGRESS NOTE ---
DATE: 01/26/2019 SUBJECTIVE: The patient continues to have some nausea. She had her gastric emptying test today. OBJECTIVE: She is afebrile. Vital signs are stable. General: She is awake and alert, oriented x3. No acute distress. Gastrointestinal: Soft, nondistended. IMAGING: Her gastric emptying study shows 0% emptying after 90 minutes consistent with severe gastroparesis. ASSESSMENT AND PLAN: A 68-year-old female status post truncal vagotomy, antrectomy, Billroth 1 anastomosis and right hemicolectomy with diverting ileostomy. She has severe gastroparesis. We will start her on Reglan. I discussed the risks and benefits with her including side effects of tardive dyskinesia, restlessness and other [*]. She understands and agrees to proceed. cc: Ankit Juárez MD
[2019-01-29 14:54] LABS: HEMATOCRIT 24.8 % (37.0-47.0); HEMOGLOBIN 7.7 g/dL (12.0-16.0)
[2019-01-29] MEDS: AMINOSYN IV SCH ×20 (15:23)
[2019-01-29] MEDS: TPN ELECTROLYTES IV SCH ×20 (15:23)
[2019-01-29] MEDS: [UNRECOGNIZED DRUG - OTHER] IV SCH ×20 (15:23)
--- NOTE | 2019-01-29 16:17 | GENERAL SURGERY PROGRESS NOTE ---
DATE: 01/29/2019 SUBJECTIVE: The patient denies nausea or vomiting and had tolerated full liquids yesterday. OBJECTIVE: Vital signs: She is afebrile. Vital signs are stable. General: She is awake, alert, oriented x3. No acute distress. GI: Soft, nontender, nondistended. Incision is clean, dry, intact. LABORATORY: White blood cell count down to 12.8, hemoglobin 7.1, hematocrit 23.2. Electrolytes reviewed and unremarkable. ASSESSMENT AND PLAN: This is a 68-year-old female status post antrectomy, truncal vagotomy, Billroth 1 anastomosis, and right hemicolectomy with some severe gastroparesis postop. This seems to be improving. She is starting to tolerate liquids and denying nausea. We will keep her on full liquids today. If she tolerates that, then I would advance her slowly to a post gastrectomy regular diet over the weekend. cc: Ankit Juárez MD
--- NOTE | 2019-01-29 16:28 | PROGRESS NOTE ---
DATE: 01/29/2019 INTERVAL HISTORY: The patient is feeling well. Tolerating full liquid diet thus far. No nausea, no vomiting. Denies increased cough, dyspnea, chest pain, vomiting, diarrhea. Also denies any signs or symptoms of ongoing bleed or new bleeding including hematemesis, hematochezia, or melena. No obvious blood or melena in the ostomy bag. REVIEW OF SYSTEMS: Twelve point review is negative except as per history. LABS: WBC 12.8, hemoglobin 7.1, hematocrit 23.2, platelets 445,000. Sodium 132, potassium 4.1, bicarb 33, BUN 14, creatinine 0.5, glucose 107. IMAGING: Chest x-ray essentially unchanged from previous. VITALS: T-max 98.6, pulse 94, respirations 18, blood pressure 136/59, O2 saturation 99% on 2 L by nasal cannula. PHYSICAL EXAMINATION: General: No acute distress. Chronically ill appearing. HEENT: Normocephalic, atraumatic. Moist mucous membranes. No cervical adenopathy. Cardiovascular: Regular rate and rhythm. No murmurs noted. Pulmonary: Clear to auscultation bilaterally. No wheezing, rales, or rhonchi. Abdomen: Soft. Still with minimal tenderness around surgical site without rebound or guarding. Some improvement from previous. Bowel sounds essentially normal at this point. Ostomy in place with brown liquid output. Extremities: Peripheral pulses intact. No clubbing, cyanosis, or edema. Neurologic: Cranial nerves grossly intact. No focal deficits identified. Mild global weakness. Psychiatric: Normal mood and affect. Awake, alert, oriented x3. Skin: No new rashes or lesions identified. ASSESSMENT AND PLAN: 1. Gastrointestinal bleed with acute post hemorrhagic anemia secondary to large gastric ulcer. Status post extensive surgery with ileostomy. No further vomiting and nausea essentially resolved. Tolerating full liquid diet. Ostomy output has picked up. Reglan started after gastric emptying study showed no emptying and appears to have helped significantly. The patient has had no overt signs or symptoms of bleeding, but blood counts have trended down slightly over the last 2 to 3 days. We will check reticulocyte count. Recheck iron studies. Iron was normal on admission, but she did have significant bleeding after that. We will also recheck blood counts this afternoon and consider transfusion if they are continuing to drop. 2. Pneumonia and chronic obstructive pulmonary disease. Infectious Disease following. Monitoring patient off antibiotics and seems to be doing well. White count continuing to trend down. 3. Hypertension reasonable control on current regimen. Monitor. 4. Hypothyroidism. Continue Synthroid. 5. Medical noncompliance. The patient was not taking any of her medications prior to this admission. Patient has been strongly counseled on taking medications and expressed understanding. 6. Tobacco abuse. Cessation has been discussed. Patient refuses nicotine patch. 7. Hyperkalemia resolved. Continue to monitor. 8. Diabetes. Patient diabetic by history, but A1c 4.5. Has had intermittent hyperglycemia, but had significant lows on even very low doses of sliding scale insulin. Some monitoring off of insulin and glucose control has been acceptable. DISPOSITION: If the patient's blood counts remain stable and diet is able to be advanced to the point she can come off TPN, then may be able to consider discharge in the next couple of days.
[2019-01-29] MEDS: LIPOSYN 20% 500 ML IV SCH (16:31)
[2019-01-29] MEDS: SODIUM CHLORIDE 0.9% INJ PRN (20:43)
[2019-01-30] MEDS: REGLAN IV SCH ×5 (00:17→23:44)
[2019-01-30] MEDS: ZOFRAN IV PRN ×2 (01:48→19:54)
[2019-01-30] MEDS: XOPENEX NEB INH SCH ×6 (03:30→23:11)
[2019-01-30] MEDS: ATROVENT NEB INH SCH ×6 (03:30→23:11)
--- NOTE | 2019-01-30 05:27 | PULMONOLOGY PROGRESS NOTE ---
DATE: 01/29/2019 SUBJECTIVE: The patient is awake, alert, and conversant. She denies shortness of breath. She says, "I'm ready to go home." OBJECTIVE: Vital signs: Blood pressure 110/50, heart rate 110, respiratory rate 17, oxygen saturation 94% on 2 L per nasal cannula. HEENT: Pupils are equal and reactive. Oropharynx is clear. Neck: Supple. Chest: Reveals increased tympany. The patient has prolonged expiratory phase with occasional rhonchi. Cardiac: Distant heart sounds. Normal S1, normal S2. Abdomen: Soft and without hepatosplenomegaly. Extremities: Without edema. LABORATORIES: Chest x-ray reveals bilateral reticulonodular infiltrates which have not significantly changed. White blood count 12.85, hemoglobin 7.1, platelet count 445,000. Sodium 132, potassium 4.1, chloride 96, bicarbonate 33, BUN 14, creatinine 0.5. IMPRESSION: A 68-year-old with severe chronic obstructive pulmonary disease, chronic hypoxemic respiratory failure, increased interstitial markings status post treatment for pneumonia, with gastrointestinal bleed earlier this hospitalization. The patient continues to improve. PLAN: 1. Continue bronchial hygiene. 2. Advance diet as tolerated. 3. The patient has completed a course of antibiotics. At this juncture, I agree with continued observation unless she has evidence of progressive leukocytosis, radiographic changes, or fevers. cc: Sam Corral MD
[2019-01-30] MEDS: SYNTHROID PO SCH (06:03)
[2019-01-30 07:20] LABS: RETIC% 2.99 % (0.8-2.1); RETIC-HE 28.3 PG (28.2-36.6)
[2019-01-30 07:26] LABS: BASO# 0.02 X1000 (0.0-0.2); BASO% 0.2 % (0.0-0.8); EOS# 0.25 X1000 (0.0-0.7); HEMATOCRIT 23.7 % (37.0-47.0); HEMOGLOBIN 7.2 g/dL (12.0-16.0); IMM GRAN# 0.05 X1000 (0.0-0.04); IMM GRAN% 0.4 % (0.0-0.5); LYMPH# 1.19 X1000 (1.2-3.4); LYMPH% 9.6 % (20.5-51.1); MCH 28.8 PG (27-31); MCHC 30.4 g/dL (33-37); MCV 94.8 FL (81-99); MONO# 1.09 X1000 (0.11-0.59); MONO% 8.8 % (1.7-9.3); MPV 11.6 FL (7.4-10.4); NEUT# 9.75 X1000 (1.4-6.5); PLT 456 X1000 (130-400); RDW 14.9 % (11.5-14.5); WBC 12.35 X1000 (4.8-10.8)
[2019-01-30 07:39] LABS: AGAP 5; BUN 16 mg/dL (8-22); CHLORIDE 98 mmol/L (98-107); COSMO 270; CREATININE 0.6 mg/dL (0.5-0.9); ESTIMATED GFR > 60; GLUCOSE 107 mg/dL (70-104); IRON SATURATION 16 %; POTASSIUM 4.4 mmol/L (3.5-5.1); SODIUM 134 mmol/L (136-145); TCO2 31 mmol/L (25-35); TIBC 99 ug/dL; TOTAL IRON 16 ug/dL (49-151); UNBOUND IRON 83 ug/dL (112-346)
[2019-01-30] MEDS: PULMICORT INH SCH ×2 (08:00→19:30)
[2019-01-30] MEDS: PROTONIX IV SCH (09:01)
[2019-01-30] MEDS: TPN ELECTROLYTES IV SCH ×10 (12:12)
[2019-01-30] MEDS: AMINOSYN IV SCH ×10 (12:12)
[2019-01-30] MEDS: [UNRECOGNIZED DRUG - OTHER] IV SCH ×10 (12:12)
[2019-01-30] MEDS: DILAUDID IV PRN ×2 (13:20→19:09)
[2019-01-30] MEDS: LIPOSYN 20% 500 ML IV SCH (16:56)
[2019-01-30] MEDS: PROTONIX PO SCH (18:07)
--- NOTE | 2019-01-30 18:17 | PROGRESS NOTE ---
DATE: 01/30/2019 INTERVAL HISTORY: No acute events overnight. Her pulse has been on the higher side with 100s. Bedside monitor has sinus tachycardia. The patient denies any other complaints, except that she is very anxious about staying in the hospital and is not feeling good because of that. We discussed about physical exam findings, advancing her diet as tolerated. I answered all of her questions. CURRENT VITALS: Temperature of 98 degrees, pulse 110, respiratory rate 16, blood pressure 110/44. She is saturating 100% on 2 L nasal cannula. PHYSICAL EXAMINATION: General: Cachectic, not in any acute distress. She does have anxious look on her face. Mouth: Oral cavity is moist. Lungs: Air entry bilaterally equal. No wheeze, rhonchi, or crackles. Cardiovascular: S1, S2 normal. No murmur, rub, or gallop. Sinus tachycardia at the bedside Holter monitor. Abdomen: Soft. There is midline scar of laparotomy with clint and mild tenderness around it. She has a right upper quadrant ileostomy with liquidy brown output without any visible blood. LABS: Suggestive of leukocytosis, normocytic anemia, thrombocytosis. She does have reticulocytosis as well. Her electrolytes are largely within acceptable range. MICROBIOLOGY: No new microbiological data. IMAGING: No new imaging. Chest x-ray performed yesterday for shortness of breath had a stable pulmonary vascular congestion. ASSESSMENT AND PLAN: 1. Acute gastrointestinal bleed leading to acute blood loss anemia due to large gastric ulcer status post laparotomy for perforated gastric ulcer, truncal vagotomy with antrectomy and Billroth 1 anastomosis and right colectomy with diverting end ileostomy on 01/14/2019 on presentation. Continue full liquid diet for now and advance as tolerated as per Surgery recommendation. I anticipate advancement of diet to mechanical soft in the next 24 to 48 hours. Continue intravenous metoclopramide, following which her nausea and vomiting has improved, and ostomy has been receiving more output for gastric emptying. Her iron studies suggest elevated ferritin, which could be in the setting of inflammation. I will continue to monitor complete blood count. No need of transfusion at the moment. Continue total parenteral nutrition and stop it once patient is able to tolerate diet adequately for another 24 to 48 hours. 2. Pneumonia and chronic obstructive pulmonary disease without exacerbation status post off antibiotics. Continue to monitor complete blood count which is trending down. 3. Essential hypertension currently controlled without any medication; continue Synthroid for hypothyroidism; her hemoglobin A1c was 4.5 during this admission, though she did have prior history of diabetes. I will continue to monitor without insulin. 4. The patient was counseled extensively about medication noncompliance because of which she developed recurrent gastrointestinal ulcer; tobacco cessation was also discussed with her. 5. History of chronic obstructive pulmonary disease and chronic hypoxic respiratory failure on home oxygen. Continue patient on levalbuterol ipratropium nebulization, budesonide. 6. Disposition. My plan is to stop her total parenteral nutrition in the next 24 to 48 hours as per Surgery recommendation. Advance her diet to mechanical soft, at which point the patient should be ready to be discharged home on oral diet. Physical therapy is working with her. Plan of care discussed with her. All of her questions have been answered satisfactorily. She may need home physical therapy if she refuses to go to rehab. cc: Jamil Sanabria MD
--- NOTE | 2019-01-30 18:20 | PULMONOLOGY PROGRESS NOTE ---
DATE: 01/30/2019 SUBJECTIVE: The patient is awake and alert. She reports she has a very poor appetite. She denies shortness of breath. OBJECTIVE: Vital Signs: The patient has been afebrile for the last 24 hours. Blood pressure 110/51, heart rate 103, respiratory rate 16, oxygen saturation 100% on nasal cannula. HEENT: Pupils are equal and reactive. Oropharynx appears clear. Neck: Supple. Chest: Reveals prolonged expiratory phase. Cardiac: S1 and S2. Abdomen: Scaphoid and soft. Extremities: Without edema. LABORATORIES: White blood count 12.35, hemoglobin 7.2, platelet count 456,000. Sodium 134, potassium 4.4, chloride 98, bicarbonate 31, BUN 16, creatinine 0.6, glucose 107. IMPRESSION: A 68-year-old with: 1. Severe chronic obstructive pulmonary disease. 2. Chronic hypoxemic respiratory failure. 3. Status post treatment for pneumonia. 4. Gastrointestinal bleed. 5. Protein-calorie malnutrition. PLAN: 1. Continue current bronchial hygiene. 2. Continue oxygen for hypoxemic respiratory failure. 3. A followup chest x-ray on Friday morning. 4. Encourage p.o. intake. The patient needs to be transitioned off TPN onto an oral diet. cc: Sam Corral MD
--- NOTE | 2019-01-30 18:29 | GENERAL SURGERY PROGRESS NOTE ---
DATE: 01/30/2019 SUBJECTIVE: Bowels are functioning. No appetite. She is on TPN. She is having some worsening respiratory symptoms, rhonchi, productive cough. OBJECTIVE: Vital Signs: No fevers. Blood pressures overall have been about the same with a low- grade tachycardia. General: She is alert. Abdomen: Soft. Incision is intact. HEENT: She is on nasal cannula. DIAGNOSTIC DATA: White count is 12. Hematocrit has been gradually downtrending, but overall stable, it is at 23. Creatinine 0.6. ASSESSMENT AND PLAN: This is a 68-year-old female, status post distal gastrectomy with a right colectomy for complications associated with peptic ulcers. Prolonged hospital course. She is on peripheral nutrition. We will continue this, advancing her diet as tolerated with Ensure supplementations. Hospitalist and pulmonology service are follow her regarding her other medical issues. cc: Violeta Ritchie MD
[2019-01-30] MEDS: REQUIP PO SCH (19:59)
[2019-01-31] MEDS: ATROVENT NEB INH SCH ×6 (03:13→22:25)
[2019-01-31] MEDS: XOPENEX NEB INH SCH ×6 (03:14→22:25)
[2019-01-31] MEDS: SYNTHROID PO SCH (06:23)
[2019-01-31] MEDS: REGLAN IV SCH ×3 (06:23→18:11)
[2019-01-31] MEDS: PROTONIX PO SCH ×2 (06:23→18:18)
[2019-01-31 07:19] LABS: BASO# 0.02 X1000 (0.0-0.2); BASO% 0.2 % (0.0-0.8); EOS# 0.25 X1000 (0.0-0.7); EOS% 2.2 % (0.0-10.0); IMM GRAN# 0.05 X1000 (0.0-0.04); IMM GRAN% 0.4 % (0.0-0.5); LYMPH# 1.21 X1000 (1.2-3.4); LYMPH% 10.6 % (20.5-51.1); MCH 28.9 PG (27-31); MCHC 30.4 g/dL (33-37); MONO# 1.09 X1000 (0.11-0.59); MONO% 9.6 % (1.7-9.3); MPV 11.8 FL (7.4-10.4); NEUT# 8.78 X1000 (1.4-6.5); PLT 417 X1000 (130-400); RBC 2.42 XMIL (4.2-5.4); RDW 14.9 % (11.5-14.5)
[2019-01-31] MEDS: PULMICORT INH SCH ×2 (07:50→19:20)
[2019-01-31] MEDS: [UNRECOGNIZED DRUG - OTHER] IV SCH ×10 (11:03)
[2019-01-31] MEDS: AMINOSYN IV SCH ×10 (11:03)
[2019-01-31] MEDS: TPN ELECTROLYTES IV SCH ×10 (11:03)
--- NOTE | 2019-01-31 12:46 | PROGRESS NOTE ---
DATE: 01/31/2019 SUBJECTIVE: Patient notes that she is feeling better. She is starting to drink a little bit better. She is asking if she can go home. PHYSICAL EXAMINATION: Temperature 98.7, pulse 100, respiratory rate 18, BP 114/78. General: The patient is in no current respiratory distress. She is pleasant. HEENT: Normocephalic. Neck: Supple. Cardiovascular: Regular rate. Chest: Clear. Abdomen: Soft. Minimally tender. Noted to have upper quadrant right ileostomy. Extremities: Moves all extremities. ASSESSMENT: 1. Acute gastrointestinal bleed requiring surgery and ultimately an ileostomy. 2. Pneumonia. 3. Chronic obstructive pulmonary disease with exacerbation, improved. 4. Hypertension. 5. Anemia, stable. PLAN: We will stop patient's TPN today. Continue to watch her diet-ulrich. She is stable and does not require transfusion currently. COPD is stable. Again reminded the patient that she needs to avoid NSAIDs as well as tobacco. We will continue her breathing treatments. Hopefully, she can be discharged home tomorrow. cc: Luke Panchal MD
--- NOTE | 2019-01-31 13:48 | GENERAL SURGERY PROGRESS NOTE ---
DATE: 01/31/2019 SUBJECTIVE: Doing well. Feels a little more hungry today. OBJECTIVE: No fevers. Low-grade tachycardia, stable. Abdomen is soft. Ostomy is functioning. DIAGNOSTIC STUDIES: I have reviewed her laboratories. White count down to 11, hematocrit 23, glucose 119. ASSESSMENT AND PLAN: A 68-year-old female status post partial gastrectomy with a right colectomy for complications related to peptic ulcer disease. She wants full liquids. It is actually ordered already. We will continue that for now, advancing diet with nutritional supplementation as tolerated. cc: Violeta Ritchie MD
--- NOTE | 2019-01-31 14:38 | PULMONOLOGY PROGRESS NOTE ---
DATE: 01/31/2019 SUBJECTIVE: The patient is awake, alert, and conversant. She reports she is tolerating some p.o. intake and likes the Ensure supplement. She denies shortness of breath. OBJECTIVE: Vital Signs: Maximum temperature in the last 24 hours 100.0 degrees, heart rate 100, respiratory rate 14 and nonlabored, oxygen saturation 99% on 3 L nasal cannula. HEENT: Pupils are equal and reactive. Oropharynx appears clear. Neck: Supple. Chest: Reveals crackles at the left base. Cardiac: S1, S2. Abdomen: Soft. Extremities: Without edema. LABORATORIES: White blood count 11.4, hemoglobin 7.0, platelet count 417,000. No new chest x-ray data. IMPRESSION: A 68-year-old with 1. Severe chronic obstructive pulmonary disease. 2. Chronic hypoxemic respiratory failure. 3. Pneumonia status post treatment earlier in this hospitalization. 4. Gastrointestinal bleed status post surgery . 5. Protein calorie malnutrition. PLAN: 1. Chest x-ray follow up tomorrow morning. 2. Continue bronchial hygiene. 3. Wean oxygen as tolerated. cc: Sam Corral MD
[2019-01-31] MEDS: HUMALOG SUBQ SCH ×2 (18:40→20:39)
[2019-01-31] MEDS: ZOFRAN IV PRN (19:35)
[2019-01-31] MEDS: REQUIP PO SCH (20:40)
[2019-01-31] MEDS: DILAUDID IV PRN (21:24)
[2019-02-01] MEDS: REGLAN IV SCH ×4 (00:18→17:49)
[2019-02-01] MEDS: XOPENEX NEB INH SCH ×6 (03:30→23:25)
[2019-02-01] MEDS: ATROVENT NEB INH SCH ×6 (03:30→23:25)
[2019-02-01] MEDS: ZOFRAN IV PRN ×3 (04:08→22:25)
[2019-02-01] MEDS: DILAUDID IV PRN ×2 (04:14→09:40)
[2019-02-01] MEDS: SYNTHROID PO SCH (06:10)
[2019-02-01] MEDS: PROTONIX PO SCH ×3 (06:10→21:26)
[2019-02-01] MEDS: HUMALOG SUBQ SCH ×4 (06:13→21:00)
--- NOTE | 2019-02-01 07:35 | Diag Imaging Result Doc PS360 ---
EXAM: CHEST-PORTABLE INDICATION: abnormal exam TECHNIQUE: One view COMPARISON: 01/29/2019 FINDINGS: The left PICC line is in stable position. Mildly prominent central vasculature and vague reticulonodular opacities bilaterally are grossly stable. No new consolidation is identified. Cardiac silhouette is stable. IMPRESSION: Stable chest. Electronically signed by Virgilio Munguia 02/01/2019 7:33 AM
[2019-02-01] MEDS: PULMICORT INH SCH ×2 (07:55→19:35)
[2019-02-01] MEDS: [UNRECOGNIZED DRUG - OTHER] IV SCH ×10 (09:41)
[2019-02-01] MEDS: AMINOSYN IV SCH ×10 (09:41)
[2019-02-01] MEDS: TPN ELECTROLYTES IV SCH ×10 (09:41)
--- NOTE | 2019-02-01 14:38 | PROGRESS NOTE ---
DATE: 02/01/2019 SUBJECTIVE: Patient has no major complaints. OBJECTIVE: Blood pressure is 111/56, heart rate of 99, respiratory rate of 18, temperature 98.9 degrees, 100%.Cardiovascular: Regular rate and rhythm. Pulmonary: Bilateral breath sounds clear to auscultation. Gastrointestinal: Soft, nontender, nondistended. Bowel sounds are positive. LABORATORY DATA: I do not have any new data today. PROBLEM LIST: 1. Gastrointestinal bleed. Hemoglobin and hematocrit have slowly trended downward. They have not been checked in a couple days, so we will repeat them tomorrow and follow. Status post ileostomy and seems to be doing okay. 2. Pneumonia. She had been on antibiotics ,currently not getting too much. I think she has completed her course. 3. Severe protein-calorie malnutrition. She has been on TPN. We are encouraging her diet. May advance her diet a little bit more and see how she does. DISPOSITION: Pending her clinical status, but she has no benefits for outpatient rehabilitation. She did pretty well with physical therapy, so I anticipate discharge soon in the next day or so. Family will have to work on assistance at home. cc: Iggy Gustafson MD
--- NOTE | 2019-02-01 16:44 | GENERAL SURGERY PROGRESS NOTE ---
DATE: 02/01/2019 SUBJECTIVE: Ms. Christian is doing remarkably well considering how sick she was when she came to the hospital. OBJECTIVE: Vital Signs: She is afebrile. Heart rate 85, blood pressure 111/56. LABORATORY DATA: Her white count is down to 11,400. The chemistry is okay. I am going to advance her to solid food in hopes that we can get her to rehab soon. I talked with her daughters today. cc: Demarcus Degroot MD
--- NOTE | 2019-02-01 21:10 | PULMONOLOGY PROGRESS NOTE ---
DATE: 02/01/2019 SUBJECTIVE: The patient is awake, alert, and conversant. She reports her appetite has significantly improved. She is without specific complaints. OBJECTIVE: Vital Signs: Blood pressure 107/46, heart rate 92, respiratory rate 14, oxygen saturation 96% on 3 L per nasal cannula. HEENT: Pupils are equal and reactive. Oropharynx appears clear. Neck: Is supple. Chest: Reveals prolonged expiratory phase without wheezing or rhonchi. Cardiac exam: Regular rate. Normal S1, normal S2. Abdomen: Is soft. Extremities: Without edema. LABORATORIES: Chest x-ray reveals mild vascular prominence with stable, nonspecific, reticulonodular infiltrates. IMPRESSION: A 68-year-old with: 1. Severe chronic obstructive pulmonary disease. 2. Chronic hypoxemic respiratory failure. 3. Status post abdominal surgery for gastrointestinal bleeding. 4. Status post treatment for pneumonia. 5. Protein-calorie malnutrition with improved p.o. intake. RECOMMENDATIONS: 1. Continue to wean oxygen as tolerated. 2. Continue bronchial hygiene. 3. Recommend followup chest x-ray in 4 to 6 weeks to ensure continued resolution of nonspecific infiltrates. 4. Physical therapy would be of benefit, but it appears she has no benefits available for rehabilitation. cc: Sam Corral MD
[2019-02-01] MEDS: REQUIP PO SCH (21:26)
[2019-02-02] MEDS: REGLAN IV SCH ×4 (00:46→18:30)
[2019-02-02] MEDS: DILAUDID IV PRN ×3 (01:24→18:33)
[2019-02-02] MEDS: ATROVENT NEB INH SCH ×6 (03:15→22:50)
[2019-02-02] MEDS: XOPENEX NEB INH SCH ×6 (03:15→22:50)
[2019-02-02] MEDS: PROTONIX PO SCH ×2 (06:02→20:29)
[2019-02-02] MEDS: SYNTHROID PO SCH (06:02)
[2019-02-02] MEDS: PULMICORT INH SCH ×2 (07:33→19:40)
[2019-02-02 08:01] LABS: BASO# 0.04 X1000 (0.0-0.2); BASO% 0.4 % (0.0-0.8); EOS# 0.27 X1000 (0.0-0.7); EOS% 2.5 % (0.0-10.0); HEMATOCRIT 24.4 % (37.0-47.0); HEMOGLOBIN 7.5 g/dL (12.0-16.0); IMM GRAN# 0.04 X1000 (0.0-0.04); IMM GRAN% 0.4 % (0.0-0.5); LYMPH# 1.01 X1000 (1.2-3.4); LYMPH% 9.2 % (20.5-51.1); MCH 28.8 PG (27-31); MCHC 30.7 g/dL (33-37); MCV 93.8 FL (81-99); MONO% 10.9 % (1.7-9.3); MPV 11.3 FL (7.4-10.4); NEUT% 76.6 % (42.2-75.2); PLT 424 X1000 (130-400); RDW 14.2 % (11.5-14.5); WBC 10.96 X1000 (4.8-10.8)
[2019-02-02 08:04] LABS: AGAP 5; BUN 16 mg/dL (8-22); CALCIUM 8.2 mg/dL (8.8-10.2); CHLORIDE 97 mmol/L (98-107); COSMO 268; CREATININE 0.8 mg/dL (0.5-0.9); ESTIMATED GFR > 60; GLUCOSE 71 mg/dL (70-104); POTASSIUM 4.9 mmol/L (3.5-5.1); SODIUM 134 mmol/L (136-145); TCO2 32 mmol/L (25-35)
[2019-02-02] MEDS: HUMALOG SUBQ SCH ×4 (09:54→20:29)
[2019-02-02] MEDS: ZOFRAN IV PRN (09:54)
[2019-02-02] MEDS ORDERED: G.I. COCKTAIL PO ONE (15:24)
--- NOTE | 2019-02-02 15:48 | PROGRESS NOTE ---
DATE: 02/02/2019 SUBJECTIVE: Patient looks well. No major complaints. She did not complain of anything to me, but then she told the nurse that she is having burning pain in her stomach. OBJECTIVE: Blood pressure 109/45, heart rate 119, respiratory rate 20, temperature 98.2 degrees, and 100% on 2 L.Cardiovascular: Regular rate and rhythm. Pulmonary: Bilateral breath sounds. Clear to auscultation. GI: Soft, nontender, and nondistended. Bowel sounds are positive. LABORATORY DATA: White count is 10. Hemoglobin and hematocrit 7 and 24, and platelets 424,000. Basic was normal. PROBLEM LIST: 1. GI bleed. She is now with ileostomy. Hemoglobin and hematocrit is stabilized. Continue to follow. 2. Pneumonia. She has completed her course of antibiotics. 3. Diabetes appears to be fairly well controlled. 4. Anemia likely related to gastrointestinal bleed, multiple issues. DISPOSITION: There were no real rehab options, so we are looking at home health and physical therapy. Anticipate discharge hopefully tomorrow. Her abdominal pain though may be related to her diet. We advanced her diet yesterday so that may be part of why she is uncomfortable so she is currently on Protonix, and a little bit of GI cocktail to see how she does. cc: Iggy Gustafson MD
[2019-02-02] MEDS: CARAFATE LIQUID PO SCH ×2 (16:17→20:29)
--- NOTE | 2019-02-02 18:46 | GENERAL SURGERY PROGRESS NOTE ---
DATE: 02/02/2019 TIME: 5:35 in the afternoon. SUBJECTIVE: Ms. Bradford is eating some. OBJECTIVE: She is afebrile. Heart rate is 123, blood pressure 99/40. PLAN: I think the plan is to remove her clint tomorrow and hopefully discharge her. Apparently rehab is not going to be an option. cc: Demarcus Degroot MD
[2019-02-02] MEDS: REQUIP PO SCH (20:29)
[2019-02-02] MEDS ORDERED: TYLENOL PR PRN (20:39)
[2019-02-02] MEDS ORDERED: TYLENOL PO PRN ×2 (20:41→20:44)
--- NOTE | 2019-02-02 21:46 | PULMONOLOGY PROGRESS NOTE ---
DATE: 02/02/2019 SUBJECTIVE: The patient is awake, alert, and conversant. She reports some intermittent abdominal pain but is tolerating p.o. intake. She denies pulmonary complaints. She is slightly angry this evening after having an argument with her daughter. OBJECTIVE: Vital Signs: Blood pressure 119/48, heart rate 90, respiratory rate 18, oxygen saturation 100% on nasal cannula. HEENT: Pupils are equal and reactive. Oropharynx appears clear. Neck: Is supple. Chest: Reveals prolonged expiratory phase. Cardiac exam: S1-S2. Abdomen: Is soft with ostomy in place and positive bowel sounds. Extremities: Without edema. IMPRESSION: A 68-year-old with: 1. Severe chronic obstructive pulmonary disease. 2. Chronic hypoxemic respiratory failure. 3. Status post abdominal surgery for gastrointestinal bleeding. 4. Status post completing of treatment for post postoperative pneumonia. 5. Protein-calorie malnutrition, with improving p.o. intake. RECOMMENDATION: 1. Anticipate transfer from start anticipate home rehab as outlined by Dr. Gustafson. 2. Continue oxygen therapy. 3. Recommend follow up chest x-ray in 4 to 6 weeks. cc: Sam Corral MD
[2019-02-03] MEDS: REGLAN IV SCH ×3 (00:03→11:34)
[2019-02-03] MEDS: ZOFRAN IV PRN ×2 (00:09→20:02)
[2019-02-03] MEDS: CARAFATE LIQUID PO SCH ×4 (01:39→20:03)
[2019-02-03] MEDS: ATROVENT NEB INH SCH ×6 (03:45→23:25)
[2019-02-03] MEDS: XOPENEX NEB INH SCH ×6 (03:46→23:25)
[2019-02-03] MEDS: HUMALOG SUBQ SCH ×4 (06:02→21:53)
[2019-02-03] MEDS: PROTONIX PO SCH ×2 (06:02→20:03)
[2019-02-03] MEDS: SYNTHROID PO SCH (06:02)
[2019-02-03] MEDS: PULMICORT INH SCH ×2 (07:28→19:36)
[2019-02-03] MEDS: DILAUDID IV PRN (10:23)
[2019-02-03] MEDS ORDERED: FERRLECIT 125 MG in NS 100 ML IV ONE (14:55)
--- NOTE | 2019-02-03 15:13 | PROGRESS NOTE ---
DATE: 02/03/2019 SUBJECTIVE: The patient has no major complaints. OBJECTIVE: Vital Signs: Blood pressure 98/52, heart rate of 111, respiratory rate of 14, temperature 97.9 degrees. Cardiovascular: Regular rate and rhythm. Pulmonary: Bilateral breath sounds. Clear to auscultation. GI: Soft, nontender, nondistended. Bowel sounds are positive. I do not have any new data today because we were planning to discharge her. PROBLEM LIST: 1. Gastrointestinal bleed, ileostomy. Hemoglobin and hematocrit have stabilized. She is still pretty anemic, but it has stabilized. Her iron levels are low somewhat, so she may benefit from some iron. Ferritin is high, but that may be, so I am going to hit her with a little bit of iron. 2. Pneumonia. She has finished her course of antibiotics. 3. Diabetes appears to be stable. DISPOSITION: Plan will be to discharge home. We cannot do rehab because she has no benefits insurance-[employer]. She has walked about 200 feet with PT, so plan will be to go home with home health and PT. Her daughter has requested, since she is going to be handling ostomy care, education, which will be set up tomorrow around 10:00, and then I am assuming she can be discharged at that time. I am going to go ahead and put in her discharge orders for tomorrow, and we will continue to follow. Appreciate input. cc: Iggy Gustafson MD
[2019-02-03] MEDS: REGLAN PO SCH (16:55)
--- NOTE | 2019-02-03 19:02 | GENERAL SURGERY PROGRESS NOTE ---
DATE: 02/03/2019 SUBJECTIVE: Ms. Bradford still is not eating very much. She just does not have much appetite. EXAMINATION: Her wound was fine. ASSESSMENT AND PLAN: I will put her on Megace to see if we can help stimulate her appetite a little bit. She will be going home soon. cc: Demarcus Degroot MD
[2019-02-03] MEDS: REQUIP PO SCH (20:03)
[2019-02-03] MEDS: MEGACE LIQUID PO SCH (20:03)
[2019-02-04] MEDS: CARAFATE LIQUID PO SCH ×3 (02:43→13:48)
[2019-02-04] MEDS: XOPENEX NEB INH SCH ×4 (03:30→15:08)
[2019-02-04] MEDS: ATROVENT NEB INH SCH ×4 (03:30→15:08)
[2019-02-04] MEDS: PROTONIX PO SCH (06:23)
[2019-02-04] MEDS: SYNTHROID PO SCH (06:23)
[2019-02-04] MEDS: REGLAN PO SCH ×2 (06:25→11:59)
[2019-02-04] MEDS: HUMALOG SUBQ SCH ×2 (06:48→12:00)
[2019-02-04] MEDS: PULMICORT INH SCH (08:49)
[2019-02-04] MEDS: MEGACE LIQUID PO SCH (09:02)
[2019-02-04 12:55] VITALS: BP 114/58
--- NOTE | 2019-02-04 14:16 | GENERAL SURGERY PROGRESS NOTE ---
DATE: 02/04/2019 SUBJECTIVE: She is eating just a little bit. OBJECTIVE: Vital Signs: She is afebrile. Heart rate is 117, blood pressure 120/60. Wound: Her wound is fine. Her stoma is functioning. ASSESSMENT AND PLAN: We have put her on Megace in hopes that we can stimulate her appetite. This may take a few days to take effect. I agree with home health since she does not qualify for rehab. I will see her back in the office in 2 weeks in followup. cc: Demarcus Degroot MD
--- NOTE | 2019-02-05 05:25 | DISCHARGE SUMMARY ---
ADMISSION DATE: 01/13/2019 DISCHARGE DATE: 02/04/2019 DISCHARGE DISPOSITION: Home with home physical therapy and home for home care agency. The patient and her daughter were provided teachings about ostomy care. DISCHARGE CONDITION: Alert and oriented x3. She is anxious to go home, and also a little nervous. Denies any chest pain or shortness of breath. Heart rate is slightly tachycardic with heart rate of 102 per minute on my evaluation, and regular rhythm. DISCHARGE DIAGNOSES: 1. Acute gastrointestinal bleed due to perforated gastric ulcer. 2. Acute blood loss anemia. 3. Status post laparotomy, truncal vagotomy, antrectomy, Billroth 1 anastomosis, right colectomy, diverting end ileostomy on 01/14. 4. Sepsis due to bilateral pneumonia. 5. Acute chronic obstructive pulmonary disease exacerbation. 6. New onset hypothyroidism. 7. Medication noncompliance. 8. History of chronic obstructive pulmonary disease and chronic hypoxic respiratory failure on home oxygen. 9. History of severe rheumatoid arthritis. OTHER DIAGNOSES: 1. History of rheumatoid arthritis. 2. Status gastroparesis after antrectomy. 3. Protein energy malnutrition. 4. Osteoporosis history. 5. History of medical non compliance 6. Severe COPD with active tobacco use 7. Chronic hypoxic respiratory failure and on home O2. DISCHARGE MEDICATIONS: 1. She is on home oxygen for her chronic obstructive pulmonary disease. 2. Advair 550 Diskus 1 inhaled daily. 3. Albuterol 2.5 mg inhaler every 6 hours. 4. Boniva 150 mg tablet for osteoporosis as per primary care doctor. 5. Etanercept injections as per outpatient provider. 6. Ropinirole 2 mg tab 0.5 tablets at nighttime. 7. Tiotropium 1 puff inhaled daily. 8. Sulfasalazine 1000 mg b.i.d. 9. Sucralfate 1 g every 6 hours, 1200 mL or 30 day supply has been prescribed. 10. Folic Acid 1 mg daily. 11. Iron carbonyl ascorbic acid 1 tablet daily, 30 tablets have been prescribed. 12. MiraLAX 17 g daily. 13. Pantoprazole 40 mg b.i.d., 180 tablets have been prescribed. She should take 40 mg b.i.d. for 3 months and then once daily. 14. Metoclopramide 5 mg with meals, 60 tablets have been prescribed. Instructions were provided for her to monitor for tardive dyskinesia. 15. Levothyroxine 25 mcg daily, 30 tablets have been prescribed. 16. Acetaminophen 650 mg every 6 hours as needed for pain. VITALS: At the time of discharge, temperature 98.6 degrees, pulse 102 on my evaluation, respiratory rate 18, blood pressure 114/58 and saturating 100% on 2 L nasal cannula. PHYSICAL EXAMINATION: Patient does not appear in any acute distress. Oral cavity is dry. Air entry bilaterally equal. No wheezing, rhonchi or crackles. S1, S2 normal. No murmur, rub, or gallop. Tachycardic. Abdomen is soft. There is a well-healed midline scar of laparotomy. Right lower quadrant ileostomy with yellowish output. No lower extremity edema. Mild abdominal tenderness in general with active bowel sounds. Sever rheumatoid arthritis related jassi-neck deformities in hands. LABORATORY DATA: Significant labs at the time of discharge, WBC 15739, hemoglobin 7.5, platelet 424,000. Normal electrolytes. BUN of 16, creatinine of 0.8. Blood sugar of 174. SIGNIFICANT MICROBIOLOGY DURING HOSPITAL ADMISSION: Blood culture, sputum culture, and urine culture did not have any growth. CONSULTATIONS DURING HOSPITALIZATION: 1. Pulmonology, Dr. Corral. 2. Gastroenterology, Dr. Lagos. 3. General Surgeon, Dr. Degroot. SIGNIFICANT IMAGING DURING HOSPITAL ADMISSION: 1. Chest, abdomen and pelvis CT on 01/13/2019 suggested fibrotic granulomatous changes in the lungs with superimposed pneumonia. Acute extravasation into an ulcer of the gastric antrum with fistulization to the transverse colon. 2. Gastric emptying study on 01/26 had suggested no gastric emptying after 90 minutes consistent with severe gastroparesis. 3. Chest x-ray on 01/17 had suggested worsening of pulmonary edema and infiltrate. Chest x-ray on February 01 had stable chest. PROCEDURES DURING HOSPITAL ADMISSION: On 01/14/2019, patient underwent exploratory laparotomy, truncal vagotomy with antrectomy and Billroth 1 anastomosis and right colectomy with diverting end ileostomy for large bleeding gastric ulcer with formation of largely gastrocolic fistula. HOSPITAL COURSE SUMMARY: Ms. Bradford is 68-year-old lady who had past medical history of bleeding gastric ulcers in the past and medication noncompliance who came in on 01/13/2019 with chief complaints of nausea, vomiting, and constipation. She had received exploratory laparotomy in October of 2018 with patching of perforated distal gastric ulcer. However, she was thought to be noncompliant with antacid medication. In the emergency room, she was noticed to have significant drop in her hemoglobin and hematocrit to 4 and 14. She was started on intravenous Protonix drip and CT scan was obtained which had suggested bleeding gastric ulcer with suspicion of fistula formation between antrum, stomach and transverse colon. GI was consulted. She was getting blood transfusion. She was taken to the OR and she underwent laparotomy, and antrectomy, Billroth type 1 anastomosis, and loop ileostomy. Postoperatively, she was initially kept n.p.o. and was started on liquid diet. However, her nausea and vomiting had continued so she underwent gastric emptying study, which had suggested severe gastroparesis. She was started on Reglan after which she was able to tolerate diet well. At the time of discharge, she was discharged on mechanical soft diet. Her laparotomy wound was well healing and her ileostomy was putting out brownish output. While inside the hospital, she had also developed sepsis due to bilateral pneumonia and chronic obstructive pulmonary disease exacerbation. She was treated with broad-spectrum antibiotics, nebulization and Lasix. At the time of discharge, she was on her baseline 3 L nasal cannula oxygen and was not in any shortness of breath. The patient was extensively counseled at the time of discharge about containing antacid antiulcer medications and quit smoking. All of her questions were answered. The patient had exhausted her rehab options because of insurance issues, so it was decided to ultimately discharge her home with home physical therapy. TIME SPENT: More than 30 minute was spent in discharging this patient. cc: MD YANIRA Shaffer
== END 2019-02-04 16:13 | disposition home health service (06) | DRG 853 ==
LOC: SUPCPDRO → ED 15:09 → SUATTDRO 20:59 → EDIPHOLD 20:59 → ICU 01-14 10:42 → 3S 01-21 00:22 → 3N 01-26 21:53
PROVIDERS: ATTEND Internal Medicine
CPT/HCPCS: 36430; 36569; 36584; 51702; 71010; 71045; 71260; 74000; 74018; 74177; 78264; 80048; 80053; 80069; 80202; 81001; 82465; 82607; 82728; 82746; 82805; 82948; 83540; 83550; 83605; 83735; 84100; 84134; 84439; 84443; 84450; 84478; 85014; 85018; 85025; 85045; 85610; 85730; 86850; 86900; 86901; 86920; 87040; 87070; 87088; 87205; 87449; 88302; 88307; 88313; 89220; 93005; 94002; 94003; 94640; 94660; 94761; 94762; 94799; 96365; 96366; 96368; 96375; 96376; 97110; 97116; 97162; 97530; 99285; 99291; A9270; A9541; C9113; J0131; J0330; J0610; J0692; J1170; J1630; J1815; J1940; J2060; J2185; J2248; J2250; J2270; J2370; J2405; J2550; J2765; J2916; J2920; J3010; J3370; J3430; J3475; J3480; J7030; J7040; J7042; J7050; J7070; P9016; P9017; P9035; P9047; Q9967; S0028; S0030; S0164; S0179; XXXXX

== ENCOUNTER 2019-02-06 14:48 | Inpatient (IN) ==
[2019-02-06] MEDS ORDERED: PROTONIX IV ONE (15:00)
[2019-02-06] MEDS ORDERED: SODIUM CHLORIDE 0.9% INJ ONE (15:00)
[2019-02-06] MEDS ORDERED: CARAFATE LIQUID PO ONE (15:06)
[2019-02-06 15:51] LABS: BASO# 0.04 X1000 (0.0-0.2); BASO% 0.2 % (0.0-0.8); EOS# 0.07 X1000 (0.0-0.7); EOS% 0.4 % (0.0-10.0); HEMOGLOBIN 10.2 g/dL (12.0-16.0); IMM GRAN# 0.13 X1000 (0.0-0.04); IMM GRAN% 0.7 % (0.0-0.5); LYMPH# 1.62 X1000 (1.2-3.4); LYMPH% 8.8 % (20.5-51.1); MCH 28.9 PG (27-31); MCHC 32.9 g/dL (33-37); MCV 87.8 FL (81-99); MONO# 1.71 X1000 (0.11-0.59); MONO% 9.3 % (1.7-9.3); MPV 11.3 FL (7.4-10.4); NEUT# 14.82 X1000 (1.4-6.5); NEUT% 80.6 % (42.2-75.2); PLT 539 X1000 (130-400); RBC 3.53 XMIL (4.2-5.4); RDW 13.4 % (11.5-14.5); WBC 18.39 X1000 (4.8-10.8)
[2019-02-06 15:58] LABS: INR 1.21; PROTIME 16.2 Seconds (11.0-16.0)
[2019-02-06] MEDS ORDERED: PROTONIX 80 MG in NS 80 ML IV ONE (16:00)
[2019-02-06] MEDS ORDERED: NS 1,000 ML IV ONE ×2 (16:08→18:46)
[2019-02-06 16:28] LABS: ALB/GLOB RATIO 0.5; ALBUMIN 2.4 g/dL (3.5-5.0); CALCIUM 8.4 mg/dL (8.8-10.2); CREATININE 1.4 mg/dL (0.5-0.9); TOTAL BILIRUBIN 0.25 mg/dL (0.20-1.00); TOTAL PROTEIN 7.7 g/dL (6.3-8.3)
[2019-02-06 16:38] LABS: POTASSIUM 6.3 mmol/L (3.5-5.1)
[2019-02-06] MEDS ORDERED: DUONEB (A & A) INH ONE (16:49)
[2019-02-06] MEDS ORDERED: D50W SYRINGE IV ONE (16:50)
[2019-02-06] MEDS ORDERED: HUMULIN R IV ONE (16:50)
[2019-02-06] MEDS ORDERED: CALCIUM GLUCONATE IV PUSH ONE (16:51)
[2019-02-06] MEDS ORDERED: KAYEXALATE PO ONE (16:52)
--- NOTE | 2019-02-06 17:06 | Diag Imaging Result Doc PS360 ---
EXAM: CHEST-1 VIEW 02/06/2019 HISTORY: SEPSIS PROTOCOL TECHNIQUE: AP portable upright at 1655 COMMENT: There is increased interstitial opacities bilaterally as well as some hyperinflation. Compared to 02/01/2019 the left lower lobe opacities have improved somewhat. The generalized interstitial opacity has not changed significantly since 12/10/2018 and is probably related to pulmonary fibrosis. IMPRESSION: Pulmonary fibrosis. Improved left lower lobe pneumonia. Electronically signed by Thad Dupree 02/06/2019 5:04 PM
--- NOTE | 2019-02-06 17:43 | Diag Imaging Result Doc PS360 ---
EXAM: CT ABDOMEN/PELVIS W/O CONTRAST 02/06/2019 HISTORY: abd pain TECHNIQUE: This exam was performed using automated exposure control, adjustment of mA or kV according to patient size, and/or use of iterative reconstruction technique. COMMENT: The current examination is compared with the previous study of 01/13/2019. There is increased interstitial and coarse alveolar opacity present in the lung bases particularly the left lower lobe. This is slightly worse than on the previous study. There is bronchiectasis in both lower lobes particularly the left lower lobe as well as in the visualized portion of the lingula. There is a fair amount of retained gastric contents. There are vascular calcifications in both kidneys. There are multiple right renal cysts. There is no evidence of hydronephrosis. There is a right upper quadrant ascending colostomy. This was not present at the time the previous study. There is an air-fluid level adjacent to the duodenum and gallbladder fossa as well as to the right of the pancreatic head which is probably the same as the collections seen on the previous study of 01/13/2019. This may be a portion of the stomach or duodenum. The apparent abscess which was present on image 58 of the previous study is not as clearly defined however there are some small collections of gas and fluid present around image 66 of the current study which may be in the same location. The sensitivity of this examination is diminished by the lack of intravenous contrast. There are number of prominent mesenteric nodes one of which measures almost 15 mm in diameter. This was not apparent on the previous study. There is fluid in the distal small bowel which is slightly more distended than it was previously. The distal colon is decompressed. There is no evidence of free fluid in the pelvis. The urinary bladder is not distended. IMPRESSION: 1. Pulmonary fibrosis and bronchiectasis. There is apparently some superimposed pneumonia in the left lower lobe. 2. Postsurgical changes. The possibility of gastric outlet obstruction or gastroparesis cannot be excluded. The possibility of a small residual abscess or other extraluminal fluid collection in the right upper quadrant cannot be excluded. 3. Ileus. Mesenteric adenopathy. Electronically signed by Thad Dupree 02/06/2019 5:40 PM
[2019-02-06 18:12] LABS: URINE SOURCE CATH
[2019-02-06 18:16] LABS: BILIRUBIN URINE NEGATIVE (NEGATIVE); BLOOD URINE TRACE (NEGATIVE); COLOR YELLOW; GLUCOSE URINE NEGATIVE (NEGATIVE); KETONE URINE NEGATIVE (NEGATIVE); LEUKOCYTES URINE NEGATIVE (NEGATIVE); NITRITE URINE NEGATIVE (NEGATIVE); PH URINE 6.5; PROTEIN URINE TRACE mg/dL (NEGATIVE); SP GRAVITY URINE 1.007; TURBIDITY URINE CLEAR (CLEAR); UROBILINOGEN URINE NORMAL (NORMAL)
[2019-02-06 18:18] LABS: UR EPITHELIAL CELLS <10 /HPF (<10); URINE BACTERIA NEGATIVE /HPF; URINE RBC <10 /HPF (<10); URINE WBC <10 /HPF (<10)
[2019-02-06] MEDS ORDERED: ZYVOX 600 MG/D5W 600 MG/300 ML IVPB IV ONE (18:28)
--- NOTE | 2019-02-06 18:28 | PROVIDER DOCUMENTATION ---
This chart was entered by Misty Cummings Scribe, acting as scribe for Dianne Hogan MD. HPI-Abdominal Pain/GI Problem - General Stated Complaint: general adult Time Seen by Provider: 02/06/19 14:54 Source: patient, EMS (first response) Allergies/Adverse Reactions: Patient Allergies Allergy/AdvReac Type Severity Reaction Status Date / Time codeine Allergy Intermediate RASH Verified 02/06/19 15:41 Penicillins Allergy Intermediate RASH Verified 02/06/19 15:41 Home Medications: Home Medication List Medication Instructions Recorded Confirmed Last Taken Type Albuterol [Albuterol Neb] 2.5 mg INH RTQ6H 11/02/13 02/06/19 02/06/19 History Fluticasone/Salmeterol [Advair 1 each IH DIRECTED 11/02/13 02/06/19 11/02/13 08:00 History 500-50 Diskus] Ibandronate [Boniva] 150 mg PO DIRECTED 11/02/13 02/06/19 Unknown History Ropinirole HCl [Requip] 1 mg PO HS 11/02/13 02/06/19 11/01/13 21:00 History Sulfasalazine [Sulfazine] 1,000 mg PO BID 11/02/13 02/06/19 11/01/13 08:00 History Tiotropium [place] Inhaler 1 puff INH RTDAILY 11/02/13 02/06/19 11/01/13 21:00 History [Spiriva] Folic Acid 1 mg PO DAILY #0 tablet 11/06/13 02/06/19 Unknown Rx Etanercept [Enbrel Sureclick] 50 mg IM DIRECTED 11/02/18 02/06/19 Unknown History Polyethylene Glycol 3350 [Miralax] 17 gm PO DAILY #15 powder, packet 11/17/18 02/06/19 Unknown Rx Iron Carbonyl/Ascorbic Acid 1 ea PO DAILY #30 tab 02/03/19 02/06/19 Unknown Rx [Icar-C] Acetaminophen [Tylenol] 650 mg PO Q6H PRN PRN tab 02/04/19 02/06/19 2 Days Ago Rx ~02/04/19 Levothyroxine [Synthroid] 25 microgm PO DAILY@0700 #30 tab 02/04/19 02/06/19 Unknown Rx Metoclopramide [Reglan] 5 mg PO TID AC #60 tab 02/04/19 02/06/19 Unknown Rx Pantoprazole [Protonix] 40 mg PO BID #180 tab 02/04/19 02/06/19 Unknown Rx Sucralfate [Carafate Liquid] 1 gm PO Q6HR #1200 ml 02/04/19 02/06/19 Unknown Rx - History of Present Illness-ABD Nature of Presenting Problems: 68 yowf presents to the ed via ems (first response) with c/o weakness and abdominal pain (epigastric) with decreased appetite some nausea. pt has had recent sx and was dc from this hospital after a 21 day stay. pt had a colostomy bag placed and had part of intestine removed. pt has a dejesus cath hooked up to the colostomy bag on exam and [facility] home health does care. pt appears dry and is thin and ill appearing. pt sts pain is getting worse and has poor oral intake with decreased appetite. Abdominal Pain Onset Location: reports: epigastric Quality of Pain: reports: aching Severity in ED: reports: moderate Onset/Duration: reports: other (01/13/19) Timing: reports: still present, getting worse Activities at Onset: reports: light activity Exposure to sick contacts?: Yes Modifying Factors: improves with: nothing. worse with: eating, palpation Associated Symptoms: reports: diarrhea, nausea, weakness. denies: arm pain, back/neck pain, chest pain, fever/chills, shortness of breath, vomiting Last BM: this morning Dark Stools Present?: reports: none noticed Rectal Bleeding: reports: none # of Diarrhea Episodes: 2 (has colostomy bag) Rectal Pain: reports: none # of Vomiting Episodes: 0 Emesis Description: reports: none Bruising or Bleeding Gums?: No Similar Symptoms Previously?: Yes Recently seen or treated by another doctor?: Yes Review of Systems - Adult - REVIEW OF SYSTEMS - ADULT Constitutional: reports: see HPI, siria. denies: chills, fever Eyes: reports: no symptoms reported Ears, Nose, Mouth & Throat: reports: no symptoms reported Cardiovascular: denies: chest pain, palpitations Respiratory: denies: cough, shortness of breath, wheezing Gastrointestinal: reports: see HPI, abdominal pain (epigastric), diarrhea, nausea, poor appetite. denies: vomiting Genitourinary: reports: no symptoms reported Musculoskeletal: reports: see HPI, muscle weakness Integumentary: reports: no symptoms reported Neurological: reports: no symptoms reported Psychiatric: reports: no symptoms reported Endocrine: reports: no symptoms reported Hematologic/Lymphatic: reports: no symptoms reported Allergic/Immunologic: reports: no symptoms reported All Other Systems: Reviewed and Negative Past History - Adult - PAST MEDICAL HISTORY-ADULT Review of Records: reports: Old Records Reviewed, Nursing Assessment Review, Medications Reviewed, Social history reviewed & non-contributory. Major Childhood Illnesses: reports: denies history Cardiovascular: reports: HTN Respiratory: reports: asthma, COPD, pneumonia Gastrointestinal: reports: GERD, other (had part of intestines removed) Obstetrical/Gynecological: reports: denies history Genitourinary: reports: denies history Musculoskeletal: reports: arthritis, chronic pain Hand Dominance: Right Handed Neurological: reports: CVA Endocrine/Immune: reports: thyroid disorder Other Conditions: reports: denies history - PRIOR SURGERIES/PROCEDURES Surgical/Procedure History: reports: recent surgery - IMMUNIZATION STATUS Childhood Immunizations: See Nurse Assessment Flu Vaccine: See Nurse Assessment - FAMILY HISTORY Family History: reviewed, not pertinent - SOCIAL HISTORY Smoking: quit less than 1 year Substance Use: denies Alcohol Use Frequency: never Living Situation: family Physical Exam-General - PHYSICAL EXAM-ADULT Initial Vital Signs Reviewed: Yes - CONSTITUTIONAL General Appearance: alert, mild distress, cachetic, thin - EYES Eyes: PERRL/EOMI - HEAD, EARS, NOSE, MOUTH & THROAT HENMT: negative: moist mucous membranes (dry) - NECK Neck: non-tender, normal inspection - RESPIRATORY Respiratory: chest non-tender, lungs clear, normal breath sounds - CARDIOVASCULAR Cardiovascular: normal peripheral pulses, regular rate, rhythm - GASTROINTESTINAL (ABDOMEN) Abdominal Exam: normal bowel sounds, soft, tenderness (generalized), other (has colostomy bag hooked to a dejesus cath) - LYMPHATIC Lymphatic: no adenopathy - MUSCULOSKELETAL Back Exam: normal inspection, no CVA tenderness, no vertebral tenderness Extremity: normal range of motion, normal inspection, no pedal edema, no calf tenderness, normal capillary refill, pelvis stable - SKIN Integumentary: normal turgor, warm/dry, pallor - NEUROLOGIC Neurologic: grossly normal, no motor/sensory deficits - PSYCHIATRIC Psych/Mental Status: normal mood/affect, normal thought content, normal thought process, oriented x 3 Progress - PLAN OF CARE/RESULTS Result Diagrams: 02/06/19 15:20 02/06/19 15:20 - EKG 1 Time of EKG reading by physician:: 15:51 EKG Read and Signed by:: Dianne Hogan EKG Interpretation (*Must complete 3 of following elements*): Normal Rate: 111 Rhythm: sinus tachycardia [place]: normal QRS: normal [place] Interval: normal ST Wave: normal - CONSULTS/PCP/HOSPITALIST Notification #1 *Consult/PCP/Hospitalist*: AMOL Cardenas, Dr. Sanabria Time Discussed: 18:26 Consult Disposition: Admit (will take care of antibiotic) #2 Consult: Dr. Redmond Time Discussed: 18:26 Consult Disposition: Admit (to hospitalist) Departure - Departure Date of Disposition Decision: 02/06/19 Time of Disposition Decision: 18:27 DIAGNOSIS: Acute hyperkalemia, DEEPA (acute kidney injury), Intra-abdominal abscess Disposition: ADMITTED INPATIENT 09 Certified Medical Emergency: Emergent Condition: Stable Referrals and Follow-Ups: Marcus Rodriguez [Primary Care Provider] - - Critical Care Note This patient required my direct & personal management of CC.: No Attestation - Physician/ FRANCOIS Attestation Patient care was provided by Advanced Practice Provider:: No The physician spent face to face time with patient:: Yes Advanced Practice Provider documentation review:: Supervising physician onsite and consulted in the evaluation and care of this patient. The physician did have a face to face encounter with the patient. This chart was documented by the indicated scribe, (Misty Cummings Scribe) and accurately reflects the services I performed and decisions made by Edison coyle,Dianne Galvez MD, as attested by the provider's signature.
[2019-02-06] MEDS: FLAGYL 500 MG/NS 500 MG/100 ML IVPB IV SCH ×3 (18:30→23:30)
[2019-02-06] MEDS ORDERED: ZOSYN 2.25 GM in NS 50 ML IV ONE (18:30)
[2019-02-06] MEDS ORDERED: MAXIPIME 1 GM in NS 50 ML IV ONE (18:34)
[2019-02-06] MEDS ORDERED: FLAGYL 500 MG/NS 500 MG/100 ML IVPB IV ONE (18:34)
[2019-02-06] MEDS ORDERED: REQUIP PO ONE (19:18)
[2019-02-06 20:01] LABS: CALCIUM 7.9 mg/dL (8.8-10.2); CREATININE 1.3 mg/dL (0.5-0.9); POTASSIUM 5.8 mmol/L (3.5-5.1)
--- NOTE | 2019-02-06 20:10 | HISTORY AND PHYSICAL ---
CHIEF COMPLAINT: Nausea, not feeling well, abdominal discomfort. HISTORY OF PRESENT ILLNESS: Ms. Bradford is 68 years old lady with past medical history of COPD with active smoking, chronic hypoxic respiratory failure on home 3 L nasal cannula oxygen, recurrent gastrointestinal bleed with perforated gastric ulcers requiring laparotomy with omental patch in October 2018 and eventually perforated gastric ulcer with gastrocolic fistula requiring exploratory laparotomy, antrectomy, right colectomy and truncal vagotomy in January 2019 who was just discharged 2 days prior to current admission, comes in with chief complaints of nausea and not feeling well. The patient was recently in the hospital for prolonged time because of perforated gastric ulcer requiring exploratory laparotomy, antrectomy, right colectomy, truncal vagotomy and ileostomy. Her postoperative course was largely unremarkable except ileus and she was discharged on antacid medication as well as Reglan. However patient said she has not been feeling well after going home and had only eaten her meals once in the last 2 days and today she has been feeling terrible. She could not specifically tell me the exact symptoms but she states that she has been extremely nauseous and had 1 episode of vomiting in the morning time and that is why her daughter brought her to the emergency room. In the emergency room she was found to be afebrile, tachycardic, tachypneic, normotensive. Her initial lab evaluation had suggested hemoconcentration, hyponatremia, hyperkalemia, hypochloremia, acute kidney injury and CT scan of the abdomen and pelvis was remarkable for left lower lobe pneumonia, gastroparesis and possible small residual abscess in the right upper quadrant. Surgery was consulted who had recommended keeping patient on antibiotics and patient was treated with calcium gluconate, dextrose, insulin and normal saline and hospitalist team was consulted further management. At the time of my evaluation patient denies any chest pain, shortness of breath, vomiting, or abdominal pain. Her ileostomy is functioning fine which has brownish to greenish output. The patient is restless. REVIEW OF SYSTEMS: Positive for nausea. Positive for restless legs. Negative for headache, blurring of vision. Negative for chest pain. Negative for shortness of breath. Negative for urinary symptoms. PAST MEDICAL HISTORY: COPD with emphysema and pulmonary fibrosis, chronic hypoxic respiratory failure on home 3 L nasal cannula oxygen, essential hypertension, questionable rheumatoid arthritis, hypothyroidism, recurrent perforated gastric ulcers requiring surgeries, medication noncompliant, Pseudomonas aeruginosa pneumonia. PAST SURGICAL HISTORY: Appendectomy, cholecystectomy, exploratory laparotomy in October 2018 for bleeding and perforated gastric ulcer requiring omental patch and in January 2019 for again perforated gastric ulcer requiring antrectomy, right colectomy for suspected gastrocolic fistula and truncal vagotomy with Billroth 1 anastomosis and end ileostomy . SOCIAL HISTORY: Active smoking since age 16 about 1 to 1-1/2 pack per day. Occasional alcohol drinker. No recreational drug use. FAMILY HISTORY: Mother had coronary artery disease and breast cancer. Father had CVA. ALLERGY: Codeine and penicillin. Penicillin causes rash. HOME MEDICATION: She was recently discharged on Advair 550 Diskus 1 inhaled daily, albuterol 2.5 mg every 6 hours, Boniva 150 mg tablet for osteoporosis, etanercept as per outpatient provider, ropinirole 1 mg at nighttime, tiotropium 1 puff inhaled b.i.d., sulfasalazine 1000 mg b.i.d., sucralfate 1 g every 6 hours, folic acid 1 mg daily, iron carbonyl 1 tablet daily, MiraLAX 17 g daily, pantoprazole 40 mg b.i.d., metoclopramide 5 mg every 8 hours, levothyroxine 25 mcg daily, acetaminophen 650 mg every 6 hours. CURRENT VITALS: Temperature 97.3 degrees, pulse 110, respiratory rate 16, blood pressure 115/65, saturating 100% on 3 L nasal cannula. PHYSICAL EXAMINATION: Appears very anxious and irritated. Oral cavity is moist. Air entry bilateral equal. No wheeze, rhonchi, crackles. S1, S2 normal. No murmur or gallop. ABDOMEN: Soft. Midline scar of laparotomy which is healed, nontender. She has a right quadrant ileostomy with greenish output, in last couple of hours she has had about 200 mL of output. LABS: Suggestive of leukocytosis, normocytic anemia, thrombocytosis, hyponatremia, hyperkalemia, hypochloremia, acute kidney injury, negative troponins. Microbiology, blood culture is in lab. IMAGING: Abdomen, pelvis CT had pulmonary fibrosis, bronchiectasis, superimposed pneumonia in the left lower lobe, postsurgical changes with possibility of gastric outlet obstruction, gastroparesis and possibility of small residual abscess in the right upper quadrant and ileus and mesenteric adenopathy . ASSESSMENT AND PLAN: 1. Suspected sepsis from left lower lobe pneumonia however currently the CT scan images not available versus residual intraabdominal abscess that she had presented with a few weeks ago following which she underwent a laparotomy, however the latter causing sepsis currently is less probable considering she does not have an abdominal tenderness. 2. Volume depletion due to poor po intake. 3. Hyponatremia, hypochloremia, hyperkalemia with acute kidney injury. 4. Chronic obstructive pulmonary disease with chronic hypoxic respiratory failure. 5. Anxiety and restless legs syndrome. 6. History of recurrent perforated gastric ulcers status post antrectomy and ileostomy. PLAN: 1. Start patient on intravenous fluids and follow up with serial BMP. 2. Keep patient on broad-spectrum intravenous antibiotics for suspected sepsis and deescalate antibiotics as per blood culture results. 3. Keep patient on nebulized bronchodilators. 4. Continue patient's home pantoprazole and sucralfate. Surgery team will be consulted. DISPOSITION: I will continue to monitor patient on medical floor. Plan of care discussed with her. All of her questions been answered. cc: Jamil Sanabria MD MTDD
[2019-02-06] MEDS ORDERED: SODIUM CHLORIDE 0.9% INJ SCH (20:24)
[2019-02-06] MEDS: NS 1,000 ML IV SCH (20:40)
[2019-02-06] MEDS: ALBUTEROL NEB INH SCH (21:28)
[2019-02-06 21:59] LABS: CALCIUM 8.5 mg/dL (8.8-10.2); CREATININE 1.3 mg/dL (0.5-0.9); POTASSIUM 4.8 mmol/L (3.5-5.1)
[2019-02-06] MEDS: REGLAN IV SCH (23:10)
[2019-02-07] MEDS ORDERED: ZOSYN 2.25 GM in NS 50 ML IV SCH (00:30)
[2019-02-07] MEDS: FLAGYL 500 MG/NS 500 MG/100 ML IVPB IV SCH ×3 (02:43→07:43)
[2019-02-07] MEDS: ALBUTEROL NEB INH SCH ×4 (03:20→21:00)
[2019-02-07] MEDS ORDERED: D50W SYRINGE IV ONE (03:35)
[2019-02-07] MEDS ORDERED: REQUIP PO ONE (03:35)
[2019-02-07] MEDS: REGLAN IV SCH ×2 (03:55→09:35)
[2019-02-07] MEDS ORDERED: D50W SYRINGE IV PRN (04:25)
[2019-02-07] MEDS ORDERED: MAXIPIME 1 GM in NS 50 ML IV SCH (07:00)
[2019-02-07 07:13] LABS: ALB/GLOB RATIO 0.5; CALCIUM 7.8 mg/dL (8.8-10.2); CREATININE 1.1 mg/dL (0.5-0.9); MAGNESIUM 1.6 mg/dL (1.5-2.7); POTASSIUM 4.6 mmol/L (3.5-5.1); TOTAL BILIRUBIN 0.19 mg/dL (0.20-1.00); TOTAL PROTEIN 5.9 g/dL (6.3-8.3)
[2019-02-07 07:18] LABS: BASO# 0.02 X1000 (0.0-0.2); BASO% 0.2 % (0.0-0.8); EOS# 0.05 X1000 (0.0-0.7); EOS% 0.5 % (0.0-10.0); HEMATOCRIT 23.7 % (37.0-47.0); HEMOGLOBIN 7.5 g/dL (12.0-16.0); IMM GRAN# 0.09 X1000 (0.0-0.04); IMM GRAN% 0.8 % (0.0-0.5); LYMPH# 1.27 X1000 (1.2-3.4); LYMPH% 11.9 % (20.5-51.1); MCH 28.4 PG (27-31); MCHC 31.6 g/dL (33-37); MCV 89.8 FL (81-99); MONO# 1.07 X1000 (0.11-0.59); MPV 11.2 FL (7.4-10.4); NEUT# 8.18 X1000 (1.4-6.5); NEUT% 76.6 % (42.2-75.2); PLT 389 X1000 (130-400); RBC 2.64 XMIL (4.2-5.4); RDW 13.4 % (11.5-14.5); WBC 10.68 X1000 (4.8-10.8)
[2019-02-07] MEDS: SPIRIVA INH SCH (07:47)
--- NOTE | 2019-02-07 09:02 | PROGRESS NOTE ---
DATE: 02/07/2019 Ms. Kamilla Bradford has recently been discharged after undergoing a distal gastric resection with B1 anastomosis and also a colon resection with end-ileostomy per Dr. Degroot. She re-presented to our emergency department about 2 days after discharge with an elevated white blood cell count and problems taking care of her ileostomy. She also had multiple electrolyte abnormalities. A CT scan was performed on her admission which showed the possibility of gastroparesis. There was some fluid in the right upper quadrant. There was some mesenteric adenopathy, pretty nonspecific. She was admitted. She has been started on fluids and IV antibiotics. We were having some problems with leakage from her ileostomy around the bag. It must be noted that her electrolytes are improved over the last 12 hours but her hematocrit is 24%. Her white blood cell count is now normal. Her heart rate is 103, blood pressure is 120/54, O2 saturation 99% and she is afebrile. I feel that her ileostomy output, she is not keeping up with p.o. fluids and that has made her electrolytes abnormal. She is significantly anemic and that needs to be followed. Her white blood cell count has returned towards normal. She has been placed on IV antibiotics. The stomal nurse needs to again assess her ileostomy and see which bag is best for her. I will have her placed on Dr. Degroot's list and notify him of her readmission. cc: Violetta Cummings MD
[2019-02-07] MEDS: ZOFRAN IV PRN (09:35)
[2019-02-07] MEDS: NS 1,000 ML IV SCH (09:36)
[2019-02-07] MEDS: PROTONIX IV SCH ×2 (10:16→21:55)
--- NOTE | 2019-02-07 10:59 | Diag Imaging Result Doc PS360 ---
CHEST-PORTABLE - 02/07/2019 INDICATION: fu COMPARISON: 02/06/2019 FINDINGS: Stable hyperexpanded lungs. Stable diffuse interstitial infiltrates. Heart size remains stable. IMPRESSION: No change from prior. Electronically signed by Faustino Villarreal 02/07/2019 10:57 AM
--- NOTE | 2019-02-07 11:00 | Diag Imaging Result Doc PS360 ---
KUB ABDOMEN - 02/07/2019 INDICATION: illeus COMPARISON: 01/27/2019 FINDINGS: There is a colostomy in the right abdomen. There is very little bowel gas. There is a nonobstructive bowel gas pattern. No free air or abnormal calcifications. IMPRESSION: No acute disease. Electronically signed by Faustino Villarreal 02/07/2019 10:58 AM
[2019-02-07] MEDS ORDERED: NS 1,000 ML IV SCH (11:21)
[2019-02-07] MEDS: TYLENOL PO PRN (13:50)
--- NOTE | 2019-02-07 14:01 | PROGRESS NOTE ---
DATE: 02/07/2019 INTERVAL HISTORY: Patient's potassium had normalized. She is feeling much better today as compared to yesterday. I discussed with her about stopping antibiotic which I confirmed with the surgical team. SUBJECTIVE: She denies any chest pain. She denies any shortness of breath. She denies abdominal pain or nausea/vomiting. OBJECTIVE: Vitals: Temperature 97.3 degrees, pulse 116, respiratory rate 20, blood pressure 125/57, saturating 97% 3 L nasal cannula. General: Does not appear in any acute distress. Oral cavity is moist. Air entry bilaterally equal. No wheeze, rhonchi, crackles. S1, S2 normal. No murmur, rub, or gallop. She appears cachectic. Abdomen is soft. Midline healed scar of recent laparotomy. She has an ileostomy with yellowish output on the right quadrant. No lower extremity edema. She is alert, oriented x3. Appears anxious. LABORATORIES: Suggestive of resolution of leukocytosis, normocytic anemia, normal platelet count. Resolution of hyponatremia, hyperkalemia, hypochloremia, and improvement in acute kidney injury. Her troponins yesterday were negative. MICROBIOLOGY: Blood culture is in lab. IMAGING: Chest x-ray performed today had no change from the prior, and it did detect stable diffuse infiltrate like fibrosis. Her abdominal x-ray today morning had no acute disease. ASSESSMENT AND PLAN: 1. 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 Continue intravenous fluid resuscitation. Start patient on oral diet. I educated her about proper electrolyte replacement and oral diet. 2. Suspected sepsis. My suspicion is low, considering on review of my images she does not have left lower lobe pneumonia. It looks like fibrosis and intra-abdominal fluid collection has decreased from the previous CT and she is not having abdominal tenderness. I will stop the antibiotics. Blood cultures are in lab. 3. Acute kidney injury, hyponatremia, hyperkalemia, hypochloremia. Continue intravenous fluids. Now it is improving. Follow up daily BMP. 4. Multiple episodes of perforated gastric ulcer status post surgery twice with recent surgery of antrectomy, truncal vagotomy, Billroth type 1 anastomosis, and end ileostomy. Continue Protonix, sucralfate. Surgery team is on board. 5. Normocytic anemia. I will continue patient on folic acid, and when she is able to tolerate by mouth adequately, I will start her on multivitamin with iron. 6. Anxiety and restless legs syndrome. Continue home ropinirole. 7. History of chronic obstructive pulmonary disease. Continue the patient on albuterol/ipratropium nebulization, tiotropium. 8. Gastroparesis and sever protein energy malnutrition. I will continue patient on home metoclopramide. Start her on mechanical soft diet. DISPOSITION: I will continue to monitor patient inside the hospital. Plan of care discussed with the patient. I also called the patient's daughter who has requested that I should discharge the patient to rehabilitation. Plan of care discussed with her. All of her questions have been answered. I will involve social director team. cc: Jamil Sanabria MD MTDD
[2019-02-07] MEDS: REGLAN PO SCH (16:09)
[2019-02-07] MEDS: CARAFATE LIQUID PO SCH ×2 (16:09→21:54)
[2019-02-07] MEDS ORDERED: ZYVOX 600 MG/D5W 600 MG/300 ML IVPB IV SCH (18:30)
[2019-02-07] MEDS: ADVAIR 500/50 DISKUS INH SCH (19:25)
[2019-02-07] MEDS: REQUIP PO SCH (21:54)
[2019-02-08] MEDS: CARAFATE LIQUID PO SCH ×4 (02:39→20:46)
[2019-02-08] MEDS: ALBUTEROL NEB INH SCH ×4 (03:15→21:30)
[2019-02-08] MEDS: REGLAN PO SCH ×3 (06:27→15:50)
[2019-02-08] MEDS: SYNTHROID PO SCH (06:28)
[2019-02-08 07:44] LABS: BASO# 0.03 X1000 (0.0-0.2); BASO% 0.3 % (0.0-0.8); EOS# 0.11 X1000 (0.0-0.7); EOS% 1.1 % (0.0-10.0); HEMATOCRIT 24.8 % (37.0-47.0); HEMOGLOBIN 7.9 g/dL (12.0-16.0); IMM GRAN# 0.09 X1000 (0.0-0.04); IMM GRAN% 0.9 % (0.0-0.5); LYMPH# 1.06 X1000 (1.2-3.4); LYMPH% 10.2 % (20.5-51.1); MCH 29.2 PG (27-31); MCHC 31.9 g/dL (33-37); MCV 91.5 FL (81-99); MONO# 0.92 X1000 (0.11-0.59); MONO% 8.9 % (1.7-9.3); MPV 10.3 FL (7.4-10.4); NEUT# 8.18 X1000 (1.4-6.5); NEUT% 78.6 % (42.2-75.2); PLT 376 X1000 (130-400); RBC 2.71 XMIL (4.2-5.4); RDW 13.8 % (11.5-14.5); WBC 10.39 X1000 (4.8-10.8)
[2019-02-08 07:48] LABS: CALCIUM 7.9 mg/dL (8.8-10.2); CREATININE 1.2 mg/dL (0.5-0.9); POTASSIUM 4.8 mmol/L (3.5-5.1)
[2019-02-08] MEDS: ADVAIR 500/50 DISKUS INH SCH ×2 (07:50→19:24)
[2019-02-08] MEDS: SPIRIVA INH SCH (07:50)
--- NOTE | 2019-02-08 07:55 | EKG Report ---
Test Performed on : 02/06/2019 3:51:06 PM Test Reason : CP Blood Pressure : / mmHG Vent. Rate : 111 BPM Atrial Rate : 111 BPM P-R Int : 150 ms QRS Dur : 088 ms QT Int : 346 ms P-R-T Axes : 064 058 058 degrees QTc Int : 470 ms Sinus tachycardia. Otherwise normal ECG When compared with ECG of 14-JAN-2019 04:48, (Unconfirmed) Previous ECG has undetermined rhythm, needs review Unconfirmed Result
[2019-02-08] MEDS: FOLIC ACID PO SCH (09:05)
[2019-02-08] MEDS: PROTONIX PO SCH ×2 (09:05→20:46)
[2019-02-08] MEDS: NS 1,000 ML IV SCH ×3 (11:13→15:59)
--- NOTE | 2019-02-08 14:25 | GENERAL SURGERY PROGRESS NOTE ---
DATE: 02/08/2019 SUBJECTIVE: Ms. Bradford came back in the hospital on Friday. She simply was not thriving at home. Her daughter did not feel that she could care for her. On admission, she proved to have some intravascular volume depletion. Since her admission, she has been better hydrated. Her electrolytes were also improved. RECOMMENDATION: She is going to require Reglan on a regular basis until her stomach starts to function better. This is simply going to take time. We will watch her hemoglobin as well in the hospital. cc: Demarcus Degroot MD
--- NOTE | 2019-02-08 14:50 | PROGRESS NOTE ---
DATE: 02/08/2019 INTERVAL HISTORY: No acute events overnight. The patient did develop recurrence of acute kidney injury, and she was started on intravenous fluids. The patient was evaluated by Surgery. Formal evaluation note is pending. The patient told me that her ileostomy is working okay. She does also have hypoglycemia, and she has not been eating that well because she does not feel like. I discussed with her about medical condition, and the fact that I had discussed her clinical condition with her oldest daughter. VITALS: Temperature 98.3 degrees, pulse 106, respiratory rate 14, blood pressure 128/65 and saturating 100% on room air. PHYSICAL EXAMINATION: General: Not in any acute distress. Appears anxious and cachectic. Oral cavity is dry. Lungs: Air entry bilaterally equal. No wheeze, rhonchi or crackles. Cardiovascular: S1, S2 normal. No murmur or gallop. Abdomen: Soft. Well- healed scar with laparotomy Nontender. Right quadrant ileostomy putting out yellowish output liquidy. LABORATORY: Labs suggestive of normocytic anemia, normal platelet count. Hyponatremia, which is recurrent, hypochloremia, low bicarbonate. Again, acute kidney injury, which is persistent after intravenous fluids were stopped yesterday. Blood culture did not have any growth to date. Telemetry status has sinus tachycardia with PAC. ASSESSMENT AND PLAN: 1. 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 Restart intravenous fluid resuscitation, and continue oral diet. Dietitian is on board. 2. Hyponatremia, hypochloremia, and acute kidney injury because of volume depletion and poor p.o. intake. Continue intravenous fluids. Follow up BMP tomorrow. 3. Multiple episodes of perforated gastric ulcer in the past, status post repair with latest surgery of antrectomy, truncal vagotomy, Billroth type 1 anastomosis, and end ileostomy in January of 2019, and residual gastroparesis. Continue Protonix, sucralfate and metoclopramide. 4. Others. Her leukocytosis was likely because of volume depletion and hemoconcentration on presentation. Blood culture did not have any growth; continue folic acid for anemia and add iron as tolerated; continue ropinirole for anxiety and restless legs syndrome; albuterol ipratropium nebulization. Will start ipratropium for COPD. DISPOSITION: The patient remains inside the hospital for recurrence of acute kidney injury. I will discuss with the social psychologist team depending on her course if she could become a candidate for long-term acute care facility or [facility] considering she has multiple medical needs, and might need frequent intravenous fluids depending on her kidney function or oral intake. I will keep her daughter informed. cc: MD YANIRA Shaffer
[2019-02-08] MEDS: ZOFRAN IV PRN (20:46)
[2019-02-08] MEDS: REQUIP PO SCH ×2 (20:46→22:46)
[2019-02-09] MEDS: CARAFATE LIQUID PO SCH ×4 (02:35→20:21)
[2019-02-09] MEDS: ALBUTEROL NEB INH SCH ×4 (03:24→22:11)
[2019-02-09] MEDS: NS 1,000 ML IV SCH ×3 (05:17→18:50)
[2019-02-09] MEDS: REGLAN PO SCH ×3 (06:23→16:17)
[2019-02-09] MEDS: SYNTHROID PO SCH (06:23)
[2019-02-09] MEDS: ADVAIR 500/50 DISKUS INH SCH ×2 (07:58→22:11)
[2019-02-09] MEDS: SPIRIVA INH SCH (07:58)
[2019-02-09 08:21] LABS: CALCIUM 7.9 mg/dL (8.8-10.2); POTASSIUM 4.7 mmol/L (3.5-5.1)
[2019-02-09] MEDS: FOLIC ACID PO SCH (08:26)
[2019-02-09] MEDS: PROTONIX PO SCH ×2 (08:26→20:22)
[2019-02-09] MEDS: MEGACE LIQUID PO SCH (08:29)
[2019-02-09] MEDS: ZOFRAN IV PRN ×2 (11:43→19:33)
--- NOTE | 2019-02-09 12:03 | PROGRESS NOTE ---
DATE: 02/09/2019 INTERVAL HISTORY: No acute events overnight. SUBJECTIVE: She states that she is having a better day. She has been able to eat something. I advised her to take small frequent meals rather than a large meal. I discussed with her about the complexity of her medical problems and need for close medical supervision and I suggested her that longterm could be a better option for her and she is agreeable and she wants us to provide detailed information on that with her children as well. She denies any chest pain, shortness of breath, nausea, vomiting, abdominal pain. OBJECTIVE: Vital signs: Temperature 98.2 degrees, pulse 113, respiratory rate 22, blood pressure 104/52, saturating 100% on 3 L nasal cannula. General: She appears volume depleted, not in any acute distress. Cachectic. HEENT: Oral cavity is moist. Lungs: Air entry bilaterally equal. No wheeze, rhonchi, crackles. Cardiovascular: S1, S2 normal. No murmur, rub, or gallop. Abdomen: Soft. Well-healed scar of laparotomy. There is a right lower quadrant ileostomy with yellowish output. Abdomen is otherwise nontender. Neurologic: She is anxious, alert, oriented x3. Nonfocal. LABORATORY DATA: Suggestive of improving hyponatremia, resolution of hypochloremia, improving acute kidney injury. Her blood glucose was 78. No blood culture growth to date. ASSESSMENT AND PLAN: 1. 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 intake. Continue intravenous fluids, oral diet. Dietitian is on board for severe protein energy malnutrition. 2. Hyponatremia and acute kidney injury because of volume depletion, poor intake, now improving on intravenous fluids. 3. Multiple episodes of perforated gastric ulcer in the past, status post repair with later surgery of antrectomy, truncal vagotomy, billroth type 1 anastomosis and end ileostomy in January 2019 with residual gastroparesis. Continue ileostomy care, Protonix, sucralfate and metoclopramide. 4. Others. Continue folic acid for anemia and add iron as tolerated; ropinirole for restless legs syndrome; albuterol inhaled nebulization for COPD; megestrol for appetite stimulation, and I will add heparin for DVT prophylaxis since it increases the risk of it. 5. Disposition. The patient remains inside the hospital for need for continuous intravenous fluids. I discussed with the patient about longterm options and I have conveyed the plans with the Social Work team as well. Awaiting further discussion of Social Work team with the patient and her daughter. cc: MD YANIRA Shaffer
[2019-02-09] MEDS ORDERED: HEPARIN SUBQ SCH (18:00)
[2019-02-09] MEDS: REQUIP PO SCH (20:21)
[2019-02-09] MEDS: TYLENOL PO PRN (20:21)
[2019-02-10] MEDS: NS 1,000 ML IV SCH ×2 (02:41→15:28)
[2019-02-10] MEDS: CARAFATE LIQUID PO SCH ×3 (02:42→13:06)
[2019-02-10] MEDS: ALBUTEROL NEB INH SCH ×2 (03:21→11:32)
[2019-02-10] MEDS: REGLAN PO SCH ×2 (06:21→11:42)
[2019-02-10] MEDS: SYNTHROID PO SCH (06:22)
[2019-02-10 06:38] LABS: BASO# 0.03 X1000 (0.0-0.2); BASO% 0.2 % (0.0-0.8); EOS# 0.19 X1000 (0.0-0.7); EOS% 1.3 % (0.0-10.0); HEMOGLOBIN 7.6 g/dL (12.0-16.0); IMM GRAN# 0.15 X1000 (0.0-0.04); LYMPH# 1.67 X1000 (1.2-3.4); LYMPH% 11.4 % (20.5-51.1); MCH 28.5 PG (27-31); MCHC 31.7 g/dL (33-37); MCV 89.9 FL (81-99); MONO# 1.01 X1000 (0.11-0.59); MONO% 6.9 % (1.7-9.3); MPV 10.1 FL (7.4-10.4); NEUT# 11.64 X1000 (1.4-6.5); NEUT% 79.2 % (42.2-75.2); PLT 355 X1000 (130-400); RBC 2.67 XMIL (4.2-5.4); RDW 13.7 % (11.5-14.5); WBC 14.69 X1000 (4.8-10.8)
[2019-02-10] MEDS: ZOFRAN IV PRN (06:42)
[2019-02-10 06:57] LABS: AGAP 8; BUN 11 mg/dL (8-22); CALCIUM 7.6 mg/dL (8.8-10.2); CHLORIDE 103 mmol/L (98-107); COSMO 257; CREATININE 0.9 mg/dL (0.5-0.9); ESTIMATED GFR > 60; GLUCOSE 76 mg/dL (70-104); MAGNESIUM 1.4 mg/dL (1.5-2.7); POTASSIUM 4.8 mmol/L (3.5-5.1); SODIUM 129 mmol/L (136-145); TCO2 18 mmol/L (25-35)
[2019-02-10] MEDS: MEGACE LIQUID PO SCH (08:42)
[2019-02-10] MEDS: PROTONIX PO SCH (08:42)
[2019-02-10] MEDS: FOLIC ACID PO SCH (08:42)
[2019-02-10] MEDS: ADVAIR 500/50 DISKUS INH SCH (11:33)
[2019-02-10] MEDS: SPIRIVA INH SCH (11:33)
[2019-02-10] MEDS: MAGNESIUM SULFATE 2 GM/S.W.I. 2 GM/50 ML IVPB IV SCH ×2 (13:12→14:09)
--- NOTE | 2019-02-10 14:36 | DISCHARGE SUMMARY ---
ADMISSION DATE: 02/06/2019 DISCHARGE DATE: 02/10/2019 DISCHARGE DISPOSITION: [facility] to [facility] from there. DISCHARGE CONDITION: Hemodynamically stable. Patient is using 2 L of nasal cannula. She is still on intravenous normal saline at 75 mL per hour. DISCHARGE DIAGNOSES: 1. Profound clinical volume depletion. 2. Hyponatremia, hypochloremia, hyperkalemia, and acute kidney injury. 3. Postgastrectomy dumping syndrome. 4. Leukocytosis because of stress response related to volume depletion. 5. Severe protein calorie malnutrition. 6. Anxiety. 7. Restless legs syndrome. 8. Gastroparesis. OTHER DIAGNOSES: 1. History of multiple perforated peptic ulcer disease requiring multiple laparotomies, the latest one being on 01/14/2019, requiring antrectomy, truncal vagotomy, right colectomy, and Billroth-I anastomosis with end ileostomy. 2. History of chronic obstructive pulmonary disease. 3. Chronic hypoxic respiratory failure. 4. Rheumatoid arthritis. 5. Chronic anemia due to multiple blood loss. 6. Hypothyroidism. 7. History of medication noncompliance. DISCHARGE MEDICATIONS: 1. Oxygen 2 to 3 L nasal cannula. 2. Intravenous normal saline at 75 mL per hour, the dose of which needs to be adjusted based on intake, output, kidney function. 3. Albuterol nebulization 2.5 mg inhaled every 6 hours. 4. Fluticasone-salmeterol 550 Diskus 1 inhaled b.i.d. 5. Tiotropium bromide 1 puff inhaled daily. 6. Ropinirole 2 mg at nighttime. 7. Sucralfate 1 g every 6 hours for 30 days. 8. Pantoprazole 40 mg b.i.d. for 90 days. 9. Folic acid 1 mg daily. 10. Dextrose 50% syringe intravenous as needed for blood sugar less than 60. 11. Megestrol acetate 800 mg daily for 15 days and the dose needs to be adjusted or medication stopped based on her appetite and risk for DVT. 12. Metoclopramide 5 mg t.i.d. with meals for gastroparesis. 13. Levothyroxine 25 mcg daily. 14. Acetaminophen 650 mg every 6 hours as needed for abdominal pain. VITALS: At the time of discharge, temperature 98.6 degrees, pulse 104, respiratory rate 16, blood pressure 113/57, saturating 100% on 2 L nasal cannula. PHYSICAL EXAMINATION: Severe protein energy malnutrition. Looks anxious. Not in any acute distress. Oral cavity is moist. Lungs: Air entry bilaterally equal. No wheeze, rhonchi, or crackles. S1 and S2 normal. No murmur or gallop. Abdomen is soft, nontender. She has a midline scar of laparotomy wound which is well healed. Right quadrant ileostomy with yellowish output. No lower extremity edema. She is alert and oriented x3. SIGNIFICANT LABS: At the time of discharge, WBC 14,000, hemoglobin 7.6, platelets 355,000. Sodium 129, potassium 4.8, chloride 103, carbon dioxide 18, BUN 11, creatinine 0.9, magnesium 1.4 and she is getting intravenous magnesium. Calcium is 7.6. SIGNIFICANT MICROBIOLOGY DURING HOSPITAL ADMISSION: Blood culture did not have any growth. SIGNIFICANT IMAGING: Chest x-ray on admission had pulmonary fibrosis. Abdomen and pelvis CT on the 06 of February had pulmonary fibrosis, bronchiectasis. There were postsurgical changes in the abdomen, suggestive of gastroparesis and mild ileus. Abdominal x-ray on February 07 did not have any acute disease. Chest x-ray on February 07 did not have any change from the prior x- ray. CONSULTATIONS DURING HOSPITALIZATION: General surgery, Dr. Degroot. HOSPITAL COURSE SUMMARY: Ms. Bradford is a 68-year-old, lady with a past medical history of multiple perforated peptic ulcers and active tobacco use, who was recently in the hospital for another episode of perforated peptic ulcer requiring laparotomy, antrectomy, truncal vagotomy, right-sided colectomy, Billroth type 1 anastomosis, and ileostomy, and who was discharged home, who came in because of abdominal discomfort, not feeling well, and poor appetite of 2 days' duration 2 days after discharge. In the emergency room, she was found to have profound clinical volume depletion with multiple electrolyte abnormalities including hyponatremia, acute kidney injury, and hyperkalemia. She was started on intravenous fluid resuscitation following which her electrolytes improved. She was encouraged to take oral intake and was started on Reglan for her gastroparesis, which improved her appetite. Considering multiple medical problems and complexity of it, the patient and her family were advised a long-term [facility] facility and they agreed. The patient will be discharged on the medications and intravenous fluids. DISCHARGE INSTRUCTIONS: 1. Intravenous fluids should be continued at current rate and dose should be adjusted or stopped based on clinical response, intake and output, and kidney function. 2. She should follow up with her sales exhibitor and discussed about need for rheumatoid arthritis medication based on the recent surgery and activity of rheumatoid arthritis. She should also discuss about continuing treatment of osteoporosis and vitamin B12 accordingly with her regular doctor. 3. The patient and her family were extensively counseled about complexity and her medical needs. All of their questions were answered. More than 30 minutes were spent in discharging this patient. 4. Close input and output management. cc: Jamil Sanabria MD MTDRemigio
[2019-02-10 15:38] VITALS: BP 104/55
== END 2019-02-10 15:38 | DRG 682 ==
LOC: ED 14:48 → 4N 19:45
PROVIDERS: ATTEND Internal Medicine
CPT/HCPCS: 51701; 71010; 71045; 74000; 74018; 74176; 80048; 80053; 81001; 82550; 82948; 83605; 83735; 84134; 84484; 85025; 85610; 85730; 87040; 93005; 94640; 94761; 94762; 96361; 96365; 96366; 96367; 96375; 97110; 97162; 97530; 99285; A9270; C9113; J0610; J0692; J2405; J2765; J3475; J7030; P9612; S0030; S0164; S0179; XXXXX

== ENCOUNTER 2019-02-27 13:41 | Inpatient (IN) ==
[2019-02-27 14:28] LABS: BASO# 0.02 X1000 (0.0-0.2); BASO% 0.4 % (0.0-0.8); EOS# 0.02 X1000 (0.0-0.7); EOS% 0.4 % (0.0-10.0); HEMATOCRIT 27.9 % (37.0-47.0); HEMOGLOBIN 8.8 g/dL (12.0-16.0); IMM GRAN# 0.06 X1000 (0.0-0.04); IMM GRAN% 1.2 % (0.0-0.5); LYMPH# 0.65 X1000 (1.2-3.4); LYMPH% 12.8 % (20.5-51.1); MCHC 31.5 g/dL (33-37); MCV 88.9 FL (81-99); MONO% 7.9 % (1.7-9.3); MPV 11.8 FL (7.4-10.4); NEUT# 3.93 X1000 (1.4-6.5); NEUT% 77.3 % (42.2-75.2); PLT 69 X1000 (130-400); RBC 3.14 XMIL (4.2-5.4); RDW 15.4 % (11.5-14.5); WBC 5.08 X1000 (4.8-10.8)
[2019-02-27 14:44] LABS: ALB/GLOB RATIO 0.7; ALBUMIN 2.2 g/dL (3.5-5.0); CALCIUM 8.5 mg/dL (8.8-10.2); CREATININE 1.3 mg/dL (0.5-0.9); POTASSIUM 3.9 mmol/L (3.5-5.1); TOTAL BILIRUBIN 0.17 mg/dL (0.20-1.00); TOTAL PROTEIN 5.3 g/dL (6.3-8.3)
--- NOTE | 2019-02-27 15:02 | PROVIDER DOCUMENTATION ---
This chart was entered by Ya Mcdonald Scribe, acting as scribe for Perico Yo MD. HPI-General Adult - General Chief Complaint: General Adult Stated Complaint: POSS INFECTION Time Seen by Provider: 02/27/19 13:54 Source: patient Allergies/Adverse Reactions: Patient Allergies Allergy/AdvReac Type Severity Reaction Status Date / Time codeine Allergy Intermediate RASH Verified 02/27/19 13:58 Penicillins Allergy Intermediate RASH Verified 02/27/19 13:58 Home Medications: Home Medication List Medication Instructions Recorded Confirmed Last Taken Type Ropinirole HCl [Requip] 2 mg PO HS 11/02/13 02/18/19 11/01/13 21:00 History Folic Acid 1 mg PO DAILY #0 tablet 11/06/13 02/18/19 Unknown Rx Iron Carbonyl/Ascorbic Acid 1 ea PO DAILY #30 tab 02/03/19 02/18/19 Unknown Rx [Icar-C] Acetaminophen [Tylenol] 650 mg PO Q6H PRN PRN tab 02/04/19 02/18/19 2 Days Ago Rx ~02/04/19 Pantoprazole [Protonix] 40 mg PO BID #180 tab 02/10/19 02/18/19 Unknown Rx Sucralfate [Carafate Liquid] 1 gm PO Q6HR #1200 ml 02/10/19 02/18/19 Unknown Rx Albuterol [Albuterol Neb] 0.63 mg INH RTQ6H 02/18/19 02/18/19 Unknown History Fluticasone/Salmeterol [Advair 1 inh PO Q12HR 02/18/19 02/18/19 Unknown History 500-50 Diskus] Levothyroxine [Synthroid] 25 microgm PO HS 02/18/19 02/18/19 Unknown History Mirtazapine 7.5 mg PO HS 02/18/19 02/18/19 Unknown History Tiotropium [place] [Spiriva 18 mcg PO DAILY 02/18/19 02/18/19 Unknown History Respimat] Acetaminophen [Tylenol] 650 mg PO Q4H PRN PRN tab 02/26/19 Unknown Rx Arformoterol Neb [Brovana Neb] 15 microgm INH BID 30 Days #1 neb 02/26/19 Unknown Rx Esomeprazole Magnesium [Nexium] 40 mg PO BID 30 Days #1 capsule. 02/26/19 Unknown Rx Guaifenesin E.r. [Mucinex] 600 mg PO Q12HR 30 Days #60 tab 02/26/19 Unknown Rx Levothyroxine [Synthroid] 25 microgm PO DAILY@0700 30 Days 02/26/19 Unknown Rx #30 tab Megestrol Acetate [Megace Liquid] 200 mg PO BID 30 Days #60 udc 02/26/19 Unknown Rx Metoclopramide [Reglan] 10 mg PO AC + HS 30 Days #120 tab 02/26/19 Unknown Rx Phenol 1.4% [place] [Chloraseptic 1 ml MT PRN PRN bottle 02/26/19 Unknown Rx [place]] Ropinirole [Requip] 2 mg PO QHS 30 Days #30 tab 02/26/19 Unknown Rx Sucralfate [Carafate Liquid] 1 gm PO Q6HR 30 Days #1 udc 02/26/19 Unknown Rx - History of Present Illness -Gen Adult Nature of Presenting Problems: 68yof presents to ED by EMS cc possible infection around the ileostomy site. Pt was released yesterday after a 9 day stay in . Pt is afrebrile and nontoxic in appearance. Location of Pain/Injury: reports: abdomen Severity: reports: mild Onset/Duration: reports: this morning Timing: reports: still present Context/Activities at Onset: reports: light activity Modifying Factors: improves with: nothing Associated Symptoms: reports: denies symptoms Similar Symptoms Previously?: Yes Recently seen or treated by another doctor?: Yes (was just released from 02/26/19) Review of Systems - Adult - REVIEW OF SYSTEMS - ADULT Constitutional: reports: see HPI. denies: chills, fever, fatique Eyes: reports: no symptoms reported Ears, Nose, Mouth & Throat: reports: no symptoms reported Cardiovascular: reports: no symptoms reported Respiratory: reports: no symptoms reported Gastrointestinal: reports: see HPI. denies: abdominal pain, constipation, diarrhea, nausea, vomiting Genitourinary: reports: no symptoms reported Musculoskeletal: reports: no symptoms reported Integumentary: reports: see HPI, other (redness at the ileostomy site) Neurological: reports: no symptoms reported Psychiatric: reports: no symptoms reported Endocrine: reports: no symptoms reported Hematologic/Lymphatic: reports: no symptoms reported Allergic/Immunologic: reports: no symptoms reported All Other Systems: Reviewed and Negative Past History - Adult - PAST MEDICAL HISTORY-ADULT Review of Records: reports: Nursing Assessment Review, Medications Reviewed, Social history reviewed & non-contributory. Major Childhood Illnesses: reports: denies history Cardiovascular: reports: HTN Respiratory: reports: asthma, COPD, pneumonia Gastrointestinal: reports: GERD, other (had part of intestines removed) Obstetrical/Gynecological: reports: denies history Genitourinary: reports: denies history Musculoskeletal: reports: arthritis, chronic pain Neurological: reports: CVA Endocrine/Immune: reports: thyroid disorder Other Conditions: reports: denies history - PRIOR SURGERIES/PROCEDURES Surgical/Procedure History: reports: recent surgery - IMMUNIZATION STATUS Childhood Immunizations: See Nurse Assessment Flu Vaccine: See Nurse Assessment - FAMILY HISTORY Family History: reviewed, not pertinent Physical Exam-General - PHYSICAL EXAM-ADULT Initial Vital Signs Reviewed: Yes - CONSTITUTIONAL General Appearance: appears well, alert, no apparent distress, thin. negative: anxious, combative - EYES Eyes: PERRL/EOMI, pink conjunctivae. negative: meningismus, pale conjunctivae, photophobia - HEAD, EARS, NOSE, MOUTH & THROAT HENMT: normocephalic/atraumatic, moist mucous membranes, normal ENT inspection. negative: angioedema - NECK Neck: non-tender, full range of motion, supple, normal inspection. negative: C- spine tenderness - RESPIRATORY Respiratory: chest non-tender, lungs clear, normal breath sounds, no pleuratic chest pain, no respiratory distress, no accessory muscle use. negative: crackles, rales, rhonchi, stridor, wheezing - CARDIOVASCULAR Cardiovascular: normal peripheral pulses, regular rate, rhythm, no edema, no gallop, no JVD, no murmur. negative: bradycardia, tachycardia - GASTROINTESTINAL (ABDOMEN) Abdominal Exam: normal bowel sounds, non tender, soft, no organomegaly, no pulsatile mass. negative: distended, rigid, rebound, tenderness, hernia, mass - MUSCULOSKELETAL Extremity: normal range of motion, non-tender, normal gait, normal inspection, no pedal edema, no calf tenderness, normal capillary refill, pelvis stable. negative: deformity, swelling - SKIN Integumentary: erythema (mild at the ileostomy sidte on right side of abdomen), other (healing bedsore on sacrum). negative: cyanosis, diaphoresis, jaundice - NEUROLOGIC Neurologic: hospital coder II-XII nml as tested, grossly normal, no motor/sensory deficits. negative: facial droop, focal weakness - PSYCHIATRIC Psych/Mental Status: normal mood/affect, normal thought content, normal thought process, oriented x 3. negative: disoriented x 3, anxious, disheveled, depressed affect Progress - PLAN OF CARE/RESULTS Progress/Plan/Lab Results: Vital Signs - 8 hr 02/27/19 13:48 Temperature 98.8 F Pulse Rate 83 Respiratory Rate 18 Blood Pressure 95/56 O2 Sat by Pulse Oximetry 94 L Orders Category Date Time Status CBC WITH ELECTRONIC DIFF [HEME] Stat Lab 02/27/19 14:04 Ordered CMP [COMPREHENSIVE METABOLIC PANEL] [CHEM] Stat Lab 02/27/19 14:04 Uncollected Result Diagrams: 02/27/19 14:15 02/27/19 14:15 Departure - Departure Date of Disposition Decision: 02/27/19 Time of Disposition Decision: 14:52 DIAGNOSIS: Peristomal skin irritation and breakdown Disposition: HOME 01 Certified Medical Emergency: Emergent Condition: Stable Additional Freetext Instructions: RETURN TO ER IF WORSE REDNESS, SWELLING, FEVER, CHANGE IN MENTAL STATUS. FOLLOW UP WITH YOUR PMD 1-2 DAYS ED Follow Up Instructions: You have been treated by a care provider in the Emergency Department. These instructions are being provided to you so you can have an understanding of how to care for yourself upon discharge. Upon discharge from the Emergency Department, you are responsible for making arrangements for follow-up care by a physician of your choice. Take all prescribed medications as directed. Return to the Emergency Department immediately for any new or worsening symptoms. You may call the Physician Referral phone number at [phone] to obtain a list of Physicians who are taking new patients. Referrals and Follow-Ups: Juan Degroot [Primary Care Provider] - Discharge Education: Ileostomy Home Guide - Critical Care Note This patient required my direct & personal management of CC.: No Attestation - Physician/ FRANCOIS Attestation Patient care was provided by Advanced Practice Provider:: No The physician spent face to face time with patient:: Yes Advanced Practice Provider documentation review:: Supervising physician onsite and consulted in the evaluation and care of this patient. The physician did have a face to face encounter with the patient. This chart was documented by the indicated scribe, (Ya Mcdonald, [employer]) and accurately reflects the services I performed and decisions made by me, Perico Yo MD, as attested by the provider's signature.
[2019-02-27] MEDS ORDERED: CHLORASEPTIC SPRAY MT PRN (16:35)
[2019-02-27] MEDS ORDERED: LEVAQUIN 750 MG/D5W 750 MG/150 ML IVPB IV SCH (16:45)
--- NOTE | 2019-02-27 17:40 | Diag Imaging Result Doc PS360 ---
CHEST-PORTABLE - 02/27/2019 INDICATION: pneumonia COMPARISON: 02/22/2019 FINDINGS: Stable cardiomegaly. Stable coarse interstitial infiltrates bilaterally that are rather peripheral. No new infiltrates. No pneumothorax or large pleural effusion. IMPRESSION: No change from prior. Electronically signed by Faustino Villarreal 02/27/2019 5:38 PM
[2019-02-27] MEDS ORDERED: BROVANA NEB INH SCH (19:30)
[2019-02-27] MEDS ORDERED: MYCOSTATIN CREAM TOP ONE (19:41)
[2019-02-27] MEDS: REMERON PO SCH (20:32)
[2019-02-27] MEDS: LEVAQUIN PO SCH (20:32)
[2019-02-27] MEDS: REGLAN PO SCH (20:32)
[2019-02-27] MEDS: NEXIUM PO SCH (20:32)
[2019-02-27] MEDS: MUCINEX PO SCH (20:32)
[2019-02-27] MEDS: MEGACE LIQUID PO SCH (20:32)
[2019-02-27] MEDS: CARAFATE LIQUID PO SCH (20:32)
[2019-02-27] MEDS: REQUIP PO SCH (20:33)
[2019-02-27] MEDS ORDERED: PROTONIX PO SCH (21:00)
[2019-02-27] MEDS ORDERED: NON-FORMULARY MED (Ropinirole Hcl [Requip] 2 MG) PO SCH (21:00)
[2019-02-27 21:07] LABS: URINE SOURCE CATH
[2019-02-27 21:08] LABS: BILIRUBIN URINE NEGATIVE (NEGATIVE); BLOOD URINE TRACE (NEGATIVE); COLOR YELLOW; GLUCOSE URINE NEGATIVE (NEGATIVE); KETONE URINE 10 mg/dL (NEGATIVE); LEUKOCYTES URINE NEGATIVE (NEGATIVE); NITRITE URINE NEGATIVE (NEGATIVE); PH URINE 6.5; PROTEIN URINE 100 mg/dL (NEGATIVE); SP GRAVITY URINE 1.017; TURBIDITY URINE CLEAR (CLEAR); UROBILINOGEN URINE NORMAL (NORMAL)
[2019-02-27 21:11] LABS: UR EPITHELIAL CELLS <10 /HPF (<10); URINE BACTERIA NEGATIVE /HPF; URINE WBC <10 /HPF (<10)
[2019-02-27 21:19] LABS: URINE CASTS NONE SEEN; URINE CRYSTALS NONE SEEN; URINE SMALL ROUND CELLS NONE SEEN; URINE YEAST PRESENT
[2019-02-27] MEDS: ADVAIR 500/50 DISKUS INH SCH (23:18)
[2019-02-27] MEDS: ALBUTEROL NEB INH SCH (23:19)
[2019-02-28] MEDS: CARAFATE LIQUID PO SCH ×4 (01:52→20:53)
--- NOTE | 2019-02-28 03:21 | HISTORY AND PHYSICAL ---
CHIEF COMPLAINT: Ileostomy site irritation and suspected cellulitis. HISTORY OF PRESENT ILLNESS: Ms. Shi is a 68 years old lady with past medical history of advanced COPD, chronic hypoxic respiratory failure multiple times, bleeding peptic ulcer disease requiring gastrectomy and Billroth procedure, status post ileostomy in late January 2019 and developing dumping syndrome, who was discharged on 02/26/2019 to home with home hospice. Is brought in by the family for suspected cellulitis around the ileostomy site. Family currently has left the emergency room and is not available to provide meaningful history and I get this history from the emergency room physician as well as nurses. Apparently, hospice team had called the patient's family 3 times since yesterday night to provide instructions about ileostomy bag change but the patient's family was not able to somehow take care of it. [facility] have been informed and I am told that they would address the issue on Friday. I am also told that family has left the emergency room saying that they cannot take her back home and if we send patient back home they are going to call the ambulance and send her right back to the hospital. However, patient is not aware of this development. Subjectively, patient denies any complaints except some itching every now and then around the ostomy site. She is mildly short of breath and has been coughing sputum. Chest x-ray performed suggests bilateral lower lobe pneumonia which is persistent. The patient herself states that she was with her daughters during daytime, but is not sure why she was brought to the hospital. She is asking me if I could send her home. REVIEW OF SYSTEM: Positive for mild shortness of breath, worsening cough. Negative for headache. Negative for dizziness, chest pain or shortness of breath. Negative for unusual nausea. Positive for mild abdominal cramp. PAST MEDICAL HISTORY: 1. COPD with emphysema and pulmonary fibrosis. 2. Chronic hypoxic respiratory failure on home 3 L nasal cannula. 3. Essential hypertension. 4. Rheumatoid arthritis. 5. Hypothyroidism. 6. Recurrent perforated gastric ulcers requiring multiple surgeries. 7. Medication noncompliance. 8. Pseudomonas aeruginosa pneumonia. PAST SURGICAL HISTORY: 1. Appendectomy. 2. Cholecystectomy. 3. Exploratory laparotomy in October 2018 for bleeding and perforated gastric ulcer requiring omental patch. 4. 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 SOCIAL HISTORY: Active smoking since age 16 about 1-1/2 pack per day which she has not been smoking for last 2 to 3 months since multiple hospitalization. Occasional alcohol drinker. No recreational drug use. FAMILY HISTORY: Mother had coronary artery disease and breast cancer. Father had CVA. ALLERGIES: Codeine and penicillin. Penicillin causes rash. HOME MEDICATION: Ropinirole 2 mg at nighttime, folic acid 1 mg daily, iron carbonyl ascorbic acid 1 tablet daily, acetaminophen 650 mg every 6 hours as needed for pain, sucralfate 1 g every 6 hours, Nexium 40 mg b.i.d., albuterol inhaler every 6 hours, fluticasone salmeterol every 12 hours, tiotropium 18 mcg daily, mirtazapine 7.5 mg at nighttime, levothyroxine 25 mg at nighttime, formoterol nebulization 15 mcg b.i.d., megestrol 200 mg b.i.d., metoclopramide 10 mg with meals and nighttime. VITALS: Temperature of 98.6 degrees, pulse 86, respiratory rate 16, blood pressure 96/51, saturating 90 to 98 percent on 3 L nasal cannula. Her MAP is less than 65 mmHg. PHYSICAL EXAMINATION: GENERAL: Cachectic, chronically ill-appearing. HEENT: She has facial pallor. Dry oral cavity. LUNGS: Air entry bilaterally equal. No wheeze, rhonchi, crackles. CARDIOVASCULAR: S1, S2 normal. No murmur or gallop. ABDOMEN: Soft. She has a right quadrant ileostomy. There is mild erythema around ileostomy which looks like because of chronic irritation without any signs of cellulitis. There is no undue tenderness. EXTREMITIES: No lower extremity edema. NEUROLOGIC: She is alert, currently oriented to herself. She recognizes me. She recognizes hospital. She is not entirely oriented with the situation and she does not know why she was brought to the hospital. Otherwise, examination is nonfocal. Pupils are equal, reacting to light. She is moving both upper and lower extremities spontaneously. LABORATORIES: Suggestive of normocytic anemia, thrombocytopenia, hyponatremia, hypochloremia, acute kidney injury, hypoglycemia. Microbiology, no data. IMAGING: Chest x-ray was performed. The read is pending. However, on my evaluation, she does have worsening bilateral lower lobe infiltrate suggestive of pneumonia. ASSESSMENT: 1. Bilateral lower lobe pneumonia on baseline history of chronic obstructive pulmonary disease. 2. Chronic hypoxic respiratory failure. 3. Ileostomy site irritation without evidence of cellulitis. 4. History of recurrent perforated gastric ulcers requiring gastrectomy and ileostomy. 5. Recent home discharge with home hospice with presumably caregiver fatigue bringing her to the hospital. 6. History of chronic obstructive pulmonary disease and chronic hypoxic respiratory failure. PLAN: I will start patient on levofloxacin. I am not sure if the patient has an IV access at the moment and we will try to get an IV access. She has had significant difficulty getting an IV access on previous admission. Considering patient was discharged on home hospice, I will try and avoid too many invasive procedures or getting a central line. I will start patient on regular diet. I will keep her on most of her home medications including proton pump inhibitors b.i.d., sucralfate, metoclopramide with meals. The family has already left the emergency room. I will try and get in touch with the patient's daughter and try and get details about the history. If caregiver fatigue was the reason, [facility] has also been consulted to see if in future the patient would need nursing home facility with hospice discharge. cc: Jamil Sanabria MD MTDD
[2019-02-28] MEDS: ALBUTEROL NEB INH SCH ×4 (03:48→23:36)
[2019-02-28] MEDS: SYNTHROID PO SCH (06:13)
[2019-02-28] MEDS: REGLAN PO SCH ×4 (06:13→20:53)
[2019-02-28 06:37] LABS: BASO# 0.03 X1000 (0.0-0.2); BASO% 0.4 % (0.0-0.8); EOS# 0.05 X1000 (0.0-0.7); EOS% 0.7 % (0.0-10.0); HEMATOCRIT 30.2 % (37.0-47.0); HEMOGLOBIN 9.6 g/dL (12.0-16.0); IMM GRAN# 0.07 X1000 (0.0-0.04); LYMPH# 1.02 X1000 (1.2-3.4); LYMPH% 14.7 % (20.5-51.1); MCHC 31.8 g/dL (33-37); MCV 91.2 FL (81-99); MONO# 0.48 X1000 (0.11-0.59); MONO% 6.9 % (1.7-9.3); MPV 12.2 FL (7.4-10.4); NEUT# 5.28 X1000 (1.4-6.5); NEUT% 76.3 % (42.2-75.2); PLT 113 X1000 (130-400); RBC 3.31 XMIL (4.2-5.4); RDW 15.8 % (11.5-14.5); WBC 6.93 X1000 (4.8-10.8)
--- NOTE | 2019-02-28 06:52 | PROGRESS NOTE ---
DATE: 02/27/2019 I called the patient's daughter, Ms. Opal Aguilera, at [phone] to get further historical data regarding patient's current admission. While talking to me, Ms. Aguilera breaks down and she tells me that she could not take care of her mother at home. She did not realize before that she has had multiple medical issues including breathing issues, feeding issues, ileostomy, and she was trying her best, but it was impossible for her to take care of her and she was feeling extremely emotional and frustrated about it. She suggested to me that Ms. Shi would need either a fdc or rehab facility where she could be taken care of. I expressed my empathy. I explained to her that Ms. Shi does have a lot of medical issues and needs a lot of care. I assured her that I will involve my care management team again on Friday and will rethink discharge plan in future. cc: Jamil Sanabria MD
--- NOTE | 2019-02-28 07:24 | Diag Imaging Result Doc PS360 ---
CHEST-PORTABLE - 02/28/2019 INDICATION: pneumonia COMPARISON: 02/27/2019 FINDINGS: Stable COPD. Stable coarse bilateral interstitial infiltrates/opacities. Heart size remains top normal. No pneumothorax or large pleural effusion. IMPRESSION: No change from prior. Electronically signed by Faustino Villarreal 02/28/2019 7:22 AM
[2019-02-28 08:31] LABS: AGAP 12; ALB/GLOB RATIO 0.6; ALBUMIN 1.9 g/dL (3.5-5.0); ALKALINE PHOSPHATASE 59 U/L (32-104); BUN 24 mg/dL (8-22); CHLORIDE 94 mmol/L (98-107); COSMO 271; CREATININE 1.3 mg/dL (0.5-0.9); ESTIMATED GFR 41; GLUCOSE 83 mg/dL (70-104); GOT 16 U/L (10-30); GPT 6 U/L (10-36); POTASSIUM 4.1 mmol/L (3.5-5.1); SODIUM 134 mmol/L (136-145); TCO2 28 mmol/L (25-35); TOTAL BILIRUBIN < 0.15 mg/dL (0.20-1.00); TOTAL PROTEIN 5.2 g/dL (6.3-8.3)
[2019-02-28] MEDS ORDERED: LEVAQUIN PO SCH (09:00)
[2019-02-28] MEDS: ADVAIR 500/50 DISKUS INH SCH ×2 (11:37→23:36)
[2019-02-28] MEDS: MEGACE LIQUID PO SCH ×2 (12:29→20:53)
[2019-02-28] MEDS: ICAR-C PO SCH (12:31)
[2019-02-28] MEDS: MUCINEX PO SCH ×2 (12:31→20:53)
[2019-02-28] MEDS: FOLIC ACID PO SCH (12:32)
[2019-02-28] MEDS: NEXIUM PO SCH ×2 (12:32→20:53)
[2019-02-28] MEDS: SPIRIVA INH SCH (15:49)
--- NOTE | 2019-02-28 16:27 | PROGRESS NOTE ---
DATE: 02/28/2019 INTERVAL HISTORY: No acute events overnight. The patient's blood sugars though low were in acceptable range. She has been eating okay. She denies any complaints. I discussed with her, explained to her about caregiver fatigue and answered all of her questions. VITALS: Temperature of 98.6 degrees, pulse 106, respiratory rate 20, blood pressure 90/40, saturating 97% room air. PHYSICAL EXAMINATION: General: Cachectic. Not in any acute distress. Mouth: Oral cavity is dry. Lungs: Air entry bilaterally equal. No wheeze. She has inspiratory crackles in bilateral infrascapular region. Heart: S1, S2 normal. No murmur, rub, or gallop. Abdomen: Soft. Ileostomy site has improving erythema, has a greenish liquidy output. Extremity: No lower extremity edema. Neurologic: She is alert and oriented x3. LABS: Suggestive of normocytic anemia, improving thrombocytopenia, acceptable range of electrolytes, and acute kidney injury. Overnight intravenous access could not be secured. ASSESSMENT AND PLAN: 1. Bilateral lower lobe pneumonia. 2. Volume depletion and acute kidney injury. 3. Chronic obstructive pulmonary disease and chronic hypoxic respiratory failure. 4. Ileostomy site irritation without any cellulitis. PLAN: I will continue her on oral antibiotics. I will continue to encourage oral intake. I will continue her home medications for a recent multiple perforated gastric ulcers, nausea, vomiting, and COPD. Considering patient's code status is DNR level 1, which I confirmed with the patient, and she was recently discharged home on hospice, I will consult Care Management tomorrow to see if hospice with the nursing facility could be an option for her. The patient's daughter was emotional on phone that she could not take care of her, and I explained to her about the patient's multiple clinical medical conditions, and it could be challenging taking care of her at home. I will again regroup with elementary school social worker and patient's daughter tomorrow. Meanwhile, continue oral diet. Considering our goal is to provide her hospice care, I would not be attempting a central line as it is too invasive and against the general goals of care for her. cc: Jamil Sanabria MD
[2019-02-28] MEDS: LEVAQUIN PO SCH (17:58)
[2019-02-28] MEDS: REQUIP PO SCH (20:53)
[2019-02-28] MEDS: REMERON PO SCH (20:53)
[2019-02-28] MEDS ORDERED: REQUIP PO ONE (23:22)
[2019-03-01] MEDS: CARAFATE LIQUID PO SCH ×4 (02:59→21:11)
[2019-03-01] MEDS: ALBUTEROL NEB INH SCH ×4 (04:06→22:29)
[2019-03-01] MEDS: SYNTHROID PO SCH (06:15)
[2019-03-01] MEDS: REGLAN PO SCH ×4 (06:15→21:08)
[2019-03-01] MEDS: ICAR-C PO SCH (08:52)
[2019-03-01] MEDS: NEXIUM PO SCH ×2 (08:52→21:08)
[2019-03-01] MEDS: MUCINEX PO SCH ×2 (08:52→21:08)
[2019-03-01] MEDS: MEGACE LIQUID PO SCH ×3 (08:52→21:09)
[2019-03-01] MEDS: FOLIC ACID PO SCH (08:52)
[2019-03-01] MEDS: SPIRIVA INH SCH (09:51)
[2019-03-01] MEDS: ADVAIR 500/50 DISKUS INH SCH ×2 (09:51→22:29)
--- NOTE | 2019-03-01 10:24 | Diag Imaging Result Doc PS360 ---
EXAM: CHEST-1 VIEW 03/01/2019 HISTORY: REHAB TECHNIQUE: AP portable at 1011 COMMENT: There are somewhat coarse diffuse interstitial and alveolar opacities bilaterally. Compared to 02/22/2019 there has been improvement with regard to the left lower lobe and the left pleural effusion. IMPRESSION: Improvement in pneumonia and/or atelectasis in the left lower lobe as well as the left pleural effusion present previously. Electronically signed by Thad Dupree 03/01/2019 10:22 AM
--- NOTE | 2019-03-01 11:49 | PROGRESS NOTE ---
DATE: 03/01/2019 INTERVAL HISTORY: No acute events overnight. SUBJECTIVE: Patient is denying any complaints. The patient's family is at bedside. VITALS: Temperature 97.8 degrees, pulse 107, respiratory rate 18, blood pressure 97/52, and saturating 98% on 2 to 4 L nasal cannula. PHYSICAL EXAMINATION: She has an anxious look. Oral cavity is dry.Lungs: Air entry bilaterally equal. No wheeze or rhonchi. Mild crackles bilateral infrascapular region. Heart: S1, S2 normal. Tachycardic. No murmur or gallop. Abdomen: Soft, nontender. Ileostomy has yellowish output. She does have some irritation around the ileostomy site which is significantly better. LABORATORY: No CBC. BMP today. Blood sugar 118. ASSESSMENT AND PLAN: 1. Bilateral lower lobe pneumonia. 2. Volume depletion, acute kidney injury. 3. COPD and chronic hypoxic respiratory failure. 4. Recurrent perforated gastric ulcer status post gastrectomy and ileostomy with ileostomy site irritation without cellulitis. PLAN: 1. The patient's code status is DNR level 1. Continue to encourage oral intake. She does not have an IV access. Continue her home medications for vomiting including metoclopramide. Continue oxygenation. Continue nebulizer. Continue ropinirole for restless legs syndrome, sucralfate and esomeprazole for recurrent gastric ulcers, albuterol nebulization, fluticasone, salmeterol, and for her COPD, iron carbonyl ascorbic acid. Folic acid for chronic anemia. Levofloxacin for recurrent pneumonia. DISPOSITION: I had an extensive discussion with the patient and her daughter at bedside. I explained to them about multiple comorbidities and medical illnesses the patient has, and that it could really be challenging taking care of these issues at home. I explained to them about advantage of assisted facility. They agreed, so now the plan is to transition her to assisted facility. Hopefully, hospice would take over from there at the rehab. Plan of care discussed with the patient and daughter. All of their questions have been answered. Her code status is DNR level 1. ADDENDUM: [facility] would likely have a bed tomorrow. And patient could be discharged for likely GIP status. cc: MD YANIRA Shaffer
[2019-03-01] MEDS: TYLENOL PO PRN ×2 (15:59→21:11)
[2019-03-01] MEDS: LEVAQUIN PO SCH (19:35)
[2019-03-01] MEDS: REMERON PO SCH (21:09)
[2019-03-01] MEDS: REQUIP PO SCH (21:09)
[2019-03-02] MEDS ORDERED: ATARAX PO ONE (02:30)
[2019-03-02] MEDS: CARAFATE LIQUID PO SCH ×2 (02:42→09:49)
[2019-03-02] MEDS: ALBUTEROL NEB INH SCH ×2 (03:08→09:03)
[2019-03-02] MEDS: REGLAN PO SCH ×2 (07:06→12:24)
[2019-03-02] MEDS: SYNTHROID PO SCH (07:06)
[2019-03-02] MEDS: SPIRIVA INH SCH (07:36)
[2019-03-02] MEDS: ADVAIR 500/50 DISKUS INH SCH (07:36)
--- NOTE | 2019-03-02 09:47 | PROGRESS NOTE ---
DATE: 02/28/2019 INTERVAL HISTORY: No acute events overnight. The patient did not have any other acute complaints. Her blood sugar was 90 at nighttime. In the morning time, however, it is found to be 65. The patient is denying any complaints. She is feeling much better. She states she ate a little bit. Denies any chest pain or unusual shortness of breath. OBJECTIVE: Vital signs: Temperature 98.6 degrees pulse 106, respiratory rate 20 blood pressure 93/47. She is saturating 97% on 3 L nasal cannula. Cachectic (has severe protein calorie malnutrition). Not in any acute distress. She has an anxious look on the face. She has facial pallor as well. Oral cavity is dry. Air entry bilaterally equal with no wheeze, rhonchi, crackles. S1, S2 normal. No murmur,, rub, gallop. Abdomen is soft. Right side quadrant ileostomy with liquidy yellowish-greenish output. No undue tenderness. There is some erythema because of irritation around the ileostomy site without any jonn cellulitis. No lower extremity edema she has a urine catheter which I will order to be removed. LABORATORY DATA: Labs suggestive of thrombocytopenia which is better, hyponatremia and hypochloremia, which are stable. She does have a form of acute kidney injury because of poor p.o. intake, and I encouraged to her to take by mouth. MICROBIOLOGY: No data. IMAGING: No data except chest x-ray performed today morning which was unchanged from prior chest x-ray. ASSESSMENT AND PLAN: 1. Suspected persistent bilateral lower lobe pneumonia. I think this is likely in the setting of her advanced COPD and pulmonary fibrosis without new pneumonia. She was discharged day before yesterday on oral Levaquin which I will complete the course of. 2. History of chronic obstructive pulmonary disease and chronic hypoxic respiratory failure. Continue her oxygen, albuterol/ipratropium nebulization, fluticasone/salmeterol nebulization, and tiotropium inhaler. 3. Multiple perforated gastric ulcers requiring gastrectomy with a right colectomy and end ileostomy in January 2019. Continue proton pump inhibitors b.i.d., sucralfate, and metoclopramide. DISPOSITION: I called the patient's daughter, Ms. Aguilera, and explained to her about patient's clinical condition. We discussed about caregiver fatigue. We discussed about the patient's multiple medical condition which would require close monitoring, and accordingly I will involve my addiction social worker team on Friday morning. I think my plan is going to recommend assisted facility with hospice. Plan of care discussed with the nursing team. I will have in-person discussion with the patient and her daughter on Friday about hospice with assisted facility. cc: Jamil Sanabria MD MTDD
[2019-03-02] MEDS: MEGACE LIQUID PO SCH (09:49)
[2019-03-02] MEDS: ICAR-C PO SCH (09:49)
[2019-03-02] MEDS: MUCINEX PO SCH (09:49)
[2019-03-02] MEDS: FOLIC ACID PO SCH (09:49)
[2019-03-02] MEDS: NEXIUM PO SCH (09:49)
[2019-03-02] MEDS ORDERED: ALBUTEROL NEB INH ONE (10:36)
--- NOTE | 2019-03-02 11:38 | DISCHARGE SUMMARY ---
ADMISSION DATE: 02/27/2019 DISCHARGE DATE: DISCHARGE DIAGNOSES: 1. Bilateral lower lobe pneumonia. 2. Advanced chronic obstructive pulmonary disease with chronic hypoxemic respiratory failure. 3. Dehydration, resolved. 4. Acute kidney injury. 5. Recurrent perforated gastric ulcer, status post gastrectomy and ileostomy with ileostomy site irritation without cellulitis. 6. This patient is DNR level 1. HOSPITAL COURSE: A 68-year-old female with a past medical history of advanced COPD, chronic hypoxemic respiratory failure, bleeding peptic ulcer disease requiring gastrectomy and Billroth growth procedure, status post ileostomy. In late January of 2019, developed dumping syndrome and was discharged on 02/26/2019 to home with hospice. He is brought in by the family for suspected cellulitis around the ileostomy site. Apparently, hospice team had called the family 3 times the night before of admission to provide instructions about ileostomy bag change, but the patient's family was not able to take care of it apparently. The patient denies any complaints except for some itchiness every now and then around the ostomy side. She was short of breath and coughing up sputum. X-ray performed showed bilateral lower lobe pneumonia which is persistent. She was placed on antibiotics, and we basically continued with her breathing treatment oxygen supplementation, and medication that she was getting at home. The patient was improving a little bit on a daily basis. X-ray done yesterday showed improvement in pneumonia and/or atelectasis in the left lower lobe as well as left pleural effusion present previously. I note Dr. Sanabria has an extensive discussion with the patient's family, her daughter at the bedside. She knows that she has multiple comorbidities and medical illness. I talked to her also today, and she discussed with me that she cannot take care of her at home, I told her that she will be discharged to [facility] and she agreed with that, and hopefully hospice will take over from there at the rehab center. Her code status is DNR level 1. OBJECTIVE: Vital Signs: Temperature 97.4 degrees, pulse 116, respiratory rate 18, blood pressure 90/47 and oxygen saturation 95% on 3 L of nasal cannula. HEENT: Head normocephalic. No trauma. PERRLA. Neck: Supple. No JVD. No masses. Central trachea. Chest: Decreased breath sounds globally with prolonged expiratory phase. Decreased breath sounds mostly at the bases with mild rhonchi and crepitus at the bases as well. Abdomen: Soft, nontender. Ileostomy has "Jell-Oish" output, some irritation around the ostomy side, and it looks apparently better. Extremities: No edema. No clubbing. No cyanosis. Neurological: The patient is alert. She is following commands. She is answering my questions. She is moving all 4 extremities. LABORATORY: Glucose 71. DISCHARGE MEDICATIONS: 1. Acetaminophen 650 mg p.o. q.4 hours as needed. 2. Levofloxacin 750 mg p.o. daily x3 pills. 3. Folic acid 1 mg p.o. daily. 4. Icar C 1 tablet p.o. daily. 5. Acetaminophen 650 mg p.o. q.6 hours as needed. 6. Carafate liquid 1 g orally every 6 hours. 7. Albuterol inhalation every 6 hours. 8. Advair 500/50 Diskus 1 inhalation every 12 hours. 9. Spiriva Respimat 18 g daily. 10. Mirtazapine 7.5 mg p.o. at bedtime. 11. Megace liquid 200 mg p.o. twice a day. 12. Esomeprazole 40 mg p.o. twice a day. 13. Metoclopramide 10 mg before meals and at bedtime p.o. 14. Ropinirole 2 mg p.o. at bedtime. 15. Mucinex 600 mg p.o. q.12 hours. 16. Levothyroxine 25 mcg p.o. daily. TIME SPENT: Time discharging this patient 35 minutes. Follow up with her primary care doctor in 1 to 2 weeks. Also, the rehab facility needs to contact hospice, so hopefully she can go back to hospice after discharge, I talked to the daughter and she cannot take care of this patient. Overall, her prognosis is poor due to her multiple comorbidities, age, and advanced disease. cc: James Huynh MD
[2019-03-02 12:12] VITALS: BP 115/62
== END 2019-03-02 13:23 | DRG 178 ==
LOC: SUPCPDRO → ED 13:41 → SUATTDRO 16:59 → 4N 16:59
PROVIDERS: ATTEND Internal Medicine